=== PATIENT | female | born 1940 | race Caucasian/White ===

== ENCOUNTER 2023-11-26 22:05 | Inpatient (IN) | payer OTHER, SELFPAY ==
[2023-11-26] VITALS (7 sets, daily range): BP systolic 108–130; BP diastolic 74–106; BMI 32.2
[2023-11-26 18:15] LABS: % Immature Granulocytes 0.2 % (0-0.5); % Lymphocytes 34.2 % (20.5-51.1); % Monocytes 9.9 % (1.7-9.3); % Neutrophils 52.7 % (42.2-75.2); Absolute Basophils 0.1 10^3/uL (0-0.2); Absolute Eosinophils 0.2 10^3/uL (0-0.7); Absolute Lymphocytes 2.9 10^3/uL (1.2-3.4); Absolute Monocytes 0.8 10^3/uL (0.1-0.6); Absolute Neutrophils 4.4 10^3/uL (1.4-6.5); Hematocrit 38.9 % (37.0-47.0); Hemoglobin 13.6 g/dL (12.0-16.0); Mean Corpuscular Hgb 31.6 pg (27.0-31.0); Mean Corpuscular Volume 90.5 fL (81.0-99.0); Nucleated Red Blood Cells % 0 %; Platelet Count 324 10^3/uL (130-400); Red Cell Dist. Width 15.4 % (11.5-14.5); White Blood Cell Count 8.4 10^3/uL (4.8-10.8)
[2023-11-26 18:20] LABS: INR 0.92; PT 12.6 Sec (11.4-14.6)
[2023-11-26] MEDS: DUONEB 3 ML INH (18:22)
[2023-11-26 18:23] LABS: ALT (SGPT) 44 U/L (0-35); AST (SGOT) 40 U/L (14-36); Alkaline Phosphatase 117 U/L (38-126); Blood Urea Nitrogen 16 mg/dl (7-17); Calcium 9.9 mg/dl (8.4-10.2); Carbon Dioxide 27 mmol/L (22-30); Chloride 96 mmol/L (98-107); Estimated Creatinine Clearance 52 ml/min; Glucose 173 mg/dl (70-99); Potassium 3.5 mmol/L (3.5-5.1); Sodium 137 mmol/L (135-145); Total Bilirubin 0.9 mg/dl (0.2-1.3); Total Protein 6.8 g/dl (6.3-8.2); eGFR > 60.00
[2023-11-26 18:31] LABS: COVID-19 Antigen Negative (Negative)
[2023-11-26 18:34] LABS: NT-proBNP 2640 pg/ml; Troponin I 0.022 ng/ml
--- NOTE | 2023-11-26 19:16 | ED.GENMED ---
History of Present Illness
General
Chief Complaint: Breathing Problem
Source: patient, records and family
Exam Limitations: none
Time Seen by Provider: 11/26/23 17:39
Nursing documentation reviewed up to this point in time: agreed with
Travel History
Have you had any contact with someone who has COVID-19?: No
Do you have any symptoms of coronavirus? Fever > 100 degrees, chills, cough, shortness of breath, sore throat, loss of taste or smell, muscle aches, or headache?: Yes
Symptoms:: shortness of breath
History of Present Illness
History of Present Illness:
Patient is a 3-year-old female who presents to the emergency department with increasing shortness of breath over the past week. Patient felt like she needed O2 to breathe. Patient's blood pressure was elevated en route to the hospital. Patient
denies fever chills or coughing. Patient did have 1 episode couple days ago of chest pain in the sternal area. Patient's appetite is diminished. Patient's nauseous without vomiting, diarrhea, melena or hematochezia. Patient has had increasing
abdominal gas but denies any abdominal pain. Patient's unsure if her legs are becoming more swollen than normal. Patient denies any leg pain. Patient does have a history of atrial fibrillation, CAD, CHF as well as COPD/asthma.
Past History
Past History
ED Past Medical History: Arrthythmia (Atrial fib), Asthma, CAD, Cancer (Breast and colon CA), CHF, COPD, GERD, HTN, Hypercholesterolemia, NIDDM (Diet controlled), [place], Hypothyroidism and Other (Colitis, Anemia)
ED Past Surgical History: Appendectomy, Bowel resection (Colectomy for Colon CA), Cardiac (Pacemaker), Cholecystectomy, Orthopedic (Right and left total knee replacements), Tonsilectomy and Other (Left breast mastectomy)
Social History
Tobacco: Former smoker
Alcohol: None
Drug: None
Personal:
Living: alone
Employment: Retired
Family History
Family History: CAD and Other
Review of Systems
Review of Systems
All Other Systems: ROS reviewed and negative except as documented in HPI and ROS
Constitutional: Reports fatigue; Denies fever or chills
EENT: Reports no symptoms
Respiratory: Reports trouble breathing; Denies cough
Cardiac: Reports chest pain; Denies diaphoresis or palpitations
ABD/GI: Reports nausea and anorexia; Denies abdominal pain, vomiting, diarrhea, constipated, bloody stools or black stools
: Reports no symptoms
Musculoskeletal: Denies edema
Skin: Reports no symptoms
Neurological: Reports no symptoms
Hematologic/Lymphatic: Reports no symptoms
Phy Exam
Physical Exam
Physical Exam:
Physical Exam
General: mild distress, alert and appropriate, well nourished, well hydrated
HENT: Normocephalic, supple with no lymphadenopathy, no thyromegaly
Eyes: Clear sclera, conjuctiva without injection
Heart: Re irregular irregular rhythm and tachycardic rate. No S3, S4. No murmur. No NVD. Distant heart sounds
Lungs: mild respiratory distress, no stridor, lung sounds with scattered rales at the bases and equal bilaterally
Abdomen: Soft, nontender, no organomegaly, no CVA tenderness, BS good
Neuro: Alert and oriented x 3, CN II - XII intact, no motor focality
Skin: no rash
Psychiatric: well kept. interactive and cooperative
Extremities: No cyanosis, tenderness. Trace pretibial edema bilaterally
Scores
Heart Failure Risk
Heart Failure Risk Score: Yes
History of Stroke or TIA: No
History of intubation for respiratory distress: No
Heart rate on ED arrival >/= 110: Yes
SaO2 <90% on arrival on room air: No
HR >/=110 during 3min walk test (or too ill to perform test): Yes
ECG has acute ischemic changes: No
Urea >/=12mmol/L (BUN 33.6mg/dL): No
Serum CO2>/=35mmol/L: No
Troponin I or T elevated to [place] Level (0.4mg/dL): No
NT-proBNP >/=5,000ng/L (5,000pg/ml): No
HF Risk Score: 2
Admission Status: MEDIUM RISK 9.2% Consider observation or discharge to home with homecare & f/u visit to PCP/[employer] And [employer] Insulator Helper, or SNF for treatment
Course
Orders/Labs/Results
Orders:
Orders
11/26/23 17:16
EKG [Electrocardiogram (*1)] Urgent
Reason for Study: Shortness of Breath
11/26/23 17:17
EKG- Treatment ONCE
11/26/23 17:53
COVID-19 Antigen Urgent
Source: Nasal Swab
Complete Blood Count/With Diff Urgent
Comprehensive Metabolic Panel Urgent
NT-proBNP Urgent
Prothrombin Time Urgent
Troponin I Urgent
Comment: ADD ON
Influenza A+B Rapid Molecular Urgent
MORGAN Source: Nasal Swab
Specimen Description:
11/26/23 17:55
Add On- LAB Urgent
Tests Added?: Troponin
11/26/23 17:56
Ipratropium/Albuterol Sulfate [Duoneb] 3 ml INH R NOW ONE
CR Chest - 2 Views Urgent
Comment:
Reason For Exam: sob
11/26/23 19:31
Furosemide [Lasix] 60 mg IV NOW STA
Abnormal Lab Results
11/26/23
17:53
MCH 31.6 H pg
(27.0-31.0)
RDW 15.4 H %
(11.5-14.5)
Absolute Monos (auto) 0.8 H 10^3/uL
(0.1-0.6)
Monocytes % 9.9 H %
(1.7-9.3)
Chloride 96 L mmol/L
(98-107)
Glucose 173 H mg/dl
(70-99)
AST 40 H U/L
(14-36)
ALT 44 H U/L
(0-35)
11/26/23 17:53
11/26/23 17:53
Vital Signs
Initial and Last Documented VS:
Initial Vital Signs
Temp Pulse Resp BP Pulse Ox
98.1 F 110 24 115/92 97
11/26/23 17:20 11/26/23 17:20 11/26/23 17:20 11/26/23 17:20 11/26/23 17:20
Last Documented Vital Signs
Temp Pulse Resp BP Pulse Ox
98.1 F 101 29 115/92 97
11/26/23 17:20 11/26/23 19:45 11/26/23 19:45 11/26/23 17:20 11/26/23 19:45
*Radiology
Radiology exam reviewed: preliminary read by ED provider (cxr nad)
*Pulse Oximetry
Patient hypoxic: no
*EKG
Interpreted by ED Provider?: Yes
EKG Intrepretation Date: 11/26/23
EKG Intrepretation Time: 19:30
Interpretation: abnormal
Comparison EKG: changes noted
Heart Rate: 101
Rate: tachycardiac
Rhythm: a-fib
Norvell: left axis deviation
Interval: normal QT interval
QRS Pattern: left vent hypertrophy
Ischemia: non-specific ST changes
*Program Clerk Interpretation
Rate: tachycardiac
Interpretation: abnormal
Heart Rate: 106
Rhythm: a-fib
*Critical Care Note
Total Time (30-74mins, 75-104mins- exclusive of procedures): Not Applicable
Update Note
Update Note:
Patient's BNP is elevated for the patient. Patient's troponin is about her baseline. Likewise the patient's LFTs are her baseline. Will get the chest x-ray but the patient is being admitted for CHF. Patient did have some improvement with the
nebulizer.
ED Attending Note
-
Portions of this chart may have been created with voice recognition software.� Occasional wrong word or��sound alike� substitutions may have occurred due to the inherent limitations of voice recognition software.
Discharge Plan
Departure
Patient Disposition: Admit
Date of Disposition: 11/26/23
Time of Disposition: 19:33
Admit to doctor: hospitalist
Presentation/result/management discussed w/ accepting MD/DO: Hospitalist
Patient with high blood pressure during this ER visit?: No
Condition: Fair
Covid-19: Negative COVID-19
Discharge Problem:
CHF (congestive heart failure)
Prescriptions:
No Action
montelukast 10 MG tablet
10 mg PO HS
levothyroxine 100 MCG tablet
100 mcg PO DAILY
cetirizine 10 MG tablet
10 mg PO DAILY
albuterol sulfate 1 PUFF HFA aerosol inhaler
2 puff inhalation R Q4HPRN PRN (Reason: sob)
metoprolol succinate 25 mg Tablet Extended Release 24 Hr
12.5 mg PO DAILY
Eliquis 5 mg Tablet
5 mg PO BID
magnesium 250 mg Tablet
250 mg PO DAILY
ezetimibe [Zetia] 10 mg Tablet
10 mg PO QPM
cholecalciferol (vitamin D3) [Vitamin D3] 125 mcg (5,000 unit) Tablet
125 mcg PO DAILY
furosemide 40 mg tablet
40 mg PO DAILY
Patient Comments:
11/26/2023: Pt took an extra dose of Lasix 40mg today per PCP
midodrine 10 mg tablet
10 mg PO BID
oxycodone 5 mg capsule
5 mg PO Q6H PRN (Reason: moderate pain) Qty: 10 0RF
Patient Comments:
11/26/2023: last filled 10/11/23, 120 tabs for 30 days from [facility]
glipizide 5 mg Tablet
2.5 mg PO DAILY Qty: 30 0RF
pantoprazole [Protonix] 40 mg tablet,delayed release (DR/EC)
40 mg PO DAILY Qty: 30 0RF
Rx Instructions:
Please take 30 minutes prior to eating or drinking anything in the morning.
atorvastatin 80 mg tablet
80 mg PO QPM
B Complex Tablet Extended Release
1 tab PO DAILY
gabapentin 600 mg tablet
600 mg PO TID
zolpidem 5 mg tablet
5 mg PO HS PRN (Reason: sleep)
Patient Comments:
11/26/2023: last filled 09/11/23, 30 tabs for 30 days from [facility]
potassium
1 tab PO DAILY
acetaminophen [Pain Relief ES (acetaminophen)] 500 mg tablet
1,000 mg PO Q6H PRN (Reason: mild pain)
Referrals:
Jerrell Byrne MD [Family Provider] -
Interventions
Interventions:
*Risk Screen - Suicide Last Done: 11/26/23 17:21
*General Assessment Last Done: 11/26/23 17:21
*Neglect/Abuse Screening Last Done: 11/26/23 17:21
*ED COVID-19 Vaccine History Last Done: 11/26/23 17:21
ED- Cardiac Assessment Last Done: 11/26/23 17:21
ED- Pulmonary Assessment Last Done: 11/26/23 17:21
[2023-11-26] MEDS: LASIX 60 MG IV (19:47)
--- NOTE | 2023-11-26 21:10 | HPS.HSE ---
Family Physician
-
Family Physician: Jerrell Byrne
Chief Complaint
-
SoB
History of Present Illness
83F HX Paroxysmal Afib, chr HFrEF, mild , COPD/asthma, breast cancer seen at ER for evalaution of increasing shortness of breath over the past week and become dyspnic with minimal exertion. Patient's blood pressure was found to be elevated by
EMS today.
Medical History
Past Medical History
Past Medical History: Reports Other
Additional Past Medical History:
Chronic HFpEF
Recent admission for colon mass s/p R hemicolectomy 10/02/21 until 10/15/21
Anemia
Chronic Eliquis OAC
Paroxysmal Afib
CAD
COPD
Hyperlipidemia
Hypothyroidism
Asthma
Neuropathy
Hypertension
Breast cancer, status post left mastectomy
History of carotid endarterectomy
History of diabetes mellitus type 2
Hypokalemia
Past Surgical History: Reports Other
Additional Past Surgical History:
HX colon mass s/p R hemicolectomy 10/02/21 until 10/15/21
Left Radical Mastectomy
Appendectomy
Cholecystectomy
CABG
Bilateral CEA
PPM Placement
Social History
Tobacco: Former Smoker
Alcohol: None
Drug: None
Family History
Family History: Other (Patient cites strong family history of heart disease)
Allergies / Home Medications
Allergies reflects when Allergies were last updated in [facility].
Home Medications with original date entered in [facility]
Allergy/Medication List:
Allergies
Allergy/AdvReac Type Severity Reaction Status Date / Time
cefazolin [From Anc] Allergy Itching, Verified 11/19/23 13:40
redness,
hives
crab Allergy Welts, Verified 11/19/23 13:40
vomiting
feathers Allergy allergy Verified 11/19/23 13:40
tested
positive
grass pollen Allergy allergy Verified 11/19/23 13:40
tested
positive
AND FOR HAY
house dust Allergy allergy Verified 11/19/23 13:40
tested
positive
iodine Allergy Unknown Verified 11/19/23 13:40
mold Allergy allergy Verified 11/19/23 13:40
tested
positive
Sulfa (Sulfonamide Allergy Hives Verified 11/19/23 13:40
Antibiotics)
tree and shrub pollen Allergy allergy Verified 11/19/23 13:40
tested
positive
Home Medications
montelukast 10 mg tablet 10 mg PO HS Lung/breathing issues 07/17/17
levothyroxine 100 mcg tablet 100 mcg PO DAILY Thyroid 07/03/21
albuterol sulfate 90 mcg/actuation aerosol inhaler 2 puff inhalation R Q4HPRN PRN sob 10/02/21
cetirizine 10 mg tablet 10 mg PO DAILY Allergies 10/02/21
apixaban 5 mg tablet (Eliquis) 5 mg PO BID Blood clot prevention/tx 11/18/22
cholecalciferol (vitamin D3) 125 mcg (5,000 unit) tablet (Vitamin D3) 125 mcg PO DAILY Supplement 11/18/22
ezetimibe 10 mg tablet (Zetia) 10 mg PO QPM High cholesterol 11/18/22
magnesium 250 mg tablet 250 mg PO DAILY Supplement 11/18/22
metoprolol succinate 25 mg tablet,extended release 24 hr 12.5 mg PO DAILY Blood pressure 11/18/22
furosemide 40 mg tablet 40 mg PO DAILY Fluid retention/Swelling 12/09/22
midodrine 10 mg tablet 10 mg PO BID Blood pressure 12/09/22
glipizide 5 mg tablet 2.5 mg PO DAILY Diabetes #30 tabs 02/26/23
<del>oxycodone</del> <del>5</del> <del>mg</del> <del>capsule</del> <del>5</del> <del>mg</del> <del>PO</del> <del>Q6H</del> <del>PRN</del> <del>moderate</del> <del>pain</del> <del>#10</del> <del>caps</del> <del>02/26/23</del>
pantoprazole 40 mg tablet,delayed release (Protonix) 40 mg PO DAILY #30 tabs 11/19/23
acetaminophen 500 mg tablet (Pain Relief Extra Strength (acetaminophen)) 1,000 mg PO Q6H PRN mild pain 11/26/23
atorvastatin 80 mg tablet 80 mg PO QPM 11/26/23
gabapentin 600 mg tablet 600 mg PO TID 11/26/23
potassium 1 tab PO DAILY 11/26/23
vitamin B complex 1 tab PO DAILY 11/26/23
zolpidem 5 mg tablet 5 mg PO HS PRN sleep 11/26/23
Review of Systems
-
Constitutional: Reports No Symptoms
EENT: Reports No Symptoms
Respiratory: Reports No Symptoms, See HPI and Trouble Breathing
Cardiac: Reports See HPI
Abdomen/GI: Reports No Symptoms
: Reports No Symptoms
Musculoskeletal: Reports No Symptoms
Skin: Reports No Symptoms
Neurological: Reports No Symptoms
Endocrine: Reports No Symptoms
Hematologic/Lymphatic: Reports No Symptoms
Psych: Reports No Symptoms
Physical Exam
Vital Signs
Vital Signs
Temp Pulse Resp BP Pulse Ox
98.1 F 101 29 115/92 97
11/26/23 17:20 11/26/23 19:45 11/26/23 19:45 11/26/23 17:20 11/26/23 19:45
Physical Exam
General: Other (see below )
Laboratory Results
-
11/26/23 17:53
11/26/23 17:53
Laboratory Results
PT 12.6 Sec (11.4-14.6) 11/26/23 17:53
INR 0.92 11/26/23 17:53
Total Bilirubin 0.9 mg/dl (0.2-1.3) 11/26/23 17:53
AST 40 U/L (14-36) H 11/26/23 17:53
ALT 44 U/L (0-35) H 11/26/23 17:53
Alkaline Phosphatase 117 U/L (38-126) 11/26/23 17:53
Troponin I 0.022 ng/ml 11/26/23 17:53
Data Reviewed
-
Diagnostic Radiology: Report Reviewed by me
Medical Tests (Nuc Med, Echo, EKG etc): Report Reviewed by me
Old Records: Reviewed
Impression/Plan
-
Wt 82.1kg (07/10/23) ---> 82.4kg (11/26/22)
PE
Gen: mild distress,
HEENT: anicteric
Neck: supple
Lungs: mild respiratory distress, scattered rales at the bases and equal bilaterally
Cor: irregular irregular rhythm and tachycardic
Abdomen: Soft, nontender,
CLIENT EXPERIENCE CONSULTANT: Alert and oriented x 3
MS: no edema
Psych: well kept. interactive and cooperative
Data
nl CBC
Cl 96
nl Cr
nl GFR
BG 170s
AST 40
ALT 44
NEG TPNI
pro BNP 2600s - prior range 1000s- 5000s
NEG Flu A & B
NEG Covid
11/26/22 CXR
1. Mild cardiomegaly without radiographic evidence for acute pulmonary edema.
2. Previous CABG surgery.
3. Mild chronic elevation of the anterior left hemidiaphragm.
4. Mild subsegmental atelectasis and scarring in the right middle lobe and lingula.
5. Severe calcific atherosclerotic plaque in the thoracic and abdominal aorta.
6. Right-sided cardiac pacemaker in place.
7. Previous left mastectomy and left axillary lymph node dissection.
EKG report
ATRIAL FIBRILLATION WITH RAPID VENTRICULAR RESPONSE
LEFT VENTRICULAR HYPERTROPHY WITH REPOLARIZATION ABNORMALITY ( R in aVL ,
Sokolow-Sutton , [place] product )
ABNORMAL ECG
WHEN COMPARED WITH ECG OF 19-NOV-2023 13:35,
ATRIAL FIBRILLATION HAS REPLACED ELECTRONIC VENTRICULAR PACEMAKER
05/19/23 ECHO
LVEF 40-45
Mild MR
Mild -LVOT diameter of 2.1cm. calculated at 1.4cm2. Trace aortic regurgitation
05/28/21 ECHO
LVEF 50%
mild aortic stenosis, mean pressure gradient 14 mmHg, aortic valve area 1.1 cm�
Last admission 02/21/23 - 02/26/23
DC Dxs
1. Acute on chronic back pain.
2. Lumbar degenerative joint disease.
3. Left sciatica.
4. Podagra/gout flare.
5. Acute kidney injury.
ASSESSMENT & PLAN
Progressive Hawk with somewhat unremarkable Wt gain
chronic HFpEF - probably element of acute HF due to fast AF
Prx AF with RVR - marginal tachyarrhythmic - on vhronic Eliquis OAC
Permanent PPM
Mild aortic stenosis ( LVOT diameter of 2.1cm. Calculated at 1.4 sqcm)
- IV Lasix 40 daily
- [place] Metoprolol succinate to [address] of daily to improve rate control to improve cardiac output insetting of mild and FAF - hold if SBP < 100
- cont. chr Eliquis
- Daily weights I&O n BMP
- DCA card consult
CAD HX
s/p remote anterior SC with VF arrest with LAD angioplasty 07/17/97
CAD subsequent CABG x3 with 1996
HLD
- cont. Ezetimibe and Atorvastatin
Asthma/COPD HX
Respiratory status stable at this time - saturating well on room air
- cont. home montelukast and as needed albuterol
Chronic Hypotension HX
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
DMT2
Neuropathy
- cont glipizide
- on chronic Gabapentin
- add ISS low
Hypothyroidism
- check TSH
- cont home Synthroid
DVT Px: Eliquis
Code: DNR confirmed by patient in the presence of daughter
IP TLM
[2023-11-27] VITALS (9 sets, daily range): BP systolic 85–126; BP diastolic 55–94; PULSE 79–81; O2SAT 95; BMI 31.9; BMI 30.2
[2023-11-27] MEDS: SINGULAIR 10 MG PO ×2 (00:08→21:56)
[2023-11-27] MEDS: NEURONTIN 600 MG PO ×4 (00:08→21:55)
[2023-11-27 06:12] LABS: % Eosinophils 3.3 % (0-6); % Immature Granulocytes 0.3 % (0-0.5); % Lymphocytes 26.9 % (20.5-51.1); % Monocytes 10.6 % (1.7-9.3); % Neutrophils 57.9 % (42.2-75.2); Absolute Basophils 0.1 10^3/uL (0-0.2); Absolute Eosinophils 0.2 10^3/uL (0-0.7); Absolute Monocytes 0.8 10^3/uL (0.1-0.6); Absolute Neutrophils 4.3 10^3/uL (1.4-6.5); Hematocrit 38.6 % (37.0-47.0); Hemoglobin 13.5 g/dL (12.0-16.0); Mean Corpuscular Volume 91.5 fL (81.0-99.0); Nucleated Red Blood Cells % 0 %; Platelet Count 341 10^3/uL (130-400); Red Blood Cell Count 4.22 10^6/uL (4.20-5.40); Red Cell Dist. Width 15.3 % (11.5-14.5); White Blood Cell Count 7.4 10^3/uL (4.8-10.8)
[2023-11-27 06:32] LABS: ALT (SGPT) 40 U/L (0-35); AST (SGOT) 42 U/L (14-36); Albumin 3.8 g/dl (3.5-5.0); Alkaline Phosphatase 93 U/L (38-126); Blood Urea Nitrogen 16 mg/dl (7-17); Calcium 9.7 mg/dl (8.4-10.2); Carbon Dioxide 30 mmol/L (22-30); Chloride 95 mmol/L (98-107); Estimated Creatinine Clearance 52 ml/min; Glucose 146 mg/dl (70-99); Potassium 3.4 mmol/L (3.5-5.1); Sodium 137 mmol/L (135-145); Total Bilirubin 1.1 mg/dl (0.2-1.3); Total Protein 6.5 g/dl (6.3-8.2); eGFR > 60.00
--- NOTE | 2023-11-27 07:29 | W.PN.HOSP.TC ---
Today's Communication/Plan
-
see A/P
Assessment / Plan
Assessment / Plan
HPI: 83 yo F PMH Paroxysmal Afib, chronic HFrEF, mild , COPD/asthma, breast cancer; p/w shortness of breath over the past week and [place]. Patient's blood pressure was found to be elevated by EMS.
A/P:
# SOB/[place], likely acute on chronic HFpEF
# Paroxysmal AF with marginal RVR on admission
# s/p Permanent PPM
# Mild aortic stenosis
Check update echo
cont IV Lasix 40 daily, check daily weights
cont Metoprolol succinate increase to 12.[address] of daily, hold if SBP < 100
cont chronic Eliquis
DCA card consulted
# Mildly elevated LF likely due to hepatic congestion
cont to monitor LFT
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
# Hypokalemia
replete
# h/o CAD, remote h/o anterior NC with VF arrest with LAD angioplasty 07/17/97
# s/p subsequent CABG x3 with 1996
# HLD
Hold SOCIAL MEDIA COMMUNITY MANAGER statin/Zetia with elevated LFT
# h/o Asthma/COPD
Respiratory status stable at this time - saturating well on room air
cont home montelukast and as needed albuterol
# h/o Chronic Hypotension
cont SOCIAL MEDIA COMMUNITY MANAGER midodrine 10mg BID
# DMT2
# Neuropathy
cont glipizide
on chronic Gabapentin
added ISS low
# Hypothyroidism
Check TSH
Cont home Synthroid
DVT Px: SOCIAL MEDIA COMMUNITY MANAGER Eliquis
Code: DNR confirmed by patient in the presence of daughter
Anticipated Discharge: 24 - 48 hours
Subjective/Interval History
-
Date of Service: November 27, 2023
Objective Data
-
Labs:
Laboratory Results
11/27/23
05:44
WBC 7.4
Hgb 13.5
Hct 38.6
Plt Count 341
Sodium 137
Potassium 3.4 L
Chloride 95 L
Carbon Dioxide 30
BUN 16
Creatinine 0.8
Glucose 146 H
Calcium 9.7
Total Bilirubin 1.1
AST 42 H
ALT 40 H
Alkaline Phosphatase 93
Vital Signs:
Vital Signs
Temp Pulse Resp BP Pulse Ox
36.7 C 85 17 102/77 90
11/27/23 01:43 11/27/23 06:30 11/27/23 06:30 11/27/23 06:00 11/27/23 06:30
I&O
11/26/23 11/27/23 11/28/23
06:59 06:59 06:59
Intake Total 120 / 120
Output Total 400 / 400
Balance -280 / -280
Review of Systems
-
History Source: Patient
All other systems: Reviewed and negative
Physical Exam
-
General: Well Developed, Well Nourished, No Apparent Distress and Comfortable
Respiratory: Clear to Auscultation, Wheezes and Non Labored Respirations; Negative Accessory Resp Muscle Use
Cardiac: Regular Rhythm and S1/S2
GI: Soft and Nontender
Musculoskeletal: No Edema
Neuro: AO x 3
Psych: Calm and Intact Judgement/Insight
Data Reviewed
-
Labs: Labs Reviewed by me
[2023-11-27] MEDS: PROTONIX 40 MG PO (08:21)
[2023-11-27] MEDS: ELIQUIS 5 MG PO ×2 (08:21→21:41)
[2023-11-27] MEDS: VITAMIN D3 (cholecalciferol) 5000 UNITS PO (08:21)
[2023-11-27] MEDS: ProAmatine 10 MG PO ×2 (08:23→21:41)
[2023-11-27] MEDS: LASIX 40 MG IV ×2 (08:24→17:07)
[2023-11-27] MEDS: GLUCOTROL 2.5 MG PO (08:44)
[2023-11-27] MEDS: MAG-TAB SR 84 MG PO (08:44)
[2023-11-27] MEDS: B COMPLEX w/VITAMIN C 1 CAPLET PO (08:44)
[2023-11-27] MEDS: KCL 40 MEQ PO (08:44)
[2023-11-27] MEDS: ZYRTEC 10 MG PO (08:45)
[2023-11-27] MEDS: LOPRESSOR 12.5 MG PO ×2 (08:45→22:00)
[2023-11-27] MEDS: NOVOLOG FLEXPEN-LOW RESISTANCE SC ×3 (08:47→17:58)
[2023-11-27] MEDS: SYNTHROID 100 MCG PO (08:49)
[2023-11-27 09:48] LABS: Glycohemoglobin (HgbA1c) 8.3 % (4.0-5.6)
--- NOTE | 2023-11-27 10:01 | CON.CAR ---
Addendum entered and electronically signed by Ajit Qiu MD 11/27/23 10:49:
I saw and examined the patient.
The Investigator's note was reviewed and I agree with the note.
Comment:
GEN: No distress, awake, Ox3
HEENT: supple, anicteric, mmm
LUNGS:
CV: Reg, S1/S2, 1/6 syst LSB, no murmur
ABD: soft, BS+, NT/ND
EXT: No edema
NEURO: Gross non-focal
SKIN: No rash
plan:
She has a past medical history of chronic heart failure with mildly reduced ejection fraction, coronary artery status post CABG, persistent A-fib, pacemaker, COPD, and diabetes who presents with 2 weeks of progressive weight gain, shortness of
breath, orthopnea, and dyspnea on exertion. Her weight is up 5 to 10 pounds from last visit. A plan was made for atrial fibrillation for rate control at last office visit. She denies any palpitations. Her blood pressure has been marginal in the
past requiring midodrine and low-dose Toprol.
She now has acute on chronic heart failure with mildly reduced ejection fraction.
Start Lasix 40 mg IV twice daily. Creatinine is overall stable at 0.8.
Her A-fib overall appears rate controlled. Would continue low-dose Toprol and midodrine. Agree with plan for rate control strategy at this time. Continue Eliquis.
Follow kidney function/CHF education
Original Note:
Consultation
Consultation Request
Date/Time Consultation Requested: 11/26/2023 at 2206
Date/Time Consultation Performed: 11/27/2023 at 0930
Requesting Provider: Dr. Sanches
Performing Provider: Dr. Qiu
Reason for Consultation: CHF
Medical History
-
History of Present Illness:
HPI: Tori is an 83 year old female with PMH of chronic HFmrEF, persistent atrial fibrillation, CAD, , MR, SSS s/p PPM, COPD, HLD, HTN, hypothyroidism, asthma, DM with diabetic neuropathy, and prior breast cancer who presented to [facility] for
evaluation of increased SOB over the past few weeks. She reports she has been compliant with diet and denies any increased sodium or fluid intake. She reports she weighs herself on a fairly regular basis and denies noting any weight gain or LE
edema, however weight in ER is up approximately 5-10lbs from her usual dry weight of 170-175lbs. She denies any chest pain, palpitations, dizziness, or lightheadedness. She reports her shortness of breath has been worsening to the point where she
was constantly short of breath, even at rest and with minimal exertion. In the ER, she was noted to have evidence of acute heart failure on exam and proBNP was elevated at 2640. She was started on IV lasix and her breathing has improved. She reports
good urine output overnight.
PMH:
Chronic HFmrEF
Persistent Afib
Chronic Eliquis OAC
CAD
s/p remote anterior [place] with VF arrest with LAD angioplasty 07/17/97
CAD subsequent CABG x3 with 1996
Mild
Mild MR
SSS s/p PPM
COPD
Hyperlipidemia
Hypothyroidism
Asthma
Neuropathy
Hypertension
Breast cancer, status post left mastectomy
h/o carotid endarterectomy
h/o diabetes mellitus type 2
h/o colon mass s/p R hemicolectomy 10/02/21 until 10/15/21
Past Medical History
Past Medical History: Other (In HPI)
Past Surgical History: Appendectomy, Cardiac (LAD angioplasty 1996, CABG x3 1996), Cholecystectomy and Other (b/l TKA, carotid endarterectomy, L mastectomy, b/l cataract surgery, R hemicolectomy)
Social History
Tobacco: Former Smoker
Alcohol: None
Drug: None
Personal:
Living: Alone
Employment: Retired
Family History
Family History: CAD
Allergies / Home Medications
Allergy/AdvReac Type Severity Reaction Status Date / Time
cefazolin [From Anc] Allergy Itching, Verified 11/19/23 13:40
redness,
hives
crab Allergy Welts, Verified 11/19/23 13:40
vomiting
feathers Allergy allergy Verified 11/19/23 13:40
tested
positive
grass pollen Allergy allergy Verified 11/19/23 13:40
tested
positive
AND FOR HAY
house dust Allergy allergy Verified 11/19/23 13:40
tested
positive
iodine Allergy Unknown Verified 11/19/23 13:40
mold Allergy allergy Verified 11/19/23 13:40
tested
positive
Sulfa (Sulfonamide Allergy Hives Verified 11/19/23 13:40
Antibiotics)
tree and shrub pollen Allergy allergy Verified 11/19/23 13:40
tested
positive
Medication Instructions Recorded Confirmed Type
montelukast 10 mg tablet 10 mg PO HS Lung/breathing issues 07/17/17 11/26/23 History
levothyroxine 100 mcg tablet 100 mcg PO DAILY Thyroid 07/03/21 11/26/23 History
albuterol sulfate 90 mcg/actuation 2 puff inhalation R Q4HPRN PRN sob 10/02/21 11/26/23 History
aerosol inhaler
cetirizine 10 mg tablet 10 mg PO DAILY Allergies 10/02/21 11/26/23 History
apixaban 5 mg tablet (Eliquis) 5 mg PO BID Blood clot 11/18/22 11/26/23 History
prevention/tx
cholecalciferol (vitamin D3) 125 125 mcg PO DAILY Supplement 11/18/22 11/26/23 History
mcg (5,000 unit) tablet (Vitamin
D3)
ezetimibe 10 mg tablet (Zetia) 10 mg PO QPM High cholesterol 11/18/22 11/26/23 History
magnesium 250 mg tablet 250 mg PO DAILY Supplement 11/18/22 11/26/23 History
metoprolol succinate 25 mg 12.5 mg PO DAILY Blood pressure 11/18/22 11/26/23 History
tablet,extended release 24 hr
furosemide 40 mg tablet 40 mg PO DAILY Fluid 12/09/22 11/26/23 History
retention/Swelling
midodrine 10 mg tablet 10 mg PO BID Blood pressure 12/09/22 11/26/23 History
glipizide 5 mg tablet 2.5 mg PO DAILY Diabetes #30 tabs 02/26/23 11/26/23 Rx
oxycodone 5 mg capsule 5 mg PO Q6H PRN moderate pain #10 02/26/23 11/26/23 Rx
caps
pantoprazole 40 mg tablet,delayed 40 mg PO DAILY #30 tabs 11/19/23 11/26/23 Rx
release (Protonix)
acetaminophen 500 mg tablet (Pain 1,000 mg PO Q6H PRN mild pain 11/26/23 11/26/23 History
Relief Extra Strength
(acetaminophen))
atorvastatin 80 mg tablet 80 mg PO QPM 11/26/23 11/26/23 History
gabapentin 600 mg tablet 600 mg PO TID 11/26/23 11/26/23 History
potassium 1 tab PO DAILY 11/26/23 11/26/23 History
vitamin B complex 1 tab PO DAILY 11/26/23 11/26/23 History
zolpidem 5 mg tablet 5 mg PO HS PRN sleep 11/26/23 11/26/23 History
Review of Systems
-
History Source: Patient
All other systems: Negative unless noted
Physical Exam
Vital Signs
Temp Pulse Resp BP Pulse Ox
98.0 F 92 17 117/72 90
11/27/23 07:00 11/27/23 08:45 11/27/23 06:30 11/27/23 08:45 11/27/23 06:30
Lab Results
11/27/23 05:44
11/27/23 05:44
Troponin I 0.022 ng/ml 11/26/23 17:53
Ofl-M-Bnpvyabqbor Pept 2640 pg/ml 11/26/23 17:53
Physical Exam
General: Well Developed, Well Nourished and No Apparent Distress
HEENT: Normocephalic, Anicteric and Moist Mucous Membranes
Respiratory: Crackles and Non Labored Respirations
Cardiac: S1/S2, Irregular Rhythm and Murmur
Musculoskeletal: No Clubbing, No Cyanosis and Edema
Skin: Warm and Dry
Neuro: AO x 3 and Nonfocal/Grossly Intact
Psych: Calm
Impression / Plan
-
PCP: Dr. Byrne
Buffet Server: Dr. Hansen
Impression:
Presented with SOB
Acute on chronic HFmrEF
Hypokalemia
Persistent Afib
Chronic Eliquis OAC
CAD
s/p remote anterior [place] with VF arrest with LAD angioplasty 07/17/97
CAD subsequent CABG x3 with 1996
Mild
Mild MR
SSS s/p PPM
COPD
Hyperlipidemia
Hypothyroidism
Asthma
Neuropathy
Hypertension
Breast cancer, status post left mastectomy
h/o carotid endarterectomy
h/o diabetes mellitus type 2
h/o colon mass s/p R hemicolectomy 10/02/21 until 10/15/21
Echo 05/28/21: Ejection fraction 50%, mild aortic stenosis, mean pressure gradient 14 mmHg, aortic valve area 1.1 cm�
Echo 05/19/2023: EF 40-45%, mild cLVH, mid-apical inferoseptum/inferior segments are hypokinetic, mild MR, mild with peak/mean gradients 17/9 mmHg, LILY 1.4 cm2, trace AI, mild TR, estimated PAP 20-25 mmHg
Plan:
-Presented with worsening SOB over the past week or so. Found to be in acute heart failure.
-Diuresing with IV lasix 40mg daily. Creat stable at 0.8. Weight 180lbs is reportedly 5-10lbs up from her usual dry weight.
-Continue to follow daily weights, I&Os.
-CHF education.
-Echo 05/2023 with EF 40-45% with mild MR and noted.
-Continue metoprolol 12.5mg BID.
-She does have history of hypotension and is maintained on midodrine 10mg BID. BP stable. Hypotension has limited medical therapy of CM.
-Remains in persistent afib by review of EKG and on telemetry. HR control fair with HRs generally in the 80s-90s.
-Continue Eliquis 5mg BID for anticoagulation.
-K 3.4, agree w/ repletion. Mag and TSH pending.
-HgbA1c 8.3%, defer management to primary service.
HPI: Tori is an 83 year old female with PMH of chronic HFmrEF, persistent atrial fibrillation, CAD, , MR, SSS s/p PPM, COPD, HLD, HTN, hypothyroidism, asthma, DM with diabetic neuropathy, and prior breast cancer who presented to [facility] for
evaluation of increased SOB over the past few weeks. She reports she has been compliant with diet and denies any increased sodium or fluid intake. She reports she weighs herself on a fairly regular basis and denies noting any weight gain or LE
edema, however weight in ER is up approximately 5-10lbs from her usual dry weight of 170-175lbs. She denies any chest pain, palpitations, dizziness, or lightheadedness. She reports her shortness of breath has been worsening to the point where she
was constantly short of breath, even at rest and with minimal exertion. In the ER, she was noted to have evidence of acute heart failure on exam and proBNP was elevated at 2640. She was started on IV lasix and her breathing has improved. She reports
good urine output overnight.
Data Reviewed
-
EKG: Tracing Personally Visualized and interpreted
Radiology: Report Reviewed by me
Labs: Labs Reviewed by me
Old Records: Reviewed
[2023-11-27 11:04] LABS: Magnesium 1.7 mg/dl (1.6-2.3)
[2023-11-27 12:13] LABS: TSH Reflex To Free T4 5.03 uIU/ml (0.47-4.68)
[2023-11-27 12:58] LABS: Free T4 1.32 ng/dl (0.78-2.19)
[2023-11-27 13:32] LABS: Glucose - Point of Care 94 mg/dl (70-99)
[2023-11-27 17:56] LABS: Glucose - Point of Care 144 mg/dl (70-99)
--- NOTE | 2023-11-27 18:29 | PTCARENOTE ---
patient arrived to [facility] from ED at approximately 1645. pt alert and oriented x3. pt denies any pain. no complaints offered at this time. continue to monitor
[2023-11-27 21:07] LABS: Glucose - Point of Care 128 mg/dl (70-99)
[2023-11-28] MEDS: ROXICODONE 5 MG PO (00:06)
[2023-11-28 03:00] VITALS: BP 106/72
[2023-11-28 06:00] VITALS: BMI 29.8
[2023-11-28] MEDS: SYNTHROID 100 MCG PO (06:27)
[2023-11-28 07:30] VITALS: BP 132/99
[2023-11-28 07:44] LABS: Glucose - Point of Care 109 mg/dl (70-99)
[2023-11-28] MEDS: NOVOLOG FLEXPEN-LOW RESISTANCE SC ×3 (08:47→17:00)
[2023-11-28] MEDS: VITAMIN D3 (cholecalciferol) 5000 UNITS PO (08:49)
[2023-11-28] MEDS: ZYRTEC 10 MG PO (08:54)
[2023-11-28] MEDS: MAG-TAB SR 84 MG PO (08:55)
[2023-11-28] MEDS: NEURONTIN 600 MG PO (08:55)
[2023-11-28] MEDS: GLUCOTROL 2.5 MG PO (08:55)
[2023-11-28] MEDS: PROTONIX 40 MG PO (08:55)
[2023-11-28 08:57] LABS: % Basophils 1.2 % (0-2); % Immature Granulocytes 0.3 % (0-0.5); % Lymphocytes 32.6 % (20.5-51.1); % Monocytes 11.1 % (1.7-9.3); % Neutrophils 48.8 % (42.2-75.2); Absolute Basophils 0.1 10^3/uL (0-0.2); Absolute Eosinophils 0.4 10^3/uL (0-0.7); Absolute Lymphocytes 2.4 10^3/uL (1.2-3.4); Absolute Monocytes 0.8 10^3/uL (0.1-0.6); Absolute Neutrophils 3.6 10^3/uL (1.4-6.5); Hematocrit 39.9 % (37.0-47.0); Hemoglobin 13.7 g/dL (12.0-16.0); Mean Corp Hgb Conc. 34.3 g/dL (33.0-37.0); Mean Corpuscular Volume 93.2 fL (81.0-99.0); Mean Platelet Volume 9.4 fL (7.4-10.4); Nucleated Red Blood Cells % 0 %; Platelet Count 320 10^3/uL (130-400); Red Blood Cell Count 4.28 10^6/uL (4.20-5.40); Red Cell Dist. Width 15.3 % (11.5-14.5); White Blood Cell Count 7.4 10^3/uL (4.8-10.8)
[2023-11-28] MEDS: ELIQUIS 5 MG PO ×2 (08:59→21:52)
[2023-11-28] MEDS: B COMPLEX w/VITAMIN C 1 CAPLET PO (08:59)
[2023-11-28] MEDS: LOPRESSOR 12.5 MG PO ×2 (08:59→21:56)
[2023-11-28] MEDS: ProAmatine 10 MG PO ×2 (09:00→21:52)
[2023-11-28] MEDS: LASIX 40 MG IV (09:00)
[2023-11-28 09:29] LABS: ALT (SGPT) 35 U/L (0-35); AST (SGOT) 44 U/L (14-36); Albumin 3.6 g/dl (3.5-5.0); Alkaline Phosphatase 83 U/L (38-126); Blood Urea Nitrogen 48 mg/dl (7-17); Calcium 9.4 mg/dl (8.4-10.2); Carbon Dioxide 27 mmol/L (22-30); Chloride 96 mmol/L (98-107); Direct Bilirubin 0.5 mg/dl (0.0-0.4); Estimated Creatinine Clearance 31 ml/min; Glucose 128 mg/dl (70-99); Potassium 3.9 mmol/L (3.5-5.1); Sodium 136 mmol/L (135-145); Total Bilirubin 0.8 mg/dl (0.2-1.3); Total Protein 6.2 g/dl (6.3-8.2)
[2023-11-28 11:40] VITALS: BP 88/53
[2023-11-28 12:16] LABS: Glucose - Point of Care 106 mg/dl (70-99)
--- NOTE | 2023-11-28 12:19 | W.PN.HOSP.TC ---
Addendum entered and electronically signed by Audrey Sanches MD 11/28/23 16:20:
# Persistent atrial fibrillation
# DIANA
Original Note:
Today's Communication/Plan
-
IV Lasix 40 BID on hold with increase in SCr
eventual SNF
Assessment / Plan
Assessment / Plan
HPI: 83 yo F PMH Paroxysmal Afib, chronic HFrEF, mild , COPD/asthma, breast cancer; p/w shortness of breath over the past week and HANCOCK. Patient's blood pressure was found to be elevated by EMS.
A/P:
# SOB/HANCOCK, due to acute on chronic HFpEF
# Paroxysmal AF with marginal RVR on admission
# s/p Permanent PPM
# Mild aortic stenosis
Updated echo this admission 11/17: EF 40-45%. Mid-apical inferospetum/inferior segments are hypokientic. Compared to previous echo from May 2021, EF was 50% and is now 40-45% with wall motion abnormality.
Cont IV Lasix, increased to 40 BID by card, hold for now with increase in SCr
Cont monitor daily weights
cont Metoprolol succinate increase to 12.[address] of daily, hold if SBP < 100
cont chronic Eliquis
DCA card on board
# Mildly elevated LF likely due to hepatic congestion
cont to monitor LFT , improving slowly
Hold SHIPPING AND RECEIVING OPERATOR statin/Zetia
# Hypokalemia
repleted
# h/o CAD, remote h/o anterior [place] with VF arrest with LAD angioplasty 07/17/97
# s/p subsequent CABG x3 with 1996
# HLD
Hold SHIPPING AND RECEIVING OPERATOR statin/Zetia with elevated LFT
# h/o Asthma/COPD
Respiratory status stable at this time - saturating well on room air
cont home montelukast and as needed albuterol
# h/o Chronic Hypotension
cont SHIPPING AND RECEIVING OPERATOR midodrine 10mg BID
# DMT2
# Neuropathy
cont glipizide
on chronic Gabapentin
added ISS low
# Hypothyroidism
Check TSH
Cont home Synthroid
DVT Px: SHIPPING AND RECEIVING OPERATOR Eliquis
Code: DNR confirmed by patient in the presence of daughter
Dispo: PT OT recc SNF
Anticipated Discharge: 24 - 48 hours
Subjective/Interval History
-
Date of Service: November 28, 2023
Objective Data
-
Labs:
Laboratory Results
11/28/23
06:56
WBC 7.4
Hgb 13.7
Hct 39.9
Plt Count 320
Sodium 136
Potassium 3.9
Chloride 96 L
Carbon Dioxide 27
BUN 48 H
Creatinine 1.3 H
Glucose 128 H
Calcium 9.4
Total Bilirubin 0.8
AST 44 H
ALT 35
Alkaline Phosphatase 83
Vital Signs:
Vital Signs
Temp Pulse Resp BP Pulse Ox
36.3 C 71 18 88/53 96
11/28/23 11:40 11/28/23 11:40 11/28/23 11:40 11/28/23 11:40 11/28/23 11:40
I&O
11/27/23 11/28/23 11/29/23
06:59 06:59 06:59
Intake Total 120 / 120 560 / 560
Output Total 400 / 400
Balance -280 / -280 560 / 560
--- NOTE | 2023-11-28 12:54 | PN.CDI ---
CDI
- -
CDI:
Physician Documentation Request
Admit Date: 11/26/23 22:05
Dear Doctor Verónica,
Clinical Indicators:
Patient admitted with acute on chronic HFmrEF.
11/27 Cardiology consult, Persistent atrial fibrillation documented.
11/28 PN, Paroxysmal AF documented.
Due to potential conflicting documentation, please clarify the type of atrial fibrillation:
Paroxysmal atrial fibrillation - terminates spontaneously or with intervention within 7 days of onset
Persistent atrial fibrillation - episodes of continuous AF that last more than 7 days and do not self-terminate
Permanent atrial fibrillation - when a decision has been made to accept the presence of AF and there is no further attempt to restore or maintain sinus rhythm
Other - please specify
Unable to further specify
Use of terms such as suspected, likely, concern for, or probable (associated with a specific diagnosis that is being evaluated, monitored, or treated as if it exists) are acceptable and can be coded in the inpatient setting, when documented at the
time of discharge.
Thank you,
RADHA Oshea RN
CDI Specialist
available via tiger text
Please use your independent medical judgment in providing your response.
--- NOTE | 2023-11-28 13:08 | W.PN.CARDCBS ---
Addendum entered and electronically signed by Gary Hansen MD 11/28/23 16:18:
I saw and examined the patient.
The HUMAN SERVICE TECHNICIAN or PA's note was reviewed and I agree with the note.
Comment: General: Well developed, well nourished in NAD.
Neck: Supple, no JVD, HJR, carotids +2 B/L, no bruits bilaterally.
Heart: Non displaced PMI, Irreg, no murmurs, No S3, S4, no rubs.
Lungs: Clear to auscultation bilaterally, no wheeze, rhonchi, rubs bilaterally,
normal expiratory phase.
Extremities: No clubbing, cyanosis or edema bilaterally.
Neuro: Grossly nonfocal, awake, alert and oriented x3.
She feels poorly today. May be due to overdiuresis. Will hold diuretics and assess response
Original Note:
Today's Communication / Plan
-
Hold lasix
Reassess BMP in AM
Consider transitioning to PO lasix 40mg daily if stable.
Follow up arranged.
Impression / Plan
-
PCP: Dr. Byrne
Bow Rehairer: Dr. Hansen
Impression:
Presented with SOB
Acute on chronic HFmrEF
Hypokalemia
Persistent Afib
Chronic Eliquis OAC
CAD
s/p remote anterior [place] with VF arrest with LAD angioplasty 07/17/97
CAD subsequent CABG x3 with 1996
Mild
Mild MR
SSS s/p PPM
COPD
Hyperlipidemia
Hypothyroidism
Asthma
Neuropathy
Hypertension
Breast cancer, status post left mastectomy
h/o carotid endarterectomy
h/o diabetes mellitus type 2
h/o colon mass s/p R hemicolectomy 10/02/21 until 10/15/21
Echo 05/28/21: Ejection fraction 50%, mild aortic stenosis, mean pressure gradient 14 mmHg, aortic valve area 1.1 cm�
Echo 05/19/2023: EF 40-45%, mild cLVH, mid-apical inferoseptum/inferior segments are hypokinetic, mild MR, mild with peak/mean gradients 17/9 mmHg, LILY 1.4 cm2, trace AI, mild TR, estimated PAP 20-25 mmHg
Echo 11/27/2023: EF 40 to 45%, apical, inferior, and inferoseptal hypokinesis noted, mild MR, mild with peak/mean gradients 15/9 mmHg, mild TR, estimated PAP 21 to 26 mmHg
Plan:
-Presented with worsening SOB. Found to be in acute heart failure.
-Diuresed with IV Lasix 40 mg twice daily. Creat bumped to 1.3. Weight down to 168 lbs which is below prior dry weight of 170lbs
-Agree w/ holding lasix for now. Reassess renal function in AM and if stable/improving, would restart PO lasix 40mg daily.
-EF stable at 40 to 45% by echo 11/27/2023.
-She has history of hypotension and is maintained on midodrine 10 mg twice daily. Her BP is stable. Hypotension has limited medical therapy for cardiomyopathy. Will continue on Toprol 12.5 mg twice daily.
-Remains in persistent A-fib. Heart rate stable. Continue Eliquis 5 mg twice daily.
-Follow-up arranged.
HPI: Tori is an 83 year old female with PMH of chronic HFmrEF, persistent atrial fibrillation, CAD, , MR, SSS s/p PPM, COPD, HLD, HTN, hypothyroidism, asthma, DM with diabetic neuropathy, and prior breast cancer who presented to [facility] for
evaluation of increased SOB over the past few weeks. She reports she has been compliant with diet and denies any increased sodium or fluid intake. She reports she weighs herself on a fairly regular basis and denies noting any weight gain or LE
edema, however weight in ER is up approximately 5-10lbs from her usual dry weight of 170-175lbs. She denies any chest pain, palpitations, dizziness, or lightheadedness. She reports her shortness of breath has been worsening to the point where she
was constantly short of breath, even at rest and with minimal exertion. In the ER, she was noted to have evidence of acute heart failure on exam and proBNP was elevated at 2640. She was started on IV lasix and her breathing has improved. She reports
good urine output overnight.
Progress Note - Bow Rehairer
Subjective
Date of Service: November 28, 2023
Feels tired and somewhat nauseated today.
Objective
Labs:
11/28/23 06:56
11/28/23 06:56
Labs
Hgb 13.7 g/dL (12.0-16.0) 11/28/23 06:56
Hct 39.9 % (37.0-47.0) 11/28/23 06:56
Plt Count 320 10^3/uL (130-400) 11/28/23 06:56
PT 12.6 Sec (11.4-14.6) 11/26/23 17:53
INR 0.92 11/26/23 17:53
Sodium 136 mmol/L (135-145) 11/28/23 06:56
Potassium 3.9 mmol/L (3.5-5.1) 11/28/23 06:56
BUN 48 mg/dl (7-17) H 11/28/23 06:56
Creatinine 1.3 mg/dL (0.6-1.0) H 11/28/23 06:56
Glucose 128 mg/dl (70-99) H 11/28/23 06:56
Troponins
11/26/23
17:53
Troponin I 0.022
Vital Signs and I&O:
Vital Signs
Temp Pulse Resp BP Pulse Ox
97.3 F 71 18 88/53 96
11/28/23 11:40 11/28/23 11:40 11/28/23 11:40 11/28/23 11:40 01/26/24 11:40
Vital Signs
Temp Pulse Resp BP Pulse Ox
97.3 F 71 18 88/53 96
11/28/23 11:40 11/28/23 11:40 11/28/23 11:40 11/28/23 11:40 11/28/23 11:40
Intake & Output
11/26/23 11/27/23 11/28/23 11/29/23
06:59 06:59 06:59 06:59
Intake Total 120 / 120 560 / 560
Output Total 400 / 400
Balance -280 / -280 560 / 560
Physical Exam
Physical Exam
GEN: No distress, awake, alert, oriented x3
HEENT: supple, anicteric, mmm
LUNGS: CTA b/l, no wheezes, rales
CV: Reg, S1/S2, 1/6 syst LSB
ABD: soft, BS+, NT/ND
EXT: No clubbing, cyanosis, or edema
NEURO: Gross non-focal
SKIN: Warm, dry, no rash
[2023-11-28 13:42] VITALS: BP 92/65; BP 98/65; PULSE 75; O2SAT 95
--- NOTE | 2023-11-28 15:11 | PN.CDI ---
CDI
- -
CDI:
Physician Documentation Request
Admit Date: 11/26/23 22:05
Dear Doctor Verónica,
Clinical Indicators:
Patient admitted with acute on chronic HFmrEF.
11/28 PN, 'Cont IV Lasix, increased to 40 BID by card, hold for now with increase in SCr.'
CR/GFR trend:
11/26/23 11/27/23 11/28/23
17:53 05:44 06:56
Creatinine 0.8 0.8 1.3
eGFR > 60.00 >60.00 40.30
Please clarify which of the following accurately represents the patient's renal status:
DIANA
Rise in creatinine only
Other, please specify
Criteria for DIANA*
1 Increase in serum creatinine by > or = to 0.3 mg/dL (> or = to 26.5 micromol/L) within 48 hours, OR
2 Increase in serum creatinine to > or = to 1.5 times baseline, which is known or presumed to have occurred within 7 days, OR
3 Urine volume < 0.5 nL/kg/hour for six hours
Use of terms such as suspected, likely, concern for, or probable (associated with a specific diagnosis that is being evaluated, monitored, or treated as if it exists) are acceptable and can be coded in the inpatient setting, when documented at the
time of discharge.
Thank you,
RADHA Oshea RN
CDI Specialist
available via tiger text
Please use your independent medical judgment in providing your response.
*Source: Kidney Disease: Improving Global Outcomes (KDIGO) 2012
--- NOTE | 2023-11-28 16:31 | CM ---
slot shift manager reviewed patient's chart and met with patient and patient lives alone in a apartment. Patient is independent with adl's and uses a walker with ambulation. Patient does not drive, per patient she plans on moving into assisted living on
January 01, patient has a prescription plan and [facility] uses [facility].
PCP: Dr. Byrne
Plan; Home no needs.
[2023-11-28 16:57] LABS: Glucose - Point of Care 111 mg/dl (70-99)
[2023-11-28] MEDS: NEURONTIN 300 MG PO ×2 (17:01→21:53)
[2023-11-28 19:11] VITALS: BP 112/69
[2023-11-28] MEDS: SINGULAIR 10 MG PO (21:53)
[2023-11-28 22:08] LABS: Glucose - Point of Care 151 mg/dl (70-99)
[2023-11-28 23:00] VITALS: BP 101/80
[2023-11-29 03:15] VITALS: BP 92/62
[2023-11-29 05:44] VITALS: BMI 30.2
[2023-11-29] MEDS: SYNTHROID 100 MCG PO (05:57)
[2023-11-29 06:41] LABS: % Basophils 1.2 % (0-2); % Immature Granulocytes 0.3 % (0-0.5); % Lymphocytes 26.3 % (20.5-51.1); % Monocytes 11.2 % (1.7-9.3); Absolute Basophils 0.1 10^3/uL (0-0.2); Absolute Eosinophils 0.4 10^3/uL (0-0.7); Absolute Lymphocytes 1.9 10^3/uL (1.2-3.4); Absolute Monocytes 0.8 10^3/uL (0.1-0.6); Hematocrit 42.2 % (37.0-47.0); Hemoglobin 14.4 g/dL (12.0-16.0); Mean Corp Hgb Conc. 34.1 g/dL (33.0-37.0); Mean Corpuscular Hgb 32.2 pg (27.0-31.0); Mean Corpuscular Volume 94.4 fL (81.0-99.0); Mean Platelet Volume 9.3 fL (7.4-10.4); Nucleated Red Blood Cells % 0 %; Platelet Count 304 10^3/uL (130-400); Red Blood Cell Count 4.47 10^6/uL (4.20-5.40); Red Cell Dist. Width 15.2 % (11.5-14.5); White Blood Cell Count 7.2 10^3/uL (4.8-10.8)
[2023-11-29 07:00] VITALS: BP 97/71
[2023-11-29 07:13] LABS: ALT (SGPT) 33 U/L (0-35); AST (SGOT) 47 U/L (14-36); Albumin 3.7 g/dl (3.5-5.0); Alkaline Phosphatase 83 U/L (38-126); Blood Urea Nitrogen 57 mg/dl (7-17); Calcium 9.6 mg/dl (8.4-10.2); Carbon Dioxide 27 mmol/L (22-30); Chloride 99 mmol/L (98-107); Direct Bilirubin 0.5 mg/dl (0.0-0.4); Estimated Creatinine Clearance 37 ml/min; Glucose 129 mg/dl (70-99); Potassium 4.4 mmol/L (3.5-5.1); Sodium 135 mmol/L (135-145); Total Protein 6.4 g/dl (6.3-8.2); eGFR 49.24
[2023-11-29 07:49] LABS: Glucose - Point of Care 120 mg/dl (70-99)
[2023-11-29] MEDS: NOVOLOG FLEXPEN-LOW RESISTANCE SC ×2 (08:12→16:57)
[2023-11-29] MEDS: ProAmatine 10 MG PO ×2 (09:23→21:52)
[2023-11-29] MEDS: GLUCOTROL 2.5 MG PO (09:24)
[2023-11-29] MEDS: MAG-TAB SR 84 MG PO (09:24)
[2023-11-29] MEDS: B COMPLEX w/VITAMIN C 1 CAPLET PO (09:24)
[2023-11-29] MEDS: LOPRESSOR 12.5 MG PO (09:24)
[2023-11-29] MEDS: NEURONTIN 300 MG PO ×3 (09:24→21:53)
[2023-11-29] MEDS: PROTONIX 40 MG PO (09:25)
[2023-11-29] MEDS: VITAMIN D3 (cholecalciferol) 5000 UNITS PO (09:25)
[2023-11-29] MEDS: ELIQUIS 5 MG PO ×2 (09:25→21:52)
[2023-11-29] MEDS: ZYRTEC 10 MG PO (09:25)
[2023-11-29 11:00] VITALS: BP 94/61
--- NOTE | 2023-11-29 11:27 | CM ---
Patient seen bedside, discussed PT/OT recommendation of SNF. Patient agreeable, requesting referrals to [facility]. Referrals will be sent in [facility], patient will require auth through insurance. CM will continue to follow for
discharge planning needs.
Plan; SNF pending accepting facility, will require ambulance auth.
[2023-11-29 12:10] LABS: Glucose - Point of Care 208 mg/dl (70-99)
--- NOTE | 2023-11-29 12:17 | W.PN.HOSP.TC ---
Today's Communication/Plan
-
see A/P
Assessment / Plan
Assessment / Plan
HPI: 83 yo F PMH Paroxysmal Afib, chronic HFrEF, mild , COPD/asthma, breast cancer; p/w shortness of breath over the past week and HANCOCK. Patient's blood pressure was found to be elevated by EMS.
A/P:
# SOB/HANCOCK, due to acute on chronic HFpEF
# Paroxysmal AF with marginal RVR on admission
# s/p Permanent PPM
# Mild aortic stenosis
Updated echo this admission 11/17: EF 40-45%. Mid-apical inferospetum/inferior segments are hypokientic. Compared to previous echo from May 2021, EF was 50% and is now 40-45% with wall motion abnormality.
IV Lasix 40 daily today, then 40 mg PO daily tmr
Cont monitor daily weights
Change Lopressor 12.5 mg BID to Toprol 12.5 mg daily (noted hypotension) with holding parameter
cont chronic Eliquis
DCA card on board
PT OT recc SNF
# Mildly elevated LF likely due to hepatic congestion
cont to monitor LFT , improving slowly
Hold HAM STRIPPER statin/Zetia
# Hypokalemia
repleted
# h/o CAD, remote h/o anterior [place] with VF arrest with LAD angioplasty 07/17/97
# s/p subsequent CABG x3 with 1996
# HLD
Hold HAM STRIPPER statin/Zetia with elevated LFT
# h/o Asthma/COPD
Respiratory status stable at this time - saturating well on room air
cont home montelukast and as needed albuterol
# h/o Chronic Hypotension
cont HAM STRIPPER midodrine 10mg BID
# DMT2
# Neuropathy
cont glipizide
on chronic Gabapentin
added ISS low
# Hypothyroidism
TSH 5.03
Cont home Synthroid
DVT Px: HAM STRIPPER Eliquis
Code: DNR confirmed by patient in the presence of daughter
Dispo: PT OT recc SNF
DW Card
DW CM
Anticipated Discharge: 24 - 48 hours
Subjective/Interval History
-
Date of Service: November 29, 2023
Objective Data
-
Labs:
Laboratory Results
11/29/23
06:15
WBC 7.2
Hgb 14.4
Hct 42.2
Plt Count 304
Sodium 135
Potassium 4.4
Chloride 99
Carbon Dioxide 27
BUN 57 H
Creatinine 1.1 H
Glucose 129 H
Calcium 9.6
Total Bilirubin 1.0
AST 47 H
ALT 33
Alkaline Phosphatase 83
Vital Signs:
Vital Signs
Temp Pulse Resp BP Pulse Ox
36.4 C 74 18 94/61 96
11/29/23 11:00 11/29/23 11:00 11/29/23 11:00 11/29/23 11:00 11/29/23 11:00
I&O
11/28/23 11/29/23 11/30/23
06:59 06:59 06:59
Intake Total 560 / 560 600 / 600
Balance 560 / 560 600 / 600
Review of Systems
-
History Source: Patient
All other systems: Reviewed and negative
Physical Exam
-
General: Well Developed, Well Nourished, No Apparent Distress, Comfortable and Conversant
HEENT: Normocephalic
Respiratory: Clear to Auscultation and Non Labored Respirations; Negative Accessory Resp Muscle Use
Cardiac: Regular Rhythm and S1/S2
GI: Soft and Nontender
Neuro: Awake
Psych: Calm and Intact Judgement/Insight
Data Reviewed
-
Labs: Labs Reviewed by me
[2023-11-29] MEDS: NOVOLOG FLEXPEN-LOW RESISTANCE 2 UNITS SC (12:28)
--- NOTE | 2023-11-29 14:46 | W.PN.CARDCBS ---
Today's Communication / Plan
-
Try dose of 40 mg IV Lasix now and change to Lasix 40 mg daily in a.m.
Changed to Toprol 12.5 mg daily
For SNF placement
Impression / Plan
-
PCP: Dr. Byrne
Journeyman Pressman: Dr. Hansen
Impression:
Presented with SOB
Acute on chronic HFmrEF
Hypokalemia
Persistent Afib
Chronic Eliquis OAC
CAD
s/p remote anterior [place] with VF arrest with LAD angioplasty 07/17/97
CAD subsequent CABG x3 with 1996
Mild
Mild MR
SSS s/p PPM
COPD
Hyperlipidemia
Hypothyroidism
Asthma
Neuropathy
Hypertension
Breast cancer, status post left mastectomy
h/o carotid endarterectomy
h/o diabetes mellitus type 2
h/o colon mass s/p R hemicolectomy 10/02/21 until 10/15/21
Echo 05/28/21: Ejection fraction 50%, mild aortic stenosis, mean pressure gradient 14 mmHg, aortic valve area 1.1 cm�
Echo 05/19/2023: EF 40-45%, mild cLVH, mid-apical inferoseptum/inferior segments are hypokinetic, mild MR, mild with peak/mean gradients 17/9 mmHg, LILY 1.4 cm2, trace AI, mild TR, estimated PAP 20-25 mmHg
Echo 11/27/2023: EF 40 to 45%, apical, inferior, and inferoseptal hypokinesis noted, mild MR, mild with peak/mean gradients 15/9 mmHg, mild TR, estimated PAP 21 to 26 mmHg
Plan:
She was felt to be over diuresed on 11/28 and diuretics were held
There may be an element of CHF that persists
Will give a dose of IV Lasix now and start Lasix 40 mg daily in a.m.
Lopressor was changed to Toprol
Physical therapy recommending SNF
She has history of hypotension and is maintained on midodrine 10 mg twice daily. Her BP is stable. Hypotension has limited medical therapy for cardiomyopathy. Will continue on Toprol 12.5 mg twice daily.
Remains in persistent A-fib. Heart rate stable on lopressor. Continue Eliquis 5 mg twice daily.
Discussed with primary service
HPI: Tori is an 83 year old female with PMH of chronic HFmrEF, persistent atrial fibrillation, CAD, , MR, SSS s/p PPM, COPD, HLD, HTN, hypothyroidism, asthma, DM with diabetic neuropathy, and prior breast cancer who presented to [facility] for
evaluation of increased SOB over the past few weeks. She reports she has been compliant with diet and denies any increased sodium or fluid intake. She reports she weighs herself on a fairly regular basis and denies noting any weight gain or LE
edema, however weight in ER is up approximately 5-10lbs from her usual dry weight of 170-175lbs. She denies any chest pain, palpitations, dizziness, or lightheadedness. She reports her shortness of breath has been worsening to the point where she
was constantly short of breath, even at rest and with minimal exertion. In the ER, she was noted to have evidence of acute heart failure on exam and proBNP was elevated at 2640. She was started on IV lasix and her breathing has improved. She reports
good urine output overnight.
Progress Note - Journeyman Pressman
Subjective
Date of Service: November 29, 2023
No complaints. Feels better today.
Objective
Labs:
11/29/23 06:15
11/29/23 06:15
Labs
Hgb 14.4 g/dL (12.0-16.0) 11/29/23 06:15
Hct 42.2 % (37.0-47.0) 11/29/23 06:15
Plt Count 304 10^3/uL (130-400) 11/29/23 06:15
PT 12.6 Sec (11.4-14.6) 11/26/23 17:53
INR 0.92 11/26/23 17:53
Sodium 135 mmol/L (135-145) 11/29/23 06:15
Potassium 4.4 mmol/L (3.5-5.1) 11/29/23 06:15
BUN 57 mg/dl (7-17) H 11/29/23 06:15
Creatinine 1.1 mg/dL (0.6-1.0) H 11/29/23 06:15
Glucose 129 mg/dl (70-99) H 11/29/23 06:15
Troponins
11/26/23
17:53
Troponin I 0.022
Vital Signs and I&O:
Vital Signs
Temp Pulse Resp BP Pulse Ox
97.6 F 74 18 94/61 96
11/29/23 11:00 11/29/23 11:00 11/29/23 11:00 11/29/23 11:00 11/29/23 11:00
Vital Signs
Temp Pulse Resp BP Pulse Ox
97.6 F 74 18 94/61 96
11/29/23 11:00 11/29/23 11:00 11/29/23 11:00 11/29/23 11:00 11/29/23 11:00
Intake & Output
11/27/23 11/28/23 11/29/23 11/30/23
06:59 06:59 06:59 06:59
Intake Total 120 / 120 560 / 560 600 / 600
Output Total 400 / 400
Balance -280 / -280 560 / 560 600 / 600
Physical Exam
Physical Exam
General: Well developed, well nourished in NAD.
Neck: Supple, no JVD, HJR, carotids +2 B/L, no bruits bilaterally.
Heart: Non displaced PMI, irregular, no murmurs, No S3, S4, no rubs.
Lungs: Scattered rhonchi
Extremities: No clubbing, cyanosis or edema bilaterally.
Neuro: Grossly nonfocal, awake, alert and oriented x3.
[2023-11-29 15:00] VITALS: BP 91/58
[2023-11-29] MEDS: LASIX 40 MG IV (16:04)
[2023-11-29 16:35] LABS: Glucose - Point of Care 98 mg/dl (70-99)
[2023-11-29 19:55] VITALS: BP 108/75
[2023-11-29] MEDS: SINGULAIR 10 MG PO (21:53)
[2023-11-29] MEDS: ROXICODONE 5 MG PO (22:01)
[2023-11-29 22:13] LABS: Glucose - Point of Care 190 mg/dl (70-99)
[2023-11-29 23:23] VITALS: BP 103/66
[2023-11-30 03:50] VITALS: BP 107/75
[2023-11-30] MEDS: ROXICODONE 5 MG PO ×2 (04:06→18:45)
[2023-11-30] MEDS: SYNTHROID 100 MCG PO (05:44)
[2023-11-30 06:56] LABS: ALT (SGPT) 34 U/L (0-35); AST (SGOT) 40 U/L (14-36); Alkaline Phosphatase 104 U/L (38-126); Blood Urea Nitrogen 57 mg/dl (7-17); Calcium 9.8 mg/dl (8.4-10.2); Carbon Dioxide 30 mmol/L (22-30); Chloride 100 mmol/L (98-107); Direct Bilirubin 0.6 mg/dl (0.0-0.4); Estimated Creatinine Clearance 34 ml/min; Glucose 119 mg/dl (70-99); Potassium 3.9 mmol/L (3.5-5.1); Sodium 136 mmol/L (135-145); Total Bilirubin 0.8 mg/dl (0.2-1.3); Total Protein 6.9 g/dl (6.3-8.2); eGFR 44.36
[2023-11-30 07:00] VITALS: BP 95/69
[2023-11-30 07:56] LABS: Glucose - Point of Care 126 mg/dl (70-99)
[2023-11-30] MEDS: NOVOLOG FLEXPEN-LOW RESISTANCE SC ×3 (08:53→17:03)
--- NOTE | 2023-11-30 09:17 | W.PN.HOSP.TC ---
Today's Communication/Plan
-
for SNF
Assessment / Plan
Assessment / Plan
HPI: 83 yo F PMH Paroxysmal Afib, chronic HFrEF, mild , COPD/asthma, breast cancer; p/w shortness of breath over the past week and HANCOCK. Patient's blood pressure was found to be elevated by EMS.
A/P:
# SOB/HANCOCK, due to acute on chronic HFpEF
# Paroxysmal AF with marginal RVR on admission
# s/p Permanent PPM
# Mild aortic stenosis
Updated echo this admission 11/17: EF 40-45%. Mid-apical inferospetum/inferior segments are hypokientic. Compared to previous echo from May 2021, EF was 50% and is now 40-45% with wall motion abnormality.
s/p IV Lasix 40 daily, resumed GLOST KILN PLACER dose 40 mg PO daily
Cont monitor daily weights
Cont GLOST KILN PLACER Toprol 12.5 mg daily with holding parameter
cont chronic Eliquis
DCA card on board
PT OT recc SNF
# Mildly elevated LF likely due to hepatic congestion
cont to monitor LFT , improving slowly
Holding GLOST KILN PLACER statin/Zetia, can resume at discharge
# Hypokalemia
repleted
# h/o CAD, remote h/o anterior [place] with VF arrest with LAD angioplasty 07/17/97
# s/p subsequent CABG x3 with 1996
# HLD
Holding GLOST KILN PLACER statin/Zetia, can resume at discharge
# h/o Asthma/COPD
Respiratory status stable at this time - saturating well on room air
cont home montelukast and as needed albuterol
# h/o Chronic Hypotension
cont GLOST KILN PLACER midodrine 10mg BID
# DMT2
# Neuropathy
cont glipizide
on chronic Gabapentin
added ISS low
# Hypothyroidism
TSH 5.03
Cont home Synthroid
DVT Px: GLOST KILN PLACER Eliquis
Code: DNR confirmed by patient in the presence of daughter
Dispo: PT OT recc SNF
Anticipated Discharge: Within 24 hours
Subjective/Interval History
-
Date of Service: November 30, 2023
Objective Data
-
Labs:
Laboratory Results
11/30/23
06:03
Sodium 136
Potassium 3.9
Chloride 100
Carbon Dioxide 30
BUN 57 H
Creatinine 1.2 H
Glucose 119 H
Calcium 9.8
Total Bilirubin 0.8
AST 40 H
ALT 34
Alkaline Phosphatase 104
Vital Signs:
Vital Signs
Temp Pulse Resp BP Pulse Ox
36.2 C 77 18 95/69 97
11/30/23 07:00 11/30/23 07:00 11/30/23 07:00 11/30/23 07:00 11/30/23 07:00
I&O
11/29/23 11/30/23 12/01/23
06:59 06:59 06:59
Intake Total 600 / 600 540 / 540
Balance 600 / 600 540 / 540
Review of Systems
-
History Source: Patient
All other systems: Reviewed and negative
Physical Exam
-
General: Well Developed, Well Nourished, No Apparent Distress, Comfortable and Conversant
HEENT: Normocephalic
Respiratory: Clear to Auscultation and Non Labored Respirations; Negative Accessory Resp Muscle Use
Cardiac: Regular Rhythm and S1/S2
GI: Soft and Nontender
Neuro: Awake
Psych: Calm and Intact Judgement/Insight
Data Reviewed
-
Labs: Labs Reviewed by me
[2023-11-30] MEDS: TOPROL XL PO (10:05)
[2023-11-30] MEDS: VITAMIN D3 (cholecalciferol) 5000 UNITS PO (10:06)
[2023-11-30] MEDS: LASIX 40 MG PO (10:07)
[2023-11-30] MEDS: ELIQUIS 5 MG PO ×2 (10:07→19:53)
[2023-11-30] MEDS: GLUCOTROL 2.5 MG PO (10:07)
[2023-11-30] MEDS: B COMPLEX w/VITAMIN C 1 CAPLET PO (10:08)
[2023-11-30] MEDS: ProAmatine 10 MG PO ×2 (10:08→19:53)
[2023-11-30] MEDS: PROTONIX 40 MG PO (10:08)
[2023-11-30] MEDS: ZYRTEC 10 MG PO (10:08)
[2023-11-30] MEDS: NEURONTIN 300 MG PO ×3 (10:09→22:34)
[2023-11-30] MEDS: MAG-TAB SR 84 MG PO (10:20)
[2023-11-30 11:00] VITALS: BP 114/69
--- NOTE | 2023-11-30 11:06 | CM ---
Patient seen bedside. CM discussed awaiting response from SNF's, [facility] able to accept depending on bed availabiltiy day of discharge, message sent to Isadora at [facility] along with message in [facility] in regards to bed availability. CM will start
authorization once SNF is confirmed. CM will continue to follow for discharge planning needs.
Plan; SNF pending accepting facility, awaiting to hear from [facility], will require auth.
[2023-11-30 11:47] LABS: Glucose - Point of Care 122 mg/dl (70-99)
[2023-11-30 15:00] VITALS: BP 111/74
[2023-11-30 16:52] LABS: Glucose - Point of Care 103 mg/dl (70-99)
--- NOTE | 2023-11-30 18:47 | PTCARENOTE ---
Patient HR tachy in to 130s on monitor with ambulation in to bathroom. Once back in bed, HR 70-80s. Patient asymptomatic during episode. BP 95/59. Dr. Sanches notified. Will monitor.
[2023-11-30 19:15] VITALS: BP 93/59
[2023-11-30 21:22] LABS: Glucose - Point of Care 172 mg/dl (70-99)
[2023-11-30] MEDS: SINGULAIR 10 MG PO (22:34)
[2023-11-30 23:00] VITALS: BP 109/68
[2023-12-01] VITALS (8 sets, daily range): BP systolic 85–144; BP diastolic 51–75; PULSE 72–98; O2SAT 95; BMI 30.3
[2023-12-01] MEDS: TYLENOL 650 MG PO ×2 (01:13→21:04)
[2023-12-01] MEDS: SYNTHROID 100 MCG PO (06:20)
[2023-12-01 07:32] LABS: ALT (SGPT) 36 U/L (0-35); AST (SGOT) 45 U/L (14-36); Albumin 4.1 g/dl (3.5-5.0); Alkaline Phosphatase 92 U/L (38-126); Blood Urea Nitrogen 49 mg/dl (7-17); Calcium 9.7 mg/dl (8.4-10.2); Carbon Dioxide 29 mmol/L (22-30); Chloride 100 mmol/L (98-107); Direct Bilirubin 0.6 mg/dl (0.0-0.4); Estimated Creatinine Clearance 40 ml/min; Glucose 102 mg/dl (70-99); Potassium 3.9 mmol/L (3.5-5.1); Sodium 135 mmol/L (135-145); Total Bilirubin 1.1 mg/dl (0.2-1.3); Total Protein 6.9 g/dl (6.3-8.2); eGFR 55.21
[2023-12-01] MEDS: NOVOLOG FLEXPEN-LOW RESISTANCE SC ×3 (08:10→17:04)
[2023-12-01 08:11] LABS: Glucose - Point of Care 98 mg/dl (70-99)
[2023-12-01] MEDS: ELIQUIS 5 MG PO ×2 (08:13→20:07)
[2023-12-01] MEDS: ProAmatine 10 MG PO ×2 (08:13→20:07)
[2023-12-01] MEDS: ZYRTEC 10 MG PO (08:13)
[2023-12-01] MEDS: PROTONIX 40 MG PO (08:14)
[2023-12-01] MEDS: NEURONTIN 300 MG PO ×3 (08:14→21:04)
[2023-12-01] MEDS: TOPROL XL PO (08:14)
[2023-12-01] MEDS: MAG-TAB SR 84 MG PO (08:14)
[2023-12-01] MEDS: LASIX 40 MG PO (08:14)
[2023-12-01] MEDS: GLUCOTROL 2.5 MG PO (08:15)
[2023-12-01] MEDS: VITAMIN D3 (cholecalciferol) 5000 UNITS PO (08:17)
[2023-12-01] MEDS: B COMPLEX w/VITAMIN C 1 CAPLET PO (08:17)
--- NOTE | 2023-12-01 08:38 | W.PN.HOSP.TC ---
Today's Communication/Plan
-
Continue diuretics. Discharge planning in progress.
Assessment / Plan
Assessment / Plan
Physical exam:
General: Well Developed, Well Nourished and No Apparent Distress
HEENT: Normocephalic, Atraumatic and Moist Mucous Membranes
Respiratory: Clear to Auscultation; Negative Wheezes, Rales or Rhonchi
Cardiac: Regular Rhythm and S1/S2
GI: Soft, Nontender and Nondistended
Musculoskeletal: No Clubbing, No Cyanosis and No Edema
Neuro: Awake, Alert and Oriented
Psych: Calm
HPI: 83 yo F PMH Paroxysmal Afib, chronic HFrEF, mild , COPD/asthma, breast cancer; p/w shortness of breath over the past week and HANCOCK. Patient's blood pressure was found to be elevated by EMS.
A/P:
# SOB/HANCOCK, due to acute on chronic HFpEF
# Paroxysmal AF with marginal RVR on admission
# s/p Permanent PPM
# Mild aortic stenosis
Updated echo this admission 11/17: EF 40-45%. Mid-apical inferospetum/inferior segments are hypokientic. Compared to previous echo from May 2021, EF was 50% and is now 40-45% with wall motion abnormality.
s/p IV Lasix 40 daily, resumed PRIMARY CARE PEDIATRICIAN dose 40 mg PO daily
Cont monitor daily weights
Cont PRIMARY CARE PEDIATRICIAN Toprol 12.5 mg daily with holding parameter
cont chronic Eliquis
DCA card on board
PT OT recc SNF
Medically ready for discharge--> CM checking for discharge disposition at SNF
# Mildly elevated LF likely due to hepatic congestion
cont to monitor LFT , improving slowly
Holding PRIMARY CARE PEDIATRICIAN statin/Zetia, can resume at discharge
# Hypokalemia
repleted
# h/o CAD, remote h/o anterior [place] with VF arrest with LAD angioplasty 07/17/97
# s/p subsequent CABG x3 with 1996
# HLD
Holding PRIMARY CARE PEDIATRICIAN statin/Zetia, can resume at discharge
# h/o Asthma/COPD
Respiratory status stable at this time - saturating well on room air
cont home montelukast and as needed albuterol
# h/o Chronic Hypotension
cont PRIMARY CARE PEDIATRICIAN midodrine 10mg BID
# DMT2
# Neuropathy
cont glipizide
on chronic Gabapentin
added ISS low
# Hypothyroidism
TSH 5.03
Cont home Synthroid
DVT Px: PRIMARY CARE PEDIATRICIAN Eliquis
Code: DNR confirmed by patient in the presence of daughter
Dispo: PT OT recc SNF
Anticipated Discharge: 24 - 48 hours
Subjective/Interval History
-
Date of Service: December 01, 2023
Patient overall feels better, less shortness of breath, no chest pain.
Objective Data
-
Labs:
Laboratory Results
12/01/23
06:47
Sodium 135
Potassium 3.9
Chloride 100
Carbon Dioxide 29
BUN 49 H
Creatinine 1.0
Glucose 102 H
Calcium 9.7
Total Bilirubin 1.1
AST 45 H
ALT 36 H
Alkaline Phosphatase 92
Vital Signs:
Vital Signs
Temp Pulse Resp BP Pulse Ox
97.7 F 78 20 107/70 95
12/01/23 07:30 12/01/23 07:30 12/01/23 07:30 12/01/23 08:14 12/01/23 07:30
I&O
11/30/23 12/01/23 12/02/23
06:59 06:59 06:59
Intake Total 780 / 780 180 / 180
Balance 780 / 780 180 / 180
Review of Systems
-
All other systems: Reviewed and negative
[2023-12-01 12:00] LABS: Glucose - Point of Care 144 mg/dl (70-99)
--- NOTE | 2023-12-01 14:29 | CM ---
Call placed to [facility] to check on bed availability.
Plan; Await determination from [facility] skilled.
[2023-12-01 17:02] LABS: Glucose - Point of Care 141 mg/dl (70-99)
[2023-12-01] MEDS: SINGULAIR 10 MG PO (21:04)
[2023-12-01 21:30] LABS: Glucose - Point of Care 151 mg/dl (70-99)
[2023-12-01] MEDS: ROXICODONE 5 MG PO (22:28)
[2023-12-02] VITALS (8 sets, daily range): BP systolic 110–140; BP diastolic 58–93; PULSE 74; O2SAT 97; BMI 30.2
[2023-12-02] MEDS: TYLENOL 650 MG PO ×2 (04:46→14:41)
[2023-12-02] MEDS: SYNTHROID 100 MCG PO (06:37)
--- NOTE | 2023-12-02 07:51 | PN.CDI ---
CDI
- -
CDI:
Physician Documentation Request
Admit Date: 11/26/23 22:05
Dear Doctor Titi,
Clinical Indicators:
Patient presented with acute on chronic CHF.
11/27 Echo Report:'Mildly reduced left ventricular systolic function... Left ventricular ejection fraction is 40-45%'
11/30 Cardiology PN, 'Acute on chronic HFmrEF'
12/01 PN, 'SOB/HANCOCK, due to acute on chronic HFpEF'
Due to potentially conflicting documentation, please clarify the type of CHF:
HFmrEF
HFpEF
Other, please specify
Use of terms such as suspected, likely, concern for, or probable (associated with a specific diagnosis that is being evaluated, monitored, or treated as if it exists) are acceptable and can be coded in the inpatient setting, when documented at the
time of discharge.
Thank you,
RADHA Oshea RN
CDI Specialist
available via tiger text
Please use your independent medical judgment in providing your response.
[2023-12-02 08:01] LABS: Glucose - Point of Care 139 mg/dl (70-99)
[2023-12-02] MEDS: NOVOLOG FLEXPEN-LOW RESISTANCE SC ×2 (08:13→11:42)
[2023-12-02] MEDS: ZYRTEC 10 MG PO (08:26)
[2023-12-02] MEDS: PROTONIX 40 MG PO (08:26)
[2023-12-02] MEDS: MAG-TAB SR 84 MG PO (08:26)
[2023-12-02] MEDS: ELIQUIS 5 MG PO ×2 (08:26→20:24)
[2023-12-02] MEDS: NEURONTIN 300 MG PO ×3 (08:26→21:57)
[2023-12-02] MEDS: GLUCOTROL 2.5 MG PO (08:26)
[2023-12-02] MEDS: TOPROL XL 12.5 MG PO (08:26)
[2023-12-02] MEDS: LASIX 40 MG PO (08:26)
[2023-12-02] MEDS: VITAMIN D3 (cholecalciferol) 125 MCG PO (08:27)
[2023-12-02] MEDS: B COMPLEX w/VITAMIN C 1 CAPLET PO (08:27)
[2023-12-02] MEDS: ProAmatine 10 MG PO ×2 (08:28→20:24)
[2023-12-02 08:48] LABS: Blood Urea Nitrogen 52 mg/dl (7-17); Calcium 9.8 mg/dl (8.4-10.2); Carbon Dioxide 31 mmol/L (22-30); Chloride 99 mmol/L (98-107); Estimated Creatinine Clearance 37 ml/min; Glucose 114 mg/dl (70-99); Magnesium 2.1 mg/dl (1.6-2.3); Potassium 3.8 mmol/L (3.5-5.1); Sodium 136 mmol/L (135-145); eGFR 49.24
--- NOTE | 2023-12-02 09:05 | W.PN.HOSP.TC ---
Today's Communication/Plan
-
cont diuretics. Discharge planning
Assessment / Plan
Assessment / Plan
Physical exam:
General: Well Developed, Well Nourished and No Apparent Distress
HEENT: Normocephalic, Atraumatic and Moist Mucous Membranes
Respiratory: Clear to Auscultation; Negative Wheezes, Rales or Rhonchi
Cardiac: Regular Rhythm and S1/S2
GI: Soft, Nontender and Nondistended
Musculoskeletal: No Clubbing, No Cyanosis and No Edema
Neuro: Awake, Alert and Oriented
Psych: Calm
HPI: 83 yo F PMH Paroxysmal Afib, chronic HFrEF, mild , COPD/asthma, breast cancer; p/w shortness of breath over the past week and HANCOCK. Patient's blood pressure was found to be elevated by EMS.
A/P:
# SOB/HANCOCK, due to acute on chronic HFpEF
# Paroxysmal AF with marginal RVR on admission
# s/p Permanent PPM
# Mild aortic stenosis
Updated echo this admission 11/17: EF 40-45%. Mid-apical inferospetum/inferior segments are hypokientic. Compared to previous echo from May 2021, EF was 50% and is now 40-45% with wall motion abnormality.
s/p IV Lasix 40 daily, resumed CLOTH BALE HEADER dose 40 mg PO daily
Cont monitor daily weights
Cont CLOTH BALE HEADER Toprol 12.5 mg daily with holding parameter
cont chronic Eliquis
DCA card on board
PT OT recc SNF
Updated daughter at bedside today on 12/02 and answered questions to her satisfaction.
Medically ready for discharge--> CM checking for discharge disposition at SNF
# Mildly elevated LF likely due to hepatic congestion
cont to monitor LFT , improving slowly
Holding CLOTH BALE HEADER statin/Zetia, can resume at discharge
# Hypokalemia
repleted
# h/o CAD, remote h/o anterior [place] with VF arrest with LAD angioplasty 07/17/97
# s/p subsequent CABG x3 with 1996
# HLD
Holding CLOTH BALE HEADER statin/Zetia, can resume at discharge
# h/o Asthma/COPD
Respiratory status stable at this time - saturating well on room air
cont home montelukast and as needed albuterol
# h/o Chronic Hypotension
cont CLOTH BALE HEADER midodrine 10mg BID
# DMT2
# Neuropathy
cont glipizide
on chronic Gabapentin
added ISS low
# Hypothyroidism
TSH 5.03
Cont home Synthroid
DVT Px: CLOTH BALE HEADER Eliquis
Code: DNR confirmed by patient in the presence of daughter
Dispo: PT OT recc SNF
Anticipated Discharge: Within 24 hours
Subjective/Interval History
-
Date of Service: December 02, 2023
Patient denies any cp or sob.
Objective Data
-
Labs:
Laboratory Results
12/02/23
07:00
Sodium 136
Potassium 3.8
Chloride 99
Carbon Dioxide 31 H
BUN 52 H
Creatinine 1.1 H
Glucose 114 H
Calcium 9.8
Vital Signs:
Vital Signs
Temp Pulse Resp BP Pulse Ox
97.6 F 88 18 119/69 97
12/02/23 03:20 12/02/23 03:20 12/02/23 03:20 12/02/23 03:20 12/02/23 03:20
I&O
12/01/23 12/02/23 12/03/23
06:59 06:59 06:59
Intake Total 180 / 180 1200 / 1200
Balance 180 / 180 1200 / 1200
Review of Systems
-
All other systems: Reviewed and negative
[2023-12-02 11:38] LABS: Glucose - Point of Care 142 mg/dl (70-99)
[2023-12-02 16:40] LABS: Glucose - Point of Care 152 mg/dl (70-99)
[2023-12-02] MEDS: NOVOLOG FLEXPEN-LOW RESISTANCE 1 UNITS SC (16:40)
--- NOTE | 2023-12-02 16:51 | CM ---
[employer] auth initiated.
Pended reference # [id number]
Clinicals faxed to [phone]
Plan: [facility] once [employer] auth obtained.
[2023-12-02 21:53] LABS: Glucose - Point of Care 120 mg/dl (70-99)
[2023-12-02] MEDS: ROXICODONE 5 MG PO (21:57)
[2023-12-02] MEDS: SINGULAIR 10 MG PO (21:57)
[2023-12-03 03:19] VITALS: BP 115/76
[2023-12-03 05:24] VITALS: BMI 30.3
[2023-12-03] MEDS: SYNTHROID 100 MCG PO (06:19)
[2023-12-03 07:15] VITALS: BP 93/75
[2023-12-03 07:38] LABS: Blood Urea Nitrogen 44 mg/dl (7-17); Calcium 10.1 mg/dl (8.4-10.2); Carbon Dioxide 28 mmol/L (22-30); Chloride 102 mmol/L (98-107); Estimated Creatinine Clearance 41 ml/min; Glucose 118 mg/dl (70-99); Potassium 4.3 mmol/L (3.5-5.1); Sodium 137 mmol/L (135-145); eGFR 55.21
--- NOTE | 2023-12-03 07:42 | W.PN.HOSP.TC ---
Addendum entered and electronically signed by Edgar Walls MD 12/03/23 11:55:
HFmrEF
Original Note:
Today's Communication/Plan
-
Discharge planning today
Assessment / Plan
Assessment / Plan
Physical exam:
General: Well Developed, Well Nourished and No Apparent Distress
HEENT: Normocephalic, Atraumatic and Moist Mucous Membranes
Respiratory: Clear to Auscultation; Negative Wheezes, Rales or Rhonchi
Cardiac: Regular Rhythm and S1/S2
GI: Soft, Nontender and Nondistended
Musculoskeletal: No Clubbing, No Cyanosis and No Edema
Neuro: Awake, Alert and Oriented
Psych: Calm
HPI: 83 yo F PMH Paroxysmal Afib, chronic HFrEF, mild , COPD/asthma, breast cancer; p/w shortness of breath over the past week and HANCOCK. Patient's blood pressure was found to be elevated by EMS.
A/P:
# SOB/HANCOCK, due to acute on chronic HFpEF
# Paroxysmal AF with marginal RVR on admission
# s/p Permanent PPM
# Mild aortic stenosis
Updated echo this admission 11/17: EF 40-45%. Mid-apical inferospetum/inferior segments are hypokientic. Compared to previous echo from May 2021, EF was 50% and is now 40-45% with wall motion abnormality.
s/p IV Lasix 40 daily, resumed RANGE AIDE dose 40 mg PO daily
Cont monitor daily weights
Cont RANGE AIDE Toprol 12.5 mg daily with holding parameter
cont chronic Eliquis
DCA card on board
PT OT recc SNF
Updated daughter at bedside today on 12/02 and answered questions to her satisfaction.
Medically ready for discharge--> CM checking for discharge disposition at SNF
# Mildly elevated LF likely due to hepatic congestion
cont to monitor LFT , improving slowly
Holding RANGE AIDE statin/Zetia, can resume at discharge
# Hypokalemia
repleted
# h/o CAD, remote h/o anterior [place] with VF arrest with LAD angioplasty 07/17/97
# s/p subsequent CABG x3 with 1996
# HLD
Holding RANGE AIDE statin/Zetia, can resume at discharge
# h/o Asthma/COPD
Respiratory status stable at this time - saturating well on room air
cont home montelukast and as needed albuterol
# h/o Chronic Hypotension
cont RANGE AIDE midodrine 10mg BID
# DMT2
# Neuropathy
cont glipizide
on chronic Gabapentin
added ISS low
# Hypothyroidism
TSH 5.03
Cont home Synthroid
DVT Px: RANGE AIDE Eliquis
Code: DNR confirmed by patient in the presence of daughter
Dispo: PT OT recc SNF
Anticipated Discharge: Today
Subjective/Interval History
-
Date of Service: December 03, 2023
Patient denies any chest pain or shortness of breath.
Objective Data
-
Labs:
Laboratory Results
12/03/23
06:55
Sodium 137
Potassium 4.3
Chloride 102
Carbon Dioxide 28
BUN 44 H
Creatinine 1.0
Glucose 118 H
Calcium 10.1
Vital Signs:
Vital Signs
Temp Pulse Resp BP Pulse Ox
97.7 F 78 18 115/76 96
12/03/23 03:19 12/03/23 03:19 12/03/23 03:19 12/03/23 03:19 12/02/23 23:13
I&O
12/02/23 12/03/23 12/04/23
06:59 06:59 06:59
Intake Total 1200 / 1200 1220 / 1220
Balance 1200 / 1200 1220 / 1220
Review of Systems
-
All other systems: Reviewed and negative
[2023-12-03 08:29] LABS: Glucose - Point of Care 193 mg/dl (70-99)
[2023-12-03] MEDS: NEURONTIN 300 MG PO (08:56)
[2023-12-03] MEDS: TOPROL XL PO (09:04)
[2023-12-03] MEDS: ProAmatine 10 MG PO (09:04)
[2023-12-03] MEDS: PROTONIX 40 MG PO (09:04)
[2023-12-03] MEDS: B COMPLEX w/VITAMIN C 1 CAPLET PO (09:04)
[2023-12-03] MEDS: GLUCOTROL 2.5 MG PO (09:05)
[2023-12-03] MEDS: LASIX 40 MG PO (09:06)
[2023-12-03] MEDS: ELIQUIS 5 MG PO (09:06)
[2023-12-03] MEDS: VITAMIN D3 (cholecalciferol) 125 MCG PO (09:07)
[2023-12-03] MEDS: NOVOLOG FLEXPEN-LOW RESISTANCE 1 UNITS SC (09:08)
--- NOTE | 2023-12-03 10:42 | W.DCSUMMARY ---
Discharge Summary
Discharge Data
Date of Admission: 11/26/23
Date of Discharge: 12/03/23
-
Pending Results: No
Hospital Course
Patient 83 years old female with history of multiple medical problems including chronic heart failure moderate reduced ejection fraction, persistent atrial fibrillation, CAD, AAS, MR, SSS status post PPM, COPD, asthma, HLD, HTN, hypothyroidism, DM,
breast cancer, presented to the hospital with ongoing shortness of breath for several weeks prior to her presentation. She was found to be in acute congestive heart failure. Cardiology consulted. Patient was aggressively diuresed with intravenous
Lasix. It was noticed due to her hypotension she has limited medical therapy for her cardiomyopathy. She is on chronic midodrine. Diuretics at some point help but then restarted again. Patient has been tolerating diuretics orally. Her weight
upon admission was around 82 kg and weight upon discharge is 77.6 kg. Patient feels back to her baseline. She was initially going to rehab but after physical therapy reevaluation they felt that she is doing very well and she can go home. I feel
as well as family that she would benefit from rehab but at this point it looks like she does not qualify so she is going to be discharged home with home therapy. No other events were noticed. She will be discharged in relatively stable condition
today.
Discharge duration: 36 minutes
Discharge Plan
-
Patient Disposition: Jail/SNF
Discharge Diagnosis/Procedures: Acute on chronic heart failure with moderate reduced ejection fraction; Persistent atrial fibrillation; elevated liver function tests; hypokalemia; history of coronary artery disease; history of chronic obstructive
pulmonary disease and asthma; history hypotension; history diabetes mellitus type 2; history of hypothyroidism.
Condition: Fair
Diet: As tolerated, Low Cholesterol and Low Sodium
Activity: As tolerated
Driving Restrictions: As prior to admission
Blood Work: BMP within 1 week, result to your PCP
Specialty Instructions: Weigh Daily- Call MD for wt gain/loss 3 lbs overnight/5 lbs in 1 week
Instructions: *DCA Heart Failure Instructions
Referrals:
Gary Hansen MD [Active] - 12/10/23 11:20 am (You have a follow up appointment with Dr. Hansen at the [place] office. Please call with questions. (Your appointment time has changed to 11:20AM as it is now a hospital follow up visit))
Jerrell Byrne MD [Family Provider] - in less than 1 week
Prescriptions:
Continued
montelukast 10 MG tablet
10 mg PO HS
levothyroxine 100 MCG tablet
100 mcg PO DAILY
cetirizine 10 MG tablet
10 mg PO DAILY
albuterol sulfate 1 PUFF HFA aerosol inhaler
2 puff inhalation R Q4HPRN PRN (Reason: sob)
metoprolol succinate 25 mg Tablet Extended Release 24 Hr
12.5 mg PO DAILY
Eliquis 5 mg Tablet
5 mg PO BID
magnesium 250 mg Tablet
250 mg PO DAILY
ezetimibe [Zetia] 10 mg Tablet
10 mg PO QPM
cholecalciferol (vitamin D3) [Vitamin D3] 125 mcg (5,000 unit) Tablet
125 mcg PO DAILY
furosemide 40 mg tablet
40 mg PO DAILY
Patient Comments:
11/26/2023: Pt took an extra dose of Lasix 40mg today per PCP
midodrine 10 mg tablet
10 mg PO BID
glipizide 5 mg Tablet
2.5 mg PO DAILY Qty: 30 0RF
pantoprazole [Protonix] 40 mg tablet,delayed release (DR/EC)
40 mg PO DAILY Qty: 30 0RF
Rx Instructions:
Please take 30 minutes prior to eating or drinking anything in the morning.
atorvastatin 80 mg tablet
80 mg PO QPM
vitamin B complex Tablet Extended Release
1 tab PO DAILY
gabapentin 600 mg tablet
600 mg PO TID
zolpidem 5 mg tablet
5 mg PO HS PRN (Reason: sleep)
Patient Comments:
11/26/2023: last filled 09/11/23, 30 tabs for 30 days from [facility]
potassium
1 tab PO DAILY
acetaminophen [Pain Relief ES (acetaminophen)] 500 mg tablet
1,000 mg PO Q6H PRN (Reason: mild pain)
oxycodone 5 mg capsule
5 mg PO Q6H PRN (Reason: moderate to severe pain) Qty: 4 0RF
Patient Comments:
11/26/2023: last filled 10/11/23, 120 tabs for 30 days from [facility]
No Action
allopurinol 100 mg Tablet
100 mg PO BID
Discharge Orders:
Discharge Patient (As Directed); Ordered 12/03/23
Ordered By: Edgar Walls
Discharge Date and Time
Discharge Date/Time: 12/03/23 14:22
[2023-12-03] MEDS: ZYRTEC 10 MG PO (11:20)
[2023-12-03] MEDS: MAG-TAB SR 84 MG PO (11:20)
[2023-12-03 11:43] VITALS: BP 122/71
[2023-12-03] MEDS: NOVOLOG FLEXPEN-LOW RESISTANCE SC (12:11)
--- NOTE | 2023-12-03 12:46 | CM ---
Physial therapy are recommending home with home care, options reviewed and patient has selected [facility], [facility] liaison contacted.
Plan; Home with [facility].
--- NOTE | 2023-12-03 13:20 | VNURNOTE ---
Home Health Liaison met with patient and daughter Talisha at 1300 to discuss [facility] nurse/therapy, visits, schedule and homebound status. Patient is agreeable and understands that visits at home will be 2-3 x per week to assess and teach medical
management. Patient has a scale and is able to log a daily weight.
[facility] brochure provided with contact information. Patient is aware that [facility] will contact her for start of care in 1-2 days after discharge from .
[facility] referral completed in [facility].
== END 2023-12-03 14:22 | disposition home health service (06) | DRG 291 ==
LOC: 4 WEST ACU 22:05
PROVIDERS: Clinical Nurse Specialist Family Health; Internal Medicine; ADMITTING PHYSICIAN Internal Medicine; ATTENDING PHYSICIAN Hospitalist; EMERGENCY PHYSICIAN Emergency Medicine; FAMILY PHYSICIAN Family Medicine; OTHER PHYSICIAN Internal Medicine Cardiovascular Disease
DX: I11.0 Hypertensive heart disease with heart failure (principal); I50.43 Acute on chronic combined systolic (congestive) and diastolic (congestive) heart failure; I48.19 Other persistent atrial fibrillation; N17.9 Acute kidney failure, unspecified; Z87.891 Personal history of nicotine dependence; I42.9 Cardiomyopathy, unspecified; Z11.52 Encounter for screening for COVID-19; E03.9 Hypothyroidism, unspecified; Z66 Do not resuscitate; Z79.01 Long term (current) use of anticoagulants; E87.6 Hypokalemia; I25.10 Atherosclerotic heart disease of native coronary artery without angina pectoris; E78.00 Pure hypercholesterolemia, unspecified; E11.40 Type 2 diabetes mellitus with diabetic neuropathy, unspecified; J44.89 Other specified chronic obstructive pulmonary disease; I95.89 Other hypotension
CPT/HCPCS: 71046; 80048; 80053; 82248; 82962; 83036; 83735; 83880; 84439; 84443; 84484; 85025; 85610; 87502; 87811; 93005; 93306; 94640; 96374; 97116; 97167; 97530; 97535; 99285

== ENCOUNTER → 2024-05-17 10:52 | Outpatient (REF) | payer OTHER, SELFPAY ==
[2024-05-17 11:56] LABS: ALT (SGPT) 35 U/L (0-35); AST (SGOT) 43 U/L (14-36); Albumin 4.5 g/dl (3.5-5.0); Alkaline Phosphatase 142 U/L (38-126); Blood Urea Nitrogen 33 mg/dl (7-17); Calcium 10.3 mg/dl (8.4-10.2); Carbon Dioxide 29 mmol/L (22-30); Chloride 99 mmol/L (98-107); Glucose 222 mg/dl (70-99); Potassium 4.2 mmol/L (3.5-5.1); Sodium 140 mmol/L (135-145); Total Bilirubin 0.8 mg/dl (0.2-1.3); Total Protein 7.3 g/dl (6.3-8.2); eGFR 55.21
== END ==
LOC: REG 10:52
PROVIDERS: ATTENDING PHYSICIAN Nurse Practitioner Adult Health; FAMILY PHYSICIAN Family Medicine
DX: C18.2 Malignant neoplasm of ascending colon (principal)
CPT/HCPCS: 36415; 80053

== ENCOUNTER → 2024-05-18 10:53 | Outpatient (REF) | payer OTHER, SELFPAY | LOC: RAD 10:53 | PROVIDERS: ATTENDING PHYSICIAN Internal Medicine Hematology & Oncology; FAMILY PHYSICIAN Family Medicine | DX: C18.2 Malignant neoplasm of ascending colon (principal) | CPT/HCPCS: 71260; 74177; Q9967 ==

== ENCOUNTER 2024-07-14 12:37 | Emergency (ER) | payer OTHER, SELFPAY ==
[2024-07-14 12:58] VITALS: BP 117/74; BP 117/76; BMI 33.6
[2024-07-14 13:00] VITALS: BP 117/74
--- NOTE | 2024-07-14 13:10 | ED.GENMED ---
History of Present Illness
General
Chief Complaint: Breathing Problem
Source: patient
Exam Limitations: none
Time Seen by Provider: 07/14/24 12:43
Nursing documentation reviewed up to this point in time: agreed with
History of Present Illness
History of Present Illness:
Patient with history of congestive heart failure on Lasix, presents to ED secondary to worsening shortness of breath, especially with exertion over the past 1 week. Patient also reports approximately 3 pound weight gain over the past 1 week as
well. Denies chest pain. Denies back pain. Denies leg pain or increased leg swelling. Denies recent change in medications or diet. Denies coughing. Denies recent illness. Denies sick contact. Denies recent travel.
Past History
Past History
ED Past Medical History: Arrthythmia (Atrial fib), Asthma, CAD, Cancer (Breast and colon CA), CHF, COPD, GERD, HTN, Hypercholesterolemia, NIDDM (Diet controlled), [place], Hypothyroidism and Other (Colitis, Anemia)
ED Past Surgical History: Appendectomy, Bowel resection (Colectomy for Colon CA), Cardiac (Pacemaker), Cholecystectomy, Orthopedic (Right and left total knee replacements), Tonsilectomy and Other (Left breast mastectomy)
Social History
Tobacco: Former smoker
Alcohol: None
Drug: None
Personal:
Living: alone
Employment: Retired
Family History
Family History: CAD and Other
Review of Systems
Review of Systems
Allergies reviewed?: Yes
All Other Systems: ROS reviewed and negative except as documented in HPI and ROS
Constitutional: Reports no symptoms
EENT: Reports no symptoms
Respiratory: Reports trouble breathing; Denies cough
Cardiac: Reports no symptoms; Denies chest pain
ABD/GI: Reports no symptoms
Musculoskeletal: Reports no symptoms
Skin: Reports no symptoms
Neurological: Reports weakness; Denies dizzy or headache
Phy Exam
Physical Exam
Physical Exam:
Physical Exam
General: mild respiratory distress, not acutely ill. afebrile
Head: nc/at. eomi
Neck: supple. no meningeal signs.
Heart: s1/s2 regular rate and rhythm, no murmur. equal radial pulses.
Lungs: mild respiratory distress. clear bilaterally
Abdomen: normal bowel sounds. not tender.
Neuro: alert and oriented. no focal neurological deficits
Skin: no rash
Psychiatric: well kept. interactive and cooperative
Extremities: LE b/l edema, nonpitting. no calf tenderness.
Scores
Heart Failure Risk
Heart Failure Risk Score: Yes
History of Stroke or TIA: No
History of intubation for respiratory distress: No
Heart rate on ED arrival >/= 110: No
SaO2 <90% on arrival on room air: No
HR >/=110 during 3min walk test (or too ill to perform test): No
ECG has acute ischemic changes: No
Urea >/=12mmol/L (BUN 33.6mg/dL): Yes
Serum CO2>/=35mmol/L: No
Troponin I or T elevated to [place] Level (0.4mg/dL): No
NT-proBNP >/=5,000ng/L (5,000pg/ml): No
HF Risk Score: 1
Admission Status: MEDIUM RISK 5.1% Consider observation or discharge to home with homecare & f/u visit to PCP/[facility], or SNF for treatment
Course
Orders/Labs/Results
Orders:
Orders
07/14/24 12:42
EKG [Electrocardiogram (*1)] Urgent
Reason for Study: Shortness of Breath
EKG- Treatment ONCE
07/14/24 13:09
CR Chest - 2 Views Urgent
Comment:
Reason For Exam: sob
07/14/24 13:22
Complete Blood Count/With Diff Urgent
Comprehensive Metabolic Panel Urgent
NT-proBNP Urgent
Troponin I Urgent
07/14/24 15:03
Furosemide [Lasix] 40 mg IV NOW STA
Abnormal Lab Results
07/14/24
13:22
RBC 3.82 L 10^6/uL
(4.20-5.40)
Hct 36.1 L %
(37.0-47.0)
MCH 32.2 H pg
(27.0-31.0)
RDW 16.6 H %
(11.5-14.5)
Carbon Dioxide 31 H mmol/L
(22-30)
BUN 34 H mg/dl
(7-17)
Creatinine 1.1 H mg/dL
(0.6-1.0)
Glucose 148 H mg/dl
(70-99)
AST 58 H U/L
(14-36)
ALT 39 H U/L
(0-35)
07/14/24 13:22
07/14/24 13:22
Vital Signs
Initial and Last Documented VS:
Initial Vital Signs
Temp Pulse Resp BP Pulse Ox
98.2 F 77 16 117/74 95
07/14/24 12:58 07/14/24 12:58 07/14/24 12:58 07/14/24 12:58 07/14/24 12:58
Last Documented Vital Signs
Temp Pulse Resp BP Pulse Ox
98.2 F 84 16 106/84 98
07/14/24 12:58 07/14/24 16:30 07/14/24 16:30 07/14/24 16:30 07/14/24 16:30
MDM/Problems Addressed
MDM/Problems Addressed:
Patient able to ambulate without desaturation nor significant respiratory distress. As patient is on chronic Eliquis treatment, highly doubt PE as etiology behind patient's presenting shortness of breath.
Pacemaker interrogated and report reviewed.
Discussed with oncall cardiology, , who recommends following: increase lasix to 40mg bid x 4 days and return to 40mg daily, along with outpatient f/u.
Pt and daughter agree with treatment plan.
*EKG
Interpreted by ED Provider?: Yes
EKG Intrepretation Date: 07/14/24
Heart Rate: 83
Rate: normal
Rhythm: av sequential
*Critical Care Note
Total Time (30-74mins, 75-104mins- exclusive of procedures): Not Applicable
ED Attending Note
-
Portions of this chart may have been created with voice recognition software.� Occasional wrong word or��sound alike� substitutions may have occurred due to the inherent limitations of voice recognition software.
Discharge Plan
Departure
Patient Disposition: Senior Care/SNF
Date of Disposition: 07/14/24
Time of Disposition: 15:14
Patient with high blood pressure during this ER visit?: No
Discharge Problem:
Congestive heart failure (CHF)
Instructions: Heart Failure, Adult (DC)
Prescriptions:
No Action
montelukast 10 MG tablet
10 mg PO HS
levothyroxine 100 MCG tablet
100 mcg PO DAILY
cetirizine 10 MG tablet
10 mg PO DAILY
albuterol sulfate 1 PUFF HFA aerosol inhaler
2 puff inhalation R Q4HPRN PRN (Reason: sob)
metoprolol succinate 25 mg Tablet Extended Release 24 Hr
12.5 mg PO DAILY
Eliquis 5 mg Tablet
5 mg PO BID
magnesium 250 mg Tablet
250 mg PO DAILY
ezetimibe [Zetia] 10 mg Tablet
10 mg PO QPM
cholecalciferol (vitamin D3) [Vitamin D3] 125 mcg (5,000 unit) Tablet
125 mcg PO DAILY
furosemide 40 mg tablet
40 mg PO DAILY
Patient Comments:
11/26/2023: Pt took an extra dose of Lasix 40mg today per PCP
midodrine 10 mg tablet
10 mg PO BID
glipizide 5 mg Tablet
2.5 mg PO DAILY Qty: 30 0RF
pantoprazole [Protonix] 40 mg tablet,delayed release (DR/EC)
40 mg PO DAILY Qty: 30 0RF
Rx Instructions:
Please take 30 minutes prior to eating or drinking anything in the morning.
atorvastatin 80 mg tablet
80 mg PO QPM
vitamin B complex Tablet Extended Release
1 tab PO DAILY
gabapentin 600 mg tablet
600 mg PO TID
zolpidem 5 mg tablet
5 mg PO HS PRN (Reason: sleep)
Patient Comments:
11/26/2023: last filled 09/11/23, 30 tabs for 30 days from [facility]
potassium
1 tab PO DAILY
acetaminophen [Pain Relief ES (acetaminophen)] 500 mg tablet
1,000 mg PO Q6H PRN (Reason: mild pain)
oxycodone 5 mg capsule
5 mg PO Q6H PRN (Reason: moderate to severe pain) Qty: 4 0RF
Patient Comments:
11/26/2023: last filled 10/11/23, 120 tabs for 30 days from [facility]
allopurinol 100 mg Tablet
100 mg PO BID
Referrals:
Gary Hansen MD [Active] -
Jerrell Byrne MD [Family Provider] -
Activity Restrictions/Additional Instructions:
As discussed, you are being discharged back to skilled nursing for continual care. Upon discharge, recommend increasing Lasix to 40 mg twice daily through Friday and reducing lasix back to 40 mg daily, starting on Friday. You will be contacted by
disaster recovery specialist office for an outpatient consultation.
Interventions
Interventions:
*Risk Screen - Suicide Last Done: 07/14/24 12:58
*General Assessment Last Done: 07/14/24 12:58
*Neglect/Abuse Screening Last Done: 07/14/24 12:58
ED- Fall Risk Assessment Last Done: 07/14/24 13:07
*ED COVID-19 Vaccine History Last Done: 07/14/24 12:58
*Nursing Disposition Last Done: 07/14/24 16:31
ED- Cardiac Assessment Last Done: 07/14/24 13:07
ED- Pulmonary Assessment Last Done: 07/14/24 13:07
Discharge Date and Time
Discharge Date/Time: 07/14/24 16:43
Print Language: BELARUSIAN
[2024-07-14 13:35] LABS: % Basophils 0.9 % (0-2); % Eosinophils 2.8 % (0-6); % Immature Granulocytes 0.3 % (0-0.5); % Lymphocytes 20.5 % (20.5-51.1); % Monocytes 9.1 % (1.7-9.3); % Neutrophils 66.4 % (42.2-75.2); Absolute Basophils 0.1 10^3/uL (0-0.2); Absolute Eosinophils 0.2 10^3/uL (0-0.7); Absolute Lymphocytes 1.4 10^3/uL (1.2-3.4); Absolute Monocytes 0.6 10^3/uL (0.1-0.6); Absolute Neutrophils 4.5 10^3/uL (1.4-6.5); Hematocrit 36.1 % (37.0-47.0); Hemoglobin 12.3 g/dL (12.0-16.0); Mean Corp Hgb Conc. 34.1 g/dL (33.0-37.0); Mean Corpuscular Hgb 32.2 pg (27.0-31.0); Mean Corpuscular Volume 94.5 fL (81.0-99.0); Mean Platelet Volume 9.7 fL (7.4-10.4); Nucleated Red Blood Cells % 0 %; Platelet Count 207 10^3/uL (130-400); Red Blood Cell Count 3.82 10^6/uL (4.20-5.40); Red Cell Dist. Width 16.6 % (11.5-14.5); White Blood Cell Count 6.8 10^3/uL (4.8-10.8)
[2024-07-14 13:46] LABS: ALT (SGPT) 39 U/L (0-35); AST (SGOT) 58 U/L (14-36); Albumin 4.5 g/dl (3.5-5.0); Alkaline Phosphatase 94 U/L (38-126); Blood Urea Nitrogen 34 mg/dl (7-17); Calcium 10.2 mg/dl (8.4-10.2); Carbon Dioxide 31 mmol/L (22-30); Chloride 100 mmol/L (98-107); Estimated Creatinine Clearance 39 ml/min; Glucose 148 mg/dl (70-99); Sodium 141 mmol/L (135-145); Total Protein 7.1 g/dl (6.3-8.2); eGFR 49.24
[2024-07-14 13:58] LABS: NT-proBNP 3850 pg/ml; Troponin I 0.021 ng/ml
[2024-07-14 15:00] VITALS: BP 130/86
[2024-07-14] MEDS: LASIX 40 MG IV (15:26)
[2024-07-14 15:27] VITALS: BP 113/69
[2024-07-14 16:30] VITALS: BP 106/84
== END 2024-07-14 16:43 ==
LOC: EMR 12:37
PROVIDERS: EMERGENCY PHYSICIAN Emergency Medicine; FAMILY PHYSICIAN Family Medicine
DX: I50.9 Heart failure, unspecified (principal); I48.91 Unspecified atrial fibrillation; J45.909 Unspecified asthma, uncomplicated; I25.10 Atherosclerotic heart disease of native coronary artery without angina pectoris; I11.0 Hypertensive heart disease with heart failure; J44.9 Chronic obstructive pulmonary disease, unspecified; K21.9 Gastro-esophageal reflux disease without esophagitis; E78.00 Pure hypercholesterolemia, unspecified; E11.9 Type 2 diabetes mellitus without complications; I25.2 Old myocardial infarction; E03.9 Hypothyroidism, unspecified; Z79.01 Long term (current) use of anticoagulants; Z82.49 Family history of ischemic heart disease and other diseases of the circulatory system; Z85.038 Personal history of other malignant neoplasm of large intestine; Z85.3 Personal history of malignant neoplasm of breast; Z87.891 Personal history of nicotine dependence; Z90.12 Acquired absence of left breast and nipple; Z90.49 Acquired absence of other specified parts of digestive tract; Z95.0 Presence of cardiac pacemaker; Z96.659 Presence of unspecified artificial knee joint
CPT/HCPCS: 99283; 96374; 71046; 80053; 83880; 84484; 85025; 93005

== ENCOUNTER 2024-07-22 01:05 | Inpatient (IN) | payer OTHER, SELFPAY ==
[2024-07-21 20:52] VITALS: BP 99/77
[2024-07-21 21:00] VITALS: BP 92/80
[2024-07-21 21:04] VITALS: BMI 34.3
--- NOTE | 2024-07-21 21:09 | ED.GENMED ---
History of Present Illness
General
Chief Complaint: Abdominal Pain
Source: patient
Exam Limitations: none
Time Seen by Provider: 07/21/24 20:55
Nursing documentation reviewed up to this point in time: agreed with
History of Present Illness
History of Present Illness:
Patient with history of congestive heart failure on Lasix, presents to ED from snf secondary to worsening shortness of breath, despite increasing Lasix as an outpatient. In addition, patient is complaining of diffuse abdominal pain,
especially worse with meals. Denies nausea, vomiting, or diarrhea. Upon arrival, patient is found to be febrile, which she was not aware of. Patient was seen in ED for similar complaint 1 week ago, when her Lasix was increased short-term. Denies
chest pain. Denies headache. Denies dizziness. Denies coughing. Denies sore throat. Denies difficulty urination. Denies back pain. Patient's surgical history includes cholecystectomy.
Past History
Past History
ED Past Medical History: Arrthythmia (Atrial fib), Asthma, CAD, Cancer (Breast and colon CA), CHF, COPD, GERD, HTN, Hypercholesterolemia, NIDDM (Diet controlled), [place], Hypothyroidism and Other (Colitis, Anemia)
ED Past Surgical History: Appendectomy, Bowel resection (Colectomy for Colon CA), Cardiac (Pacemaker), Cholecystectomy, Orthopedic (Right and left total knee replacements), Tonsilectomy and Other (Left breast mastectomy)
Social History
Tobacco: Former smoker
Alcohol: None
Drug: None
Personal:
Living: alone
Employment: Retired
Family History
Family History: CAD and Other
Review of Systems
Review of Systems
Allergies reviewed?: Yes
All Other Systems: ROS reviewed and negative except as documented in HPI and ROS
Constitutional: Reports no symptoms; Denies fever or chills
Respiratory: Reports trouble breathing; Denies cough
Cardiac: Reports no symptoms; Denies chest pain
ABD/GI: Reports abdominal pain; Denies nausea, vomiting or diarrhea
: Reports no symptoms
Musculoskeletal: Reports edema
Skin: Reports no symptoms
Neurological: Reports no symptoms
Phy Exam
Physical Exam
Physical Exam:
Physical Exam
General: no apparent distress, not acutely ill. afebrile
Head: nc/at. eomi
Neck: supple. normal range of motion.
Heart: s1/s2 regular rate and rhythm, no murmur. equal radial pulses.
Lungs: no acute respiratory distress. diminished breath sounds bilaterally
Abdomen: normal bowel sounds. mild epigastric tenderness to palpation.
Neuro: alert and oriented. no focal neurological deficits
Skin: no rash
Psychiatric: well kept. interactive and cooperative
Extremities: LE b/l edema, nonpitting. no calf tenderness.
Course
Orders/Labs/Results
Orders:
Orders
07/21/24 20:51
EKG [Electrocardiogram (*1)] Urgent
Reason for Study: Abdominal Pain
EKG- Treatment ONCE
07/21/24 21:04
CT Abd/pel Without Iv Or Oral Urgent
Comment: iv infiltrated saline, hard stick, non con per DR Montenegro
Reason For Exam: right sided abdominal pain
07/21/24 21:07
COVID-19 Antigen Urgent
Source: Nasal Swab
Complete Blood Count/With Diff Urgent
Comprehensive Metabolic Panel Urgent
Lipase Urgent
NT-proBNP Urgent
Troponin I Urgent
Influenza A+B Rapid Molecular Urgent
MORGAN Source: Nasal Swab
Specimen Description:
07/21/24 21:09
CR Chest - 2 Views Urgent
Comment:
Reason For Exam: sob
07/21/24 21:12
Acetaminophen [Tylenol] 650 mg PO NOW STA
07/21/24 23:05
Urinalysis Reflex To Culture Urgent
Date Specimen was Collected: 07/21/24
Time Specimen was Collected: 21:04
Urine Microscopic Reflex Cult Urgent
07/21/24 23:39
Furosemide [Lasix] 20 mg IV NOW STA
Abnormal Lab Results
07/21/24 07/21/24
21:07 23:05
RBC 4.04 L 10^6/uL
(4.20-5.40)
Hct 36.2 L %
(37.0-47.0)
RDW 16.6 H %
(11.5-14.5)
Absolute Lymphs (auto) 0.9 L 10^3/uL
(1.2-3.4)
Neutrophils % 75.5 H %
(42.2-75.2)
Lymphocytes % 12.5 L %
(20.5-51.1)
Chloride 94 L mmol/L
(98-107)
BUN 42 H mg/dl
(7-17)
Creatinine 1.2 H mg/dL
(0.6-1.0)
Glucose 228 H mg/dl
(70-99)
AST 44 H U/L
(14-36)
Lipase 544 H U/L
(23-300)
Urine Bacteria (Reflex) Few A
(Negative)
Urine Albumin (Reflex) 1+ A
(Neg - Trace)
07/21/24 21:07
07/21/24 21:07
Vital Signs
Initial and Last Documented VS:
Initial Vital Signs
BP
99/77
07/21/24 20:52
Last Documented Vital Signs
Temp Pulse Resp BP Pulse Ox
101.1 F H 76 20 93/68 94
07/21/24 21:00 07/21/24 22:00 07/21/24 22:00 07/21/24 22:00 07/21/24 22:00
MDM/Problems Addressed
MDM/Problems Addressed:
History and exam concerning for mild fluid overload, despite increasing Lasix as an outpatient.
Febrile illness noted in ED -no clear source at this time. Will hold off antibiotics at this time. COVID and influenza negative. Chest x-ray without any acute focal infiltrate.
*EKG
Interpreted by ED Provider?: Yes
EKG Intrepretation Time: 21:16
Heart Rate: 77
Rate: normal
Rhythm: av sequential
ED Attending Note
-
Portions of this chart may have been created with voice recognition software.� Occasional wrong word or��sound alike� substitutions may have occurred due to the inherent limitations of voice recognition software.
Discharge Plan
Departure
Patient Disposition: Admit
Date of Disposition: 07/21/24
Time of Disposition: 23:41
Admit to: Telemetry
Presentation/result/management discussed w/ accepting MD/DO: Hospitalist
Discharge Problem:
Fluid overload, Fever, Abdominal pain
Prescriptions:
No Action
montelukast 10 MG tablet
10 mg PO HS
levothyroxine 100 MCG tablet
100 mcg PO DAILY
cetirizine 10 MG tablet
10 mg PO DAILY
albuterol sulfate 1 PUFF HFA aerosol inhaler
2 puff inhalation R Q4HPRN PRN (Reason: sob)
metoprolol succinate 25 mg Tablet Extended Release 24 Hr
12.5 mg PO DAILY
Eliquis 5 mg Tablet
5 mg PO BID
magnesium 250 mg Tablet
250 mg PO DAILY
ezetimibe [Zetia] 10 mg Tablet
10 mg PO QPM
cholecalciferol (vitamin D3) [Vitamin D3] 125 mcg (5,000 unit) Tablet
125 mcg PO DAILY
furosemide 40 mg tablet
40 mg PO DAILY
Patient Comments:
11/26/2023: Pt took an extra dose of Lasix 40mg today per PCP
midodrine 10 mg tablet
10 mg PO BID
glipizide 5 mg Tablet
2.5 mg PO DAILY Qty: 30 0RF
pantoprazole [Protonix] 40 mg tablet,delayed release (DR/EC)
40 mg PO DAILY Qty: 30 0RF
Rx Instructions:
Please take 30 minutes prior to eating or drinking anything in the morning.
atorvastatin 80 mg tablet
80 mg PO QPM
vitamin B complex Tablet Extended Release
1 tab PO DAILY
gabapentin 600 mg tablet
600 mg PO TID
zolpidem 5 mg tablet
5 mg PO HS PRN (Reason: sleep)
Patient Comments:
11/26/2023: last filled 09/11/23, 30 tabs for 30 days from [facility]
potassium
1 tab PO DAILY
acetaminophen [Pain Relief ES (acetaminophen)] 500 mg tablet
1,000 mg PO Q6H PRN (Reason: mild pain)
oxycodone 5 mg capsule
5 mg PO Q6H PRN (Reason: moderate to severe pain) Qty: 4 0RF
Patient Comments:
11/26/2023: last filled 10/11/23, 120 tabs for 30 days from [facility]
allopurinol 100 mg Tablet
100 mg PO BID
Referrals:
Jerrell Byrne MD [Family Provider] -
Interventions
Interventions:
*Risk Screen - Suicide Last Done: 07/21/24 20:53
*General Assessment Last Done: 07/21/24 20:53
*Neglect/Abuse Screening Last Done: 07/21/24 20:53
*ED COVID-19 Vaccine History Last Done: 07/21/24 20:53
[facility] Assessment Last Done: 07/21/24 21:05
Discharge Date and Time
Print Language: IVORIAN
[2024-07-21 21:23] LABS: % Basophils 0.9 % (0-2); % Immature Granulocytes 0.3 % (0-0.5); % Lymphocytes 12.5 % (20.5-51.1); % Monocytes 8.8 % (1.7-9.3); % Neutrophils 75.5 % (42.2-75.2); Absolute Basophils 0.1 10^3/uL (0-0.2); Absolute Eosinophils 0.1 10^3/uL (0-0.7); Absolute Lymphocytes 0.9 10^3/uL (1.2-3.4); Absolute Monocytes 0.6 10^3/uL (0.1-0.6); Absolute Neutrophils 5.2 10^3/uL (1.4-6.5); Hematocrit 36.2 % (37.0-47.0); Hemoglobin 12.5 g/dL (12.0-16.0); Mean Corp Hgb Conc. 34.5 g/dL (33.0-37.0); Mean Corpuscular Hgb 30.9 pg (27.0-31.0); Mean Corpuscular Volume 89.6 fL (81.0-99.0); Mean Platelet Volume 9.3 fL (7.4-10.4); Nucleated Red Blood Cells % 0 %; Platelet Count 238 10^3/uL (130-400); Red Blood Cell Count 4.04 10^6/uL (4.20-5.40); Red Cell Dist. Width 16.6 % (11.5-14.5); White Blood Cell Count 6.9 10^3/uL (4.8-10.8)
[2024-07-21] MEDS: TYLENOL 650 MG PO (21:28)
[2024-07-21 21:40] LABS: ALT (SGPT) 27 U/L (0-35); AST (SGOT) 44 U/L (14-36); Albumin 4.5 g/dl (3.5-5.0); Alkaline Phosphatase 101 U/L (38-126); Blood Urea Nitrogen 42 mg/dl (7-17); COVID-19 Antigen Negative (Negative); Calcium 9.8 mg/dl (8.4-10.2); Carbon Dioxide 25 mmol/L (22-30); Chloride 94 mmol/L (98-107); Estimated Creatinine Clearance 36 ml/min; Glucose 228 mg/dl (70-99); Lipase 544 U/L (23-300); Potassium 3.8 mmol/L (3.5-5.1); Sodium 137 mmol/L (135-145); Total Protein 7.3 g/dl (6.3-8.2); eGFR 44.36
[2024-07-21 21:47] LABS: NT-proBNP 4330 pg/ml; Troponin I 0.017 ng/ml
[2024-07-21 22:00] VITALS: BP 93/68
[2024-07-21 23:10] LABS: Urine Albumin 1+ (Neg - Trace); Urine Bilirubin Negative (Negative); Urine Character Clear (Clear); Urine Color Yellow; Urine Glucose Negative (Negative); Urine Ketone Negative (Negative); Urine Leukocyte Negative (Negative); Urine Nitrite Negative (Negative); Urine Occult Blood Negative (Negative); Urine Urobilinogen Negative (Neg - 1+)
[2024-07-21 23:18] LABS: Urine Bacteria Few (Negative); Urine Red Blood Cell 0-2 /HPF (0-2); Urine White Cell 0-2 /HPF (0-5)
[2024-07-21 23:40] VITALS: BP 109/49
[2024-07-21] MEDS: LASIX 20 MG IV (23:44)
[2024-07-22] VITALS (8 sets, daily range): BP systolic 90–114; BP diastolic 53–76; BMI 32.7
--- NOTE | 2024-07-22 00:07 | HPS.HSE ---
Family Physician
-
Family Physician: Jerrell Byrne
Chief Complaint
-
Shortness of breath, chest pain and abdominal pain.
History of Present Illness
This is an 83-year-old female with history of chronic heart failure moderate reduced ejection fraction, persistent atrial fibrillation, CAD, AAS, MR, SSS status post PPM, COPD, asthma, HLD, HTN, hypothyroidism, DM, breast cancer who presents to the
emergency department with persistent [place] exertion and shortness of breath.
Patient reports that she has been having shortness of breath without coughing fevers or chills over the last 1 to 2 weeks. She had a increased dose of oral diuretics due to slow weight gain recently. She reported that over the last couple of days
she had gained about 2 pounds. She was seen in the emergency department and given IV diuretics. She reported she later had significant diuresis but no significant improvement in her breathing. She mostly complains of dyspnea on exertion and noted
some increased pressure substernally in her chest today. She denies orthopnea or PND. She denies any lower extremity edema. She denies any chest pain at rest. Patient had dose of COVID vaccination yesterday.
She denies nausea or vomiting. She does note some abdominal bloating. She denies abdominal pain. She reports that the pressure is mostly in the chest and he appears to get worse when she bends over.
In the emergency department he had a temperature of 1.1, blood pressure was 90/63, pulse was 76 and oxygen saturation was 94% on room air. She had a normal white count with a normal hemoglobin and platelet count. ECG with atrial fibrillation and
no acute ST or T wave changes. Telemetry shows episodes of frequent PVCs with possibly occasional pacing episodes. Chemistries with mostly unremarkable with a BUN of 43 and a creatinine of 1.2. Troponin was 0.012. BNP was elevated at 4800. CT
of the abdomen and pelvis was negative. Chest x-ray shows no acute infiltrates. COVID test was negative, flu test was negative. UA was negative. She was giving additional Lasix in the emergency department today. She continued to complain of
shortness of breath.
Medical History
Past Medical History
Past Medical History: Reports Asthma, Cancer (breast cancer ), CHF, COPD, Hypercholesterolemia, Hypothyroidism, NIDDM and Valvular Disease
Additional Past Medical History:
colon ca
Past Surgical History: Reports Other (mastectomy)
Social History
Tobacco: Former Smoker
Alcohol: Occasional
Drug: None
Personal: Single
Living: Intermediate
Employment: Retired
Family History
Family History: Not pertinent
Allergies / Home Medications
Allergies reflects when Allergies were last updated in [facility].
Home Medications with original date entered in [facility]
Allergy/Medication List:
Allergies
Allergy/AdvReac Type Severity Reaction Status Date / Time
cefazolin [From Ancef] Allergy Itching, Verified 07/21/24 20:52
redness,
hives
crab Allergy Welts, Verified 07/21/24 20:52
vomiting
feathers Allergy allergy Verified 07/21/24 20:52
tested
positive
grass pollen Allergy allergy Verified 07/21/24 20:52
tested
positive
AND FOR HAY
house dust Allergy allergy Verified 07/21/24 20:52
tested
positive
mold Allergy allergy Verified 07/21/24 20:52
tested
positive
Sulfa (Sulfonamide Allergy Hives Verified 07/21/24 20:52
Antibiotics)
tree and shrub pollen Allergy allergy Verified 07/21/24 20:52
tested
positive
Home Medications
montelukast 10 mg tablet 10 mg PO HS Lung/breathing issues 07/17/17
levothyroxine 100 mcg tablet 100 mcg PO DAILY Thyroid 07/03/21
albuterol sulfate 90 mcg/actuation aerosol inhaler 1 puff inhalation R Q4HPRN PRN sob 10/02/21
cetirizine 10 mg tablet 10 mg PO DAILY Allergies 10/02/21
apixaban 5 mg tablet (Eliquis) 5 mg PO BID Blood clot prevention/tx 11/18/22
ezetimibe 10 mg tablet (Zetia) 10 mg PO QPM High cholesterol 11/18/22
magnesium 250 mg tablet 250 mg PO DAILY Supplement 11/18/22
metoprolol succinate 25 mg tablet,extended release 24 hr 12.5 mg PO DAILY Blood pressure 11/18/22
furosemide 40 mg tablet 40 mg PO BID Fluid retention/Swelling 12/09/22
midodrine 10 mg tablet 10 mg PO BID Blood pressure 12/09/22
acetaminophen 500 mg tablet (Pain Relief Extra Strength (acetaminophen)) 500 mg PO Q8H 11/26/23
atorvastatin 80 mg tablet 80 mg PO QPM 11/26/23
gabapentin 600 mg tablet 600 mg PO TID 11/26/23
potassium 1 tab PO DAILY 11/26/23
vitamin B complex 1 tab PO DAILY 11/26/23
oxycodone 5 mg capsule 5 mg PO Q6H PRN moderate to severe pain #4 caps 12/02/23
allopurinol 100 mg tablet 100 mg PO BID 12/03/23
amoxicillin 500 mg capsule 2,000 mg PRN dentist 07/21/24
glipizide 5 mg tablet, extended release 24 hr 5 mg PO DAILY 07/21/24
pantoprazole 40 mg tablet,delayed release (Protonix) 40 mg PO BID 07/22/24
Review of Systems
-
History Source: Patient
Constitutional: Reports Other (feels hot)
EENT: Reports No Symptoms
Respiratory: Reports Trouble Breathing
Cardiac: Reports Chest Pain
Abdomen/GI: Reports Abdominal Pain
: Reports No Symptoms
Musculoskeletal: Reports No Symptoms
Skin: Reports No Symptoms
Neurological: Reports No Symptoms
Endocrine: Reports No Symptoms
Hematologic/Lymphatic: Reports No Symptoms
Psych: Reports No Symptoms
Physical Exam
Vital Signs
Vital Signs
Temp Pulse Resp BP Pulse Ox
98.5 F 89 20 97/66 94
07/21/24 23:42 07/22/24 00:00 07/22/24 00:00 07/22/24 00:00 07/22/24 00:00
Physical Exam
General: Well Developed, Well Nourished, No Apparent Distress and Conversant
HEENT: NormoCephalic, Anicteric, Moist mucous membranes, Atraumatic, PERRLA and Neck Nontender
Respiratory: Wheezes (fine wheezes in the left upper and lower lobes, clear on the right. ), Non Labored Respirations and Decreased Breath Sounds
Cardiac: S1/S2 and Irregular Rhythm
Breast: Deferred by me
GI: Soft, Non Tender, Normal Bowel Sounds and Distended
Rectal: Deferred by Provider
Genito-urinary: Deferred by me
Musculoskeletal: No Clubbing, No Cyanosis and No Edema
Skin: Warm
Neuro: AO x 3
Hematologic/Lymphatic: No Lymphadenopathy
Psych: Calm
Laboratory Results
-
07/21/24 21:07
07/21/24 21:07
Laboratory Results
Total Bilirubin 1.0 mg/dl (0.2-1.3) 07/21/24 21:07
AST 44 U/L (14-36) H 07/21/24 21:07
ALT 27 U/L (0-35) 07/21/24 21:07
Alkaline Phosphatase 101 U/L (38-126) 07/21/24 21:07
Troponin I 0.017 ng/ml 07/21/24 21:07
Lipase 544 U/L (23-300) H 07/21/24 21:07
Data Reviewed
-
Diagnostic Radiology: Image Personally Visualized and interpreted
CT Scan: Report Reviewed by me
Medical Tests (Nuc Med, Echo, EKG etc): Image Personally Visualized and interpreted
Lab Data: Labs Reviewed by me
Old Records: Reviewed
Impression/Plan
-
IMPRESSION:
83-year-old female with multiple comorbidities including COPD/asthma, hypothyroid, CHF with slightly reduced EF, permanent atrial fibrillation with sick sinus syndrome status post pacemaker placement, diabetes not on insulin, hypertensive heart
disease but with recent episodes of low BPs preventing aggressive diuresis who comes into the emergency department with persistent shortness of breath despite increased diuresis at home. BUN/creatinine slightly increased but not markedly so. She
appears otherwise euvolemic on exam with elevation in her BNP to 4001 up from around 2800 previously. Chest x-ray shows no acute infiltrates and no edema or effusion. Cardiac silhouette is within normal limits. ECG is nonischemic with atrial
fibrillation that is rate controlled. Troponin was negative.
PLAN:
1. SOB -the etiology of the shortness of breath is not entirely clear. Pulmonary edema has been addressed with attempted IV diuretics yesterday in the ED increased oral diuretics at home and additional dose of diuretics in the ED today. She has
no significant improvement. She is not hypoxic. On my examination she has significant wheezing with decreased movement and tight airways on the left upper and lower lobes. It sounded more clear on the right. I did not hear any crackles there was
no JVD and no peripheral edema. I suspect she has significant element of bronchospasm. However she is not coughing. Likely more asthma than COPD but the wheezing and tightness could also be secondary to early pulmonary edema. She has a fever
without any infiltrates but had a recent vaccination for COVID-19 1 day ago. Will address both the bronchospasms, or edema as below. She is oxygenating fine at this time at rest.
- admit to telemetry
- continue with lasix 40mg iv bid, holding for SBP < 90. augment with midodrine to maintain map > 65
- will add albuterol now then q 4 hours prn
- symbicort
- prednisone 40 mg po daily
- no indication for abx as I suspect more asthma than COPD
2. Fever - No obvious source and negative viral studies. Normal CBC.
- recent vaccination likely culprit, check procalcitonin. Hold abx for now
3. Elevated lipase - Lipase 588, substernal pressure and some dyspepsia. Normal LFTs. CT a/p negative for biliary abnormalities or pancreatic inflammation.
- trend lipase and lfts, serial examinations
- pain control
- check triglyceride levels
4. CHF - CHF with valvular insufficiency. No evidence of overt volume overload. BNP elevated
- iv lasix as above
- echo
- metoprolol 12.5 daily
- cardiology consult
5. AFIB. Rate controlled.
- continue metoprolol
- continue eliquis
6. DM II - on glipizide
- insulin sliding scale for now
DVT PPX - on apixaban
Code Status - DNR
[2024-07-22] MEDS: ROXICODONE 5 MG PO (00:31)
[2024-07-22] MEDS: VENTOLIN NEBULES 2.5 MG INH (00:51)
[2024-07-22] MEDS: SOLU-MEDROL PF 40 MG IV (00:51)
--- NOTE | 2024-07-22 02:24 | PTCARENOTE ---
Received pt from ED. Patient able to transfer to scale and bed with minimal assistance. AAO*3. BP 90/61 HR 76(Afib) on Tele box #4. Pt denies any dizziness/lightheadedness. Pt denies any chest pain or shortness of breath. All orders reviewed and
acknowledged. Pt updated with plan of care and oriented to room. Bed in low position with call tripathi within reach.
[2024-07-22] MEDS: SYNTHROID 100 MCG PO (06:03)
[2024-07-22 06:50] LABS: Hematocrit 37.7 % (37.0-47.0); Hemoglobin 13.1 g/dL (12.0-16.0); Mean Corp Hgb Conc. 34.7 g/dL (33.0-37.0); Mean Corpuscular Volume 89.1 fL (81.0-99.0); Mean Platelet Volume 9.1 fL (7.4-10.4); Platelet Count 228 10^3/uL (130-400); Red Blood Cell Count 4.23 10^6/uL (4.20-5.40); Red Cell Dist. Width 16.6 % (11.5-14.5); White Blood Cell Count 5.5 10^3/uL (4.8-10.8)
[2024-07-22] MEDS: TYLENOL 650 MG PO ×2 (07:30→15:16)
[2024-07-22] MEDS: NEURONTIN 300 MG PO ×3 (07:30→21:57)
[2024-07-22] MEDS: SYMBICORT 160/4.5 MCG INHALER 2 PUFF INH ×2 (07:32→19:54)
[2024-07-22 07:35] LABS: Procalcitonin 0.05 ng/ml (0.0-0.25)
[2024-07-22 07:39] LABS: ALT (SGPT) 28 U/L (0-35); AST (SGOT) 49 U/L (14-36); Albumin 4.5 g/dl (3.5-5.0); Alkaline Phosphatase 103 U/L (38-126); Direct Bilirubin 0.4 mg/dl (0.0-0.4); Magnesium 1.8 mg/dl (1.6-2.3); Phosphorus 3.8 mg/dl (2.5-4.5); Total Bilirubin 1.1 mg/dl (0.2-1.3); Total Protein 7.2 g/dl (6.3-8.2)
[2024-07-22 08:10] LABS: TSH Reflex To Free T4 1.67 uIU/ml (0.47-4.68)
--- NOTE | 2024-07-22 10:07 | CON.CAR ---
Addendum entered and electronically signed by Esequiel Gustafson MD 07/22/24 14:14:
83-year-old woman with chronic HFmrEF, persistent/permanent atrial fibrillation, aortic stenosis, history of anterior NM and [id number] cardiac arrest admitted now with acute on chronic HFpEF following recent ER stay for the same. She has some
dyspnea. Complains of neuropathic pain.
PMH/PSH adenocarcinoma of the colon with hemicolectomy 2020, PAF status post cardioversion, mild aortic stenosis, anterior NM with [id number] cardiac arrest 1996 treated with PTCA, CABG 1997 pacemaker, stage III left breast cancer treated with
mastectomy and chemotherapy, peripheral neuropathy, COPD, hypertension, hyperlipidemia, type 2 diabetes, hypothyroidism, gout, sleep apnea, degenerative disc disease/spinal stenosis with epidurals, carotid endarterectomy, appendectomy
FH: Noncontributory
SH: , former tobacco, no alcohol
Allergies sulfa, cephalosporins metformin
ROS: Negative except as above
99/67, pulse 83, respiratory 20 weight is 83.7 kg, no acute distress, appears chronically ill, head neck exam unremarkable, lungs relatively clear, neck veins difficult to assess, regular rate and rhythm with systolic murmur at base. Abdomen obese,
1+ edema, musculoskeletal, neuro intact
Chest x-ray with cardiomegaly EKG atrial fibrillation with ventricular pacing
Echo is pending
Hemoglobin 13.1 BUN and creatinine 42 and 1.2, potassium is 3.8, proBNP was 4330, troponin is 0.017
Plan:
She appears improved regarding her acute heart failure with mildly reduced EF, but is still volume overloaded. Will continue the furosemide for now.
Optimization of GDMT is challenging related to hypotension. She is not a good candidate for NGOZI/ARB, spironolactone, though spironolactone could be considered. Continue low-dose metoprolol, will add Jardiance 10 mg a day assuming that it is not
cost prohibitive.
Will await follow-up echocardiography. Perhaps ACCOUNT AUDITOR would be an option if her EF continues to drop.
We will continue to follow.
Original Note:
Consultation
Consultation Request
Date/Time Consultation Requested: 07/22/2024, 0037
Date/Time Consultation Performed: 07/22/2024, 1008
Requesting Provider: Michael Castellanos
Performing Provider: MINOO Michelle for Dr. Gustafson
Reason for Consultation: heart failure exacerbation
Medical History
-
Chief Complaint: shortness of breath
History of Present Illness:
HPI: Tori is an 83 year old female with PMH of chronic HFmrEF, persistent atrial fibrillation, CAD s/p remote NM and CABG, , MR, SSS s/p PPM, COPD, HLD, HTN, hypothyroidism, asthma, DM with diabetic neuropathy, and prior breast cancer who
presented to [facility] for evaluation of increased SOB over the past few weeks. She was seen in the ER on 07/14/2024 for a 3 pound weight gain in 1 week and worsening shortness of breath. Her outpatient Lasix was doubled for 4 days and she was discharged
from the ER. She continued to have shortness of breath and re-presented to the ER on 07/21/2024. She was found to have a fever of 101.1. Chest x-ray showed no overt pulmonary vascular congestion and no acute process. EKG showed V pacing with
underlying A-fib. White blood cell count normal. proBNP 4330 (was 3850 in ER 07/14/24, 2640 at time of last admission for acute heart failure 11/26), troponin 0.017, TSH 1.67, creatinine 1.2 (baseline 1.0), BUN 42, potassium 3.8. She tested
negative for influenza A and B and COVID. There were concerns for wheezing and albuterol was added. Fever was thought to be possibly due to recent COVID-vaccine.
She weighs herself daily and notes weight gain to 190 lbs 07/21/24. Baseline weight has been around 182 lbs. She has intermittently doubled Lasix to 40 mg twice daily for 3 to 4 days in the outpatient setting for worsening shortness of breath. She
denies LE edema but feels like her abdomen is sl distended. No PND or orthopnea. No palpitations, lightheadedness, syncope, falls.
She was started on Lasix 40 mg IV twice daily and reports good urine output since admission.
Her last echocardiogram 11/26: EF 40 to 45%, apical, inferior, and inferior septal hypokinesis mild MR, mild TR, PA systolic pressure 21-26mm Hg.
PMH:
Chronic HFmrEF
Persistent Afib
Chronic Eliquis OAC
CAD
s/p remote anterior NM with VF arrest with LAD angioplasty 07/17/97
CAD subsequent CABG x3 with 1996
Mild
Mild MR
SSS s/p PPM
Orthostasis, on midodrine
Chronic kidney disease (baseline creatinine 1.0 but ranges to 1.3 with diuresis)
COPD
Hyperlipidemia
Hypothyroidism
Asthma
Neuropathy
Hypertension
Breast cancer, status post left mastectomy
h/o carotid endarterectomy
h/o diabetes mellitus type 2
h/o colon mass s/p R hemicolectomy 10/02/21 until 10/15/21
spinal stenosis with chronic LE
Past Medical History
Past Medical History: Other (In HPI)
Past Surgical History: Appendectomy, Cardiac (LAD angioplasty 1996, CABG x3 1996), Cholecystectomy and Other (b/l TKA, carotid endarterectomy, L mastectomy, b/l cataract surgery, R hemicolectomy)
Social History
Tobacco: Former Smoker
Alcohol: None
Drug: None
Personal:
Living: Alone
Employment: Retired
Family History
Family History: CAD
Allergies / Home Medications
Allergy/AdvReac Type Severity Reaction Status Date / Time
cefazolin [From Ancef] Allergy Itching, Verified 07/21/24 20:52
redness,
hives
crab Allergy Welts, Verified 07/21/24 20:52
vomiting
feathers Allergy allergy Verified 07/21/24 20:52
tested
positive
grass pollen Allergy allergy Verified 07/21/24 20:52
tested
positive
AND FOR HAY
house dust Allergy allergy Verified 07/21/24 20:52
tested
positive
mold Allergy allergy Verified 07/21/24 20:52
tested
positive
Sulfa (Sulfonamide Allergy Hives Verified 07/21/24 20:52
Antibiotics)
tree and shrub pollen Allergy allergy Verified 07/21/24 20:52
tested
positive
�Medication �Instructions �Recorded �Confirmed �Type
montelukast 10 mg tablet 10 mg PO HS Lung/breathing issues 07/17/17 07/22/24 History
levothyroxine 100 mcg tablet 100 mcg PO DAILY Thyroid 07/03/21 07/22/24 History
albuterol sulfate 90 mcg/actuation 1 puff inhalation R Q4HPRN PRN sob 10/02/21 07/22/24 History
aerosol inhaler
cetirizine 10 mg tablet 10 mg PO DAILY Allergies 10/02/21 07/21/24 History
apixaban 5 mg tablet (Eliquis) 5 mg PO BID Blood clot 11/18/22 07/21/24 History
prevention/tx
ezetimibe 10 mg tablet (Zetia) 10 mg PO QPM High cholesterol 11/18/22 07/22/24 History
magnesium 250 mg tablet 250 mg PO DAILY Supplement 11/18/22 07/22/24 History
metoprolol succinate 25 mg 12.5 mg PO DAILY Blood pressure 11/18/22 07/22/24 History
tablet,extended release 24 hr
furosemide 40 mg tablet 40 mg PO BID Fluid 12/09/22 07/21/24 History
retention/Swelling
midodrine 10 mg tablet 10 mg PO BID Blood pressure 12/09/22 07/22/24 History
acetaminophen 500 mg tablet (Pain 500 mg PO Q8H 11/26/23 07/22/24 History
Relief Extra Strength
(acetaminophen))
atorvastatin 80 mg tablet 80 mg PO QPM 11/26/23 07/21/24 History
gabapentin 600 mg tablet 600 mg PO TID 11/26/23 07/21/24 History
potassium 1 tab PO DAILY 11/26/23 07/22/24 History
vitamin B complex 1 tab PO DAILY 11/26/23 07/22/24 History
oxycodone 5 mg capsule 5 mg PO Q6H PRN moderate to severe 12/02/23 07/22/24 Rx
pain #4 caps
allopurinol 100 mg tablet 100 mg PO BID 12/03/23 07/21/24 History
amoxicillin 500 mg capsule 2,000 mg PRN dentist 07/21/24 History
glipizide 5 mg tablet, extended 5 mg PO DAILY 07/21/24 07/22/24 History
release 24 hr
pantoprazole 40 mg tablet,delayed 40 mg PO BID 07/22/24 07/22/24 History
release (Protonix)
Review of Systems
-
History Source: Patient
All other systems: Negative unless noted
Physical Exam
Vital Signs
Temp Pulse Resp BP Pulse Ox
98.2 F 89 16 114/76 94
07/22/24 07:40 07/22/24 07:40 07/22/24 07:40 07/22/24 07:40 07/22/24 07:40
Lab Results
07/22/24 06:41
07/21/24 21:07
Troponin I 0.017 ng/ml 07/21/24 21:07
Off-T-Kfyjirijyvt Pept 4330 pg/ml 07/21/24 21:07
GEN: No distress, awake, Ox3
HEENT: supple, anicteric, mmm
LUNGS: CTA, no wheezes/rales
CV: Reg, S1/S2, 2/6 systolic murmur, heard t/o precordium
ABD: soft, BS+,sl nondistended
EXT: No edema
NEURO: Gross non-focal
SKIN: No rash
Impression / Plan
-
PCP: Dr. Byrne
Cutter Grinder Operator: Dr. Hansen
Impression:
Presented with SOB
fever
COPD
chronic HFmrEF
orthostasis
CKD
Persistent Afib
Chronic Eliquis OAC
CAD
s/p remote anterior NM with VF arrest with LAD angioplasty 07/17/97
CAD subsequent CABG x3 with 1996
Mild
Mild MR
SSS s/p PPM
COPD
Hyperlipidemia
Hypothyroidism
Asthma
Neuropathy
Hypertension
Breast cancer, status post left mastectomy
h/o carotid endarterectomy
h/o diabetes mellitus type 2
h/o colon mass s/p R hemicolectomy 10/02/21 until 10/15/21
Echo 05/28/21: Ejection fraction 50%, mild aortic stenosis, mean pressure gradient 14 mmHg, aortic valve area 1.1 cm�
Echo 05/19/2023: EF 40-45%, mild cLVH, mid-apical inferoseptum/inferior segments are hypokinetic, mild MR, mild with peak/mean gradients 17/9 mmHg, LILY 1.4 cm2, trace AI, mild TR, estimated PAP 20-25 mmHg
Echo 11/27/2023: EF 40 to 45%, apical, inferior, and inferoseptal hypokinesis noted, mild MR, mild with peak/mean gradients 15/9 mmHg, mild TR, estimated PAP 21 to 26 mmHg
Plan:
1. Shortness of breath/acute on chronic heart failure with mildly reduced EF: Weight up 8 pounds in past week and complaining of worsening dyspnea on exertion. BNP elevated , chest x-ray without acute disease or pulmonary edema. Agree with
short-term IV diuresis, then possible up titration of outpatient Lasix standing dose to 60 mg daily, rather than intermittent up titration of dose, with close monitoring of renal function and blood pressures
-Checking echo today
-Lungs clear on exam today, continue nebulizer for COPD.
-Continue low-dose Toprol. Not on NGOZI or ARB, hypotension has limited medical therapy for heart failure mildly reduced EF in the past
2. A-fib -personally reviewed telemetry: afib HRs 80s-90s. Her pacemaker was remotely interrogated today 07/22/24 and shows permanent atrial fibrillation, V paced 47% of the time no significant high ventricular rate episodes. Continue
anticoagulation with Eliquis and metoprolol for rate control
3. Hypotension-chronic stable problem, she is maintained on midodrine 10 mg twice a day.
4. History of CAD- Shortness of breath could be an anginal equivalent. Troponin was negative. Could consider outpatient ischemic evaluation.
5. Fever - currently afebrile. T max 101.1. wbc, CXR, UA negative, procalcitonin 0.05. Fever 07/21/24 likely immune response from COVID vaccine she rec'd on 07/20/24.
6. CKD - closely monitor creatinine with IV diuresis.
[2024-07-22] MEDS: ProAmatine 10 MG PO ×2 (10:09→20:43)
[2024-07-22] MEDS: TOPROL XL 12.5 MG PO (10:09)
[2024-07-22] MEDS: PROTONIX 40 MG PO ×2 (10:09→20:44)
[2024-07-22] MEDS: DELTASONE 40 MG PO (10:10)
[2024-07-22] MEDS: ZYLOPRIM 100 MG PO ×2 (10:10→20:45)
[2024-07-22] MEDS: FLUSH (NSS) 2 FLUSH IV ×2 (10:11→15:17)
[2024-07-22] MEDS: ELIQUIS 5 MG PO ×2 (10:11→20:44)
[2024-07-22] MEDS: LASIX 40 MG IV ×2 (10:11→15:17)
[2024-07-22] MEDS: ZYRTEC 10 MG PO (10:11)
[2024-07-22] MEDS: GLUCOTROL XL (EXTENDED RELEASE) 5 MG PO (10:11)
--- NOTE | 2024-07-22 11:43 | W.PN.HOSP.TC ---
Addendum entered and electronically signed by Jose Simmons MD 07/22/24 12:39:
I saw and evaluated the patient. I reviewed the resident�s note and agree with findings and plan as documented in the resident�s note.
No new complaints.
Gen: NAD, AAOx3.
Eyes: EOMI, PERRLA, no scleral icterus.
Neck: supple.
CV: irreg/irreg, +S1/S2, 2/6 systolic murmur
Resp: CTAB, no rales, wheezes, or rhonchi.
Abd: +BS, soft, NT, ND
Skin: No rashes.
Neuro: CN 2-12 intact, non-focal.
Psych: Normal mood and affect.
CXR: No acute cardiopulmonary process.
Acute on chronic HFrEF:
-cont IV Lasix
-c/s cards
-check echo
-daily wts, I/Os
Fever on admission was likely due to COVID vaccine
Original Note:
Today's Communication/Plan
-
echo, cardiology consult
Assessment / Plan
Assessment / Plan
83yo F with PMH CHFrEF, afib, SSS s/p PPM, AAS, HTN, COPD, asthma who presented to ED 07/21 with chest pain and shortness of breath.
chest pain, shortness of breath
CHFrEF
COPD
Asthma
- Unclear etiology of chest pain and shortness of breath- possible exacerbation of CHF. Does not appear volume overloaded, lungs CTAB, no wheezes though did recently receive inhaler.
- Do not suspect acute COPD or asthma exacerbation.
- Previous echo showing EF 40-45%, will obtain repeat echo and cardiology consult
- Continue IV lasix, hold for SBP < 90; metoprolol, inhalers
Febrile on admission
- Tmax 101.1, last febrile 07/21 2100 --> afebrile since
- Likely side effect of recent covid vaccination
- Do not suspect acute infection, no leukocytosis
- Continue to monitor temperature curve
Elevated lipase
- Lipase 544
- No abdominal/epigastric pain, tenderness; no pancreatic inflammation on CT
- Does not meet diagnosis of pancreatitis
Afib rate controlled- continue metoprolol, eliquis
DM- continue home glipizide, diabetic diet, ISS
History of colon cancer
History of breast cancer s/p lumpectomy, chemo, radiation
History of ?cardiac arrest
Code status: DNR
VTE ppx: eliquis
Diet: Diabetic diet
Dispo planning: TBD
Anticipated Discharge: 24 - 48 hours
Subjective/Interval History
-
Date of Service: July 22, 2024
No acute events. Today she tells me that she has had shortness of breath and chest pain 'for a while' and it has gradually been getting worse, no acute changes; she lives in assisted living and they sent her in for evaluation. The shortness of
breath and chest pain are constant, worse with exertion and slightly relieved at rest. She did not notice a change after using inhalers. This morning she also complains of neuropathy in her hands and feet. She denies headache, lightheadedness,
dizziness, chest pain, shortness of breath, nausea, vomiting, diarrhea, constipation. She denies fevers, chills, cough. Tolerating PO diet. Ambulating with assistance, uses walker at home.
Objective Data
-
Labs:
Laboratory Results
07/22/24
06:41
WBC 5.5
Hgb 13.1
Hct 37.7
Plt Count 228
Total Bilirubin 1.1
AST 49 H
ALT 28
Alkaline Phosphatase 103
Vital Signs:
Vital Signs
Temp Pulse Resp BP Pulse Ox
98 F 83 20 99/67 93
07/22/24 11:15 07/22/24 11:15 07/22/24 11:15 07/22/24 11:15 07/22/24 11:15
I&O
07/21/24 07/22/24 07/23/24
06:59 06:59 06:59
Intake Total 480 / 480
Balance 480 / 480
Review of Systems
-
History Source: Patient
All other systems: Reviewed and negative
Physical Exam
-
General: Well Developed, Well Nourished, No Apparent Distress, Comfortable, Conversant and Obese
HEENT: Normocephalic and Atraumatic
Respiratory: Clear to Auscultation and Non Labored Respirations; Negative Wheezes
Cardiac: Regular Rhythm and S1/S2
GI: Soft, Nontender, Nondistended and Normal Bowel Sounds
Musculoskeletal: No Cyanosis and Other (trace edema bilateral lower extremities symmetric)
Skin: Warm and Dry
Neuro: Awake, Alert and Oriented
Data Reviewed
-
Diagnostic Radiology: Image personally visualized and interpreted, Report Reviewed by me and Discussed with Physician
CT Scan: Image personally visualized and interpreted, Report Reviewed by me and Discussed with Physician
Labs: Labs Reviewed by me and Discussed with Physician
[2024-07-22] MEDS: FARXIGA 10 MG PO (15:16)
[2024-07-22] MEDS: ZETIA 10 MG PO (18:28)
[2024-07-22] MEDS: LIPITOR 80 MG PO (18:28)
--- NOTE | 2024-07-22 18:39 | W.PN.UPDATE ---
Update Note
Progress Note Update
At bedside to evaluate pain given patient requesting oxycodone. At time of my evaluation, patient denies pain. She says she has 'neuropathy' pain in feet that comes and goes. She will not elaborate on what pain feels like; she just says it feels
worse than restless leg syndrome. She says the pain is better with activity, and feels worse if she spends too much time laying in bed. The pain comes 'whenever it feels like it' and generally lasts for a few minutes. Reviewed with patient that pain
likely resolves spontaneously before oxycodone takes effect, and it potentially helps her sleep due to side effects of drowsiness rather than pain relief. I expressed concern regarding ineffective treatment of neuropathy and increased risk of side
effects especially given her age. She is understanding though remains frustrated that she is not prescribed oxycodone here. No changes to medication plan at this time- continue gabapentin and supportive measures. Can try off loading boot or SCDs if
patient would like. Reassess pain tomorrow.
[2024-07-22] MEDS: SINGULAIR 10 MG PO (22:00)
[2024-07-23] VITALS (8 sets, daily range): BP systolic 89–117; BP diastolic 60–83; PULSE 82; O2SAT 95–96; BMI 32.1
[2024-07-23] MEDS: SYNTHROID 100 MCG PO (05:21)
[2024-07-23] MEDS: SYMBICORT 160/4.5 MCG INHALER 2 PUFF INH ×2 (07:19→19:37)
--- NOTE | 2024-07-23 08:58 | W.PN.HOSP.TC ---
Addendum entered and electronically signed by Hedy Ko MD 07/23/24 14:06:
83 y/o with CHF
I personally performed a history and physical exam of the patient and discussed management with the resident. I reviewed the resident's note and agree with the documented findings and plan of care HPI/CC except changes in documentation.
CT abdomen pelvis without p.o. or IV contrast-no acute pathology. Mild left-sided renal cortical atrophy with total millimeter cyst in the upper pole of the left kidney, cholecystectomy, extensive vascular calcification indicating atherosclerosis,
multilevel lumbar DJD
CVS: S1-S2 irregular, SM at apex and AA
Chest: CTA B/L
Abdomen: Soft, NT
Extremities: No edema
# Acute on chronic heart failure with reduced ejection fraction
Echo EF 40 to 45% current echo EF 44 to 48%
Continue Lasix, metoprolol, Jardiance
Low BP in the way of GMDT with ARNI/MRA .
Outpatient ischemic evaluation
# Moderate Aortic stenosis,Mild MR,Moderate tricuspid regurgitation.Estimated pulmonary artery pressure of 34 mmHg, assuming a right atrial pressure of 3 mmHg.Trace pulmonic regurgitation.
# COPD/asthma- exacerbatio - mild- Taper steroids.Continue inhalers
# Fever on admission-urine analysis negative, chest x-ray negative,, CT of the abdomen pelvis without contrast without any acute changes. COVID-negative. Possible viral. No more fevers now. Also recieved covid vaccine
# Elevated lipase-no abdominal pain, no pancreatic inflammation on CT
# Atrial fibrillation-persistent rate controlled-continue metoprolol and Eliquis
# Chronic orthostasis on midodrine
# History of V-fib arrest
# Pacemaker
# History of coronary disease with angioplasty, CABG
# Hypothyroidism-continue Synthroid
# Diabetes-continue glipizide sliding scale coverage with Accu-Cheks
# Hyperlipidemia/atherosclerosis-continue atorvastatin, Zetia-
# CKD stage III
# Gout-continue allopurinol
# h/o carotid endarterectomy
# History of colon cancer with right hemicolectomy
# History of breast cancer with modified radical mastectomy, chemo and radiation
# Multilevel lumbar DJD and grade 1 spondylolisthesis/ambulatory dysfunction/osteoarthritis/neuropathy-continue gabapentin,Oxycodone
# GERD- PPI
# Obesity per BMI
# Ex-smoker
# DVT prophylaxis-Eliquis
# DNR
PT OT
Discharge planning
Called daughter Talisha- Went to message
Called Daughter Tameka - Updated . DNR Confirmed.
D/W Cards
Time spent over 50 min
Part of this note was created using voice recognition system. Occasional wrong word or��sound alike� substitutions may have inadvertently occurred due to the inherent limitations of voice recognition software. If noted kindly bring it to my
attention for correction.
Original Note:
Today's Communication/Plan
-
AM labs pending, discharge planning
Assessment / Plan
Assessment / Plan
83yo F with PMH CHFrEF, afib, SSS s/p PPM, AAS, HTN, COPD, asthma who presented to ED 07/21 with chest pain and shortness of breath.
HFrEF
- Previous echo showing EF 40-45%; repeat echo 07/22 showing LV EF 44-48%
- S/p cardiology consult, appreciate recs
- Continue lasix, metoprolol. Will transition to PO lasix at discharge.
- Continue Jardiance 10mg qd (new this admission per cardiology)
- Stable for hospital discharge today with outpatient cardiology follow up
COPD
Asthma
- Do not suspect acute COPD or asthma exacerbation.
- Continue inhalers
Febrile on admission
- Tmax 101.1, last febrile 07/21 2100 --> afebrile since
- Likely side effect of recent covid vaccination
- Do not suspect acute infection, no leukocytosis
- Continue to monitor temperature curve
Elevated lipase
- Lipase 544
- No abdominal/epigastric pain, tenderness; no pancreatic inflammation on CT
- Does not meet diagnosis of pancreatitis
Afib rate controlled- continue metoprolol, eliquis
DM- continue home glipizide, diabetic diet, ISS
History of colon cancer s/p R hemicolectomy
History of breast cancer s/p lumpectomy, chemo, radiation
History of CO with VF arrest s/p angioplasty, CABG x3
CAD- cardiology recs outpatient ischemic evaluation
Code status: DNR
VTE ppx: eliquis
Diet: Diabetic diet
Dispo planning: PT/OT eval, likely discharge to assisted living facility where living prior to admission
Anticipated Discharge: Within 24 hours
Subjective/Interval History
-
Date of Service: July 23, 2024
No acute events overnight. This morning she reports no pain in her feet, thinks the off loading boots helped. She is in good spirits, feeling well, desires discharge. Daughter at bedside. Denies lightheadedness, dizziness, chest pain, shortness of
breath, nausea, vomiting, diarrhea, constipation. Tolerating PO diet. Ambulating with assistance, uses a walker at baseline at group home.
Objective Data
-
Labs:
Laboratory Results
07/23/24
08:46
WBC Pending
Hgb Pending
Hct Pending
Plt Count Pending
Sodium Pending
Potassium Pending
Chloride Pending
Carbon Dioxide Pending
BUN Pending
Creatinine Pending
Glucose Pending
Calcium Pending
Vital Signs:
Vital Signs
Temp Pulse Resp BP Pulse Ox
97.9 F 72 20 105/63 96
07/23/24 07:27 07/23/24 07:27 07/23/24 07:27 07/23/24 07:27 07/23/24 07:27
I&O
07/22/24 07/23/24 07/24/24
06:59 06:59 06:59
Intake Total 480 / 480 0 / 0
Output Total 890 / 890
Balance 480 / 480 -890 / -890
Review of Systems
-
History Source: Patient
All other systems: Reviewed and negative
Physical Exam
-
General: Well Developed, Well Nourished, No Apparent Distress, Comfortable, Conversant and Obese
HEENT: Normocephalic and Atraumatic
Respiratory: Non Labored Respirations; Negative Wheezes
Cardiac: Regular Rhythm
GI: Soft, Nontender, Nondistended and Normal Bowel Sounds
Musculoskeletal: No Cyanosis and No Edema
Skin: Warm and Dry
Neuro: Awake, Alert, Oriented and Nonfocal/Grossly Intact
Psych: Calm and Intact Judgement/Insight
Data Reviewed
-
Diagnostic Radiology: Image personally visualized and interpreted, Report Reviewed by me and Discussed with Physician
CT Scan: Image personally visualized and interpreted, Report Reviewed by me and Discussed with Physician
Labs: Labs Reviewed by me and Discussed with Physician
[2024-07-23] MEDS: ProAmatine 10 MG PO ×2 (09:01→19:44)
[2024-07-23] MEDS: NEURONTIN 300 MG PO ×3 (09:01→21:41)
[2024-07-23] MEDS: GLUCOTROL XL (EXTENDED RELEASE) 5 MG PO (09:01)
[2024-07-23] MEDS: TOPROL XL 12.5 MG PO (09:03)
[2024-07-23] MEDS: FARXIGA 10 MG PO (09:03)
[2024-07-23] MEDS: PROTONIX 40 MG PO ×2 (09:04→19:45)
[2024-07-23] MEDS: ZYRTEC 10 MG PO (09:04)
[2024-07-23] MEDS: ELIQUIS 5 MG PO ×2 (09:04→19:45)
[2024-07-23] MEDS: DELTASONE 40 MG PO (09:04)
[2024-07-23] MEDS: ZYLOPRIM 100 MG PO ×2 (09:04→19:45)
[2024-07-23] MEDS: FLUSH (NSS) 2 FLUSH IV (09:05)
[2024-07-23] MEDS: LASIX 40 MG IV (09:05)
[2024-07-23 09:25] LABS: Hematocrit 41.1 % (37.0-47.0); Hemoglobin 14.1 g/dL (12.0-16.0); Mean Corp Hgb Conc. 34.3 g/dL (33.0-37.0); Mean Corpuscular Hgb 31.3 pg (27.0-31.0); Mean Corpuscular Volume 91.3 fL (81.0-99.0); Mean Platelet Volume 9.1 fL (7.4-10.4); Platelet Count 281 10^3/uL (130-400); Red Cell Dist. Width 16.3 % (11.5-14.5); White Blood Cell Count 11.8 10^3/uL (4.8-10.8)
[2024-07-23 09:34] LABS: Blood Urea Nitrogen 44 mg/dl (7-17); Calcium 10.7 mg/dl (8.4-10.2); Carbon Dioxide 29 mmol/L (22-30); Chloride 96 mmol/L (98-107); Estimated Creatinine Clearance 35 ml/min; Glucose 188 mg/dl (70-99); Potassium 3.9 mmol/L (3.5-5.1); Sodium 140 mmol/L (135-145); eGFR 44.36
--- NOTE | 2024-07-23 11:15 | W.PN.CARDCBS ---
Addendum entered and electronically signed by Licha Garcia DO 07/23/24 13:05:
I saw and examined the patient.
The Dopster's note was reviewed and I agree with the note.
Comment: Patient seen and examined reporting shortness of breath after ambulation to the bathroom. Denies chest pain or pressure, palpitations or dizziness.
GEN: No distress, awake, Ox3
HEENT: mmm
LUNGS: CTA, no wheezes/rales
CV: irreg, irreg, S1/S2, 2/6 syst LSB
ABD: soft, BS+, NT/ND
EXT: No edema
Plan: Admitted with shortness of breath consistent biventricular dysfunction and mildly reduced ejection fraction of 44�48%. Overall volume status has improved with IV diuresis and will transition tomorrow to oral Lasix 60 mg daily. She was also
recently started on Farxiga 10 mg daily today, 07/23/2024. Continue optimization of goal-directed medical therapy. Possible future outpatient additions of low-dose NGOZI inhibitor or spironolactone. Additionally recent echocardiogram shows
progression of aortic stenosis to moderate to severe compared to November 2023 and can consider outpatient workup for possible TAVR in the future. Patient has previously been seen by pulmonary as an outpatient with known COPD with no recent
follow-up. Given RV dysfunction and concern for untreated sleep apnea would have her return to pulmonary as an outpatient. Check ambulatory O2 and assess home PT needs. She remains in permanent atrial fibrillation status post pacemaker on
metoprolol with adequately controlled heart rates. Continue anticoagulation with Eliquis. Discharge planning per primary
Original Note:
Today's Communication / Plan
-
-check O2 sat with ambulation
-cont IV diuretics through today, transition to oral diuretic 07/24/24
Impression / Plan
-
PCP: Dr. Byrne
Flame Channeler: Dr. Hansen
Impression:
Presented with SOB
fever
COPD
chronic HFmrEF
orthostasis
CKD
Persistent Afib
Chronic Eliquis OAC
CAD
s/p remote anterior MO with VF arrest with LAD angioplasty 07/17/97
CAD subsequent CABG x3 with 1996
Mild , now mod-sev on echo 07/22/24
Mild MR
SSS s/p PPM
COPD
Hyperlipidemia
Hypothyroidism
Asthma
Neuropathy
Hypertension
Breast cancer, status post left mastectomy
h/o carotid endarterectomy
h/o diabetes mellitus type 2
h/o colon mass s/p R hemicolectomy 10/02/21 until 10/15/21
Echo 05/28/21: Ejection fraction 50%, mild aortic stenosis, mean pressure gradient 14 mmHg, aortic valve area 1.1 cm�
Echo 05/19/2023: EF 40-45%, mild cLVH, mid-apical inferoseptum/inferior segments are hypokinetic, mild MR, mild with peak/mean gradients 17/9 mmHg, LILY 1.4 cm2, trace AI, mild TR, estimated PAP 20-25 mmHg
Echo 11/27/2023: EF 40 to 45%, apical, inferior, and inferoseptal hypokinesis noted, mild MR, mild with peak/mean gradients 15/9 mmHg, mild TR, estimated PAP 21 to 26 mmHg
Echo 07/22/24: EF 48% by volumetric assessment, 44% by Milton's method, decreased RV sys fxn, mild-mod MR, mod TR, PASP 34, mod-sev 29/16/LILY 0.84 cm
Plan:
1. Shortness of breath/acute on chronic heart failure with mildly reduced EF: Weight down 3 lbs overnight, 12 lbs since admission on 07/21/24. HANCOCK improving but still present. Chest x-ray without acute disease or pulmonary edema.
- Will check O2 sat with ambulation today.
-Cont IV diuresis, then possible up titration of outpatient Lasix standing dose to 60 mg daily on discharge.
-Lungs clear on exam today, continue nebulizer for COPD.
-Continue low-dose Toprol.
-Farxiga added 07/22/24-I consulted case mgmt for outpt pricing of med. Not ideal candidate for NGOZI or ARB, hypotension has limited medical therapy for heart failure mildly reduced EF in the past. Could consider low dose Spironolactone in future.
2. - echo 07/22/24 shows progression of aortic stenosis to mod-sev compared to last echo 11/27/23. poss TAVR eval in future
3. A-fib -personally reviewed telemetry: afib HRs 80s-90s. Her pacemaker was remotely interrogated 07/22/24 and shows permanent atrial fibrillation, V paced 47% of the time no significant high ventricular rate episodes. Continue anticoagulation
with Eliquis and metoprolol for rate control
4. Hypotension-chronic stable problem, she is maintained on midodrine 10 mg twice a day.
5. History of CAD- Shortness of breath could be an anginal equivalent. Troponin was negative. Could consider outpatient ischemic evaluation.
6. Fever - currently afebrile. T max 101.1. CXR, UA negative, procalcitonin 0.05. wbc trending up - cont to monitor. Fever 07/21/24 was thought to be immune response from COVID vaccine she rec'd on 07/20/24.
7. CKD - creatinine has remained stable at 1.2 Close monitoring of creatinine with IV diuresis.
.
Progress Note - Flame Channeler
Subjective
Date of Service: July 23, 2024
weight down to 181lb 07/23/24, was 193 lbs on 07/21/24
still c/o SOB walking to bathroom
most bothered by back and leg pain (chronic), has implanted pain mgmt device that daughter is adjusting.
echo 07/22/24 showed stable LV fxn, mod-sev -this is worse compared to last echo 11/26
Objective
Labs:
07/23/24 09:05
07/23/24 09:05
Labs
Hgb 14.1 g/dL (12.0-16.0) 07/23/24 09:05
Hct 41.1 % (37.0-47.0) 07/23/24 09:05
Plt Count 281 10^3/uL (130-400) D 07/23/24 09:05
Sodium 140 mmol/L (135-145) 07/23/24 09:05
Potassium 3.9 mmol/L (3.5-5.1) 07/23/24 09:05
BUN 44 mg/dl (7-17) H 07/23/24 09:05
Creatinine 1.2 mg/dL (0.6-1.0) H 07/23/24 09:05
Glucose 188 mg/dl (70-99) H 07/23/24 09:05
Troponins
07/21/24
21:07
Troponin I 0.017
Vital Signs and I&O:
Vital Signs
Temp Pulse Resp BP Pulse Ox
97.9 F 72 20 105/63 96
07/23/24 07:27 07/23/24 07:27 07/23/24 07:27 07/23/24 07:27 07/23/24 07:27
Vital Signs
Temp Pulse Resp BP Pulse Ox
97.9 F 72 20 105/63 96
07/23/24 07:27 07/23/24 07:27 07/23/24 07:27 07/23/24 07:27 07/23/24 07:27
Intake & Output
07/21/24 07/22/24 07/23/24 07/24/24
06:59 06:59 06:59 06:59
Intake Total 480 / 480 0 / 0
Output Total 890 / 890
Balance 480 / 480 -890 / -890
Physical Exam
Physical Exam
GEN: No distress, awake, Ox3
HEENT: supple, anicteric, mmm
LUNGS: CTA, no wheezes/rales
CV: irreg, irreg, S1/S2, 2/6 syst LSB,
ABD: soft, BS+, NT/ND
EXT: No edema
NEURO: Gross non-focal
SKIN: No rash
[2024-07-23 15:00] LABS: Cortisol, Random 4.8 ug/dl; TSH Reflex To Free T4 1.97 uIU/ml (0.47-4.68)
--- NOTE | 2024-07-23 15:29 | CM ---
CM met with Tori at bedside to complete IA. She lives in [facility] where she is very happy. She enjoys the meals, has friends and lots of activities in which she participates. Family visits her often and also takes her out.
CM consult received to miguelito Cardenas (152.50/30 days) and Pete ($160/30 days);
She is currently in the Medicare '[place]', so her cost for these will remain about the same through the end of the year. Cardiology notified via [place] Text.
Plan: Tori will return to [facility] in [place] at discharge.
PCP: Jerrell Byrne
Pharmacy: [facility]
[2024-07-23] MEDS: LIPITOR 80 MG PO (17:30)
[2024-07-23] MEDS: ZETIA 10 MG PO (17:30)
[2024-07-23] MEDS: SINGULAIR 10 MG PO (21:40)
[2024-07-24 03:21] VITALS: BP 107/69
[2024-07-24] MEDS: SYNTHROID 100 MCG PO (05:38)
[2024-07-24 06:00] VITALS: BMI 32.0
[2024-07-24 08:24] VITALS: BP 117/68
[2024-07-24] MEDS: SYMBICORT 160/4.5 MCG INHALER 2 PUFF INH (08:26)
[2024-07-24] MEDS: GLUCOTROL XL (EXTENDED RELEASE) 5 MG PO (09:20)
[2024-07-24] MEDS: TOPROL XL 12.5 MG PO (09:20)
[2024-07-24] MEDS: DELTASONE 40 MG PO (09:20)
[2024-07-24] MEDS: FARXIGA 10 MG PO (09:20)
[2024-07-24] MEDS: ProAmatine 10 MG PO (09:20)
[2024-07-24] MEDS: ELIQUIS 5 MG PO (09:20)
[2024-07-24] MEDS: NEURONTIN 300 MG PO ×2 (09:20→15:36)
[2024-07-24] MEDS: PROTONIX 40 MG PO (09:20)
[2024-07-24] MEDS: ZYLOPRIM 100 MG PO (09:22)
[2024-07-24] MEDS: ZYRTEC 10 MG PO (09:22)
--- NOTE | 2024-07-24 10:47 | W.PN.CARDCBS ---
Addendum entered and electronically signed by Esequiel Gustafson MD 07/24/24 14:08:
She feels well, wants to go home
Now on furosemide 60 mg daily
Creatinine is 1.3, Farxiga has been added
Current meds: Reviewed
PMH/PSH/SH/FH: Reviewed
122/74, pulse 80 and irregular, respirate 18, afebrile, weight is 81.8 kg, which is down 0.4 kg, intake and output -0.5 L, head neck exam unremarkable, lungs are clear, irregular rate and rhythm with systolic murmur base to apex, JVD okay, not much
edema, abdomen benign
BUN/creatinine 47 and 1.3, calcium 10.7, potassium is 4.1
Impression:
Acute heart failure with mildly reduced EF, now compensated
Permanent atrial fibrillation
CAD/PCI/CABG
Moderate to severe aortic stenosis
Pacemaker
Other diagnoses as below
Plan:
She seems compensated, furosemide 60 mg a day, had been 40 mg a day, with Farxiga as new drug, BMP in 1 week, we will arrange for outpatient follow-up.
Okay for discharge from my standpoint.
Original Note:
Today's Communication / Plan
-
Transitioned to PO lasix 60 mg daily
Await BMP results. Follow up BMP in 1 week as OP
Farxiga new this admission
Continue Toprol
Impression / Plan
-
PCP: Dr. Byrne
Tsa Screener: Dr. Hansen
Impression:
Presented with SOB
Acute on chronic HFmrEF
Orthostasis
CKD
Permanent Afib
Chronic Eliquis OAC
CAD
s/p remote anterior DC with VF arrest with LAD angioplasty 07/17/97
CAD subsequent CABG x3 with 1996
Mod-severe by echo 07/22/2024
Mild MR
SSS s/p PPM
COPD
Hyperlipidemia
Hypothyroidism
Asthma
Neuropathy
Hypertension
Breast cancer, status post left mastectomy
h/o carotid endarterectomy
h/o diabetes mellitus type 2
h/o colon mass s/p R hemicolectomy 10/02/21 until 10/15/21
Echo 05/28/2021: Ejection fraction 50%, mild aortic stenosis, mean pressure gradient 14 mmHg, aortic valve area 1.1 cm�
Echo 05/19/2023: EF 40-45%, mild cLVH, mid-apical inferoseptum/inferior segments are hypokinetic, mild MR, mild with peak/mean gradients 17/9 mmHg, LILY 1.4 cm2, trace AI, mild TR, estimated PAP 20-25 mmHg
Echo 11/27/2023: EF 40 to 45%, apical, inferior, and inferoseptal hypokinesis noted, mild MR, mild with peak/mean gradients 15/9 mmHg, mild TR, estimated PAP 21 to 26 mmHg
Echo 07/22/2024: EF 48% by volumetric assessment, 44% by Milton's method, decreased RV sys fxn, mild-mod MR, mod TR, PASP 34, mod-sev /LILY 0.84 cm
Plan:
-Presented with shortness of breath. Admitted with acute heart failure exacerbation.
-Diuresed with IV Lasix and transition to Lasix 60 mg daily in AM 07/24/2024.
-AM labs pending. Follow creat, has been stable at 1.2. Recheck BMP in 1 week as OP.
-Continue Toprol 12.5 mg daily. [facility] started this admission and patient is agreeable to cost.
-Hypotension has limited up titration of medical therapy for mildly reduced EF. Chronically on midodrine 10 mg twice daily.
- worsened on echo 07/22/2024. Now moderate to severe. Continue to follow as outpatient and may consider eventual TAVR evaluation.
-Remains in permanent atrial fibrillation. Heart rates are stable. Continue Eliquis 5 mg twice daily for anticoagulation.
-Stable for discharge. Follow up arranged
Progress Note - Tsa Screener
Subjective
Date of Service: July 24, 2024
No complaints.
Objective
Labs:
07/23/24 09:05
07/23/24 09:05
Labs
Hgb 14.1 g/dL (12.0-16.0) 07/23/24 09:05
Hct 41.1 % (37.0-47.0) 07/23/24 09:05
Plt Count 281 10^3/uL (130-400) D 07/23/24 09:05
Sodium 140 mmol/L (135-145) 07/23/24 09:05
Potassium 3.9 mmol/L (3.5-5.1) 07/23/24 09:05
BUN 44 mg/dl (7-17) H 07/23/24 09:05
Creatinine 1.2 mg/dL (0.6-1.0) H 07/23/24 09:05
Glucose 188 mg/dl (70-99) H 07/23/24 09:05
Troponins
07/21/24
21:07
Troponin I 0.017
Vital Signs and I&O:
Vital Signs
Temp Pulse Resp BP Pulse Ox
98.1 F 85 16 117/68 97
07/24/24 08:24 07/24/24 09:20 07/24/24 08:31 07/24/24 08:24 07/24/24 08:31
Vital Signs
Temp Pulse Resp BP Pulse Ox
98.1 F 85 16 117/68 97
07/24/24 08:24 07/24/24 09:20 07/24/24 08:31 07/24/24 08:24 07/24/24 08:31
Intake & Output
07/22/24 07/23/24 07/24/24 07/25/24
06:59 06:59 06:59 06:59
Intake Total 480 / 480 0 / 0 680 / 680
Output Total 890 / 890 850 / 850 300 / 300
Balance 480 / 480 -890 / -890 -170 / -170 -300 / -300
Physical Exam
Physical Exam
GEN: No distress, awake, alert, oriented x3
HEENT: supple, anicteric, mmm
LUNGS: CTA b/l, no wheezes/rales
CV: irreg, irreg, S1/S2, 2/6 syst LSB
EXT: No clubbing, cyanosis, or edema
NEURO: Gross non-focal
SKIN: Warm, dry, no rash
[2024-07-24] MEDS: LASIX 60 MG PO (11:10)
[2024-07-24 11:29] VITALS: BP 122/74
--- NOTE | 2024-07-24 12:59 | W.PN.HOSP.TC ---
Today's Communication/Plan
-
Labs still pending
Possible discharge today
Assessment / Plan
Assessment / Plan
83yo F with PMH CHFrEF, afib, SSS s/p PPM, AAS, HTN, COPD, asthma who presented to ED 07/21 with chest pain and shortness of breath.
CT abdomen pelvis without p.o. or IV contrast-no acute pathology. Mild left-sided renal cortical atrophy with total millimeter cyst in the upper pole of the left kidney, cholecystectomy, extensive vascular calcification indicating atherosclerosis,
multilevel lumbar DJD
CVS: S1-S2 irregular, SM at apex and AA
Chest: CTA B/L
Abdomen: Soft, NT
Extremities: No edema
# Acute on chronic heart failure with reduced ejection fraction
Echo EF 40 to 45% current echo EF 44 to 48%
Continue Lasix changed to PO, metoprolol, SGLT2 inhibitors
Low BP in the way of GMDT with ARNI/MRA .
Outpatient ischemic evaluation
# Moderate Aortic stenosis,Mild MR,Moderate tricuspid regurgitation.Estimated pulmonary artery pressure of 34 mmHg, assuming a right atrial pressure of 3 mmHg.Trace pulmonic regurgitation.
# COPD/asthma- exacerbatio - mild- Taper steroids.Continue inhalers
# Fever on admission-urine analysis negative, chest x-ray negative,, CT of the abdomen pelvis without contrast without any acute changes. COVID-negative. Possible viral. No more fevers now. Also recieved covid vaccine
# Elevated lipase-no abdominal pain, no pancreatic inflammation on CT
# Atrial fibrillation-persistent rate controlled-continue metoprolol and Eliquis
# Chronic orthostasis on midodrine
# History of V-fib arrest
# Pacemaker
# History of coronary disease with angioplasty, CABG
# Hypothyroidism-continue Synthroid
# Diabetes-continue glipizide sliding scale coverage with Accu-Cheks
# Hyperlipidemia/atherosclerosis-continue atorvastatin, Zetia-
# CKD stage III
# Gout-continue allopurinol
# h/o carotid endarterectomy
# History of colon cancer with right hemicolectomy
# History of breast cancer with modified radical mastectomy, chemo and radiation
# Multilevel lumbar DJD and grade 1 spondylolisthesis/ambulatory dysfunction/osteoarthritis/neuropathy-continue gabapentin,Oxycodone
# GERD- PPI
# Obesity per BMI
# Ex-smoker
# DVT prophylaxis-Eliquis
# DNR
D/W RN
D/W Cards at bed side
Anticipated Discharge: Today
Subjective/Interval History
-
Date of Service: July 24, 2024
Objective Data
-
Labs:
Laboratory Results
07/24/24
12:24
Sodium Pending
Potassium Pending
Chloride Pending
Carbon Dioxide Pending
BUN Pending
Creatinine Pending
Glucose Pending
Calcium Pending
Vital Signs:
Vital Signs
Temp Pulse Resp BP Pulse Ox
98.1 F 80 18 122/74 96
07/24/24 11:29 07/24/24 11:29 07/24/24 11:29 07/24/24 11:29 07/24/24 11:29
I&O
07/23/24 07/24/24 07/25/24
06:59 06:59 06:59
Intake Total 0 / 0 680 / 680
Output Total 890 / 890 850 / 850 300 / 300
Balance -890 / -890 -170 / -170 -300 / -300
[2024-07-24 13:12] LABS: Blood Urea Nitrogen 47 mg/dl (7-17); Calcium 10.7 mg/dl (8.4-10.2); Carbon Dioxide 31 mmol/L (22-30); Chloride 93 mmol/L (98-107); Estimated Creatinine Clearance 32 ml/min; Glucose 214 mg/dl (70-99); Potassium 4.1 mmol/L (3.5-5.1); Sodium 140 mmol/L (135-145)
--- NOTE | 2024-07-24 13:45 | W.PN.UPDATE ---
Update Note
Progress Note Update
BMP noted. Creatinine 1.3. Patient wants to go home and do labs as outpatient. Will have patient hold Lasix on 07/25/2024 and get labs on 07/26/2024.
Total discharge coordination time more than 30 minutes.
--- NOTE | 2024-07-24 13:46 | W.DS.TRANS ---
Addendum entered and electronically signed by Hedy Ko MD 07/25/24 15:08:
Dictation- [id number]
Original Note:
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
-
Discharge Instructions:
Sleep Apnea Risk Low
Discharge Diagnosis/Procedures Acute on chronic heart failure with reduced
ejection fraction, moderate aortic stenosis,
COPD, asthma, fever, elevated lipase, atrial
fibrillation
Diet Diabetic, Carb Controlled,Restrict fluids to 48
oz,2 Gram Sodium
Activity As tolerated,With Walker
Driving Restrictions No driving
Bathing Restrictions OK to Shower
Blood Work BMP 1 week
Other Services VN
Specialty Instructions Weigh Daily
Instructions: *DCA Heart Failure Instructions
Stand-Alone Forms:
Changes to Home Medications: Yes
Discharge Medications:
DC Medications w/original date entered in [employer] [facility]
montelukast 10 mg tablet 10 mg PO HS Lung/breathing issues 07/17/17
levothyroxine 100 mcg tablet 100 mcg PO DAILY Thyroid 07/03/21
albuterol sulfate 90 mcg/actuation aerosol inhaler 1 puff inhalation R Q4HPRN PRN sob 10/02/21
cetirizine 10 mg tablet 10 mg PO DAILY Allergies 10/02/21
apixaban 5 mg tablet (Eliquis) 5 mg PO BID Blood clot prevention/tx 11/18/22
ezetimibe 10 mg tablet (Zetia) 10 mg PO QPM High cholesterol 11/18/22
magnesium 250 mg tablet 250 mg PO DAILY Supplement 11/18/22
metoprolol succinate 25 mg tablet,extended release 24 hr 12.5 mg PO DAILY Blood pressure 11/18/22
midodrine 10 mg tablet 10 mg PO BID Blood pressure 12/09/22
budesonide-formoterol HFA 160 mcg-4.5 mcg/actuation aerosol inhaler (Symbicort) 2 puff inhalation R BID Lung/breathing issues #10.2 grams 07/23/24
dapagliflozin propanediol 10 mg tablet 10 mg PO DAILY #30 tabs 07/23/24
prednisone 20 mg tablet 20 mg PO DAILY #3 tabs 07/23/24
acetaminophen 500 mg tablet (Pain Relief Extra Strength (acetaminophen)) 500 mg PO Q8H Pain #0 tabs 07/24/24
allopurinol 100 mg tablet 100 mg PO BID Gout #0 tabs 07/24/24
atorvastatin 80 mg tablet 80 mg PO QPM High cholesterol #0 tabs 07/24/24
furosemide 40 mg tablet (Lasix) 60 mg (1.5 x 40 mg) PO DAILY Heart Failure #60 tabs 07/24/24
gabapentin 600 mg tablet 600 mg PO TID Neurological Condition #0 tabs 07/24/24
glipizide 5 mg tablet, extended release 24 hr 5 mg PO DAILY Diabetes #0 tabs 07/24/24
pantoprazole 40 mg tablet,delayed release (Protonix) 40 mg PO BID Gastrointestinal issue #0 tabs 07/24/24
potassium 1 tab PO DAILY Electrolyte Repletion ##0 07/24/24
vitamin B complex 1 tab PO DAILY Supplement #0 tabs 07/24/24
Home Medication Changes
Lasix dose changed
Dapagliflozin is new
Prednisone taper is new
Pending Results: No
--- NOTE | 2024-07-24 16:02 | CM ---
Patient from Assisted Living with Dx HF. Room air. PT recommends HH. OT Eval pending.
Spoke with nurse Kindra ; they are able to accept the patient back today. They are now contracted with [facility] for PT and will also need a script for PT. Ph for report [phone], fax [phone].
Met with patient & daughter Tameka, & spoke with daughter by phone; all agree to d/c today back to . IMM completed. Patient & daughter Tameka agree to [facility]. Tameka will provide transport home today.
Phone call to Jessica Reyna [facility] (fax [phone]); referral placed for patient with d/c today.
Dr Sanches provided script for PT.
Plan d/c to today with [facility], and script for PT.
[2024-07-24 16:12] VITALS: BP 101/78
--- NOTE | 2024-07-24 16:12 | PTCARENOTE ---
IV discontinued. Tele pack removed. Report called to [facility]. Pt transported off the floor via wheelchair with belongings by PCT. Daughter to transport.
--- NOTE | 2024-07-26 11:43 | W.HF.CON ---
Heart Failure
- LV Function
Left ventricular function study result: LV Ejection fraction >40%
Ejection Fraction Percentage: 44-48
- ARNI
Patient already on ARNI: No
Heart Failure ARNI Not Indicated: LV Ejection Fraction >/= 40%
- ACEI/ARB
Patient already on ACEI/ARB: No
Heart Failure ACEI/ARB Not Indicated: LV Ejection Fraction > 40%
- Beta Everett
Patient already on Evidence Based Beta Everett: Yes
- Mineralocorticord Receptor Antagonist
Patient already on MRA: No
Heart Failure MRA Not Indicated: LV Ejection Fraction > 40%
- SGLT-2 Inhibitor
Patient already on SGLT-2 Inhibitor: Yes
- Afib Anticoagulation
Patient already on Anticoagulation for Afib: Yes
- NYHA CHF Classification
NYHA CHF Classification Level: Class III - Symptoms w/ min exertion, interferes w/ nml daily activity (mod/severe )
- ACC/AHA Stage
ACC/AHA Stage: Stage C: Symptomatic Heart Failure
== END 2024-07-24 16:38 | disposition home health service (06) | DRG 291 ==
LOC: 4 EAST ACU 01:05
PROVIDERS: Physician Assistant; Student in an Organized Health Care Education/Training Program; ADMITTING PHYSICIAN Internal Medicine; ATTENDING PHYSICIAN Hospitalist; EMERGENCY PHYSICIAN Emergency Medicine; FAMILY PHYSICIAN Family Medicine; OTHER PHYSICIAN Internal Medicine Cardiovascular Disease
DX: I13.0 Hypertensive heart and chronic kidney disease with heart failure and stage 1 through stage 4 chronic kidney disease, or unspecified chronic kidney disease (principal); I50.23 Acute on chronic systolic (congestive) heart failure; I48.21 Permanent atrial fibrillation; J44.1 Chronic obstructive pulmonary disease with (acute) exacerbation; E11.40 Type 2 diabetes mellitus with diabetic neuropathy, unspecified; E11.22 Type 2 diabetes mellitus with diabetic chronic kidney disease; I35.0 Nonrheumatic aortic (valve) stenosis; E03.9 Hypothyroidism, unspecified; N18.9 Chronic kidney disease, unspecified; I49.5 Sick sinus syndrome; Z79.01 Long term (current) use of anticoagulants; I95.89 Other hypotension; Z86.74 Personal history of sudden cardiac arrest; Z95.1 Presence of aortocoronary bypass graft; I25.10 Atherosclerotic heart disease of native coronary artery without angina pectoris; I25.2 Old myocardial infarction; K21.9 Gastro-esophageal reflux disease without esophagitis; E78.00 Pure hypercholesterolemia, unspecified; M47.816 Spondylosis without myelopathy or radiculopathy, lumbar region; R74.8 Abnormal levels of other serum enzymes; Z79.84 Long term (current) use of oral hypoglycemic drugs; Z79.890 Hormone replacement therapy; Z79.899 Other long term (current) drug therapy; Z87.891 Personal history of nicotine dependence; Z90.49 Acquired absence of other specified parts of digestive tract; Z85.038 Personal history of other malignant neoplasm of large intestine; Z87.19 Personal history of other diseases of the digestive system; Z85.3 Personal history of malignant neoplasm of breast; Z88.1 Allergy status to other antibiotic agents; Z88.2 Allergy status to sulfonamides; Z90.13 Acquired absence of bilateral breasts and nipples; Z95.0 Presence of cardiac pacemaker; Z96.653 Presence of artificial knee joint, bilateral
CPT/HCPCS: 71046; 74176; 80048; 80053; 80076; 81003; 81015; 82533; 83690; 83735; 83880; 84100; 84145; 84443; 84484; 85025; 85027; 87070; 87502; 87811; 93005; 93306; 94640; 96374; 97116; 97162; 99285

== ENCOUNTER 2024-07-25 18:34 | Emergency (ER) | payer OTHER, SELFPAY ==
[2024-07-25 18:40] VITALS: BP 106/87
[2024-07-25 18:42] VITALS: BP 106/87
[2024-07-25 18:45] LABS: Glucose - Point of Care 379 mg/dl (70-99)
[2024-07-25 18:51] LABS: % Basophils 0.2 % (0-2); % Immature Granulocytes 0.5 % (0-0.5); % Lymphocytes 13.7 % (20.5-51.1); % Neutrophils 79.6 % (42.2-75.2); Absolute Immature Granulocytes 0.1 10^3/uL (0-0.05); Absolute Lymphocytes 1.4 10^3/uL (1.2-3.4); Absolute Monocytes 0.6 10^3/uL (0.1-0.6); Absolute Neutrophils 8.1 10^3/uL (1.4-6.5); Hematocrit 39.2 % (37.0-47.0); Hemoglobin 13.4 g/dL (12.0-16.0); Mean Corp Hgb Conc. 34.2 g/dL (33.0-37.0); Mean Corpuscular Hgb 32.1 pg (27.0-31.0); Mean Corpuscular Volume 93.8 fL (81.0-99.0); Mean Platelet Volume 9.4 fL (7.4-10.4); Nucleated Red Blood Cells % 0 %; Platelet Count 287 10^3/uL (130-400); Red Blood Cell Count 4.18 10^6/uL (4.20-5.40); Red Cell Dist. Width 16.4 % (11.5-14.5); White Blood Cell Count 10.2 10^3/uL (4.8-10.8)
[2024-07-25 19:00] VITALS: BP 109/81
[2024-07-25 19:24] LABS: ALT (SGPT) 39 U/L (0-35); AST (SGOT) 53 U/L (14-36); Albumin 4.7 g/dl (3.5-5.0); Alkaline Phosphatase 115 U/L (38-126); Blood Urea Nitrogen 56 mg/dl (7-17); Calcium 9.6 mg/dl (8.4-10.2); Carbon Dioxide 22 mmol/L (22-30); Chloride 98 mmol/L (98-107); Glucose 382 mg/dl (70-99); Sodium 137 mmol/L (135-145); Total Bilirubin 0.7 mg/dl (0.2-1.3); Total Protein 6.9 g/dl (6.3-8.2)
--- NOTE | 2024-07-25 19:29 | ED.GENMED ---
History of Present Illness
General
Chief Complaint: Blood Sugar Problem
Source: patient, records (Reason admit for CHF exacerbation) and ambulance crew
Exam Limitations: none
Time Seen by Provider: 07/25/24 19:16
Nursing documentation reviewed up to this point in time: agreed with
History of Present Illness
History of Present Illness:
83 yo female presents to the emergency department due to elevated blood sugar. She was discharged on predisone for asthma, and has NIDDM, taking glipizide. She also reports there was a large buffet at her residence and she ate everything they had.
Past History
Past History
ED Past Medical History: Arrthythmia (Atrial fib), Asthma, CAD, Cancer (Breast and colon CA), CHF, COPD, GERD, HTN, Hypercholesterolemia, NIDDM (Diet controlled), NE, Hypothyroidism and Other (Colitis, Anemia)
ED Past Surgical History: Appendectomy, Bowel resection (Colectomy for Colon CA), Cardiac (Pacemaker), Cholecystectomy, Orthopedic (Right and left total knee replacements), Tonsilectomy and Other (Left breast mastectomy)
Social History
Tobacco: Former smoker
Alcohol: None
Drug: None
Personal:
Living: alone
Employment: Retired
Family History
Family History: CAD and Other
Review of Systems
Review of Systems
Allergies reviewed?: Yes
All Other Systems: Not applicable
Constitutional: Reports no symptoms
EENT: Reports no symptoms
Respiratory: Reports no symptoms
Cardiac: Reports no symptoms
ABD/GI: Reports no symptoms
: Reports frequency
Musculoskeletal: Reports no symptoms
Skin: Reports no symptoms
Neurological: Reports no symptoms
Endocrine: Reports no symptoms
Hematologic/Lymphatic: Reports no symptoms
Psychiatric: Reports no symptoms
Phy Exam
Physical Exam
Physical Exam:
Physical Exam
General: no apparent distress, not acutely ill
Neck: supple. no meningeal signs. normal posterior pharynx
Heart: s1/s2 regular rate and rhythm, no murmur. equal radial
pulses.
HEENT: Pupils equal round reactive to light, EOMI
Lungs: no acute respiratory distress. clear bilaterally
Abdomen: normal bowel sounds. not tender. no CVAT
Neuro: alert and oriented. no focal neurological deficits cranial nerves II through XII intact
Skin: no rash
Psychiatric: well kept. interactive and cooperative
Extremities: no edema. no calf tenderness. negative homans. good distal pulses
Course
Orders/Labs/Results
Orders:
Orders
07/25/24 18:45
Complete Blood Count/With Diff Urgent
Comprehensive Metabolic Panel Urgent
Abnormal Lab Results
07/25/24 07/25/24 07/25/24
18:43 18:45 21:03
RBC 4.18 L 10^6/uL
(4.20-5.40)
MCH 32.1 H pg
(27.0-31.0)
RDW 16.4 H %
(11.5-14.5)
Abs Immat Gran (auto) 0.1 H 10^3/uL
(0-0.05)
Absolute Neuts (auto) 8.1 H 10^3/uL
(1.4-6.5)
Neutrophils % 79.6 H %
(42.2-75.2)
Lymphocytes % 13.7 L %
(20.5-51.1)
BUN 56 H mg/dl
(7-17)
Creatinine 1.3 H mg/dL
(0.6-1.0)
Glucose 382 H mg/dl
(70-99)
AST 53 H U/L
(14-36)
ALT 39 H U/L
(0-35)
POC Glucose 379 H mg/dl 261 H mg/dl
(70-99) (70-99)
07/25/24 18:45
07/25/24 18:45
Vital Signs
Initial and Last Documented VS:
Initial Vital Signs
Temp
98.7 F
07/25/24 18:37
Last Documented Vital Signs
Temp Pulse Resp BP Pulse Ox
98.7 F 88 17 117/84 92
07/25/24 18:37 07/25/24 18:42 07/25/24 18:42 07/25/24 20:00 07/25/24 19:28
MDM/Problems Addressed
Differential Diagnosis Includes:
DKA, HNK
MDM/Problems Addressed:
83-year-old female with hyperglycemia, likely due to hyperalimentation and prednisone use. Will discharge patient to follow-up with primary care. Return precautions given.
Chronic conditions affecting care: Cardiomyopathy
Acute Exacerbation and/or Progression of Chronic Illness: Cardiomyopathy
*Critical Care Note
Total Time (30-74mins, 75-104mins- exclusive of procedures): Not Applicable
Data Reviewed
Review of Other/Old Records Reveals: Labs (Glucose of 217 on discharge on 07/24/2024) and Discharge Summary (Discharge summary reviewed from07/24/24 was discharged for CHF exacerbation, prednisone given for asthma)
Patient Management
Social determinants of health affecting care: Living situation
Escalation/DeEscalation of care consider admission/obs:
Admit not indicated
ED Attending Note
-
Portions of this chart may have been created with voice recognition software.� Occasional wrong word or��sound alike� substitutions may have occurred due to the inherent limitations of voice recognition software.
Discharge Plan
Departure
Patient Disposition: Assisted Living
Date of Disposition: 07/25/24
Time of Disposition: 21:29
Patient with high blood pressure during this ER visit?: No
Condition: Good
Discharge Problem:
Acute hyperglycemia
Instructions: Type 2 Diabetes (DC)
Prescriptions:
No Action
montelukast 10 MG tablet
10 mg PO HS
levothyroxine 100 MCG tablet
100 mcg PO DAILY
cetirizine 10 MG tablet
10 mg PO DAILY
albuterol sulfate 1 PUFF HFA aerosol inhaler
1 puff inhalation R Q4HPRN PRN (Reason: sob)
metoprolol succinate 25 mg Tablet Extended Release 24 Hr
12.5 mg PO DAILY
Eliquis 5 mg Tablet
5 mg PO BID
magnesium 250 mg Tablet
250 mg PO DAILY
ezetimibe [Zetia] 10 mg Tablet
10 mg PO QPM
midodrine 10 mg tablet
10 mg PO BID
dapagliflozin propanediol 10 mg Tablet
10 mg PO DAILY Qty: 30 0RF
prednisone 20 mg tablet
20 mg PO DAILY Qty: 3 0RF
Rx Instructions:
Take 1 tab per day for 2 days, then half tab per day for 2 days
budesonide-formoterol [Symbicort] 160-4.5 mcg/actuation Hfa Aerosol Inhaler
2 puff inhalation R BID Qty: 10.2 0RF
furosemide [Lasix] 40 mg tablet
60 mg PO DAILY Qty: 60 0RF
atorvastatin 80 mg tablet
80 mg PO QPM Qty: 0 0RF
gabapentin 600 mg tablet
600 mg PO TID Qty: 0 0RF
glipizide 5 mg Tablet Extended Release 24hr
5 mg PO DAILY Qty: 0 0RF
allopurinol 100 mg Tablet
100 mg PO BID Qty: 0 0RF
acetaminophen [Pain Relief ES (acetaminophen)] 500 mg tablet
500 mg PO Q8H Qty: 0 0RF
pantoprazole [Protonix] 40 mg tablet,delayed release (DR/EC)
40 mg PO BID Qty: 0 0RF
Rx Instructions:
Please take 30 minutes prior to eating or drinking anything in the morning.
potassium 10 mEq tablet
1 tab PO DAILY Qty: 0 0RF
vitamin B complex Tablet Extended Release
1 tab PO DAILY Qty: 0 0RF
Referrals:
Jerrell Byrne MD [Family Provider] - Call in 1-3 days for appt
Interventions
Interventions:
*Risk Screen - Suicide Last Done: 07/25/24 18:40
*General Assessment Last Done: 07/25/24 18:40
*Neglect/Abuse Screening Last Done: 07/25/24 18:40
ED- Fall Risk Assessment Last Done: 07/25/24 18:41
*ED COVID-19 Vaccine History Last Done: 07/25/24 18:40
ED- Neurological Assessment Last Done: 07/25/24 18:41
Discharge Date and Time
Print Language: PARAGUAYAN
[2024-07-25 20:00] VITALS: BP 117/84
[2024-07-25 21:04] LABS: Glucose - Point of Care 261 mg/dl (70-99)
== END 2024-07-25 22:10 ==
LOC: EMR 18:34
PROVIDERS: EMERGENCY PHYSICIAN Emergency Medicine; FAMILY PHYSICIAN Family Medicine
DX: E11.65 Type 2 diabetes mellitus with hyperglycemia (principal); I25.10 Atherosclerotic heart disease of native coronary artery without angina pectoris; I11.0 Hypertensive heart disease with heart failure; I50.9 Heart failure, unspecified; E78.00 Pure hypercholesterolemia, unspecified; E03.9 Hypothyroidism, unspecified; K21.9 Gastro-esophageal reflux disease without esophagitis; K52.9 Noninfective gastroenteritis and colitis, unspecified; J45.909 Unspecified asthma, uncomplicated; M19.90 Unspecified osteoarthritis, unspecified site; I25.2 Old myocardial infarction; Z79.84 Long term (current) use of oral hypoglycemic drugs; Z79.01 Long term (current) use of anticoagulants; Z95.1 Presence of aortocoronary bypass graft; Z95.0 Presence of cardiac pacemaker; Z96.653 Presence of artificial knee joint, bilateral; Z85.038 Personal history of other malignant neoplasm of large intestine; Z85.3 Personal history of malignant neoplasm of breast; Z87.891 Personal history of nicotine dependence; Z90.12 Acquired absence of left breast and nipple; Z90.49 Acquired absence of other specified parts of digestive tract; Z98.0 Intestinal bypass and anastomosis status; Z88.1 Allergy status to other antibiotic agents; Z91.013 Allergy to seafood; Z88.2 Allergy status to sulfonamides; Z91.048 Other nonmedicinal substance allergy status
CPT/HCPCS: 99283; 80053; 82962; 85025

== ENCOUNTER 2024-11-24 16:50 | Inpatient (IN) | payer OTHER, SELFPAY ==
[2024-11-24] VITALS (9 sets, daily range): BP systolic 102–156; BP diastolic 72–119; BMI 34.4
[2024-11-24 12:13] LABS: ALT (SGPT) 59 U/L (0-35); AST (SGOT) 63 U/L (14-36); Albumin 4.3 g/dl (3.5-5.0); Alkaline Phosphatase 94 U/L (38-126); Blood Urea Nitrogen 31 mg/dl (7-17); Calcium 9.4 mg/dl (8.4-10.2); Carbon Dioxide 24 mmol/L (22-30); Chloride 101 mmol/L (98-107); Glucose 243 mg/dl (70-99); Potassium 4.5 mmol/L (3.5-5.1); Sodium 136 mmol/L (135-145); Total Bilirubin 1.3 mg/dl (0.2-1.3); Total Protein 7.1 g/dl (6.3-8.2); eGFR 54.87
--- NOTE | 2024-11-24 13:17 | ED.GENMED ---
History of Present Illness
<Nusrat Lema PA-C - Last Filed: 11/25/24 01:46>
General
Chief Complaint: Breathing Problem
Source: patient
Exam Limitations: none
Time Seen by Provider: 11/24/24 13:03
Nursing documentation reviewed up to this point in time: agreed with
History of Present Illness
History of Present Illness:
Patient is a 84-year-old female with history atrial fibrillation on Eliquis, CAD, CHF, hypertension, hyperlipidemia presenting to the emergency department with shortness of breath. Patient reports gradually worsening shortness of breath, worse with
exertion. She reports she is unable to catch her breath with very short distances and needs to sit down. Patient denies any exertional chest pain. Very mild dry cough she noticed over the past few days. No fevers, chills. However�patient does
state that she feels her abdomen is more swollen than usual and she has gained a few pounds. Patient denies any changes in her diet. Patient reports compliance with Eliquis and Lasix (60mg) daily.
Past History
<Nusrat Lema PA-C - Last Filed: 11/25/24 01:46>
Past History
ED Past Medical History: Arrthythmia (Atrial fib), Asthma, CAD, Cancer (Breast and colon CA), CHF, COPD, GERD, HTN, Hypercholesterolemia, NIDDM (Diet controlled), MD, Hypothyroidism and Other (Colitis, Anemia)
ED Past Surgical History: Appendectomy, Bowel resection (Colectomy for Colon CA), Cardiac (Pacemaker), Cholecystectomy, Orthopedic (Right and left total knee replacements), Tonsilectomy and Other (Left breast mastectomy)
Social History
Tobacco: Former smoker
Alcohol: None
Drug: None
Personal:
Living: alone
Employment: Retired
Family History
Family History: CAD and Other
Review of Systems
<Nusrat Lema PA-C - Last Filed: 11/25/24 01:46>
Review of Systems
Allergies reviewed?: Yes
All Other Systems: ROS reviewed and negative except as documented in HPI and ROS
Phy Exam
<Nusrta eLma PA-C - Last Filed: 11/25/24 01:46>
Physical Exam
Physical Exam:
Vitals: Tachypneic, otherwise vital signs stable. Afebrile
General: Patient is in no apparent distress.
Skin: Warm and dry, no rashes or lesions
Head: Normocephalic, atraumatic
Eyes: Sclera nonicteric. EOMs intact. No nystagmus.
Throat: Protecting airway
Neck: Normal ROM, no cervical spine tenderness, no meningismus. No JVD
Cardiac: Regular rate, irregular rhythm, no murmurs.
Pulm: Mildly tachypneic. O2 saturation 94 on room air. Decreased breath sounds and fine crackles at bases. No wheezing
Abdomen: Abdomen soft. No abdominal tenderness.
Extremities: No evidence of cyanosis or edema. Palpable DP pulses bilaterally
Neuro: AAOx3. Grossly intact.
Psychiatric: Normal affect.
Scores
<Nusrat Lema PA-C - Last Filed: 11/25/24 01:46>
Heart Failure Risk
Heart Failure Risk Score: Yes
History of Stroke or TIA: No
History of intubation for respiratory distress: No
Heart rate on ED arrival >/= 110: No
SaO2 <90% on arrival on room air: No
HR >/=110 during 3min walk test (or too ill to perform test): No
ECG has acute ischemic changes: No
Urea >/=12mmol/L (BUN 33.6mg/dL): No
Serum CO2>/=35mmol/L: No
Troponin I or T elevated to MD Level (0.4mg/dL): No
NT-proBNP >/=5,000ng/L (5,000pg/ml): Yes
HF Risk Score: 1
Admission Status: MEDIUM RISK 5.1% Consider observation or discharge to home with homecare & f/u visit to PCP/Supervisor [facility], or SNF for treatment
Course
<Nusrat Lema PA-C - Last Filed: 11/25/24 01:46>
Orders/Labs/Results
Orders:
Orders
11/24/24 11:25
Electrocardiogram (*1) Urgent
Reason for Study: Shortness of Breath
EKG- Treatment ONCE
11/24/24 11:39
Comprehensive Metabolic Panel Urgent
11/24/24 13:17
CR Chest - 2 Views Urgent
Comment: hx CHF
Reason For Exam: SOB w/ exertion
11/24/24 13:23
Complete Blood Count/With Diff Urgent
Pro-BNP [NT-proBNP] Urgent
Troponin I Urgent
11/24/24 13:28
pacemaker [Interrogate Pacemaker- Treatment] ONCE
11/24/24 13:43
COVID-19 Antigen Urgent
Source: Nasal Swab
Influenza A+B Rapid Molecular Urgent
MORGAN Source: Nasal Swab
Specimen Description:
11/24/24 Dinner
Sodium, 4 Gram (CAIO)
At Your Request: Limited Participation
Does patient need a safe tray?: No
11/24/24 15:08
Furosemide [Lasix] 40 mg IV NOW STA
11/24/24 16:04
Admit/Transfer Patient As Directed
Co-Sign Provider:
Level of Care: Inpatient admission
Assign to:: Telemetry
Physician / Group: Gary Hu
Diagnosis: CHF
Reason for Telemetry: Arrhythmia
Date to Stop Telemetry: 11/27/24
Time to Stop Telemetry: 11:00
Reason for Hospitalization: IV diuretics, possible RHC/LHC, decompensated heart failure
Expected length of stay greater than two midnights?: Yes
ELOS- Estimated Length of Stay in days: 3
I certify the patient meets the requirements for IP care: Yes
PRN Pain Medication Management As Directed
May give lesser potent ordered pain med per pt: Yes
preference::
Protocol:: Medication orders for pain may be administered in a
manner that supports deferring to patient preference
when the pt is:
- Requesting an ordered lesser potent pain medication.
Least to most potent pain medications are defined
as: acetaminophen < NSAID < tramadol < opioids
(morphine, oxycodone, hydromorphone).
- Requesting a lesser dose of the same medication IF
ORDERED.
- Requesting a less intrusive route of administration
if both routes are prescribed by the provider (PO <
IV).
11/24/24 16:05
Code Status As Directed
Resuscitation Status: Do not resuscitate
Reached after discussion with pt or family/Healthcare POA: Yes
DNR Bracelet Application ONCE
11/24/24 16:08
Echo 2D MMode Color/Doppler Routine
Reason for Study: AF
Accucheck [Bedside Glucose Monitoring] As Directed
Frequency: AC&HS
11/24/24 16:25
Electrocardiogram (*1) Urgent
Reason for Study: Shortness of Breath
EKG- Treatment ONCE
11/24/24 16:30
Insulin Aspart Corrective Mod [Novolog Flexpen-Moderate Resistance] See Protocol SC AC
11/24/24 18:35
Albuterol [ProAIR HFA INHALER] 1 puff INH R Q4HPRN PRN
Atorvastatin [Lipitor] 80 mg PO QPM
Bisacodyl [Dulcolax] 10 mg RECTAL [id number] PRN
Docusate W/Senna [Senokot-S] 1 tablet PO BIDPRN PRN
Ezetimibe [Zetia] 10 mg PO QPM
Ipratropium/Albuterol Sulfate [Duoneb] 3 ml INH R Q4HPRN PRN
Oxycodone [Roxicodone] 5 mg PO Q6HPRN PRN
Polyethylene Glycol Powder [Miralax] 17 grams PO DAILYPRN PRN
11/24/24 18:35
CARDIOLOGY CONSULT Routine
Consulting Provider: Gary Hansen
Was physician already notified: Yes
Reason for consult: HFmrEF
Activity As Directed
Activity Level: Out of Bed-Early Mobility
Intake/ Output As Directed
Frequency: q12h
Pneumatic Compression Sleeves As Directed
Type: Knee high
Vital Signs As Directed
Frequency: Per unit guidelines
Weight As Directed
Frequency: Daily
O2 Therapy [RESP] Routine
Titrate/Wean O2 to maintain O2 sat greater than (%): 90
DX Deep Vein Thrombosis Video Routine
11/24/24 20:00
Acetaminophen [Tylenol] 500 mg PO Q8H
Acetaminophen [Tylenol] 650 mg PO Q4HWA
Apixaban [Eliquis] 5 mg PO BID
Budesonide/Formoterol 160/4.5 [Symbicort 160/4.5 Mcg Inhaler] 2 puff INH R BID
11/25/24 06:00
Cardiovascular Evaluation IN AM
Complete Blood Count/With Diff IN AM
Comprehensive Metabolic Panel IN AM
Ferritin IN AM
Iron IN AM
Magnesium IN AM
Total Iron Binding IN AM
Levothyroxine [Synthroid] 112 mcg PO DAILY @ 0600
11/25/24 08:00
Allopurinol [Zyloprim] 200 mg PO DAILY
Cetirizine HCl [Zyrtec] 10 mg PO DAILY
Dapagliflozin [Farxiga] 10 mg PO DAILY
Furosemide [Lasix] 60 mg IV DAILY
Potassium Chloride [KCl] 10 meq PO DAILY
Vitamin B Complex with C [B COMPLEX w/VITAMIN C] 1 caplet PO DAILY
11/27/24 11:00
DC Protocol for Telemetry ONCE
Abnormal Lab Results
11/24/24 11/24/24
11:39 13:23
RBC 3.83 L 10^6/uL
(4.20-5.40)
Hgb 11.9 L g/dL
(12.0-16.0)
Hct 36.6 L %
(37.0-47.0)
MCH 31.1 H pg
(27.0-31.0)
MCHC 32.5 L g/dL
(33.0-37.0)
RDW 16.8 H %
(11.5-14.5)
Absolute Monos (auto) 0.7 H 10^3/uL
(0.1-0.6)
Lymphocytes % 18.5 L %
(20.5-51.1)
BUN 31 H mg/dl
(7-17)
Glucose 243 H mg/dl
(70-99)
AST 63 H U/L
(14-36)
ALT 59 H U/L
(0-35)
11/24/24 13:23
11/24/24 11:39
Vital Signs
Initial and Last Documented VS:
Initial Vital Signs
Temp Pulse Resp BP Pulse Ox
99.2 F 81 18 109/72 94
11/24/24 11:22 11/24/24 11:22 11/24/24 11:22 11/24/24 11:22 11/24/24 11:22
Last Documented Vital Signs
Temp Pulse Resp BP Pulse Ox
99.4 F 115 18 102/80 98
11/24/24 23:27 11/24/24 23:27 11/24/24 23:27 11/24/24 23:27 11/24/24 23:27
<Santos Nicholas, DO - Last Filed: 11/24/24 14:30>
Orders/Labs/Results
Orders:
Orders
11/24/24 11:25
Electrocardiogram (*1) Urgent
Reason for Study: Shortness of Breath
EKG- Treatment ONCE
11/24/24 11:39
Comprehensive Metabolic Panel Urgent
11/24/24 13:17
CR Chest - 2 Views Urgent
Comment: hx CHF
Reason For Exam: SOB w/ exertion
11/24/24 13:23
Complete Blood Count/With Diff Urgent
Pro-BNP [NT-proBNP] Urgent
Troponin I Urgent
11/24/24 13:28
pacemaker [Interrogate Pacemaker- Treatment] ONCE
11/24/24 13:43
COVID-19 Antigen Urgent
Source: Nasal Swab
Influenza A+B Rapid Molecular Urgent
MORGAN Source: Nasal Swab
Specimen Description:
11/24/24 Dinner
Sodium, 4 Gram (CAIO)
At Your Request: Limited Participation
Does patient need a safe tray?: No
11/24/24 15:08
Furosemide [Lasix] 40 mg IV NOW STA
11/24/24 16:04
Admit/Transfer Patient As Directed
Co-Sign Provider:
Level of Care: Inpatient admission
Assign to:: Telemetry
Physician / Group: Gary Hu
Diagnosis: CHF
Reason for Telemetry: Arrhythmia
Date to Stop Telemetry: 11/27/24
Time to Stop Telemetry: 11:00
Reason for Hospitalization: IV diuretics, possible RHC/LHC, decompensated heart failure
Expected length of stay greater than two midnights?: Yes
ELOS- Estimated Length of Stay in days: 3
I certify the patient meets the requirements for IP care: Yes
PRN Pain Medication Management As Directed
May give lesser potent ordered pain med per pt: Yes
preference::
Protocol:: Medication orders for pain may be administered in a
manner that supports deferring to patient preference
when the pt is:
- Requesting an ordered lesser potent pain medication.
Least to most potent pain medications are defined
as: acetaminophen < NSAID < tramadol < opioids
(morphine, oxycodone, hydromorphone).
- Requesting a lesser dose of the same medication IF
ORDERED.
- Requesting a less intrusive route of administration
if both routes are prescribed by the provider (PO <
IV).
11/24/24 16:05
Code Status As Directed
Resuscitation Status: Do not resuscitate
Reached after discussion with pt or family/Healthcare POA: Yes
DNR Bracelet Application ONCE
11/24/24 16:08
Echo 2D MMode Color/Doppler Routine
Reason for Study: AF
Accucheck [Bedside Glucose Monitoring] As Directed
Frequency: AC&HS
11/24/24 16:25
Electrocardiogram (*1) Urgent
Reason for Study: Shortness of Breath
EKG- Treatment ONCE
11/24/24 16:30
Insulin Aspart Corrective Mod [Novolog Flexpen-Moderate Resistance] See Protocol SC AC
11/24/24 18:35
Albuterol [ProAIR HFA INHALER] 1 puff INH R Q4HPRN PRN
Atorvastatin [Lipitor] 80 mg PO QPM
Bisacodyl [Dulcolax] 10 mg RECTAL [id number] PRN
Docusate W/Senna [Senokot-S] 1 tablet PO BIDPRN PRN
Ezetimibe [Zetia] 10 mg PO QPM
Ipratropium/Albuterol Sulfate [Duoneb] 3 ml INH R Q4HPRN PRN
Oxycodone [Roxicodone] 5 mg PO Q6HPRN PRN
Polyethylene Glycol Powder [Miralax] 17 grams PO DAILYPRN PRN
11/24/24 18:35
CARDIOLOGY CONSULT Routine
Consulting Provider: Gary Hansen
Was physician already notified: Yes
Reason for consult: HFmrEF
Activity As Directed
Activity Level: Out of Bed-Early Mobility
Intake/ Output As Directed
Frequency: q12h
Pneumatic Compression Sleeves As Directed
Type: Knee high
Vital Signs As Directed
Frequency: Per unit guidelines
Weight As Directed
Frequency: Daily
O2 Therapy [RESP] Routine
Titrate/Wean O2 to maintain O2 sat greater than (%): 90
DX Deep Vein Thrombosis Video Routine
11/24/24 20:00
Acetaminophen [Tylenol] 500 mg PO Q8H
Acetaminophen [Tylenol] 650 mg PO Q4HWA
Apixaban [Eliquis] 5 mg PO BID
Budesonide/Formoterol 160/4.5 [Symbicort 160/4.5 Mcg Inhaler] 2 puff INH R BID
11/25/24 06:00
Cardiovascular Evaluation IN AM
Complete Blood Count/With Diff IN AM
Comprehensive Metabolic Panel IN AM
Ferritin IN AM
Iron IN AM
Magnesium IN AM
Total Iron Binding IN AM
Levothyroxine [Synthroid] 112 mcg PO DAILY @ 0600
11/25/24 08:00
Allopurinol [Zyloprim] 200 mg PO DAILY
Cetirizine HCl [Zyrtec] 10 mg PO DAILY
Dapagliflozin [Farxiga] 10 mg PO DAILY
Furosemide [Lasix] 60 mg IV DAILY
Potassium Chloride [KCl] 10 meq PO DAILY
Vitamin B Complex with C [B COMPLEX w/VITAMIN C] 1 caplet PO DAILY
11/27/24 11:00
DC Protocol for Telemetry ONCE
Abnormal Lab Results
11/24/24 11/24/24
11:39 13:23
RBC 3.83 L 10^6/uL
(4.20-5.40)
Hgb 11.9 L g/dL
(12.0-16.0)
Hct 36.6 L %
(37.0-47.0)
MCH 31.1 H pg
(27.0-31.0)
MCHC 32.5 L g/dL
(33.0-37.0)
RDW 16.8 H %
(11.5-14.5)
Absolute Monos (auto) 0.7 H 10^3/uL
(0.1-0.6)
Lymphocytes % 18.5 L %
(20.5-51.1)
BUN 31 H mg/dl
(7-17)
Glucose 243 H mg/dl
(70-99)
AST 63 H U/L
(14-36)
ALT 59 H U/L
(0-35)
11/24/24 13:23
11/24/24 11:39
Vital Signs
Initial and Last Documented VS:
Initial Vital Signs
Temp Pulse Resp BP Pulse Ox
99.2 F 81 18 109/72 94
11/24/24 11:22 11/24/24 11:22 11/24/24 11:22 11/24/24 11:22 11/24/24 11:22
Last Documented Vital Signs
Temp Pulse Resp BP Pulse Ox
99.4 F 115 18 102/80 98
11/24/24 23:27 11/24/24 23:27 11/24/24 23:27 11/24/24 23:27 11/24/24 23:27
<Nusrat Lema PA-C - Last Filed: 11/25/24 01:46>
MDM/Problems Addressed
Differential Diagnosis Includes:
Not limited to: Acute CHF exacerbation, ACS, cardiac arrhythmia, viral illness, pneumonia, etc.
MDM/Problems Addressed:
84-year-old female with progressively worsening shortness of breath with exertion and history of CHF. No chest pain, or, cough. Some minimal weight gain. Patient noticeably tachypneic otherwise stable vital signs afebrile. Physical exam as
above. Patient in no apparent distress, somewhat pale appearing. Patient in rate controlled atrial fibrillation anticoagulated on Eliquis. She has somewhat diminished breath sounds at the bases with fine crackles. Mild lower extremity edema
bilaterally. Basic labs initiated in triage without any clinically significant abnormalities. Initial troponin negative. Suspect likely CHF exacerbation. Lower suspicion for infectious process given patient is afebrile with no leukocytosis or
productive cough. Will check viral swabs, proBNP, interrogate pacemaker. Patient borderline hypoxic ranging from 90-93 on room air and placed on 2 L nasal cannula with significant improvement in symptoms. Anticipate admission pending further
workup.
Update: Viral swabs negative. Repeat troponin negative. BNP of 5660. Chest x-ray without acute abnormalities. Patient remains mildly tachypneic although improved following supplemental oxygen. Clinically suspect acute CHF exacerbation. Given
tachypnea, dyspnea, and hypoxia requiring supplemental oxygen�will admit patient to hospitalist for further respiratory support/management. Patient given 40 IV Lasix in emergency department. Patient accepted to hospital service in stable
condition. Case seen with attending physician
Chronic conditions affecting care:
CHF, hypertension, CAD
Acute Exacerbation and/or Progression of Chronic Illness:
N/A
<Nusrat Lema PA-C - Last Filed: 11/25/24 01:46>
*Radiology
Radiology exam reviewed: preliminary read by ED provider (Chest x-ray reviewed by me-no acute abnormalities) and radiology read reviewed
*Pulse Oximetry
Patient hypoxic: no
*EKG
Interpreted by ED Provider?: Yes
EKG Intrepretation Date: 11/24/24
Interpretation: abnormal
Comparison EKG: changes noted
Heart Rate: 84
Rate: normal
Rhythm: a-fib and PVC's
Interval: normal QT interval
QRS Pattern: left vent hypertrophy
Ischemia: non-specific ST changes (T wave inversions in lateral leads)
*Ambulatory Services Representative Interpretation
Rate: normal
Interpretation: abnormal
Heart Rate: 84
Rhythm: a-fib
*Critical Care Note
Total Time (30-74mins, 75-104mins- exclusive of procedures): Not Applicable
<Nusrat Lema PA-C - Last Filed: 11/25/24 01:46>
Patient Management
Discussion with other providers: Hospitalist
Escalation/DeEscalation of care consider admission/obs:
Abdomen indicated given hypoxia and CHF exacerbation
ED Attending Note
<Nusrat Lema PA-C - Last Filed: 11/25/24 01:46>
-
Portions of this chart may have been created with voice recognition software.� Occasional wrong word or��sound alike� substitutions may have occurred due to the inherent limitations of voice recognition software.
<Santos Nicholas DO - Last Filed: 11/24/24 14:30>
ED Attending Note
Patient seen and examined by attending physician: Yes
I performed the substantive portion of visit, reviewed & personally made and approve the management plan that is documented in note by myself or BRENDA.: Yes
ED Attending Note:
Seen with ODALIS examined independently, 84-year-old female subacute onset of shortness of breath fatigue, looks pale crackles at the bases has leg edema abdominal girth with weight gain, plan will be EKG chest x-ray supplemental oxygen proBNP low
threshold to admit
Discharge Plan
Departure
Patient Disposition: Admit
Date of Disposition: 11/24/24
Time of Disposition: 15:14
Presentation/result/management discussed w/ accepting MD/DO: Hospitalist
Condition: Good
Covid-19: Negative COVID-19
Discharge Problem:
Acute exacerbation of CHF (congestive heart failure), Hypoxia
Interventions
Interventions:
*Risk Screen - Suicide Last Done: 11/24/24 11:22
*General Assessment Last Done: 11/24/24 11:22
*Neglect/Abuse Screening Last Done: 11/24/24 11:22
ED- Fall Risk Assessment Last Done: 11/24/24 13:26
*ED COVID-19 Vaccine History Last Done: 11/24/24 11:22
*Nursing Disposition Last Done: 11/24/24 18:29
ED- Cardiac Assessment Last Done: 11/24/24 13:26
ED- Pulmonary Assessment Last Done: 11/24/24 13:26
Discharge Date and Time
Discharge Date/Time: 11/24/24 18:30
[2024-11-24 13:30] LABS: % Basophils 0.7 % (0-2); % Eosinophils 1.3 % (0-6); % Immature Granulocytes 0.4 % (0-0.5); % Lymphocytes 18.5 % (20.5-51.1); % Monocytes 8.5 % (1.7-9.3); % Neutrophils 70.6 % (42.2-75.2); Absolute Basophils 0.1 10^3/uL (0-0.2); Absolute Eosinophils 0.1 10^3/uL (0-0.7); Absolute Lymphocytes 1.5 10^3/uL (1.2-3.4); Absolute Monocytes 0.7 10^3/uL (0.1-0.6); Absolute Neutrophils 5.8 10^3/uL (1.4-6.5); Hematocrit 36.6 % (37.0-47.0); Hemoglobin 11.9 g/dL (12.0-16.0); Mean Corp Hgb Conc. 32.5 g/dL (33.0-37.0); Mean Corpuscular Hgb 31.1 pg (27.0-31.0); Mean Corpuscular Volume 95.6 fL (81.0-99.0); Mean Platelet Volume 9.1 fL (7.4-10.4); Nucleated Red Blood Cells % 0.4 %; Platelet Count 227 10^3/uL (130-400); Red Blood Cell Count 3.83 10^6/uL (4.20-5.40); Red Cell Dist. Width 16.8 % (11.5-14.5); White Blood Cell Count 8.2 10^3/uL (4.8-10.8)
[2024-11-24 13:59] LABS: NT-proBNP 5660 pg/ml
[2024-11-24 14:02] LABS: Troponin I 0.026 ng/ml
[2024-11-24 14:09] LABS: COVID-19 Antigen Negative (Negative)
[2024-11-24] MEDS: LASIX 40 MG IV (15:41)
--- NOTE | 2024-11-24 15:58 | HPS.HSE ---
Family Physician
-
Family Physician: Jerrell Byrne
Chief Complaint
-
Dyspnea, worse with exertion
History of Present Illness
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
endarterectomy, H/O stage III colon cancer s/p right hemicolectomy, H/O breast cancer, S/P PPM is presenting to the hospital with shortness of breath. Symptoms started within the last 2 days and has been gradually worsened, exacerbated by exertion.
States she is unable to catch her breath when walking very short distances. Denies chest pain, lightheadedness, wheezing. Has had a mild dry cough. Denies fevers or chills. Patient states that her abdomen feels more swollen, weight has
increased by a couple of pounds. States she is compliant with her Lasix and other home medications. No recent dietary changes. AFVSS on arrival with SpO2 92%, placed on 2 L nasal cannula due to shortness of breath. Labs with hemoglobin 11.9, BUN
31, glucose 243, AST 63, ALT 59, BNP 5600 but otherwise unremarkable. Troponin negative, ECG with AF and AV pacing, evidence of LVH, but no acute ST deviation, did have lateral TWI that appears new from previous study. Chest x-ray with signs of
bibasilar pulmonary edema/effusion on my read. Was started on 40 mg IV Lasix in the ED.
Medical History
Past Medical History
Past Medical History: Reports Arrhythmia, Asthma, CAD, CHF, COPD, HTN, Hypercholesterolemia, Hypothyroidism, NIDDM, VA, Renal Failure (CKD3b) and Valvular Disease
Past Surgical History: Reports Bowel Resection (R hemicolectomy) and Cardiac (CABGx3)
Social History
Tobacco: Non-smoker
Alcohol: None
Drug: None
Family History
Family History: Not pertinent
Allergies / Home Medications
Allergies reflects when Allergies were last updated in [facility].
Home Medications with original date entered in [facility]
Allergy/Medication List:
Allergies
Allergy/AdvReac Type Severity Reaction Status Date / Time
cefazolin [From Ancef] Allergy Itching, Verified 11/24/24 11:23
redness,
hives
crab Allergy Welts, Verified 11/24/24 11:23
vomiting
feathers Allergy allergy Verified 11/24/24 11:23
tested
positive
grass pollen Allergy allergy Verified 11/24/24 11:23
tested
positive
AND FOR HAY
house dust Allergy allergy Verified 11/24/24 11:23
tested
positive
mold Allergy allergy Verified 11/24/24 11:23
tested
positive
Sulfa (Sulfonamide Allergy Hives Verified 11/24/24 11:23
Antibiotics)
tree and shrub pollen Allergy allergy Verified 11/24/24 11:23
tested
positive
Home Medications
albuterol sulfate 90 mcg/actuation aerosol inhaler 1 puff inhalation R Q4HPRN PRN sob 10/02/21
cetirizine 10 mg tablet 10 mg PO DAILY Allergies 10/02/21
apixaban 5 mg tablet (Eliquis) 5 mg PO BID Blood clot prevention/tx 11/18/22
ezetimibe 10 mg tablet (Zetia) 10 mg PO QPM High cholesterol 11/18/22
budesonide-formoterol HFA 160 mcg-4.5 mcg/actuation aerosol inhaler (Symbicort) 2 puff inhalation R BID Lung/breathing issues #10.2 grams 07/23/24
dapagliflozin propanediol 10 mg tablet 10 mg PO DAILY #30 tabs 07/23/24
acetaminophen 500 mg tablet (Pain Relief Extra Strength (acetaminophen)) 500 mg PO Q8H Pain #0 tabs 07/24/24
atorvastatin 80 mg tablet 80 mg PO QPM High cholesterol #0 tabs 07/24/24
furosemide 40 mg tablet (Lasix) 60 mg (1.5 x 40 mg) PO DAILY Heart Failure #60 tabs 07/24/24
vitamin B complex 1 tab PO DAILY Supplement #0 tabs 07/24/24
allopurinol 100 mg tablet 200 mg PO DAILY Gout 11/24/24
glipizide 5 mg tablet, extended release 24 hr 2.5 mg PO DAILY Diabetes 11/24/24
levothyroxine 112 mcg tablet (Synthroid) 112 mcg PO DAILY 11/24/24
oxycodone 5 mg tablet 5 mg PO Q6HPRN PRN severe pain 11/24/24
potassium chloride 10 mEq tablet,extended release 10 meq PO DAILY 11/24/24
Review of Systems
-
A 12 point ROS was completed and negative except as noted: Yes
Constitutional: Reports No Symptoms
EENT: Reports No Symptoms
Respiratory: Reports See HPI
Cardiac: Reports See HPI
Abdomen/GI: Reports See HPI
: Reports No Symptoms
Musculoskeletal: Reports No Symptoms
Skin: Reports No Symptoms
Neurological: Reports No Symptoms
Endocrine: Reports No Symptoms
Hematologic/Lymphatic: Reports No Symptoms
Psych: Reports No Symptoms
Physical Exam
Vital Signs
Vital Signs
Temp Pulse Resp BP Pulse Ox
99.2 F 86 21 126/93 92
11/24/24 11:22 11/24/24 15:41 11/24/24 14:15 11/24/24 15:41 11/24/24 14:14
Physical Exam
General: Well Developed, No Apparent Distress and Comfortable
HEENT: NormoCephalic, Anicteric, Moist mucous membranes, Atraumatic, PERRLA and Oxygen
Respiratory: Rales and Non Labored Respirations; No Wheezes, Rhonchi or Accessory Resp Muscle Use
Cardiac: S1/S2, Regular Rhythm, Murmur (DENA best heard at [facility]), JVD and Other (Mildly delayed carotid upstroke); No Rub, Gallop or Peripheral Edema
GI: Soft, Non Tender, Non Distended, Normal Bowel Sounds and No Hepatosplenomegaly
Musculoskeletal: No Clubbing and No Cyanosis
Skin: Warm, Dry and Other (Distal extremities warm, cap refill <2 seconds); No Rash or Jaundice
Neuro: AO x 3 and Nonfocal/grossly intact; No Tremors
Psych: Calm
Laboratory Results
-
11/24/24 13:23
11/24/24 11:39
Laboratory Results
Total Bilirubin 1.3 mg/dl (0.2-1.3) 11/24/24 11:39
AST 63 U/L (14-36) H 11/24/24 11:39
ALT 59 U/L (0-35) H 11/24/24 11:39
Alkaline Phosphatase 94 U/L (38-126) 11/24/24 11:39
Troponin I 0.026 ng/ml 11/24/24 13:23
Data Reviewed
-
Diagnostic Radiology: Report Reviewed by me and Discussed with Patient
Lab Data: Labs Reviewed by me and Discussed with Patient
Impression/Plan
-
#Acute on chronic HFmrEF
#Pulmonary HTN
-Last echocardiogram with EF 44%, reduced RV systolic function and moderate to severe
-Has history of HFpEF with reduction in EF over time, history of CAD, concern for ischemia
-Home medications include SGLT2i, Lasix 60 mg daily as diuretics and GDMT
-Troponin negative initially, no chest pain upon admission here
-ECG here with evidence of left ventricular hypertrophy
-Warm and wet, started on IV Lasix in ED
Plan
-Start IV Lasix 60 mg twice daily, monitor I's/O's and weights, BMP daily
-Order echocardiogram to reassess LVEF, LVH, aortic valve
-Continue GDMT with SGLT2i
-BP goal < 140/90 mmHg
-Monitor on telemetry
-Cardiology consult
#Moderate-Severe
-Last echocardiogram with moderate to severe , peak/mean 29/16 mmHg, LILY 0.84 cm�
-With newly reduced EF on last echo, question low-flow low gradient disease
-Presented here with decompensated heart failure
-Repeat echocardiogram ordered
-Consider dobutamine stress echo
-GOC if TAVR indicated
#CAD s/p CABG
#Lateral TWI
-History of CABG x 3 in 1996; Home meds include high intensity statin, SGLT2i; no antiplatelet, on Eliquis for AF
-No chest pain, troponin negative; does appear to have new TWI laterally on ECG
-Question if lateral TWI related to left ventricular wall tension
-Low suspicion for acute coronary syndrome at this time
-Cannot rule out underlying chronic ischemic disease with history
-May benefit from recurrent ischemic workup if it aligns with goals of care
#Paroxysmal AF
-Home medications include Eliquis twice daily; not on rate or rhythm control
-No known history of electrophysiologic intervention such as ablation
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
-Heart rate WNL at this time
#Chronic transaminitis
-Has chronic low-grade elevation to transaminases, both just above UNL
-Possibly with underlying NAFLD though labs have been stable
-Presented with AST and ALT slightly higher than baseline, likely component of congestion
-Trend LFTs, consider RUQ US if worsening
#HTN
-Possible hypertensive systemic disease with signs of LVH on ECG
-Not currently on first-line antihypertensive therapy
-Home meds do include diuresis with Lasix and SGLT2
-Per history hypotension may be more of an issue
#HLD
-Significant ASCVD history with carotid endarterectomy and CABG x 3
-Home medication includes atorvastatin 80 mg nightly and ezetimibe
#NIDDM
-No recent hemoglobin A1c on record; C/B diabetic neuropathy
-Home medications include dapagliflozin and glipizide
-Will transition to SGLT2i with ISS and Accu-Cheks
-Blood glucose goal 140-180
#Chronic pancreatitis
-Previous imaging did show cystic lesion of the pancreas
-Does not currently take any pancreatic lipase or replacement enzymes
-Monitor for symptoms such as abdomen pain and diarrhea
#COPD/mild intermittent asthma
-Likely associated with history of pulmonary hypertension; no O2 at baseline
-Home medications include Symbicort and albuterol MDI as needed
-Low suspicion for COPD exacerbation, no bronchospasm
#PAD s/p carotid endarterectomy
-Home medications include ezetimibe and high intensity statin; not on antiplatelet agent but is on DOAC
-Low suspicion for active disease of the carotids
-Should have follow-up with vascular surgery
#Hypothyroidism
-Unclear etiology, home medications include levothyroxine 112 mcg daily
-No signs of thyroid dysfunction at this time
#Gout
-Home medications include allopurinol 200 mg daily
-No signs of active flare, though increased risk with IV diuresis
#Chronic pain
-Home meds include oxycodone 5 mg every 6 hours as needed
-Will continue in the hospital and monitor pain symptoms
#S/p PPM
-Unclear indication, with history of AF likely tachybradycardia
-No signs of pacemaker dysfunction at this time
#H/O stage III colorectal cancer s/p right hemicolectomy
#H/O breast cancer
DVT prophylaxis: Home Eliquis
Diet: No added salt
CODE STATUS: DNR
I will be admitting Tori Gaxiola to telemetry. She is at high risk for worsening morbidity due to decompensated heart failure. She will require titration of her diuretic regimen and workup into etiology for her decompensated heart failure. She
will require intensive monitoring of her BMP and magnesium levels while on IV diuretics. I have discussed this case with the emergency department attending, and cardiology attending.
--- NOTE | 2024-11-24 16:33 | CON.CAR ---
Addendum entered and electronically signed by Gary Hansen MD 11/24/24 17:04:
I saw and examined the patient.
The PM TECHNICIAN or PA's note was reviewed and I agree with the note.
Comment: General: Well developed, well nourished in NAD.
Neck: Supple, no JVD, HJR, carotids +2 B/L, no bruits bilaterally.
Heart: Non displaced PMI, irregular, no murmurs, No S3, S4, no rubs.
Lungs: Scattered rhonchi at the bases
Abdomen: Normal bowel sounds, soft, non-tender, non-distended.
Extremities: No clubbing, cyanosis or edema bilaterally.
Neuro: Grossly nonfocal, awake, alert and oriented x3.
Tori has a history of chronic systolic CHF, persistent atrial fibrillation, CAD status post remote NH and CABG, aortic stenosis, sick sinus syndrome status post pacer, COPD, hyperlipidemia, hypertension, hypothyroidism, asthma, diabetes with
diabetic neuropathy. She presents with increasing shortness of breath and acute systolic CHF. She needs to rest with ambulating short distances. She reports weight gain and abdominal bloating. She has been taking Lasix 60 mg daily at [facility]. proBNP was 5660 but chest x-ray was okay.
Will treat with IV Lasix 60 mg daily. Unclear how much of this is due to CHF. Reportedly ejection fraction is 20 to 25% and will check echocardiogram. Doubt aortic stenosis is a cause but will reassess aortic stenosis as mean gradient was only 16
mmHg in the past.
Original Note:
Consultation
Consultation Request
Date/Time Consultation Performed: 11/24/24
Requesting Provider: Dr. Hu
Performing Provider: Margi Frye PA-C for Dr. Hansen
Reason for Consultation: CHF
Medical History
-
Chief Complaint: SOB
History of Present Illness:
Patient is an 83 year old female with PMH of chronic HFmrEF, persistent atrial fibrillation, CAD s/p remote NH and CABG, , MR, SSS s/p PPM, COPD, HLD, HTN, hypothyroidism, asthma, DM with diabetic neuropathy, and prior breast cancer who presented
to [facility] for evaluation of increased SOB. Reportedly at pulse ox was 95% on room air. Reports this has been gradually worsening, and notices it more with exerting herself. Reports she needs to sit down and rest even with ambulating
short distances. Reports several pound weight gain and some abdominal bloating. Denies chest discomfort. Reports compliance with p.o. Lasix 60 mg daily at . proBNP 5660. Chest x-ray without noted acute cardiopulmonary process.
PMH:
Chronic HFmrEF
Permanent Afib
Chronic Eliquis OAC
CAD
s/p remote anterior NH with VF arrest with LAD angioplasty 07/17/97
CAD subsequent CABG x3 with 1996
Mild
Mild MR
SSS s/p Medtronic PPM
History of orthostasis
Chronic kidney disease (baseline creatinine 1.0 but ranges to 1.3 with diuresis)
COPD
Hyperlipidemia
Hypothyroidism
Asthma
Neuropathy
Hypertension
Breast cancer, status post left mastectomy
h/o carotid endarterectomy
h/o diabetes mellitus type 2
h/o colon mass s/p R hemicolectomy 10/02/21 until 10/15/21
spinal stenosis with chronic LE
Past Medical History
Past Medical History: Other (In HPI)
Past Surgical History: Appendectomy, Cardiac (LAD angioplasty 1996, CABG x3 1996), Cholecystectomy and Other (b/l TKA, carotid endarterectomy, L mastectomy, b/l cataract surgery, R hemicolectomy)
Social History
Tobacco: Former Smoker
Alcohol: None
Drug: None
Personal:
Living: Assisted Living
Employment: Retired
Family History
Family History: CAD
Allergies / Home Medications
Allergy/AdvReac Type Severity Reaction Status Date / Time
cefazolin [From Anc] Allergy Itching, Verified 11/24/24 11:23
redness,
hives
crab Allergy Welts, Verified 11/24/24 11:23
vomiting
feathers Allergy allergy Verified 11/24/24 11:23
tested
positive
grass pollen Allergy allergy Verified 11/24/24 11:23
tested
positive
AND FOR HAY
house dust Allergy allergy Verified 11/24/24 11:23
tested
positive
mold Allergy allergy Verified 11/24/24 11:23
tested
positive
Sulfa (Sulfonamide Allergy Hives Verified 11/24/24 11:23
Antibiotics)
tree and shrub pollen Allergy allergy Verified 11/24/24 11:23
tested
positive
�Medication �Instructions �Recorded �Confirmed �Type
albuterol sulfate 90 mcg/actuation 1 puff inhalation R Q4HPRN PRN sob 10/02/21 11/24/24 History
aerosol inhaler
cetirizine 10 mg tablet 10 mg PO DAILY Allergies 10/02/21 11/24/24 History
apixaban 5 mg tablet (Eliquis) 5 mg PO BID Blood clot 11/18/22 11/24/24 History
prevention/tx
ezetimibe 10 mg tablet (Zetia) 10 mg PO QPM High cholesterol 11/18/22 11/24/24 History
budesonide-formoterol HFA 160 2 puff inhalation R BID 07/23/24 11/24/24 Rx
mcg-4.5 mcg/actuation aerosol Lung/breathing issues #10.2 grams
inhaler (Symbicort)
dapagliflozin propanediol 10 mg 10 mg PO DAILY #30 tabs 07/23/24 11/24/24 Rx
tablet
acetaminophen 500 mg tablet (Pain 500 mg PO Q8H Pain #0 tabs 07/24/24 11/24/24 Rx
Relief Extra Strength
(acetaminophen))
atorvastatin 80 mg tablet 80 mg PO QPM High cholesterol #0 07/24/24 11/24/24 Rx
tabs
furosemide 40 mg tablet (Lasix) 60 mg (1.5 x 40 mg) PO DAILY Heart 07/24/24 11/24/24 Rx
Failure #60 tabs
vitamin B complex 1 tab PO DAILY Supplement #0 tabs 07/24/24 11/24/24 Rx
allopurinol 100 mg tablet 200 mg PO DAILY Gout 11/24/24 11/24/24 History
glipizide 5 mg tablet, extended 2.5 mg PO DAILY Diabetes 11/24/24 11/24/24 History
release 24 hr
levothyroxine 112 mcg tablet 112 mcg PO DAILY 11/24/24 11/24/24 History
(Synthroid)
oxycodone 5 mg tablet 5 mg PO Q6HPRN PRN severe pain 11/24/24 11/24/24 History
potassium chloride 10 mEq 10 meq PO DAILY 11/24/24 11/24/24 History
tablet,extended release
Review of Systems
-
History Source: Patient
All other systems: Negative unless noted
Physical Exam
Vital Signs
Temp Pulse Resp BP Pulse Ox
99.2 F 86 21 126/93 92
11/24/24 11:22 11/24/24 15:41 11/24/24 14:15 11/24/24 15:41 11/24/24 14:14
Lab Results
11/24/24 13:23
11/24/24 11:39
Troponin I 0.026 ng/ml 11/24/24 13:23
Sru-D-Zxbdamclisf Pept 5660 pg/ml 11/24/24 13:23
Impression / Plan
-
PCP: Dr. Byrne
Diet Aid: Dr. Hansen
Impression:
Presented with SOB/HANCOCK
Acute on chronic HFmrEF
Permanent Afib since 01/2023
Chronic Eliquis OAC
CAD
s/p remote anterior NH with VF arrest with LAD angioplasty 07/17/97
CAD subsequent CABG x3 with 1996
Mod-severe by echo 07/22/2024
Mild MR
SSS s/p Medtronic PPM
COPD
CKD (baseline creatinine 1.0 but ranges to 1.3 with diuresis)
History of orthostasis
Hyperlipidemia
Hypothyroidism
Asthma
Neuropathy
Hypertension
Breast cancer, status post left mastectomy
h/o carotid endarterectomy
h/o diabetes mellitus type 2
h/o colon mass s/p R hemicolectomy 10/02/21 until 10/15/21
Echo 05/28/2021: Ejection fraction 50%, mild aortic stenosis, mean pressure gradient 14 mmHg, aortic valve area 1.1 cm�
Echo 05/19/2023: EF 40-45%, mild cLVH, mid-apical inferoseptum/inferior segments are hypokinetic, mild MR, mild with peak/mean gradients 17/9 mmHg, LILY 1.4 cm2, trace AI, mild TR, estimated PAP 20-25 mmHg
Echo 11/27/2023: EF 40 to 45%, apical, inferior, and inferoseptal hypokinesis noted, mild MR, mild with peak/mean gradients 15/9 mmHg, mild TR, estimated PAP 21 to 26 mmHg
Echo 07/22/2024: EF 48% by volumetric assessment, 44% by Milton's method, decreased RV sys fxn, mild-mod MR, mod TR, PASP 34, mod-sev 29/16/LILY 0.84 cm
Plan:
-She presents with shortness of breath and dyspnea on exertion as well as several pound weight gain and abdominal bloating
-proBNP highest it is ever been at 5660. Chest x-ray without evidence of acute cardiopulmonary abnormality
-Received 40 mg IV Lasix in ED. Will plan to place on 60 mg IV Lasix daily. Prior to admission was on p.o. Lasix 60 mg daily. Creatinine stable at 1.0. Dry weight per last office note was 181 to 182 pounds.
-Follow LFTs in setting of diuresis, mildly elevated
-CHF education
-Initial troponin 0.026. Patient without chest pain. EKG today with lateral T wave changes compared to prior in [facility], however does appear consistent with last EKG in [facility] dated 08/02/2024.
-Last echocardiogram from 07/22/2024 with EF 48% by volumetric assessment, 44% by Milton's method with mild to moderate MR and moderate to severe with mean gradient of 16 mmHg. Will repeat
-Has permanent atrial fibrillation. Continue outpatient Eliquis
-She has history of orthostasis, which has limited guideline directed medical therapy of mild cardiomyopathy. She previously required midodrine. She had previously been on toprol, would attempt to retrial as BP allows. Continue OP Farxiga
-Check hemoglobin A1c. Reportedly she has been complaining that her feet are hurting as an outpatient and does have known neuropathy.
-By review of correspondence with PCP, her daughter was concerned that she had called her crying recently and was to start Cymbalta today, defer to hospitalist
Data Reviewed
-
EKG: Tracing Personally Visualized and interpreted
Radiology: Report Reviewed by me
Medical Tests (Nuc Med, Echo etc): Report Reviewed by me
Labs: Labs Reviewed by me
Old Records: Reviewed
[2024-11-24 17:34] LABS: Urine Albumin Trace (Neg - Trace); Urine Bilirubin Negative (Negative); Urine Character Clear (Clear); Urine Color Yellow; Urine Glucose Negative (Negative); Urine Ketone Negative (Negative); Urine Leukocyte Negative (Negative); Urine Nitrite Negative (Negative); Urine Occult Blood Negative (Negative); Urine Urobilinogen Negative (Neg - 1+)
[2024-11-24 18:46] LABS: Troponin I 0.027 ng/ml
[2024-11-24] MEDS: SYMBICORT 160/4.5 MCG INHALER 2 PUFF INH (19:13)
[2024-11-24] MEDS: DUONEB 3 ML INH (19:16)
[2024-11-24] MEDS: NOVOLOG FLEXPEN-MODERATE RESISTANCE SC (19:16)
--- NOTE | 2024-11-24 19:16 | PTCARENOTE ---
Patient arrived to floor from ER into room 403-02. Patient with complaints of 'leg pain'. Vital signs stable. Oriented to room and use of call tripathi and bed controls. Patient verbalizes understanding.
[2024-11-24] MEDS: ROXICODONE 5 MG PO (19:17)
[2024-11-24] MEDS: ZETIA 10 MG PO (19:46)
[2024-11-24] MEDS: TYLENOL 500 MG PO (19:46)
[2024-11-24] MEDS: LIPITOR 80 MG PO (19:46)
[2024-11-24] MEDS: ELIQUIS 5 MG PO (19:46)
[2024-11-24 22:28] LABS: Glucose - Point of Care 144 mg/dl (70-99)
[2024-11-25] VITALS (7 sets, daily range): BP systolic 95–112; BP diastolic 51–86; PULSE 111; O2SAT 96; BMI 33.3
[2024-11-25] MEDS: ROXICODONE 5 MG PO ×2 (02:07→13:01)
[2024-11-25] MEDS: TYLENOL 500 MG PO ×3 (03:28→19:49)
[2024-11-25] MEDS: SYNTHROID 112 MCG PO (05:03)
[2024-11-25 06:21] LABS: % Basophils 0.8 % (0-2); % Eosinophils 1.6 % (0-6); % Immature Granulocytes 0.4 % (0-0.5); % Lymphocytes 17.5 % (20.5-51.1); % Monocytes 8.2 % (1.7-9.3); % Neutrophils 71.5 % (42.2-75.2); Absolute Basophils 0.1 10^3/uL (0-0.2); Absolute Eosinophils 0.1 10^3/uL (0-0.7); Absolute Lymphocytes 1.3 10^3/uL (1.2-3.4); Absolute Monocytes 0.6 10^3/uL (0.1-0.6); Absolute Neutrophils 5.4 10^3/uL (1.4-6.5); Hematocrit 35.8 % (37.0-47.0); Hemoglobin 12.1 g/dL (12.0-16.0); Mean Corp Hgb Conc. 33.8 g/dL (33.0-37.0); Mean Corpuscular Hgb 31.8 pg (27.0-31.0); Mean Corpuscular Volume 94.2 fL (81.0-99.0); Mean Platelet Volume 9.5 fL (7.4-10.4); Nucleated Red Blood Cells % 0.3 %; Platelet Count 206 10^3/uL (130-400); Red Cell Dist. Width 16.5 % (11.5-14.5); White Blood Cell Count 7.5 10^3/uL (4.8-10.8)
[2024-11-25 06:46] LABS: ALT (SGPT) 49 U/L (0-35); AST (SGOT) 52 U/L (14-36); Albumin 3.9 g/dl (3.5-5.0); Alkaline Phosphatase 91 U/L (38-126); Blood Urea Nitrogen 28 mg/dl (7-17); Calcium 9.4 mg/dl (8.4-10.2); Carbon Dioxide 31 mmol/L (22-30); Chloride 100 mmol/L (98-107); Estimated Creatinine Clearance 47 ml/min; Glucose 149 mg/dl (70-99); HDL Cholesterol 59 mg/dl; Iron 61 ug/dl (37-170); LDL Cholesterol, Calculated 47 mg/dl; Magnesium 1.8 mg/dl (1.6-2.3); Potassium 3.7 mmol/L (3.5-5.1); Sodium 138 mmol/L (135-145); Total Bilirubin 1.8 mg/dl (0.2-1.3); Total Cholesterol 128 mg/dl (50-199); Total Protein 6.7 g/dl (6.3-8.2); Triglyceride 114 mg/dl (10-149); Very Low Density Lipoprotein 22 mg/dl (0-30); eGFR > 60.00
[2024-11-25 06:55] LABS: Percent Saturation 16 % (20-50); Total Iron Binding Capacity 371 ug/dl (265-497)
[2024-11-25] MEDS: DUONEB 3 ML INH (07:11)
[2024-11-25] MEDS: SYMBICORT 160/4.5 MCG INHALER 2 PUFF INH ×2 (07:11→20:00)
[2024-11-25 07:21] LABS: Ferritin 45.7 ng/ml (11.1-264.0)
[2024-11-25 08:31] LABS: Glucose - Point of Care 145 mg/dl (70-99)
--- NOTE | 2024-11-25 08:57 | W.PN.CARDCBS ---
Addendum entered and electronically signed by Jw Medeiros DO 11/25/24 17:00:
I saw and examined the patient.
The [employer] Representative's note was reviewed and I agree with the note.
Comment:
Plan:
Continue IV diuresis.
Increase Lasix to 60 mg IV daily.
Her dry weight is 180 pounds and she is 89 however the scale used was a bed scale. Would prefer standing scale as this would likely be more accurate.
Continue to monitor daily weights and I's and O's.
Reviewed her echocardiogram with significant drop in ejection fraction, would consider cardiac catheterization possibly November 29 to evaluate her coronary anatomy given history of prior CABG as well as drop in ejection fraction. Would need
to hold Eliquis 48 hours prior to cath.
Pending results of cardiac catheterization would further evaluate her aortic stenosis. She could potentially have low flow low gradient aortic stenosis.
Start Coreg and consider lisinopril as part of GDMT for cardiomyopathy
Her atrial fibrillation is permanent since 2022.
She lives in assisted living and would like to be aggressive with her medical care currently.
Original Note:
Today's Communication / Plan
-
Increase Lasix to 60 mg IV BID
Referral to structural hear program for TAVR evaluation
Start Coreg 3.125 mg BID today and lisinopril 2.5 mg daily tomorrow pending BP
53 min face to face and coordination of care
Impression / Plan
-
PCP: Dr. Byrne
Prime Minister: Dr. Hansen
Impression:
Presented with SOB/HANCOCK 11/24/24
Acute on chronic HFrEF
Worsening CM EF 10-15% by echo 11/24/24
Permanent Afib since 01/2023
Chronic Eliquis OAC
CAD
s/p remote anterior [place] with VF arrest with LAD angioplasty 07/17/97
CAD subsequent CABG x3 with 1996
Mod-severe peak/mean 29/16 mmHg by echo 07/22/2024, mod peak/mean 27/14 mmHg by echo 11/24/24
Mild MR
SSS s/p Medtronic PPM
COPD
CKD 3a
History of orthostasis
Hyperlipidemia
Hypothyroidism
Asthma
Neuropathy
Hypertension
Breast cancer, status post left mastectomy
h/o carotid endarterectomy
h/o diabetes mellitus type 2
h/o colon mass s/p R hemicolectomy 10/02/21 until 10/15/21
Echo 05/28/2021: Ejection fraction 50%, mild aortic stenosis, mean pressure gradient 14 mmHg, aortic valve area 1.1 cm�
Echo 05/19/2023: EF 40-45%, mild cLVH, mid-apical inferoseptum/inferior segments are hypokinetic, mild MR, mild with peak/mean gradients 17/9 mmHg, LILY 1.4 cm2, trace AI, mild TR, estimated PAP 20-25 mmHg
Echo 11/27/2023: EF 40 to 45%, apical, inferior, and inferoseptal hypokinesis noted, mild MR, mild with peak/mean gradients 15/9 mmHg, mild TR, estimated PAP 21 to 26 mmHg
Echo 07/22/2024: EF 48% by volumetric assessment, 44% by Milton's method, decreased RV sys fxn, mild-mod MR, mod TR, PASP 34, mod-sev 29/16/LILY 0.84 cm
Echo 11/24/2024: EF 10 to 15% with severe global hypokinesis, mod conc LVH, at least mod MR with possible underestimation due to dense MAC, moderate peak/mean 27/14 mmHg and LILY 0.9 cm sq, mod to sev TR with PAP 50 mmHg, normal RV size and function
Plan:
-Bed scale weight instead of standing scale and these are likely wrong. Overall weight trending down. Dry weight is 180 lbs per patient and weighed 188 lbs on 11/25/24. No symptomatic improvement in bloating and continues on oxygen at 2 L NC.
-Increase Lasix to 60 mg IV BID. Patient was taking Lasix 60 mg PO BID prior to admission.
-Follow labs daily. Patient with CKD 3a and had DIANA with Cre up to 1.3 during IV diuresis during her CHF admission 07/2024. Labs reviewed by me 11/25/24.
-EF 10-15% by echo 11/24/24, EF previously 48% by echo 07/22/24. No new WMA.
-Patient was previously on Toprol XL and it was stopped due to hypotension. Patient has also been on midodrine in the past.
-Will try adding Coreg 3.125 mg BID starting 11/25/24.
-Will try adding lisinopril 2.5 mg daily on 11/26/24.
-Outpatient dose of Farxiga 10 mg daily has been continued.
-Patient also with mod on echo 11/24/24. Patient recalls being told about possible TAVR in the past and says she would be interested in TAVR. Patient lives in assisted living at [facility] , but is independent with ADLs and ambulates to the
cafeteria 2-3 times a day with a walker and her only real assistance that she receives is with medication administration. Will refer patient to structural heart program coordinators.
-Normal Troponin levels. ECG 11/24/24 reviewed by me with known permanent Afib and inferior and anterolateral ST changes that are stable compared to office ECG from 08/02/24.
-Outpatient dose of Eliquis 5 mg BID (age 84, wt 85.28 kg, Cre 0.9) has been continued.
HPI: Patient is an 83 year old female with PMH of chronic HFmrEF, persistent atrial fibrillation, CAD s/p remote AR and CABG, , MR, SSS s/p PPM, COPD, HLD, HTN, hypothyroidism, asthma, DM with diabetic neuropathy, and prior breast cancer who
[facility] for evaluation of increased SOB. Reportedly at [facility] pulse ox was 95% on room air. Reports this has been gradually worsening, and notices it more with exerting herself. Reports she needs to sit down and rest even with
ambulating short distances. Reports several pound weight gain and some abdominal bloating. Denies chest discomfort. Reports compliance with p.o. Lasix 60 mg daily at [facility]. proBNP 5660. Chest x-ray without noted acute cardiopulmonary
process.
Progress Note - Prime Minister
Subjective
Date of Service: November 25, 2024
Reports ongoing HANCOCK and bloating
Objective
Labs:
11/25/24 06:09
11/25/24 06:09
Labs
Hgb 12.1 g/dL (12.0-16.0) 11/25/24 06:09
Hct 35.8 % (37.0-47.0) L 11/25/24 06:09
Plt Count 206 10^3/uL (130-400) 11/25/24 06:09
Sodium 138 mmol/L (135-145) 11/25/24 06:09
Potassium 3.7 mmol/L (3.5-5.1) 11/25/24 06:09
BUN 28 mg/dl (7-17) H 11/25/24 06:09
Creatinine 0.9 mg/dL (0.6-1.0) 11/25/24 06:09
Glucose 149 mg/dl (70-99) H 11/25/24 06:09
Troponins
11/24/24 11/24/24 11/24/24
13:23 16:51 17:25
Troponin I 0.026 Cancelled Cancelled
11/24/24
18:12
Troponin I 0.027
Vital Signs and I&O:
Vital Signs
Temp Pulse Resp BP Pulse Ox
98 F 86 15 109/67 100
11/25/24 06:53 11/25/24 07:14 11/25/24 07:14 11/25/24 06:53 11/25/24 07:14
Vital Signs
Temp Pulse Resp BP Pulse Ox
98 F 86 15 109/67 100
11/25/24 06:53 11/25/24 07:14 11/25/24 07:14 11/25/24 06:53 11/25/24 07:14
Physical Exam
Physical Exam
GEN: NAD. AAOx3
HEENT: MMM
LUNGS: 2 L NC. No audible wheeze
CV: Afib on tele
ABD: ND
EXT: +1 B/L LE edema
NEURO: Gross non-focal
SKIN: No rash
[2024-11-25] MEDS: LASIX 60 MG IV ×2 (09:10→17:43)
[2024-11-25] MEDS: NOVOLOG FLEXPEN-MODERATE RESISTANCE SC (09:10)
[2024-11-25] MEDS: KCL 10 MEQ PO (09:11)
[2024-11-25] MEDS: ZYRTEC 10 MG PO (09:11)
[2024-11-25] MEDS: TOPROL XL 12.5 MG PO (09:11)
[2024-11-25] MEDS: ZYLOPRIM 200 MG PO (09:11)
[2024-11-25] MEDS: ELIQUIS 5 MG PO ×2 (09:11→19:49)
[2024-11-25] MEDS: FARXIGA 10 MG PO (09:11)
[2024-11-25] MEDS: B COMPLEX w/VITAMIN C 1 CAPLET PO (09:11)
--- NOTE | 2024-11-25 11:23 | W.PN.HOSP.TC ---
Addendum entered and electronically signed by Gary Hu DO 11/25/24 18:02:
CDI: Permanent AF
Original Note:
Today's Communication/Plan
-
Consider LHC and dobutamine stress echo
Continue IV Lasix
SGLT2i and beta-wilmar for GDMT
BMP/I's and O's/weights
Assessment / Plan
Assessment / Plan
#Acute on chronic HFrEF
#Pulmonary HTN
-Echocardiogram here showed reduction of LVEF from 45% to 10 to 15%, signs of new LVH
-Differential diagnosis include ischemic cardiomyopathy versus classic LF-LG Aortic Stenosis
-Home medications include SGLT2i, Lasix 60 mg daily as diuretics and GDMT
-Troponin negative initially, no chest pain upon admission here
-ECG and TTE here with evidence of left ventricular hypertrophy
-Warm and wet, HR 86 this morning with soft BP
Plan
-Consider dobutamine stress echo and LHC to assess for etiology of reduced EF
-Continue IV Lasix 60 mg twice daily, monitor I's/O's and weights, BMP daily
-Continue GDMT with SGLT2i, started low-dose metoprolol succinate
-BP goal < 140/90 mmHg
-Monitor on telemetry
-Cardiology consult
#Moderate-Severe
-Last echocardiogram with moderate to severe , peak/mean 29/16 mmHg, LILY 0.84 cm�
-With newly reduced EF on last echo, question low-flow low gradient disease
-Presented here with decompensated heart failure
-Repeat echocardiogram ordered
-Consider dobutamine stress echo
-GOC if TAVR indicated
#CAD s/p CABG
#Lateral TWI
-History of CABG x 3 in 1996; Home meds include high intensity statin, SGLT2i; no antiplatelet, on Eliquis for AF
-No chest pain, troponin negative; does appear to have new TWI laterally on ECG
-Question if lateral TWI related to left ventricular wall tension
-Low suspicion for acute coronary syndrome at this time
-Cannot rule out underlying chronic ischemic disease with history
-May benefit from recurrent ischemic workup if it aligns with goals of care
#Paroxysmal AF
-Home medications include Eliquis twice daily; not on rate or rhythm control
-No known history of electrophysiologic intervention such as ablation
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
-Heart rate WNL at this time
#Chronic transaminitis
-Has chronic low-grade elevation to transaminases, both just above UNL
-Possibly with underlying NAFLD though labs have been stable
-Presented with AST and ALT slightly higher than baseline, likely component of congestion
-Trend LFTs, consider RUQ US if worsening
#HTN
-Possible hypertensive systemic disease with signs of LVH on ECG
-Not currently on first-line antihypertensive therapy
-Home meds do include diuresis with Lasix and SGLT2
-Per history hypotension may be more of an issue
#HLD
-Significant ASCVD history with carotid endarterectomy and CABG x 3
-Home medication includes atorvastatin 80 mg nightly and ezetimibe
#NIDDM
-No recent hemoglobin A1c on record; C/B diabetic neuropathy
-Home medications include dapagliflozin and glipizide
-Will transition to SGLT2i with ISS and Accu-Cheks
-Blood glucose goal 140-180
#Chronic pancreatitis
-Previous imaging did show cystic lesion of the pancreas
-Does not currently take any pancreatic lipase or replacement enzymes
-Monitor for symptoms such as abdomen pain and diarrhea
#COPD/mild intermittent asthma
-Likely associated with history of pulmonary hypertension; no O2 at baseline
-Home medications include Symbicort and albuterol MDI as needed
-Low suspicion for COPD exacerbation, no bronchospasm
#PAD s/p carotid endarterectomy
-Home medications include ezetimibe and high intensity statin; not on antiplatelet agent but is on DOAC
-Low suspicion for active disease of the carotids
-Should have follow-up with vascular surgery
#Hypothyroidism
-Unclear etiology, home medications include levothyroxine 112 mcg daily
-No signs of thyroid dysfunction at this time
#Gout
-Home medications include allopurinol 200 mg daily
-No signs of active flare, though increased risk with IV diuresis
#Chronic pain
-Home meds include oxycodone 5 mg every 6 hours as needed
-Will continue in the hospital and monitor pain symptoms
#S/p PPM
-Unclear indication, with history of AF likely tachybradycardia
-No signs of pacemaker dysfunction at this time
#H/O stage III colorectal cancer s/p right hemicolectomy
#H/O breast cancer
DVT prophylaxis: Home Eliquis
Diet: No added salt, 48 ounce fluid restricted
CODE STATUS: DNR
Anticipated Discharge: > 48 hours
Subjective/Interval History
-
Date of Service: November 25, 2024
Seen and examined at the bedside. No acute events since admission. AFVSS on 2 L oxygen
Echocardiogram yesterday with LVEF 10 to 15%, signs of new LVH.
Patient complains of frequent urination however states her breathing is improved and denies chest pain or lightheadedness.
Denies any other new complaints this morning
Objective Data
-
Labs:
Laboratory Results
11/25/24
06:09
WBC 7.5
Hgb 12.1
Hct 35.8 L
Plt Count 206
Sodium 138
Potassium 3.7
Chloride 100
Carbon Dioxide 31 H
BUN 28 H
Creatinine 0.9
Glucose 149 H
Calcium 9.4
Total Bilirubin 1.8 H
AST 52 H
ALT 49 H
Alkaline Phosphatase 91
Vital Signs:
Vital Signs
Temp Pulse Resp BP Pulse Ox
98 F 86 15 109/67 100
11/25/24 06:53 11/25/24 07:14 11/25/24 07:14 11/25/24 06:53 11/25/24 07:14
Review of Systems
-
History Source: Patient
All other systems: Reviewed and negative
Physical Exam
-
General: Well Developed, No Apparent Distress, Comfortable, Obese and Other (Frail)
HEENT: Normocephalic, Atraumatic, Moist Mucous Membranes, Anicteric and Oxygen
Respiratory: Rales (Bibasilar) and Non Labored Respirations; Negative Wheezes, Rhonchi or Accessory Resp Muscle Use
Cardiac: Regular Rhythm, S1/S2, Murmur and Other (Difficult to assess JVD due to habitus); Negative Rub or Gallop
GI: Soft, Nontender, Normal Bowel Sounds and Distended (This mildly, improved with diuresis)
Musculoskeletal: No Clubbing, No Cyanosis and No Edema
Skin: Warm, Dry and Normal Turgor; Negative Rash
Neuro: AO x 3 and Nonfocal/Grossly Intact
Psych: Calm
Data Reviewed
-
Medical Tests (Nuc Med, Echo etc): Report Reviewed by me and Discussed with Physician (Cardiology)
Labs: Labs Reviewed by me and Discussed with Patient
[2024-11-25 12:39] LABS: Glucose - Point of Care 164 mg/dl (70-99)
[2024-11-25] MEDS: NOVOLOG FLEXPEN-MODERATE RESISTANCE 1 UNITS SC ×2 (12:54→17:46)
[2024-11-25 14:23] LABS: Glycohemoglobin (HgbA1c) 8.8 % (4.0-5.6)
--- NOTE | 2024-11-25 15:39 | CM ---
Alert awake oriented patient who lives at [facility] assisted living.She is assisted in all activities of daily living.Offered VN she is unsure.
walker
[facility]
Pharmacy [place]
PCP Dr Byrne
PLAN Home to assisted living
--- NOTE | 2024-11-25 16:17 | PN.CDI ---
CDI
- -
CDI:
Physician Documentation Request
Admit Date: 11/24/24 16:50
Dear Doctor Fritz,
Please review the following and provide your response in the progress notes.
Clinical Indicators:
Pt admitted with acute on chronic HFrEF.
11/25 Cardiology: 'Permanent Afib since 01/2023..Chronic Eliquis OAC'
11/25 Progress note: '#Paroxysmal AF'
Do to conflicting documentation, please clarify specificity regarding atrial fibrillation, such as:
Paroxysmal atrial fibrillation - terminates spontaneously or with intervention within 7 days of onset
Permanent atrial fibrillation - when a decision has been made to accept the presence of AF and there is no further attempt to restore or maintain sinus rhythm
Other - please specify
Use of terms such as suspected, likely, concern for, or probable (associated with a specific diagnosis that is being evaluated, monitored, or treated as if it exists) are acceptable and can be coded in the inpatient setting, when documented at the
time of discharge.
Thank you,
Melissa Davila RN, BSN
CDI Specialist
[employer]
Please use your independent medical judgment in providing your response.
[2024-11-25 17:00] LABS: Glucose - Point of Care 193 mg/dl (70-99)
[2024-11-25] MEDS: LIPITOR 80 MG PO (17:49)
[2024-11-25] MEDS: ZETIA 10 MG PO (17:49)
[2024-11-25] MEDS: COREG 3.125 MG PO (19:49)
[2024-11-25 20:32] LABS: Urine Albumin 1+ (Neg - Trace); Urine Bilirubin Negative (Negative); Urine Character Clear (Clear); Urine Color Yellow; Urine Glucose 3+ (Negative); Urine Ketone Negative (Negative); Urine Leukocyte Negative (Negative); Urine Nitrite Negative (Negative); Urine Occult Blood 1+ (Negative); Urine Urobilinogen Negative (Neg - 1+)
[2024-11-25 21:03] LABS: Urine Squamous Cell >30 /LPF (Few)
[2024-11-25 21:04] LABS: Urine Red Blood Cell 0-2 /HPF (0-2)
[2024-11-25 21:31] LABS: Glucose - Point of Care 158 mg/dl (70-99)
[2024-11-26 03:32] VITALS: BP 102/68
[2024-11-26] MEDS: TYLENOL 500 MG PO ×3 (04:51→21:03)
[2024-11-26] MEDS: SYNTHROID 112 MCG PO (04:51)
[2024-11-26 06:00] VITALS: BMI 32.2
[2024-11-26] MEDS: SYMBICORT 160/4.5 MCG INHALER 2 PUFF INH ×2 (07:18→20:15)
[2024-11-26 07:39] LABS: Glucose - Point of Care 168 mg/dl (70-99)
[2024-11-26] MEDS: LASIX 60 MG IV (08:18)
[2024-11-26] MEDS: NOVOLOG FLEXPEN-MODERATE RESISTANCE 1 UNITS SC ×2 (08:18→13:39)
[2024-11-26] MEDS: ELIQUIS 5 MG PO ×2 (08:19→21:03)
[2024-11-26] MEDS: COREG 3.125 MG PO (08:19)
[2024-11-26] MEDS: ZYLOPRIM 200 MG PO (08:19)
[2024-11-26] MEDS: ZYRTEC 10 MG PO (08:19)
[2024-11-26] MEDS: KCL 10 MEQ PO (08:19)
[2024-11-26] MEDS: FARXIGA 10 MG PO (08:19)
[2024-11-26] MEDS: B COMPLEX w/VITAMIN C 1 CAPLET PO (08:19)
[2024-11-26] MEDS: ZESTRIL 2.5 MG PO (08:19)
[2024-11-26 08:50] LABS: % Basophils 0.7 % (0-2); % Eosinophils 2.7 % (0-6); % Immature Granulocytes 0.2 % (0-0.5); % Lymphocytes 11.5 % (20.5-51.1); % Monocytes 7.1 % (1.7-9.3); % Neutrophils 77.8 % (42.2-75.2); Absolute Basophils 0.1 10^3/uL (0-0.2); Absolute Eosinophils 0.2 10^3/uL (0-0.7); Absolute Lymphocytes 0.9 10^3/uL (1.2-3.4); Absolute Monocytes 0.6 10^3/uL (0.1-0.6); Absolute Neutrophils 6.3 10^3/uL (1.4-6.5); Hematocrit 39.3 % (37.0-47.0); Hemoglobin 13.1 g/dL (12.0-16.0); Mean Corp Hgb Conc. 33.3 g/dL (33.0-37.0); Mean Corpuscular Hgb 31.3 pg (27.0-31.0); Mean Platelet Volume 9.4 fL (7.4-10.4); Nucleated Red Blood Cells % 0.2 %; Platelet Count 251 10^3/uL (130-400); Red Blood Cell Count 4.18 10^6/uL (4.20-5.40); Red Cell Dist. Width 16.6 % (11.5-14.5); White Blood Cell Count 8.1 10^3/uL (4.8-10.8)
[2024-11-26] MEDS: ROXICODONE 5 MG PO ×2 (08:56→18:27)
[2024-11-26 08:59] LABS: Blood Urea Nitrogen 30 mg/dl (7-17); Calcium 9.7 mg/dl (8.4-10.2); Carbon Dioxide 32 mmol/L (22-30); Chloride 97 mmol/L (98-107); Estimated Creatinine Clearance 37 ml/min; Glucose 166 mg/dl (70-99); Magnesium 1.9 mg/dl (1.6-2.3); Potassium 3.8 mmol/L (3.5-5.1); Sodium 139 mmol/L (135-145); eGFR 48.94
[2024-11-26 09:59] VITALS: PULSE 99; O2SAT 97
[2024-11-26 10:26] VITALS: PULSE 85; O2SAT 93
--- NOTE | 2024-11-26 10:45 | W.PN.CARDCBS ---
Addendum entered and electronically signed by Flavio Scott MD 11/26/24 15:43:
I saw and examined the patient.
The Merchandise Deliverer's note was reviewed and I agree with the note.
Comment: Briefly, 84-year-old woman past medical history of heart failure with reduced ejection fraction presenting in acute decompensated heart failure
Remains volume overloaded on exam
Continue IV diuresis to improve her volume status
Follow daily weights, renal function, I/Os
Unfortunately, echo during this admission shows significant decline in LVEF from 45% down to 10-15%
Plan for left heart catheterization on Friday to assess for obstructive coronary disease as a cause of the decline in her LV function. Will also allow for assessment of aortic stenosis via invasive hemodynamics.
Rest per Sherry Pruitt
Original Note:
Today's Communication / Plan
-
Continue IV lasix
Continue medical therapy
Plan is for [facility] Friday
Hold Eliquis 48H prior to procedure
Impression / Plan
-
PCP: Dr. Byrne
Business Segment Manager: Dr. Hansen
Impression:
Presented with SOB/HANCOCK 11/24/24
Acute on chronic HFrEF
Worsening CM EF 10-15% by echo 11/24/24
Permanent Afib since 01/2023
Chronic Eliquis OAC
CAD
s/p remote anterior [place] with VF arrest with LAD angioplasty 07/17/97
CAD subsequent CABG x3 with 1996
Mod-severe peak/mean 29/16 mmHg by echo 07/22/2024, mod peak/mean 27/14 mmHg by echo 11/24/24
Mild MR
SSS s/p Medtronic PPM
COPD
CKD 3a
History of orthostasis
Hyperlipidemia
Hypothyroidism
Asthma
Neuropathy
Hypertension
Breast cancer, status post left mastectomy
h/o carotid endarterectomy
h/o diabetes mellitus type 2
h/o colon mass s/p R hemicolectomy 10/02/21 until 10/15/21
Echo 05/28/2021: Ejection fraction 50%, mild aortic stenosis, mean pressure gradient 14 mmHg, aortic valve area 1.1 cm�
Echo 05/19/2023: EF 40-45%, mild cLVH, mid-apical inferoseptum/inferior segments are hypokinetic, mild MR, mild with peak/mean gradients 17/9 mmHg, LILY 1.4 cm2, trace AI, mild TR, estimated PAP 20-25 mmHg
Echo 11/27/2023: EF 40 to 45%, apical, inferior, and inferoseptal hypokinesis noted, mild MR, mild with peak/mean gradients 15/9 mmHg, mild TR, estimated PAP 21 to 26 mmHg
Echo 07/22/2024: EF 48% by volumetric assessment, 44% by Milton's method, decreased RV sys fxn, mild-mod MR, mod TR, PASP 34, mod-sev 29/16/LILY 0.84 cm
Echo 11/24/2024: EF 10 to 15% with severe global hypokinesis, mod conc LVH, at least mod MR with possible underestimation due to dense MAC, moderate peak/mean 27/14 mmHg and LILY 0.9 cm sq, mod to sev TR with PAP 50 mmHg, normal RV size and function
Plan:
-Presented with increased SOB. Admitted with acute heart failure exacerbation. Weight up ~ 10 lbs on admission. Dry weight 180 lbs.
-Diuresing with IV lasix 60mg BID. Weight down to 182lbs 11/26. Creat up slightly to 1.1 on 11/26.
-May be able to transition to PO lasix in the next 24-48 hours.
-Echo 11/24/2024 with EF down to 10-15%. Started on carvedilol and lisinopril this admission. Farxiga has been continued.
-Plan is for cardiac catheterization on Friday to evaluate coronary anatomy. Does have h/o CABG.
-Eliquis to be held 48 H prior to procedure.
-Remains on 2L NC, wean as able. Breathing is improving with diuresis.
-Also noted to have moderate by echo 11/24/2024. TAVR was discussed w/ patient previously and her name has been given to the TAVR coordinators. Will further assess valve at time of catheterization.
HPI: Patient is an 83 year old female with PMH of chronic HFmrEF, persistent atrial fibrillation, CAD s/p remote [place] and CABG, , MR, SSS s/p PPM, COPD, HLD, HTN, hypothyroidism, asthma, DM with diabetic neuropathy, and prior breast cancer who
presented to [facility] for evaluation of increased SOB. Reportedly at pulse ox was 95% on room air. Reports this has been gradually worsening, and notices it more with exerting herself. Reports she needs to sit down and rest even with
ambulating short distances. Reports several pound weight gain and some abdominal bloating. Denies chest discomfort. Reports compliance with p.o. Lasix 60 mg daily at . proBNP 5660. Chest x-ray without noted acute cardiopulmonary
process.
Progress Note - Business Segment Manager
Subjective
Date of Service: November 26, 2024
Breathing improving. Edema improved.
Objective
Labs:
11/26/24 08:28
11/26/24 08:28
Labs
Hgb 13.1 g/dL (12.0-16.0) 11/26/24 08:28
Hct 39.3 % (37.0-47.0) 11/26/24 08:28
Plt Count 251 10^3/uL (130-400) D 11/26/24 08:28
Sodium 139 mmol/L (135-145) 11/26/24 08:28
Potassium 3.8 mmol/L (3.5-5.1) 11/26/24 08:28
BUN 30 mg/dl (7-17) H 11/26/24 08:28
Creatinine 1.1 mg/dL (0.6-1.0) H 11/26/24 08:28
Glucose 166 mg/dl (70-99) H 11/26/24 08:28
Troponins
11/24/24 11/24/24 11/24/24
13:23 16:51 17:25
Troponin I 0.026 Cancelled Cancelled
11/24/24
18:12
Troponin I 0.027
Vital Signs and I&O:
Vital Signs
Temp Pulse Resp BP Pulse Ox
97.5 F 108 18 111/88 97
11/26/24 07:25 11/26/24 08:18 11/26/24 07:25 11/26/24 08:18 11/26/24 07:25
Vital Signs
Temp Pulse Resp BP Pulse Ox
97.5 F 108 18 111/88 97
11/26/24 07:25 11/26/24 08:18 11/26/24 07:25 11/26/24 08:18 11/26/24 07:25
Intake & Output
11/24/24 11/25/24 11/26/24 11/27/24
06:59 06:59 06:59 06:59
Intake Total 740 / 740 240 / 240
Output Total 1500 / 1500
Balance -760 / -760 240 / 240
Physical Exam
Physical Exam
GEN: NAD. AAOx3
HEENT: MMM
LUNGS: 2 L NC. No audible wheeze
CV: Afib on tele
EXT: No clubbing or cyanosis, trace B/L LE edema
NEURO: Gross non-focal
SKIN: Warm, dry, no rash
--- NOTE | 2024-11-26 11:24 | W.PN.HOSP.TC ---
Today's Communication/Plan
-
Hold Eliquis after AM dose on 11/27
Left heart cath with angiography Friday
Continue IV Lasix/I's and O's/BMP
GDMT with beta-wilmar, ACEi, SGLT2i
Wean oxygen
Assessment / Plan
Assessment / Plan
#Acute on chronic HFrEF
#Pulmonary HTN
-Echocardiogram here showed reduction of LVEF from 45% to 10 to 15%, signs of new LVH
-Differential diagnosis include ischemic cardiomyopathy versus classic LF-LG Aortic Stenosis
-Home medications include SGLT2i, Lasix 60 mg daily as diuretics and GDMT
-Troponin negative initially, no chest pain upon admission here
-ECG and TTE here with evidence of left ventricular hypertrophy
-Warm and wet; net -500 mL and down 3 kg in past day
Plan
-Plan for [facility] on Friday, hold Eliquis after AM dose on Friday
-If LHC without new obstructive disease may need dobutamine stress echo
-Continue Lasix IV 60 mg twice daily, monitor I's/O's + weight + BMP
-Continue GDMT with carvedilol, lisinopril, SGLT2i
-Blood pressure goal <140/90 mmHg
-Continue on telemetry
#Moderate-Severe
-Last echocardiogram with moderate to severe , peak/mean 29/16 mmHg, LILY 0.84 cm�
-With newly reduced EF on last echo, question low-flow low gradient disease
-Presented here with decompensated heart failure
-Repeat echocardiogram ordered
-Consider dobutamine stress echo
-GOC if TAVR indicated
#CAD s/p CABG
#Lateral TWI
-History of CABG x 3 in 1996; Home meds include high intensity statin, SGLT2i; no antiplatelet, on Eliquis for AF
-No chest pain, troponin negative; does appear to have new TWI laterally on ECG
-Question if lateral TWI related to left ventricular wall tension
-Low suspicion for acute coronary syndrome at this time
-Cannot rule out underlying chronic ischemic disease with history
-May benefit from recurrent ischemic workup if it aligns with goals of care
#Paroxysmal AF
-Home medications include Eliquis twice daily; not on rate or rhythm control
-No known history of electrophysiologic intervention such as ablation
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
-Heart rate WNL at this time
#Chronic transaminitis
-Has chronic low-grade elevation to transaminases, both just above UNL
-Possibly with underlying NAFLD though labs have been stable
-Presented with AST and ALT slightly higher than baseline, likely component of congestion
-Trend LFTs, consider RUQ US if worsening
#HTN
-Possible hypertensive systemic disease with signs of LVH on ECG
-Not currently on first-line antihypertensive therapy
-Home meds do include diuresis with Lasix and SGLT2
-Per history hypotension may be more of an issue
#HLD
-Significant ASCVD history with carotid endarterectomy and CABG x 3
-Home medication includes atorvastatin 80 mg nightly and ezetimibe
#NIDDM
-No recent hemoglobin A1c on record; C/B diabetic neuropathy
-Home medications include dapagliflozin and glipizide
-Will transition to SGLT2i with ISS and Accu-Cheks
-Blood glucose goal 140-180
#Chronic pancreatitis
-Previous imaging did show cystic lesion of the pancreas
-Does not currently take any pancreatic lipase or replacement enzymes
-Monitor for symptoms such as abdomen pain and diarrhea
#COPD/mild intermittent asthma
-Likely associated with history of pulmonary hypertension; no O2 at baseline
-Home medications include Symbicort and albuterol MDI as needed
-Low suspicion for COPD exacerbation, no bronchospasm
#PAD s/p carotid endarterectomy
-Home medications include ezetimibe and high intensity statin; not on antiplatelet agent but is on DOAC
-Low suspicion for active disease of the carotids
-Should have follow-up with vascular surgery
#Hypothyroidism
-Unclear etiology, home medications include levothyroxine 112 mcg daily
-No signs of thyroid dysfunction at this time
#Gout
-Home medications include allopurinol 200 mg daily
-No signs of active flare, though increased risk with IV diuresis
#Chronic pain
-Home meds include oxycodone 5 mg every 6 hours as needed
-Will continue in the hospital and monitor pain symptoms
#S/p PPM
-Unclear indication, with history of AF likely tachybradycardia
-No signs of pacemaker dysfunction at this time
#H/O stage III colorectal cancer s/p right hemicolectomy
#H/O breast cancer
DVT prophylaxis: Home Eliquis
Diet: No added salt, 48 ounce fluid restricted
CODE STATUS: DNR
Anticipated Discharge: > 48 hours
Subjective/Interval History
-
Date of Service: November 26, 2024
Seen and examined at the bedside. No acute events reported overnight. AFVSS on 3 L oxygen
Per I's and O's net -500 mL, per vitals lost roughly 3 kg in the last 24 hours. Renal function with mildly bumped creatinine overall stable
She states her breathing is improved, denies any acute complaints
Objective Data
-
Labs:
Laboratory Results
11/26/24
08:28
WBC 8.1
Hgb 13.1
Hct 39.3
Plt Count 251 D
Sodium 139
Potassium 3.8
Chloride 97 L
Carbon Dioxide 32 H
BUN 30 H
Creatinine 1.1 H
Glucose 166 H
Calcium 9.7
Vital Signs:
Vital Signs
Temp Pulse Resp BP Pulse Ox
97.5 F 108 18 111/88 97
11/26/24 07:25 11/26/24 08:18 11/26/24 07:25 11/26/24 08:18 11/26/24 07:25
I&O
11/25/24 11/26/24 11/27/24
06:59 06:59 06:59
Intake Total 740 / 740 240 / 240
Output Total 1500 / 1500
Balance -760 / -760 240 / 240
Review of Systems
-
History Source: Patient
All other systems: Reviewed and negative
Physical Exam
-
General: Well Developed, No Apparent Distress, Comfortable and Obese
HEENT: Normocephalic, Atraumatic, Moist Mucous Membranes, Anicteric and Oxygen
Respiratory: Rales (Bilateral bases) and Non Labored Respirations; Negative Accessory Resp Muscle Use
Cardiac: Regular Rhythm, S1/S2 and Murmur; Negative Rub or Gallop
GI: Soft, Nontender, Nondistended, Normal Bowel Sounds and Other (Less distention)
Musculoskeletal: No Clubbing, No Cyanosis and No Edema
Skin: Warm, Dry and Normal Turgor; Negative Rash
Neuro: AO x 3 and Nonfocal/Grossly Intact
Psych: Calm
Data Reviewed
-
Labs: Labs Reviewed by me and Discussed with Patient
[2024-11-26 11:51] LABS: Glucose - Point of Care 311 mg/dl (70-99)
[2024-11-26 11:55] VITALS: BP 90/57
[2024-11-26 13:40] LABS: Glucose - Point of Care 173 mg/dl (70-99)
[2024-11-26 15:20] VITALS: BP 93/61
[2024-11-26] MEDS: LASIX IV (16:10)
[2024-11-26 17:20] LABS: Glucose - Point of Care 113 mg/dl (70-99)
[2024-11-26] MEDS: NOVOLOG FLEXPEN-MODERATE RESISTANCE SC (17:20)
[2024-11-26] MEDS: ZETIA 10 MG PO (17:24)
[2024-11-26] MEDS: LIPITOR 80 MG PO (17:24)
--- NOTE | 2024-11-26 19:28 | PTCARENOTE ---
pt with BP of 70's/50's, checked manually 84/42 HR on monitor 80's to low 100's afib. PT asymptomatic, denies any dizziness or lightheadedness. Pt received 5mg or Vicki at 1830 for 10/10 pain in her Lower legs. Pt informed not to get oob at this
time. [employer] made aware. no new orders at this time. will recheck BP. plan of care ongoing.
[2024-11-26] MEDS: COREG PO (20:00)
[2024-11-26 21:24] LABS: Glucose - Point of Care 214 mg/dl (70-99)
[2024-11-26] MEDS: ProAmatine 5 MG PO (22:33)
[2024-11-26 23:40] VITALS: BP 78/57
[2024-11-27] VITALS (8 sets, daily range): BP systolic 82–111; BP diastolic 57–66; BMI 31.9
--- NOTE | 2024-11-27 04:21 | PTCARENOTE ---
Pt continued to be monitored overnight with BP being on softer side.Pt asymptomatic. Pt resting comfortably in bed, encouraged not to get oob.Pt daughter & pt stated pt BP always run on lower side. [employer] liaison was made aware of pt BP in 78/57, pt
provided with Midodrine 1 dose as pt stated she takes them at home. Pt repeat BP came upto 82/61,Hr-83.[employer] made aware of it,no new orders noted.BID Midodrine ordered for pt for am. Plan of care continued on pt.Pt on bed alarm for safety.
[2024-11-27] MEDS: SYNTHROID 112 MCG PO (05:22)
[2024-11-27] MEDS: TYLENOL 500 MG PO ×3 (05:22→19:27)
[2024-11-27 07:21] LABS: Glucose - Point of Care 143 mg/dl (70-99)
[2024-11-27 07:22] LABS: % Basophils 0.9 % (0-2); % Eosinophils 4.1 % (0-6); % Immature Granulocytes 0.3 % (0-0.5); % Lymphocytes 22.8 % (20.5-51.1); % Neutrophils 61.9 % (42.2-75.2); Absolute Basophils 0.1 10^3/uL (0-0.2); Absolute Eosinophils 0.3 10^3/uL (0-0.7); Absolute Lymphocytes 1.5 10^3/uL (1.2-3.4); Absolute Monocytes 0.7 10^3/uL (0.1-0.6); Absolute Neutrophils 4.1 10^3/uL (1.4-6.5); Hematocrit 36.8 % (37.0-47.0); Hemoglobin 12.5 g/dL (12.0-16.0); Mean Corpuscular Hgb 31.6 pg (27.0-31.0); Mean Corpuscular Volume 92.9 fL (81.0-99.0); Mean Platelet Volume 9.7 fL (7.4-10.4); Nucleated Red Blood Cells % 0 %; Platelet Count 256 10^3/uL (130-400); Red Blood Cell Count 3.96 10^6/uL (4.20-5.40); Red Cell Dist. Width 16.2 % (11.5-14.5); White Blood Cell Count 6.6 10^3/uL (4.8-10.8)
[2024-11-27] MEDS: NOVOLOG FLEXPEN-MODERATE RESISTANCE SC (07:23)
[2024-11-27 07:59] LABS: Blood Urea Nitrogen 42 mg/dl (7-17); Calcium 9.8 mg/dl (8.4-10.2); Carbon Dioxide 30 mmol/L (22-30); Chloride 97 mmol/L (98-107); Estimated Creatinine Clearance 29 ml/min; Glucose 143 mg/dl (70-99); Magnesium 2.1 mg/dl (1.6-2.3); Potassium 3.5 mmol/L (3.5-5.1); Sodium 137 mmol/L (135-145); eGFR 36.64
[2024-11-27] MEDS: SYMBICORT 160/4.5 MCG INHALER 2 PUFF INH ×2 (08:35→17:59)
[2024-11-27] MEDS: ProAmatine 10 MG PO ×2 (08:39→17:12)
[2024-11-27] MEDS: KCL 40 MEQ PO (08:39)
[2024-11-27] MEDS: KCL 10 MEQ PO (08:40)
[2024-11-27] MEDS: FARXIGA 10 MG PO (08:40)
[2024-11-27] MEDS: ELIQUIS 5 MG PO (08:40)
[2024-11-27] MEDS: ZYRTEC 10 MG PO (08:40)
[2024-11-27] MEDS: B COMPLEX w/VITAMIN C 1 CAPLET PO (08:40)
[2024-11-27] MEDS: ZYLOPRIM 200 MG PO (08:40)
[2024-11-27] MEDS: LASIX IV (10:16)
[2024-11-27] MEDS: COREG PO ×2 (10:17→19:28)
[2024-11-27] MEDS: ZESTRIL PO (10:17)
--- NOTE | 2024-11-27 11:00 | W.PN.HOSP.TC ---
Today's Communication/Plan
-
Transition to oral Lasix within next 24 hours
Hold ACEi and carvedilol --- consider transitioning carvedilol to metoprolol succinate
Hold Eliquis and prep of [facility] Friday
Monitor BMP and I's/O's
Telemetry
Assessment / Plan
Assessment / Plan
#Acute on chronic HFrEF
#Pulmonary HTN
-Echocardiogram here showed reduction of LVEF from 45% to 10 to 15%, signs of new LVH
-Differential diagnosis include ischemic cardiomyopathy versus classic LF-LG Aortic Stenosis
-Home medications include SGLT2i, Lasix 60 mg daily as diuretics and GDMT
-Troponin negative initially, no chest pain upon admission here
-ECG and TTE here with evidence of left ventricular hypertrophy
-Warm and dry, now on room air
Plan
-Plan for [facility] on Friday, hold Eliquis after AM dose today
-If [facility] without new obstructive disease may need dobutamine stress echo
-Can likely transition IV Lasix to oral equivalent today though will discuss with cardiology
-Continue GDMT with carvedilol, lisinopril, SGLT2i if hemodynamics allow; consider switching carvedilol to metoprolol succinate
-Blood pressure goal <140/90 mmHg
-Continue on telemetry
#Moderate-Severe
-Last echocardiogram with moderate to severe , peak/mean 29/16 mmHg, LILY 0.84 cm�
-With newly reduced EF on last echo, question low-flow low gradient disease
-Presented here with decompensated heart failure
-Repeat echocardiogram ordered
-Consider dobutamine stress echo
-GOC if TAVR indicated
#CAD s/p CABG
#Lateral TWI
-History of CABG x 3 in 1996; Home meds include high intensity statin, SGLT2i; no antiplatelet, on Eliquis for AF
-No chest pain, troponin negative; does appear to have new TWI laterally on ECG
-Question if lateral TWI related to left ventricular wall tension
-Low suspicion for acute coronary syndrome at this time
-Cannot rule out underlying chronic ischemic disease with history
-May benefit from recurrent ischemic workup if it aligns with goals of care
#Paroxysmal AF
-Home medications include Eliquis twice daily; not on rate or rhythm control
-No known history of electrophysiologic intervention such as ablation
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
-Heart rate WNL at this time
#Chronic transaminitis
-Has chronic low-grade elevation to transaminases, both just above UNL
-Possibly with underlying NAFLD though labs have been stable
-Presented with AST and ALT slightly higher than baseline, likely component of congestion
-Trend LFTs, consider RUQ US if worsening
#HTN
-Possible hypertensive systemic disease with signs of LVH on ECG
-Not currently on first-line antihypertensive therapy
-Home meds do include diuresis with Lasix and SGLT2
-Per history hypotension may be more of an issue
#HLD
-Significant ASCVD history with carotid endarterectomy and CABG x 3
-Home medication includes atorvastatin 80 mg nightly and ezetimibe
#NIDDM
-No recent hemoglobin A1c on record; C/B diabetic neuropathy
-Home medications include dapagliflozin and glipizide
-Will transition to SGLT2i with ISS and Accu-Cheks
-Blood glucose goal 140-180
#Chronic pancreatitis
-Previous imaging did show cystic lesion of the pancreas
-Does not currently take any pancreatic lipase or replacement enzymes
-Monitor for symptoms such as abdomen pain and diarrhea
#COPD/mild intermittent asthma
-Likely associated with history of pulmonary hypertension; no O2 at baseline
-Home medications include Symbicort and albuterol MDI as needed
-Low suspicion for COPD exacerbation, no bronchospasm
#PAD s/p carotid endarterectomy
-Home medications include ezetimibe and high intensity statin; not on antiplatelet agent but is on DOAC
-Low suspicion for active disease of the carotids
-Should have follow-up with vascular surgery
#Hypothyroidism
-Unclear etiology, home medications include levothyroxine 112 mcg daily
-No signs of thyroid dysfunction at this time
#Gout
-Home medications include allopurinol 200 mg daily
-No signs of active flare, though increased risk with IV diuresis
#Chronic pain
-Home meds include oxycodone 5 mg every 6 hours as needed
-Will continue in the hospital and monitor pain symptoms
#S/p PPM
-Unclear indication, with history of AF likely tachybradycardia
-No signs of pacemaker dysfunction at this time
#H/O stage III colorectal cancer s/p right hemicolectomy
#H/O breast cancer
DVT prophylaxis: Home Eliquis
Diet: No added salt, 48 ounce fluid restricted
CODE STATUS: DNR
Anticipated Discharge: > 48 hours
Subjective/Interval History
-
Date of Service: November 27, 2024
Seen and examined at the bedside. No acute events overnight. Was hypotensive this morning, carvedilol and lisinopril held. No fevers, now on room air
Renal function with bump in creatinine. Volume status seems improved. Still complains of some shortness of breath worse with exertion
Denies any new complaints today
Objective Data
-
Labs:
Laboratory Results
11/27/24
06:27
WBC 6.6
Hgb 12.5
Hct 36.8 L
Plt Count 256
Sodium 137
Potassium 3.5
Chloride 97 L
Carbon Dioxide 30
BUN 42 H
Creatinine 1.4 H
Glucose 143 H
Calcium 9.8
Vital Signs:
Vital Signs
Temp Pulse Resp BP Pulse Ox
98 F 78 16 99/60 98
11/27/24 07:25 11/27/24 08:39 11/27/24 08:39 11/27/24 08:39 11/27/24 08:39
I&O
11/26/24 11/27/24 11/28/24
06:59 06:59 06:59
Intake Total 740 / 740 1320 / 1320 240 / 240
Output Total 1500 / 1500
Balance -760 / -760 1320 / 1320 240 / 240
Review of Systems
-
History Source: Patient
All other systems: Reviewed and negative
Physical Exam
-
General: Well Developed, No Apparent Distress, Comfortable and Obese
HEENT: Normocephalic, Atraumatic, Moist Mucous Membranes and Anicteric
Respiratory: Clear to Auscultation and Non Labored Respirations; Negative Rales
Cardiac: Regular Rhythm, S1/S2 (Reduced S2), Murmur and Other (Slightly delayed carotid option); Negative Rub, JVD or Gallop
GI: Soft, Nontender, Nondistended and Normal Bowel Sounds
Musculoskeletal: No Clubbing, No Cyanosis and No Edema
Skin: Warm, Dry and Normal Turgor; Negative Rash
Neuro: AO x 3 and Nonfocal/Grossly Intact
Psych: Calm
Data Reviewed
-
Labs: Labs Reviewed by me, Discussed with Physician (Cardiology) and Discussed with Patient
--- NOTE | 2024-11-27 11:12 | W.PN.CARDCBS ---
Today's Communication / Plan
-
Hypotensive this a.m. 11/27/2024. Lasix as well as Coreg and lisinopril which were started this admit, are currently held. Continue to monitor blood pressures.
For now would continue to watch volume status closely and hold current meds.
She appears to be a t her dry wt of 180 lbs.
Continue to monitor daily weights, I's and O's and creatinine.
Cr up to 1.4, holding lasix.
Reviewed her echocardiogram with significant drop in ejection fraction, would consider cardiac catheterization possibly November 29 to evaluate her coronary anatomy given history of prior CABG and to assess aortic stenosis via invasive
hemodynamics. She has possible low flow, low gradient .
Hold Eliquis in anticipation of cath.
Impression / Plan
-
.
PCP: Dr. Byrne
Informatics Scientist: Dr. Hansen
Impression:
Presented with SOB/HANCOCK 11/24/24
Acute on chronic HFrEF
Worsening CM EF 10-15% by echo 11/24/24
Permanent Afib since 01/2023
Chronic Eliquis OAC
CAD
s/p remote anterior NV with VF arrest with LAD angioplasty 07/17/97
CAD subsequent CABG x3 with 1996
Mod-severe peak/mean 29/16 mmHg by echo 07/22/2024, mod peak/mean 27/14 mmHg by echo 11/24/24
Mild MR
SSS s/p [employer] PPM
COPD
CKD 3a
History of orthostasis
Hyperlipidemia
Hypothyroidism
Asthma
Neuropathy
Hypertension
Breast cancer, status post left mastectomy
h/o carotid endarterectomy
h/o diabetes mellitus type 2
h/o colon mass s/p R hemicolectomy 10/02/21 until 10/15/21
Echo 05/28/2021: Ejection fraction 50%, mild aortic stenosis, mean pressure gradient 14 mmHg, aortic valve area 1.1 cm�
Echo 05/19/2023: EF 40-45%, mild cLVH, mid-apical inferoseptum/inferior segments are hypokinetic, mild MR, mild with peak/mean gradients 17/9 mmHg, LILY 1.4 cm2, trace AI, mild TR, estimated PAP 20-25 mmHg
Echo 11/27/2023: EF 40 to 45%, apical, inferior, and inferoseptal hypokinesis noted, mild MR, mild with peak/mean gradients 15/9 mmHg, mild TR, estimated PAP 21 to 26 mmHg
Echo 07/22/2024: EF 48% by volumetric assessment, 44% by Milton's method, decreased RV sys fxn, mild-mod MR, mod TR, PASP 34, mod-sev 29/16/LILY 0.84 cm
Echo 11/24/2024: EF 10 to 15% with severe global hypokinesis, mod conc LVH, at least mod MR with possible underestimation due to dense MAC, moderate peak/mean 27/14 mmHg and LILY 0.9 cm sq, mod to sev TR with PAP 50 mmHg, normal RV size and function
Plan:
Briefly, 84-year-old woman past medical history of heart failure with reduced ejection fraction presenting in acute decompensated heart failure
Hypotensive this a.m. 11/27/2024. Lasix as well as Coreg and lisinopril which were started this admit, are currently held. Continue to monitor blood pressures.
For now would continue to watch volume status closely and hold current meds.
She appears to be a t her dry wt of 180 lbs.
Continue to monitor daily weights, I's and O's and creatinine.
Cr up to 1.4, holding lasix.
Reviewed her echocardiogram with significant drop in ejection fraction, would consider cardiac catheterization possibly November 29 to evaluate her coronary anatomy given history of prior CABG and to assess aortic stenosis via invasive
hemodynamics. She has possible low flow, low gradient .
Hold Eliquis in anticipation of cath.
Discussed with nursing and primary service
HPI: Patient is an 83 year old female with PMH of chronic HFmrEF, persistent atrial fibrillation, CAD s/p remote NV and CABG, , MR, SSS s/p PPM, COPD, HLD, HTN, hypothyroidism, asthma, DM with diabetic neuropathy, and prior breast cancer who
presented to [facility] for evaluation of increased SOB. Reportedly at pulse ox was 95% on room air. Reports this has been gradually worsening, and notices it more with exerting herself. Reports she needs to sit down and rest even with
ambulating short distances. Reports several pound weight gain and some abdominal bloating. Denies chest discomfort. Reports compliance with p.o. Lasix 60 mg daily at . proBNP 5660. Chest x-ray without noted acute cardiopulmonary
process.
Progress Note - Informatics Scientist
Subjective
Date of Service: November 27, 2024
Pt seen and examined. No complaints. No chest pain or shortness of breath.
Objective
Labs:
11/27/24 06:27
11/27/24 06:27
Labs
Hgb 12.5 g/dL (12.0-16.0) 11/27/24 06:27
Hct 36.8 % (37.0-47.0) L 11/27/24 06:27
Plt Count 256 10^3/uL (130-400) 11/27/24 06:27
Sodium 137 mmol/L (135-145) 11/27/24 06:27
Potassium 3.5 mmol/L (3.5-5.1) 11/27/24 06:27
BUN 42 mg/dl (7-17) H 11/27/24 06:27
Creatinine 1.4 mg/dL (0.6-1.0) H 11/27/24 06:27
Glucose 143 mg/dl (70-99) H 11/27/24 06:27
Troponins
11/24/24 11/24/24 11/24/24
13:23 16:51 17:25
Troponin I 0.026 Cancelled Cancelled
11/24/24
18:12
Troponin I 0.027
Vital Signs and I&O:
Vital Signs
Temp Pulse Resp BP Pulse Ox
98.2 F 84 20 83/57 96
11/27/24 11:00 11/27/24 11:00 11/27/24 11:00 11/27/24 11:00 11/27/24 11:10
Vital Signs
Temp Pulse Resp BP Pulse Ox
98.2 F 84 20 83/57 96
11/27/24 11:00 11/27/24 11:00 11/27/24 11:00 11/27/24 11:00 11/27/24 11:10
Intake & Output
11/25/24 11/26/24 11/27/24 11/28/24
06:59 06:59 06:59 06:59
Intake Total 740 / 740 1320 / 1320 240 / 240
Output Total 1500 / 1500
Balance -760 / -760 1320 / 1320 240 / 240
Physical Exam
Physical Exam
General: No acute distress, AAOX3
Neck: Negative JVD
Heart: Irregular irregular, Negative S3 positive S1/S2, Negative S4, systolic ejection murmur grade 2/6
Lungs: CTA b/l, negative wheezes/rales/rhonchi
Abd: Positive BS, NT/ND, neg rebound/rigidity/guarding
Ext: Negative cyanosis/clubbing/edema
Neuro: nonfocal
[2024-11-27 12:37] LABS: Glucose - Point of Care 220 mg/dl (70-99)
[2024-11-27] MEDS: NOVOLOG FLEXPEN-MODERATE RESISTANCE 3 UNITS SC (13:00)
[2024-11-27] MEDS: ROXICODONE 5 MG PO ×2 (13:40→21:12)
[2024-11-27] MEDS: LIPITOR 80 MG PO (17:12)
[2024-11-27] MEDS: ZETIA 10 MG PO (17:12)
[2024-11-27] MEDS: NOVOLOG FLEXPEN-MODERATE RESISTANCE 1 UNITS SC (17:15)
[2024-11-27 17:17] LABS: Glucose - Point of Care 190 mg/dl (70-99)
[2024-11-27] MEDS: DESENEX/MITRAZOL/ZEASORB 1 APPLIC TOPICAL (19:27)
[2024-11-27 21:49] LABS: Glucose - Point of Care 185 mg/dl (70-99)
[2024-11-28] VITALS (7 sets, daily range): BP systolic 90–132; BP diastolic 56–91; BMI 32.0
[2024-11-28] MEDS: SYNTHROID 112 MCG PO (05:11)
[2024-11-28] MEDS: ROXICODONE 5 MG PO ×4 (05:11→23:57)
[2024-11-28] MEDS: TYLENOL 500 MG PO ×3 (05:11→20:14)
[2024-11-28 08:02] LABS: Glucose - Point of Care 162 mg/dl (70-99)
[2024-11-28 08:21] LABS: % Basophils 0.9 % (0-2); % Eosinophils 3.1 % (0-6); % Immature Granulocytes 0.3 % (0-0.5); % Lymphocytes 22.8 % (20.5-51.1); % Monocytes 9.4 % (1.7-9.3); % Neutrophils 63.5 % (42.2-75.2); Absolute Basophils 0.1 10^3/uL (0-0.2); Absolute Eosinophils 0.2 10^3/uL (0-0.7); Absolute Lymphocytes 1.5 10^3/uL (1.2-3.4); Absolute Monocytes 0.6 10^3/uL (0.1-0.6); Absolute Neutrophils 4.1 10^3/uL (1.4-6.5); Hematocrit 37.5 % (37.0-47.0); Hemoglobin 12.5 g/dL (12.0-16.0); Mean Corp Hgb Conc. 33.3 g/dL (33.0-37.0); Mean Corpuscular Hgb 31.4 pg (27.0-31.0); Mean Corpuscular Volume 94.2 fL (81.0-99.0); Mean Platelet Volume 9.3 fL (7.4-10.4); Nucleated Red Blood Cells % 0 %; Platelet Count 274 10^3/uL (130-400); Red Blood Cell Count 3.98 10^6/uL (4.20-5.40); Red Cell Dist. Width 16.6 % (11.5-14.5); White Blood Cell Count 6.5 10^3/uL (4.8-10.8)
[2024-11-28] MEDS: SYMBICORT 160/4.5 MCG INHALER 2 PUFF INH ×2 (08:31→17:36)
[2024-11-28] MEDS: ProAIR HFA INHALER 1 PUFF INH (08:34)
[2024-11-28 08:50] LABS: Blood Urea Nitrogen 32 mg/dl (7-17); Calcium 9.8 mg/dl (8.4-10.2); Carbon Dioxide 26 mmol/L (22-30); Chloride 101 mmol/L (98-107); Estimated Creatinine Clearance 37 ml/min; Glucose 165 mg/dl (70-99); Potassium 4.2 mmol/L (3.5-5.1); Sodium 140 mmol/L (135-145); eGFR 48.94
[2024-11-28] MEDS: COREG 3.125 MG PO ×2 (09:39→20:15)
[2024-11-28] MEDS: B COMPLEX w/VITAMIN C 1 CAPLET PO (09:39)
[2024-11-28] MEDS: FARXIGA 10 MG PO (09:40)
[2024-11-28] MEDS: DESENEX/MITRAZOL/ZEASORB 1 APPLIC TOPICAL ×2 (09:40→20:15)
[2024-11-28] MEDS: ZYLOPRIM 200 MG PO (09:40)
[2024-11-28] MEDS: ZYRTEC 10 MG PO (09:40)
[2024-11-28] MEDS: ProAmatine 10 MG PO ×2 (09:40→17:22)
[2024-11-28] MEDS: ZESTRIL 2.5 MG PO (09:40)
[2024-11-28] MEDS: KCL 10 MEQ PO (09:40)
[2024-11-28] MEDS: NOVOLOG FLEXPEN-MODERATE RESISTANCE 1 UNITS SC (10:25)
[2024-11-28] MEDS: MUCINEX 1200 MG PO ×2 (11:03→20:14)
--- NOTE | 2024-11-28 11:32 | W.PN.HOSP.TC ---
Today's Communication/Plan
-
Transition to oral Lasix
Continue GDMT as currently prescribed
Plan for [facility] tomorrow, n.p.o. after midnight
I's/O's + weight + BMP
Assessment / Plan
Assessment / Plan
#Acute on chronic HFrEF
#Pulmonary HTN
-Echocardiogram here showed reduction of LVEF from 45% to 10 to 15%, signs of new LVH
-Differential diagnosis include ischemic cardiomyopathy versus classic LF-LG Aortic Stenosis
-Home medications include SGLT2i, Lasix 60 mg daily as diuretics and GDMT
-Troponin negative initially, no chest pain upon admission here
-ECG and TTE here with evidence of left ventricular hypertrophy
-Warm and dry, now on room air
Plan
-Plan for [facility] on Friday, hold Eliquis after AM dose today
-If [facility] without new obstructive disease may need dobutamine stress echo
-Transition to oral Lasix 60 mg twice daily and continue to trend I's/O's + weight + BMP
-Continue GDMT with carvedilol, lisinopril, SGLT2i if hemodynamics allow; consider switching carvedilol to metoprolol succinate
-Blood pressure goal <140/90 mmHg
-Continue on telemetry
#Moderate-Severe
-Last echocardiogram with moderate to severe , peak/mean 29/16 mmHg, LILY 0.84 cm�
-With newly reduced EF on last echo, question low-flow low gradient disease
-Presented here with decompensated heart failure
-Repeat echocardiogram ordered
-Consider dobutamine stress echo
-GOC if TAVR indicated
#CAD s/p CABG
#Lateral TWI
-History of CABG x 3 in 1996; Home meds include high intensity statin, SGLT2i; no antiplatelet, on Eliquis for AF
-No chest pain, troponin negative; does appear to have new TWI laterally on ECG
-Question if lateral TWI related to left ventricular wall tension
-Low suspicion for acute coronary syndrome at this time
-Cannot rule out underlying chronic ischemic disease with history
-May benefit from recurrent ischemic workup if it aligns with goals of care
#Paroxysmal AF
-Home medications include Eliquis twice daily; not on rate or rhythm control
-No known history of electrophysiologic intervention such as ablation
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
-Heart rate WNL at this time
#Chronic transaminitis
-Has chronic low-grade elevation to transaminases, both just above UNL
-Possibly with underlying NAFLD though labs have been stable
-Presented with AST and ALT slightly higher than baseline, likely component of congestion
-Trend LFTs, consider RUQ US if worsening
#HTN
-Possible hypertensive systemic disease with signs of LVH on ECG
-Not currently on first-line antihypertensive therapy
-Home meds do include diuresis with Lasix and SGLT2
-Per history hypotension may be more of an issue
#HLD
-Significant ASCVD history with carotid endarterectomy and CABG x 3
-Home medication includes atorvastatin 80 mg nightly and ezetimibe
#NIDDM
-No recent hemoglobin A1c on record; C/B diabetic neuropathy
-Home medications include dapagliflozin and glipizide
-Will transition to SGLT2i with ISS and Accu-Cheks
-Blood glucose goal 140-180
#Chronic pancreatitis
-Previous imaging did show cystic lesion of the pancreas
-Does not currently take any pancreatic lipase or replacement enzymes
-Monitor for symptoms such as abdomen pain and diarrhea
#COPD/mild intermittent asthma
-Likely associated with history of pulmonary hypertension; no O2 at baseline
-Home medications include Symbicort and albuterol MDI as needed
-Low suspicion for COPD exacerbation, no bronchospasm
#PAD s/p carotid endarterectomy
-Home medications include ezetimibe and high intensity statin; not on antiplatelet agent but is on DOAC
-Low suspicion for active disease of the carotids
-Should have follow-up with vascular surgery
#Hypothyroidism
-Unclear etiology, home medications include levothyroxine 112 mcg daily
-No signs of thyroid dysfunction at this time
#Gout
-Home medications include allopurinol 200 mg daily
-No signs of active flare, though increased risk with IV diuresis
#Chronic pain
-Home meds include oxycodone 5 mg every 6 hours as needed
-Will continue in the hospital and monitor pain symptoms
#S/p PPM
-Unclear indication, with history of AF likely tachybradycardia
-No signs of pacemaker dysfunction at this time
#H/O stage III colorectal cancer s/p right hemicolectomy
#H/O breast cancer
DVT prophylaxis: Home Eliquis
Diet: No added salt, 48 ounce fluid restricted; NPO @ MN
CODE STATUS: DNR
Discussed with cardiology
Anticipated Discharge: > 48 hours
Subjective/Interval History
-
Date of Service: November 28, 2024
Seen and examined at the bedside. No acute events reported overnight. AFVSS on room air today
Patient feels well, renal function improving and hemodynamics improved from yesterday
Denies any new complaints today. [facility] planned for tomorrow, n.p.o. after midnight
Objective Data
-
Labs:
Laboratory Results
11/28/24
07:32
WBC 6.5
Hgb 12.5
Hct 37.5
Plt Count 274
Sodium 140
Potassium 4.2
Chloride 101
Carbon Dioxide 26
BUN 32 H
Creatinine 1.1 H
Glucose 165 H
Calcium 9.8
Vital Signs:
Vital Signs
Temp Pulse Resp BP Pulse Ox
97.5 F 92 15 132/63 95
11/28/24 11:10 11/28/24 11:10 11/28/24 11:10 11/28/24 11:10 11/28/24 11:10
I&O
11/27/24 11/28/24 11/29/24
06:59 06:59 06:59
Intake Total 1320 / 1320 1200 / 1200 480 / 480
Balance 1320 / 1320 1200 / 1200 480 / 480
Review of Systems
-
History Source: Patient
All other systems: Reviewed and negative
Physical Exam
-
General: Well Developed, No Apparent Distress, Comfortable and Obese
HEENT: Normocephalic, Atraumatic and Moist Mucous Membranes
Respiratory: Crackles (Bibasilar) and Non Labored Respirations; Negative Wheezes, Rhonchi or Accessory Resp Muscle Use
Cardiac: Regular Rhythm, S1/S2 and Murmur; Negative Rub, JVD or Gallop
GI: Soft, Nontender, Nondistended and Normal Bowel Sounds
Musculoskeletal: No Clubbing, No Cyanosis and No Edema
Skin: Warm, Dry and Normal Turgor; Negative Rash
Neuro: AO x 3 and Nonfocal/Grossly Intact
Psych: Calm
Data Reviewed
-
Labs: Labs Reviewed by me, Discussed with Physician (Cardiology) and Discussed with Patient
--- NOTE | 2024-11-28 11:48 | W.PN.CARDCBS ---
Today's Communication / Plan
-
BP improved after she was hypotensive 11/27/2024.
Lasix as well as Coreg and lisinopril which were started this admit, were held.
Continue to monitor blood pressures.
Back on Coreg and ACEI
Resume lasix at 60 mg PO daily 11/29 after cath
For now would continue to watch volume status closely and hold current meds.
She remains at dry wt of 180 lbs.
Continue to monitor daily weights, I's and O's and creatinine.
Cr was up to 1.4, holding lasix, and is now improved to 1.1.
Reviewed her echocardiogram with significant drop in ejection fraction, for cardiac catheterization November 29 to evaluate her coronary anatomy given history of prior CABG and to assess aortic stenosis via invasive hemodynamics. She has
possible low flow, low gradient .
Cont to hold Eliquis in anticipation of cath.
Impression / Plan
-
.
PCP: Dr. Byrne
Food Editor: Dr. Hansen
Impression:
Presented with SOB/HANCOCK 11/24/24
Acute on chronic HFrEF
Worsening CM EF 10-15% by echo 11/24/24
Permanent Afib since 01/2023
Chronic Eliquis OAC
CAD
s/p remote anterior NC with VF arrest with LAD angioplasty 07/17/97
CAD subsequent CABG x3 with 1996
Mod-severe peak/mean 29/16 mmHg by echo 07/22/2024, mod peak/mean 27/14 mmHg by echo 11/24/24
Mild MR
SSS s/p [employer] PPM
COPD
CKD 3a
History of orthostasis
Hyperlipidemia
Hypothyroidism
Asthma
Neuropathy
Hypertension
Breast cancer, status post left mastectomy
h/o carotid endarterectomy
h/o diabetes mellitus type 2
h/o colon mass s/p R hemicolectomy 10/02/21 until 10/15/21
Echo 05/28/2021: Ejection fraction 50%, mild aortic stenosis, mean pressure gradient 14 mmHg, aortic valve area 1.1 cm�
Echo 05/19/2023: EF 40-45%, mild cLVH, mid-apical inferoseptum/inferior segments are hypokinetic, mild MR, mild with peak/mean gradients 17/9 mmHg, LILY 1.4 cm2, trace AI, mild TR, estimated PAP 20-25 mmHg
Echo 11/27/2023: EF 40 to 45%, apical, inferior, and inferoseptal hypokinesis noted, mild MR, mild with peak/mean gradients 15/9 mmHg, mild TR, estimated PAP 21 to 26 mmHg
Echo 07/22/2024: EF 48% by volumetric assessment, 44% by Milton's method, decreased RV sys fxn, mild-mod MR, mod TR, PASP 34, mod-sev 29/16/LILY 0.84 cm
Echo 11/24/2024: EF 10 to 15% with severe global hypokinesis, mod conc LVH, at least mod MR with possible underestimation due to dense MAC, moderate peak/mean 27/14 mmHg and LILY 0.9 cm sq, mod to sev TR with PAP 50 mmHg, normal RV size and function
Plan:
Briefly, 84-year-old woman past medical history of heart failure with reduced ejection fraction presenting in acute decompensated heart failure
BP improved after she was hypotensive 11/27/2024.
Lasix as well as Coreg and lisinopril which were started this admit, were held.
Continue to monitor blood pressures.
Back on Coreg and ACEI
Resume lasix at 60 mg PO daily 11/29 after cath
For now would continue to watch volume status closely and hold current meds.
She remains at dry wt of 180 lbs.
Continue to monitor daily weights, I's and O's and creatinine.
Cr was up to 1.4, holding lasix, and is now improved to 1.1.
Reviewed her echocardiogram with significant drop in ejection fraction, for cardiac catheterization November 29 to evaluate her coronary anatomy given history of prior CABG and to assess aortic stenosis via invasive hemodynamics. She has
possible low flow, low gradient .
Cont to hold Eliquis in anticipation of cath.
Discussed with primary service
HPI: Patient is an 83 year old female with PMH of chronic HFmrEF, persistent atrial fibrillation, CAD s/p remote NC and CABG, , MR, SSS s/p PPM, COPD, HLD, HTN, hypothyroidism, asthma, DM with diabetic neuropathy, and prior breast cancer who
presented to [facility] for evaluation of increased SOB. Reportedly at pulse ox was 95% on room air. Reports this has been gradually worsening, and notices it more with exerting herself. Reports she needs to sit down and rest even with
ambulating short distances. Reports several pound weight gain and some abdominal bloating. Denies chest discomfort. Reports compliance with p.o. Lasix 60 mg daily at . proBNP 5660. Chest x-ray without noted acute cardiopulmonary
process.
Progress Note - Food Editor
Subjective
Date of Service: November 28, 2024
Pt seen and examined. No complaints. No chest pain or shortness of breath.
Objective
Labs:
11/28/24 07:32
11/28/24 07:32
Labs
Hgb 12.5 g/dL (12.0-16.0) 11/28/24 07:32
Hct 37.5 % (37.0-47.0) 11/28/24 07:32
Plt Count 274 10^3/uL (130-400) 11/28/24 07:32
Sodium 140 mmol/L (135-145) 11/28/24 07:32
Potassium 4.2 mmol/L (3.5-5.1) 11/28/24 07:32
BUN 32 mg/dl (7-17) H 11/28/24 07:32
Creatinine 1.1 mg/dL (0.6-1.0) H 11/28/24 07:32
Glucose 165 mg/dl (70-99) H 11/28/24 07:32
Vital Signs and I&O:
Vital Signs
Temp Pulse Resp BP Pulse Ox
97.5 F 92 15 132/63 95
11/28/24 11:10 11/28/24 11:10 11/28/24 11:10 11/28/24 11:10 11/28/24 11:10
Vital Signs
Temp Pulse Resp BP Pulse Ox
97.5 F 92 15 132/63 95
11/28/24 11:10 11/28/24 11:10 11/28/24 11:10 11/28/24 11:10 11/28/24 11:10
Intake & Output
11/26/24 11/27/24 11/28/24 11/29/24
06:59 06:59 06:59 06:59
Intake Total 740 / 740 1320 / 1320 1200 / 1200 480 / 480
Output Total 1500 / 1500
Balance -760 / -760 1320 / 1320 1200 / 1200 480 / 480
Physical Exam
Physical Exam
General: No acute distress, AAOX3
Neck: Negative JVD
Heart: Irregular irregular, Negative S3 positive S1/S2, Negative S4, systolic ejection murmur grade 2/6
Lungs: CTA b/l, negative wheezes/rales/rhonchi
Abd: Positive BS, NT/ND, neg rebound/rigidity/guarding
Ext: Negative cyanosis/clubbing/edema
Neuro: nonfocal
[2024-11-28 12:04] LABS: Glucose - Point of Care 239 mg/dl (70-99)
[2024-11-28] MEDS: NOVOLOG FLEXPEN-MODERATE RESISTANCE 3 UNITS SC (13:10)
[2024-11-28 16:47] LABS: Glucose - Point of Care 128 mg/dl (70-99)
[2024-11-28] MEDS: NOVOLOG FLEXPEN-MODERATE RESISTANCE SC (17:21)
[2024-11-28] MEDS: LASIX 60 MG PO (17:22)
[2024-11-28] MEDS: LIPITOR 80 MG PO (17:22)
[2024-11-28] MEDS: ZETIA 10 MG PO (17:22)
[2024-11-28 21:15] LABS: Glucose - Point of Care 281 mg/dl (70-99)
[2024-11-29] VITALS (32 sets, daily range): BP systolic 49–114; BP diastolic 33–93; BMI 32.0
[2024-11-29 05:54] LABS: Glucose - Point of Care 167 mg/dl (70-99)
[2024-11-29] MEDS: TYLENOL 500 MG PO ×3 (06:03→19:37)
[2024-11-29] MEDS: SYNTHROID 112 MCG PO (06:04)
[2024-11-29] MEDS: ROXICODONE 5 MG PO ×2 (06:04→14:08)
[2024-11-29] MEDS: SYMBICORT 160/4.5 MCG INHALER 2 PUFF INH ×2 (07:20→19:21)
[2024-11-29 07:41] LABS: % Eosinophils 3.7 % (0-6); % Immature Granulocytes 0.3 % (0-0.5); % Lymphocytes 24.5 % (20.5-51.1); % Monocytes 9.8 % (1.7-9.3); % Neutrophils 60.7 % (42.2-75.2); Absolute Basophils 0.1 10^3/uL (0-0.2); Absolute Eosinophils 0.2 10^3/uL (0-0.7); Absolute Lymphocytes 1.5 10^3/uL (1.2-3.4); Absolute Monocytes 0.6 10^3/uL (0.1-0.6); Absolute Neutrophils 3.8 10^3/uL (1.4-6.5); Hematocrit 38.4 % (37.0-47.0); Hemoglobin 12.8 g/dL (12.0-16.0); Mean Corp Hgb Conc. 33.3 g/dL (33.0-37.0); Mean Corpuscular Hgb 31.1 pg (27.0-31.0); Mean Corpuscular Volume 93.2 fL (81.0-99.0); Mean Platelet Volume 9.4 fL (7.4-10.4); Nucleated Red Blood Cells % 0 %; Platelet Count 268 10^3/uL (130-400); Red Blood Cell Count 4.12 10^6/uL (4.20-5.40); Red Cell Dist. Width 16.5 % (11.5-14.5); White Blood Cell Count 6.3 10^3/uL (4.8-10.8)
[2024-11-29 08:06] LABS: Blood Urea Nitrogen 33 mg/dl (7-17); Calcium 9.6 mg/dl (8.4-10.2); Carbon Dioxide 27 mmol/L (22-30); Chloride 101 mmol/L (98-107); Estimated Creatinine Clearance 34 ml/min; Glucose 173 mg/dl (70-99); Magnesium 1.9 mg/dl (1.6-2.3); Sodium 140 mmol/L (135-145); eGFR 44.08
[2024-11-29] MEDS: NOVOLOG FLEXPEN-MODERATE RESISTANCE 1 UNITS SC ×2 (08:08→14:03)
[2024-11-29] MEDS: MUCINEX 1200 MG PO ×2 (08:08→19:37)
[2024-11-29] MEDS: LASIX 60 MG PO (08:08)
[2024-11-29] MEDS: FARXIGA 10 MG PO (08:08)
[2024-11-29 08:09] LABS: Glucose - Point of Care 166 mg/dl (70-99)
[2024-11-29] MEDS: KCL 10 MEQ PO (08:09)
[2024-11-29] MEDS: ZYLOPRIM 200 MG PO (08:09)
[2024-11-29] MEDS: ProAmatine 10 MG PO (08:09)
[2024-11-29] MEDS: DESENEX/MITRAZOL/ZEASORB 1 APPLIC TOPICAL (08:09)
[2024-11-29] MEDS: ZESTRIL 2.5 MG PO (08:09)
[2024-11-29] MEDS: B COMPLEX w/VITAMIN C 1 CAPLET PO (08:09)
[2024-11-29] MEDS: COREG 3.125 MG PO (08:09)
[2024-11-29] MEDS: ZYRTEC 10 MG PO (08:09)
[2024-11-29 11:33] LABS: HCO3 29.1 mmol/L (21-28); O2 Saturation % 97.7 % (94-98); PCO2 40 mmHg (32-35); PO2 85 mmHg (83-108); pH 7.47 (7.35-7.45)
--- NOTE | 2024-11-29 12:10 | ITS.CL.CATH ---
Health Education Assistant - Catheterization
Cardiac Catheterization
Procedure Report:
LEFT AND RIGHT HEART CATHETERIZATION
Date of Procedure: November 29, 2024
Referring: Gordo Chan.
PROCEDURES:
1. Left heart catheterization, coronary angiogram.
2. Selective graft angiography.
3. Right heart catheterization.
4. Aortography
5. Ultrasound-guided access
INDICATION: Worsening cardiomyopathy with a new LVEF of 10% from baseline of 40 to 45% (July, echo)
ACCESS:
1. Right common femoral artery, 6 Sudanese sheath, under ultrasound guidance using a micropuncture kit.
2. Right common femoral vein, 6 Sudanese sheath, under ultrasound guidance using a micropuncture kit.
Ultrasound was utilized for vascular access. The femoral artery and vein was visualized under ultrasound, and the vessel was patent and the artery was pulsatile. An image for each was stored permanently in the patient's medical record. Under
direct ultrasound guidance, a 6 Sudanese sheath was inserted into the artery and vein, respectively using a micropuncture kit through a modified Seldinger technique.
HEMODYNAMICS : (mmHg)
RA (m) : 15
RV (s/d,m) : 48/9, 14
PA (s/d, m) : 49/25, 34
PCWP (m) : 27
PA saturation: 49.5% on room air
AO saturation: 94.0% on room air
RA saturation: 47.6% on room air
Cardiac Output : 2.28 L/min by William calculation
Cardiac Index : 1.24 L/min/m-2 by William calculation
Systemic vascular resistance: 3257 dsc^(-5)
Pulmonary vascular resistance: 3.07 blanco unit
Heart rate: 71 bpm
AO (s/d) : 162/82
LV (s/d) : 163/21
LVEDP : 28
Upon pullback, the estimated mean transaortic gradient is 12 mmHg
Of note, an aortic pressure 153/76 correlated with right upper extremity noninvasive blood pressure cuff pressure of 115/71 displaying significant discrepancy possibly from significant right subclavian stenosis.
CORONARY FINDINGS
DOMINANCE: Right
LEFT MAIN: The left main is a medium to large caliber vessel which gives rise to the left anterior descending artery and the left circumflex artery. There is mild diffuse atherosclerotic plaque.
LEFT ANTERIOR DESCENDING: The LAD has a subtotal occlusion in the proximal portion with distal LAD filling by a patent MONIQUE graft and the diagonal branch filling via a patent free radial branch
CIRCUMFLEX: Left circumflex artery is a medium caliber vessel which gives rise to 2 major obtuse marginal branches. There is mild diffuse atherosclerotic plaque
RIGHT CORONARY ARTERY: The right coronary artery appears to have significant calcium at the ostium with a likely 100% chronic total occlusion. Despite performing an aortogram, a graft could not be identified to the right system.
SELECTIVE GRAFT ANGIOGRAPHY:
MONIQUE to LAD: Widely patent.
Free Radial artery to Diagonal: Widely patent with BELLA-3 flow. This graft appears to backfill midportion of the LAD and another diagonal branch
AORTOGRAPHY: An aortogram was performed to identify possible graft to the right coronary artery however we did not appreciate any other patent grafts.
SEDATION: 121 minutes of procedural sedation was utilized. An independent medical apparatus model maker was present to assist with and help manage the patient's level of consciousness and physiologic status.
RADIATION SUMMARY: Fluoro Time (min): 26.1, Dose (mGy): 540.85, DAP (Gy.cm2) :47.55
Closure Device:
1. 6 Sudanese Angio-Seal over the right common femoral arterial access with successful hemostasis.
2. Manual pressure was held over the right common femoral venous access site with successful hemostasis
CONCLUSIONS
1. Significant [place] coronary artery disease.
2. Widely patent MONIQUE to LAD and free radial artery to diagonal branches.
3. [place] right coronary artery appears to be occluded at the ostium with no patent grafts identified to the right system.
4. Significantly elevated right and left-sided filling pressures with severely reduced cardiac output in the setting of a significantly elevated systemic vascular resistance.
5. Pullback across the aortic valve did not suggest severe aortic stenosis. t
RECOMMENDATIONS
1. Bedrest post right common femoral arterial access per protocol.
2. Optimization of goal-directed medical therapy for severe ischemic cardiomyopathy with acute decompensated heart failure and cardiogenic shock.
3. Aggressive management of cardiovascular risk factors.
4. Eventual referral for outpatient cardiac rehab.
Copy to: Gary Hansen MD and Jw Medeiros DO
Ivon Aleman MD, [facility], [facility]
--- NOTE | 2024-11-29 12:28 | PTCARENOTE ---
Pt received post procedure. Right groin site dressing dry and intact and WNL. Denies any pain or sob. Room air sat 97%.
--- NOTE | 2024-11-29 12:34 | W.PN.UPDATE ---
Update Note
Progress Note Update
Suspected subclavian stenosis, Central pressures 150s during cath which correlated to a NIBP of 115. Will continue with lisinopril and on hold for SBP less than 90 unless symptomatic. Will get eventual peripheral u/s to better identify presumed
subclavian stenosis.
[2024-11-29] MEDS: ProAmatine 5 MG PO (13:36)
[2024-11-29 14:08] LABS: Glucose - Point of Care 172 mg/dl (70-99)
[2024-11-29] MEDS: NEURONTIN 300 MG PO ×2 (16:04→23:36)
[2024-11-29 16:49] LABS: Glucose - Point of Care 260 mg/dl (70-99)
[2024-11-29] MEDS: NOVOLOG FLEXPEN-MODERATE RESISTANCE 5 UNITS SC (17:23)
[2024-11-29] MEDS: ZETIA 10 MG PO (17:24)
[2024-11-29] MEDS: LIPITOR 80 MG PO (17:24)
--- NOTE | 2024-11-29 18:56 | W.PN.HOSP.TC ---
Today's Communication/Plan
-
Assessment / Plan
Assessment / Plan
Gen-AAOx3, NAD
HEENT-NC, AT, anicteric, clear oral mm
Neck-supple
CV-reg, no M, +S1/S2
Lungs-clear B/L
Abd-soft, NT, ND
Musculoskeletal-mild edema upper and lower extremities, no deformity
Skin-warm and dry
Neuro-grossly non-focal
Psych-calm, cooperative
#Acute on chronic HFrEF
#Pulmonary HTN
-Echocardiogram here showed reduction of LVEF from 45% to 10 to 15%, signs of new LVH
-Home medications include SGLT2i, Lasix 60 mg daily as diuretics and GDMT
-Plan for [facility] today 11/29
-If [facility] without new obstructive disease may need dobutamine stress echo
-Continue Lasix 40 IV twice daily trend I's/O's + weight + BMP
-Continue GDMT with carvedilol, lisinopril, SGLT2i if hemodynamics allow; consider switching carvedilol to metoprolol succinate
-Blood pressure goal <140/90 mmHg
-Continue on telemetry
#Moderate-Severe
-Last echocardiogram with moderate to severe , peak/mean 29/16 mmHg, LILY 0.84 cm�
-With newly reduced EF on last echo, question low-flow low gradient disease
-Presented here with decompensated heart failure
-Follow-up further cardiology recommendations
-GOC if TAVR indicated
#CAD s/p CABG
#Lateral TWI
-History of CABG x 3 in 1996; Home meds include high intensity statin, SGLT2i; no antiplatelet, on Eliquis for AF
-No chest pain, troponin negative; does appear to have new TWI laterally on ECG
-Question if lateral TWI related to left ventricular wall tension
-Low suspicion for acute coronary syndrome at this time
-Cannot rule out underlying chronic ischemic disease with history
-Follow-up cardiology recommendations
#Paroxysmal AF
-Holding home Eliquis; beta-blockade with carvedilol
-No known history of electrophysiologic intervention such as ablation
#Chronic transaminitis
-Has chronic low-grade elevation to transaminases, both just above UNL
-Possibly with underlying NAFLD though labs have been stable
-Presented with AST and ALT slightly higher than baseline, likely component of congestion
-Trend LFTs, consider RUQ US if worsening
#HTN
-Possible hypertensive systemic disease with signs of LVH on ECG
-Not currently on first-line antihypertensive therapy
-Home meds do include diuresis with Lasix and SGLT2
-Per history hypotension may be more of an issue
#HLD
-Significant ASCVD history with carotid endarterectomy and CABG x 3
-Home medication includes atorvastatin 80 mg nightly and ezetimibe
#NIDDM
-No recent hemoglobin A1c on record; C/B diabetic neuropathy
-Home medications include dapagliflozin and glipizide
-Will transition to SGLT2i with ISS and Accu-Cheks
-Blood glucose goal 140-180
#Chronic pancreatitis
-Previous imaging did show cystic lesion of the pancreas
-Does not currently take any pancreatic lipase or replacement enzymes
-Monitor for symptoms such as abdomen pain and diarrhea
#COPD/mild intermittent asthma
-Likely associated with history of pulmonary hypertension; no O2 at baseline
-Home medications include Symbicort and albuterol MDI as needed
-Low suspicion for COPD exacerbation, no bronchospasm
#PAD s/p carotid endarterectomy
-Home medications include ezetimibe and high intensity statin; not on antiplatelet agent but is on DOAC
-Low suspicion for active disease of the carotids
-Should have follow-up with vascular surgery
#Hypothyroidism
-Unclear etiology, home medications include levothyroxine 112 mcg daily
-No signs of thyroid dysfunction at this time
#Gout
-Home medications include allopurinol 200 mg daily
-No signs of active flare, though increased risk with IV diuresis
#Chronic pain
-Home meds include oxycodone 5 mg every 6 hours as needed
-Will continue in the hospital and monitor pain symptoms
#S/p PPM
-Unclear indication, with history of AF likely tachybradycardia
-No signs of pacemaker dysfunction at this time
#H/O stage III colorectal cancer s/p right hemicolectomy
#H/O breast cancer
DVT prophylaxis: Home Eliquis
Diet: No added salt, 48 ounce fluid restricted; NPO @ MN
CODE STATUS: DNR
Discussed with cardiology
Anticipated Discharge: > 48 hours
Subjective/Interval History
-
Date of Service: November 29, 2024
Ms. Gaxiola was seen and examined at bedside. No complaints. Plan for left heart cath today.
Objective Data
-
Labs:
Laboratory Results
11/29/24 11/29/24
06:25 11:20
WBC 6.3
Hgb 12.8
Hct 38.4
Plt Count 268
HCO3 29.1 H
Sodium 140
Potassium 4.0
Chloride 101
Carbon Dioxide 27
BUN 33 H
Creatinine 1.2 H
Glucose 173 H
Calcium 9.6
Vital Signs:
Vital Signs
Temp Pulse Resp BP Pulse Ox
98.2 F 89 20 97/72 94
11/29/24 15:10 11/29/24 17:45 11/29/24 15:10 11/29/24 16:00 11/29/24 15:10
I&O
11/28/24 11/29/24 11/30/24
06:59 06:59 06:59
Intake Total 1200 / 1200 1200 / 1200
Output Total 250 / 250 1200 / 1200
Balance 1200 / 1200 950 / 950 -1200 / -1200
Review of Systems
-
History Source: Patient
All other systems: Reviewed and negative
Physical Exam
-
General: No Apparent Distress
[2024-11-29] MEDS: DESENEX/MITRAZOL/ZEASORB TOPICAL (19:37)
[2024-11-29] MEDS: ProAIR HFA INHALER 1 PUFF INH (21:26)
[2024-11-29 22:12] LABS: Glucose - Point of Care 93 mg/dl (70-99)
--- NOTE | 2024-11-29 22:29 | PTCARENOTE ---
Patient initially received at change of shift resting in the chair before transferring to the bed. Patient denied shortness of breath, chest pain, dizziness, or feeling lightheaded. Right groin site with gauze and tegaderm C/D/I, area soft to
palpation, bilateral pedal pulses +2 to palpation.
Patient noted to be hypotensive at 2100 with systolic pressures in the 70s. Patient's only complaint was feeling short of breath which she remarked as similar to when she was admitted to the hospital. Hospitalist MASTER POLICE DETECTIVE notified. Patient placed on 2L NC
for comfort, oxygen on room air was 92-93% and went up to 95-97% on 2L. Respiratory therapist came to administer rescue inhaler to patient. MASTER POLICE DETECTIVE to bedside for evaluation.
Patient now reports shortness of breath is improving. Patient 96% on 1L NC. Per house MASTER POLICE DETECTIVE please notify for MAP <70mmHg.
Patient denies chest pain. Right groin site remains C/D/I, area soft to palpation. Pedal pulses palpable.
Bed in lowest position, wheels locked. Call tripathi within reach. Plan of care discussed with patient. See worklist for further information.
[2024-11-29 23:32] LABS: Glucose - Point of Care 150 mg/dl (70-99)
--- NOTE | 2024-11-29 23:38 | RR ---
A Rapid Response was called on this patient, please see Rapid Response form.
[2024-11-30] VITALS (33 sets, daily range): BP systolic 77–155; BP diastolic 37–127; PULSE 88; O2SAT 97; BMI 32.3; BMI 31.9
[2024-11-30] MEDS: ROXICODONE 5 MG PO ×3 (00:27→20:28)
--- NOTE | 2024-11-30 03:15 | PTCARENOTE ---
Around 2300 11/29/24 the patient was noted to be hypotensive, BP 61/50. Upon recheck of the RUE, BP was 49/40. Patient complained of shortness of breath and feeling tired. A rapid response was called. An EKG was performed. Accucheck 150. Neuro check
WDL. Right groin site C/D/I and soft to palpation. Pulses palpable. Oxygen saturation 96-97% on room air.
CT surgery PA instructed team to recheck blood pressure utilizing the patient's calf. Right calf blood pressure 104/33. Recheck of BP yielded similar results when utilizing the right calf with systolic maintaining in the low 100s.
Bedrest was ordered for this patient. CT surgery PA asked that we utilize the patient's calf for blood pressure checks.
See worklist interventions for further information.
[2024-11-30] MEDS: TYLENOL 500 MG PO ×3 (04:59→19:14)
[2024-11-30] MEDS: SYNTHROID 112 MCG PO (05:00)
[2024-11-30 05:43] LABS: Hematocrit 38.8 % (37.0-47.0); Hemoglobin 13.2 g/dL (12.0-16.0); Mean Corpuscular Hgb 31.4 pg (27.0-31.0); Mean Corpuscular Volume 92.4 fL (81.0-99.0); Mean Platelet Volume 9.1 fL (7.4-10.4); Platelet Count 239 10^3/uL (130-400); Red Cell Dist. Width 16.3 % (11.5-14.5); White Blood Cell Count 8.2 10^3/uL (4.8-10.8)
[2024-11-30 06:13] LABS: Blood Urea Nitrogen 45 mg/dl (7-17); Calcium 9.2 mg/dl (8.4-10.2); Carbon Dioxide 28 mmol/L (22-30); Chloride 96 mmol/L (98-107); Estimated Creatinine Clearance 29 ml/min; Glucose 152 mg/dl (70-99); Potassium 4.3 mmol/L (3.5-5.1); Sodium 135 mmol/L (135-145); eGFR 36.64
[2024-11-30] MEDS: MUCINEX 1200 MG PO ×2 (07:53→19:15)
[2024-11-30] MEDS: ZYLOPRIM 200 MG PO (07:53)
[2024-11-30] MEDS: ProAmatine 5 MG PO (07:53)
[2024-11-30] MEDS: ZESTRIL PO ×2 (07:53→08:20)
[2024-11-30] MEDS: NEURONTIN 300 MG PO ×3 (07:53→21:55)
[2024-11-30] MEDS: LASIX IV (07:54)
[2024-11-30] MEDS: B COMPLEX w/VITAMIN C 1 CAPLET PO (07:54)
[2024-11-30] MEDS: FARXIGA 10 MG PO (07:54)
[2024-11-30] MEDS: ZYRTEC 10 MG PO (07:54)
[2024-11-30] MEDS: KCL 10 MEQ PO (07:55)
--- NOTE | 2024-11-30 08:10 | W.PN.CARDCBS ---
Addendum entered and electronically signed by Ivon Aleman MD 11/30/24 10:54:
I saw and examined the patient.
The Career Coordinator's note was reviewed and I agree with the note.
Comment: Patient is doing well this morning and does not offer any significant complaints other than her neuropathy pain. No issues at the right femoral access site.
Overnight events noted in regards to potential hypotension however patient was completely asymptomatic. Daughter is at bedside
On exam patient is well-appearing, out of bed in the chair, no acute distress, morbidly obese, elevated JVD, decreased breath sounds at bilateral bases, irregularly irregular heart rhythm, normal S1 and S2
Right groin with dressing still in place which is clean, dry and intact without evidence of hematoma or bruit, warm extremities without significant edema, abdomen is obese but otherwise soft, nontender, nondistended
Recommendations:
1. In the setting of severely elevated right left-sided filling pressures and low cardiac output secondary to ischemic cardiomyopathy and severe LV dysfunction, continue aggressive IV diuresis with close monitoring of renal function. Given mild
increase in creatinine, agree with holding lisinopril for now and will use hydralazine as afterload reduction in the setting of an SVR of 3000.
2. Discussed with nursing as well as patient, hold parameters as long as were checking blood pressures in the right upper extremity noninvasively should be 80 mmHg systolic given there was a 38 mmHg discrepancy between central aortic pressure. In
the setting we will also check bilateral upper extremity ultrasounds.
3. Okay to resume Eliquis this morning in the setting of persistent atrial fibrillation, intermittently with RVR. In the setting if she tolerates hydralazine well, we will resume low-dose Coreg this evening.
4. No targets for percutaneous intervention so focus will be on optimization of goal-directed medical therapy and IV diuresis. Discussed all of the above with nursing as well as patient and daughter at bedside. Answered all of their questions.
Ivon Aleman MD, [facility], [facility]
Original Note:
Today's Communication / Plan
-
Restart Eliquis tonight
Hold lisinopril
Give Lasix IV and follow Cre
51 min face to face and coordination of care
Impression / Plan
-
.
PCP: Dr. Byrne
Vial Gauger: Dr. Hansen
Impression:
Presented with SOB/HANCOCK 11/24/24
Acute on chronic HFrEF
Worsening CM EF 10-15% by echo 11/24/24
Permanent Afib since 01/2023
Chronic Eliquis OAC
CAD
s/p remote anterior SC with VF arrest with LAD angioplasty 07/17/97
CAD subsequent CABG x3 with 1996
Mod-severe peak/mean 29/16 mmHg by echo 07/22/2024, mod peak/mean 27/14 mmHg by echo 11/24/24
Mild MR
SSS s/p Medtronic PPM
COPD
CKD 3a
History of orthostasis
Hyperlipidemia
Hypothyroidism
Asthma
Neuropathy
Hypertension
Breast cancer, status post left mastectomy
h/o carotid endarterectomy
h/o diabetes mellitus type 2
h/o colon mass s/p R hemicolectomy 10/02/21 until 10/15/21
Echo 05/28/2021: Ejection fraction 50%, mild aortic stenosis, mean pressure gradient 14 mmHg, aortic valve area 1.1 cm�
Echo 05/19/2023: EF 40-45%, mild cLVH, mid-apical inferoseptum/inferior segments are hypokinetic, mild MR, mild with peak/mean gradients 17/9 mmHg, LILY 1.4 cm2, trace AI, mild TR, estimated PAP 20-25 mmHg
Echo 11/27/2023: EF 40 to 45%, apical, inferior, and inferoseptal hypokinesis noted, mild MR, mild with peak/mean gradients 15/9 mmHg, mild TR, estimated PAP 21 to 26 mmHg
Echo 07/22/2024: EF 48% by volumetric assessment, 44% by Milton's method, decreased RV sys fxn, mild-mod MR, mod TR, PASP 34, mod-sev 29/16/LILY 0.84 cm
Echo 11/24/2024: EF 10 to 15% with severe global hypokinesis, mod conc LVH, at least mod MR with possible underestimation due to dense MAC, moderate peak/mean 27/14 mmHg and LILY 0.9 cm sq, mod to sev TR with PAP 50 mmHg, normal RV size and function
Plan:
-Weight is 2 lbs overnight with Lasix 40 mg IV BID. PCWP 29 and CI 1.2 by RHC 11/29/24.
-Lasix IV held earlier this admission due to hypotension and DIANA. Cre increased to 1.4 on 11/30/24. Will continue with Lasix IV. Hold lisinopril starting 11/30/24
-Overnight events noted, patient had a rapid response for hypotension. During RHC on 11/29/24, patient's aortic pressure of 153/76 correlated with RUE NIBP of 115/71 c/w possible right subclavian stenosis. Check U/S for subclavian stenosis 11/30/24
-EF 10-15% by echo 11/24/24, EF previously 48% by echo 07/22/24. No new WMA.
-Attempted to add GDMT earlier this admission with Coreg 3.125 mg BID and lisinopril 2.5 mg daily, but patient developed hypotension and meds held. Patient has a h/o 'hypotension' and was on midodrine 10 mg BID as an outpatient.
-Coreg 3.125 mg BID remains on hold
-Lisinopril 2.5 mg daily placed on hold 11/30/24
-Weaning down midodrine with goal to stop 12/01/24
-Outpatient dose of Farxiga 10 mg daily has been continued.
-Concern on admission about low flow low gradient , but mean gradient at cath was 12. Suspect acute HF due to newly reduced EF
-Patient with h/o CABG in 1996. Await final details about cath.
-Patient with known permanent Afib. ECG from 11/29/24 reviewed by me shows Afib with HR 99. Patient was not taking rate controlling meds prior to admission
-Outpatient dose of Eliquis 5 mg BID (age 84, wt 85.28 kg, Cre 1.4) held for cath, will restart 11/30/24 PM
HPI: Patient is an 83 year old female with PMH of chronic HFmrEF, persistent atrial fibrillation, CAD s/p remote SC and CABG, , MR, SSS s/p PPM, COPD, HLD, HTN, hypothyroidism, asthma, DM with diabetic neuropathy, and prior breast cancer who
presented to [facility] for evaluation of increased SOB. Reportedly at pulse ox was 95% on room air. Reports this has been gradually worsening, and notices it more with exerting herself. Reports she needs to sit down and rest even with
ambulating short distances. Reports several pound weight gain and some abdominal bloating. Denies chest discomfort. Reports compliance with p.o. Lasix 60 mg daily at . proBNP 5660. Chest x-ray without noted acute cardiopulmonary
process.
Progress Note - Vial Gauger
Subjective
Date of Service: November 30, 2024
Reports she is tired, less bloating
Objective
Labs:
11/30/24 05:34
11/30/24 05:34
Labs
Hgb 13.2 g/dL (12.0-16.0) 11/30/24 05:34
Hct 38.8 % (37.0-47.0) 11/30/24 05:34
Plt Count 239 10^3/uL (130-400) 11/30/24 05:34
Sodium 135 mmol/L (135-145) 11/30/24 05:34
Potassium 4.3 mmol/L (3.5-5.1) 11/30/24 05:34
BUN 45 mg/dl (7-17) H 11/30/24 05:34
Creatinine 1.4 mg/dL (0.6-1.0) H 11/30/24 05:34
Glucose 152 mg/dl (70-99) H 11/30/24 05:34
Vital Signs and I&O:
Vital Signs
Temp Pulse Resp BP Pulse Ox
98.6 F 88 18 122/83 95
11/30/24 04:54 11/30/24 07:30 11/30/24 04:54 11/30/24 07:30 11/30/24 04:54
Vital Signs
Temp Pulse Resp BP Pulse Ox
98.6 F 88 18 122/83 95
11/30/24 04:54 11/30/24 07:30 11/30/24 04:54 11/30/24 07:30 11/30/24 04:54
Intake & Output
11/28/24 11/29/24 11/30/24 12/01/24
06:59 06:59 06:59 06:59
Intake Total 1200 / 1200 1200 / 1200
Output Total 250 / 250 1200 / 1200
Balance 1200 / 1200 950 / 950 -1200 / -1200
Physical Exam
Physical Exam
GEN: NAD. AAOx3
HEENT: MMM
LUNGS: RA. No audible wheeze
CV: Afib on tele
ABD: ND
EXT: +1 B/L LE edema
NEURO: Gross non-focal
SKIN: No rash
[2024-11-30] MEDS: NOVOLOG FLEXPEN-MODERATE RESISTANCE 1 UNITS SC (08:38)
[2024-11-30 08:39] LABS: Glucose - Point of Care 187 mg/dl (70-99)
[2024-11-30] MEDS: LASIX 40 MG IV ×2 (08:39→17:28)
[2024-11-30] MEDS: DESENEX/MITRAZOL/ZEASORB 1 APPLIC TOPICAL ×2 (08:40→19:15)
[2024-11-30] MEDS: SYMBICORT 160/4.5 MCG INHALER 2 PUFF INH ×2 (08:50→21:19)
[2024-11-30] MEDS: APRESOLINE 25 MG PO ×3 (10:32→23:08)
[2024-11-30] MEDS: ELIQUIS 5 MG PO ×2 (10:32→19:15)
--- NOTE | 2024-11-30 12:06 | CM ---
spoke to pt and daughters in room, pt lives in [place] at [place], she would like to return when medically stable for dc.
[2024-11-30 12:13] LABS: Glucose - Point of Care 271 mg/dl (70-99)
[2024-11-30] MEDS: NOVOLOG FLEXPEN-MODERATE RESISTANCE 5 UNITS SC (12:27)
[2024-11-30] MEDS: ProAmatine 2.5 MG PO (12:49)
--- NOTE | 2024-11-30 14:28 | W.PN.HOSP.TC ---
Today's Communication/Plan
-
Assessment / Plan
Assessment / Plan
Gen-AAOx3, NAD
HEENT-NC, AT, anicteric, clear oral mm
Neck-supple
CV-reg, no M, +S1/S2
Lungs-clear B/L
Abd-soft, NT, ND
Musculoskeletal-mild edema upper and lower extremities, no deformity
Skin-warm and dry
Neuro-grossly non-focal
Psych-calm, cooperative
#Acute on chronic HFrEF
#Pulmonary HTN
-Echocardiogram here showed reduction of LVEF from 45% to 10 to 15%, signs of new LVH
-[facility] 11/29 apparently revealed no intervenable targets
-Continue Lasix 40 IV twice daily trend I's/O's + weight + BMP
-Beta-blockade with carvedilol
-Afterload reduction with low-dose hydralazine, holding lisinopril due to hypotension
-Continue Farxiga
-Blood pressure goal noninvasively and right upper extremity should be 80 mmHg systolic considering discrepancy with central pressures due to right subclavian stenosis
-Continue on telemetry
#Moderate-Severe
-Last echocardiogram with moderate to severe , peak/mean 29/16 mmHg, LILY 0.84 cm�
-With newly reduced EF on last echo, question low-flow low gradient disease
-Presented here with decompensated heart failure
-Follow-up further cardiology recommendations
-GOC if TAVR indicated
#CAD s/p CABG
#Lateral TWI
-History of CABG x 3 in 1996; Home meds include high intensity statin, SGLT2i; no antiplatelet, on Eliquis for AF
-Low suspicion for acute coronary syndrome at this time
-Follow-up cardiology recommendations
#Paroxysmal AF
-Restarting Eliquis tonight 11/30; beta-blockade with carvedilol
-No known history of electrophysiologic intervention such as ablation
#Chronic transaminitis
-Has chronic low-grade elevation to transaminases, both just above UNL
-Possibly with underlying NAFLD though labs have been stable
-Presented with AST and ALT slightly higher than baseline, likely component of congestion
-Trend LFTs, consider RUQ US if worsening
#HTN
-Possible hypertensive systemic disease with signs of LVH on ECG
-Not currently on first-line antihypertensive therapy
-Home meds do include diuresis with Lasix and SGLT2
-Per history hypotension may be more of an issue
-Continue low-dose hydralazine, holding lisinopril due to hypotension
#HLD
-Significant ASCVD history with carotid endarterectomy and CABG x 3
-Home medication includes atorvastatin 80 mg nightly and ezetimibe
#NIDDM
-No recent hemoglobin A1c on record; C/B diabetic neuropathy
-Home medications include dapagliflozin and glipizide
-Will transition to SGLT2i with ISS and Accu-Cheks
-Blood glucose goal 140-180
#Chronic pancreatitis
-Previous imaging did show cystic lesion of the pancreas
-Does not currently take any pancreatic lipase or replacement enzymes
-Monitor for symptoms such as abdomen pain and diarrhea
#COPD/mild intermittent asthma
-Likely associated with history of pulmonary hypertension; no O2 at baseline
-Home medications include Symbicort and albuterol MDI as needed
-Low suspicion for COPD exacerbation, no bronchospasm
#PAD s/p carotid endarterectomy
-Home medications include ezetimibe and high intensity statin; not on antiplatelet agent but is on DOAC
-Low suspicion for active disease of the carotids
-Should have follow-up with vascular surgery
#Hypothyroidism
-Unclear etiology, home medications include levothyroxine 112 mcg daily
-No signs of thyroid dysfunction at this time
#Gout
-Home medications include allopurinol 200 mg daily
-No signs of active flare, though increased risk with IV diuresis
#Chronic pain
-Home meds include oxycodone 5 mg every 6 hours as needed
-Will continue in the hospital and monitor pain symptoms
#S/p PPM
-Unclear indication, with history of AF likely tachybradycardia
-No signs of pacemaker dysfunction at this time
#H/O stage III colorectal cancer s/p right hemicolectomy
#H/O breast cancer
DVT prophylaxis: Home Eliquis
CODE STATUS: DNR
Anticipated Discharge: > 48 hours
Subjective/Interval History
-
Date of Service: November 30, 2024
Ms. Gaxiola was seen and examined at bedside this morning. No acute distress. Rapid response was called overnight for concerns of hypotension however patient was asymptomatic and low blood pressure reading is most likely due to right subclavian
artery stenosis with resulting discrepancy between peripheral and central blood pressures.
Objective Data
-
Labs:
Laboratory Results
11/30/24
05:34
WBC 8.2
Hgb 13.2
Hct 38.8
Plt Count 239
Sodium 135
Potassium 4.3
Chloride 96 L
Carbon Dioxide 28
BUN 45 H
Creatinine 1.4 H
Glucose 152 H
Calcium 9.2
Vital Signs:
Vital Signs
Temp Pulse Resp BP Pulse Ox
97.9 F 82 18 97/76 95
11/30/24 11:16 11/30/24 11:16 11/30/24 11:16 11/30/24 11:16 11/30/24 11:16
I&O
11/29/24 11/30/24 12/01/24
06:59 06:59 06:59
Intake Total 1200 / 1200
Output Total 250 / 250 1200 / 1200
Balance 950 / 950 -1200 / -1200
Review of Systems
-
History Source: Patient
All other systems: Reviewed and negative
Physical Exam
-
General: No Apparent Distress
[2024-11-30] MEDS: GLUCOTROL XL (EXTENDED RELEASE) 2.5 MG PO (14:36)
[2024-11-30] MEDS: LIPITOR 80 MG PO (17:32)
[2024-11-30] MEDS: ZETIA 10 MG PO (17:32)
[2024-11-30 18:32] LABS: Glucose - Point of Care 142 mg/dl (70-99)
[2024-11-30] MEDS: NOVOLOG FLEXPEN-MODERATE RESISTANCE SC (19:09)
[2024-11-30] MEDS: COREG 3.125 MG PO (19:15)
[2024-11-30 20:44] LABS: Glucose - Point of Care 249 mg/dl (70-99)
--- NOTE | 2024-11-30 22:46 | PTCARENOTE ---
pt received at change of shift, pt seen and assessed in room. pt aox3, tele reading afib 80s-110s, escalating to 130s with ambulation, but no complaints of pain. this RN explained POC, pt verbalizes understanding. call tripathi within reach. continuing
to monitor at this time.
[2024-12-01] VITALS (10 sets, daily range): BP systolic 73–140; BP diastolic 55–96; BMI 32.8
[2024-12-01] MEDS: TYLENOL 500 MG PO ×3 (05:07→19:56)
[2024-12-01] MEDS: SYNTHROID 112 MCG PO (05:07)
[2024-12-01] MEDS: SYMBICORT 160/4.5 MCG INHALER 2 PUFF INH ×2 (07:13→20:36)
[2024-12-01 08:27] LABS: Glucose - Point of Care 136 mg/dl (70-99)
[2024-12-01] MEDS: NOVOLOG FLEXPEN-MODERATE RESISTANCE SC ×2 (08:45→17:55)
[2024-12-01] MEDS: B COMPLEX w/VITAMIN C 1 CAPLET PO (09:58)
[2024-12-01] MEDS: APRESOLINE 25 MG PO ×2 (09:58→16:17)
[2024-12-01] MEDS: FARXIGA 10 MG PO (09:59)
[2024-12-01] MEDS: COREG 3.125 MG PO (09:59)
[2024-12-01] MEDS: ELIQUIS 5 MG PO ×2 (09:59→19:56)
[2024-12-01] MEDS: DESENEX/MITRAZOL/ZEASORB 1 APPLIC TOPICAL ×2 (09:59→19:56)
[2024-12-01] MEDS: KCL 10 MEQ PO (10:00)
[2024-12-01] MEDS: GLUCOTROL XL (EXTENDED RELEASE) 2.5 MG PO (10:00)
[2024-12-01] MEDS: LASIX IV ×2 (10:01→11:33)
[2024-12-01] MEDS: MUCINEX 1200 MG PO ×2 (10:01→19:56)
[2024-12-01] MEDS: NEURONTIN 300 MG PO ×2 (10:01→19:56)
[2024-12-01] MEDS: ProAmatine 2.5 MG PO ×2 (10:01→13:04)
[2024-12-01] MEDS: ZYLOPRIM 200 MG PO (10:02)
[2024-12-01] MEDS: ZYRTEC 10 MG PO (10:03)
[2024-12-01 10:10] LABS: Blood Urea Nitrogen 56 mg/dl (7-17); Calcium 9.5 mg/dl (8.4-10.2); Carbon Dioxide 29 mmol/L (22-30); Chloride 91 mmol/L (98-107); Estimated Creatinine Clearance 24 ml/min; Glucose 227 mg/dl (70-99); Magnesium 1.8 mg/dl (1.6-2.3); Phosphorus 4.8 mg/dl (2.5-4.5); Potassium 4.1 mmol/L (3.5-5.1); Sodium 134 mmol/L (135-145); eGFR 29.02
--- NOTE | 2024-12-01 11:22 | PTCARENOTE ---
Received patient this morning resting in bed, assisted to the bathroom with rolling walker. Patient states she has no sob now with ambulation and feels better. Labs sent as ordered, results of BMP tt to Dr. Brigido Gutierrez, will hold off on IV lasix as
instructed. Sitting oob in the chair, call tripathi in reach.
[2024-12-01] MEDS: ROXICODONE 5 MG PO ×2 (11:56→17:58)
[2024-12-01 13:05] LABS: Glucose - Point of Care 210 mg/dl (70-99)
[2024-12-01] MEDS: NOVOLOG FLEXPEN-MODERATE RESISTANCE 3 UNITS SC (13:05)
--- NOTE | 2024-12-01 14:41 | CM ---
CM following for DC planning needs.
Met w/ patient and several daughters at bedside.
Pt. resides at [place] and is rather indep. at baseline.
We discussed VN at time of DC and dtrs. and pt. agree. Would prefer [facility] as she has used in the past and this is who the facility contracts with. Will initiate a referral.
Antic. DC to home/ A/L w/ VN once stable.
[2024-12-01] MEDS: LASIX 40 MG IV (16:17)
--- NOTE | 2024-12-01 16:58 | W.PN.CARDCBS ---
Today's Communication / Plan
-
Plan:
-Weight has gone up today to 84kg. PCWP 29 and CI 1.2 by RHC 11/29/24.
-Lasix IV held earlier this admission due to hypotension and DIANA. Cre increased to 1.4 on 11/30/24, further increasing to 1.7 on 12/01/24. Holding IV Lasix starting 2024 with plan to reassess renal function in the morning. May need to consider
initiation of inotropic support to allow for inotrope assisted diuresis. Holding lisinopril starting 11/30/24
-Overnight events noted, patient had a rapid response for hypotension on 11/29. During RHC on 11/29/24, patient's aortic pressure of 153/76 correlated with RUE NIBP of 115/71 c/w possible right subclavian stenosis. Upper extremity ultrasound showing
suspicion for significant stenosis in the proximal right subclavian/innominate artery.
-EF 10-15% by echo 11/24/24, EF previously 48% by echo 07/22/24. No new WMA.
-Attempted to add GDMT earlier this admission with Coreg 3.125 mg BID and lisinopril 2.5 mg daily, but patient developed hypotension and meds held. Patient has a h/o 'hypotension' and was on midodrine 10 mg BID as an outpatient.
-Coreg 3.125 mg BID resumed on 2024
-Lisinopril 2.5 mg daily placed on hold 11/30/24 due to kidney injury this admission. Slowly uptitrating hydralazine. Recommend checking blood pressures at right upper arm and excepting systolic blood pressures of 80 to 90 mmHg given that
translates to a central aortic pressure of 120 mmHg.
-midodrine stopped 12/01/24
-Outpatient dose of Farxiga 10 mg daily has been continued. Closely monitor renal function.
-Concern on admission about low flow low gradient , but mean gradient at cath was 12. Suspect acute HF/low cardiac output state due to newly reduced EF.
-Patient with h/o CABG in 1996.
-Patient with known permanent Afib. ECG from 11/29/24 reviewed by me shows Afib with HR 99. Patient was not taking rate controlling meds prior to admission. Currently on low-dose beta-wilmar.
-Outpatient dose of Eliquis 5 mg BID (age 84, wt 85.28 kg, Cre 1.4) held for cath, will restart 11/30/24 PM
Impression / Plan
-
.
PCP: Dr. Byrne
Cone Trucker: Dr. Hansen
Impression:
Presented with SOB/HANCOCK 11/24/24
Acute on chronic HFrEF
Worsening CM EF 10-15% by echo 11/24/24
Permanent Afib since 01/2023
Chronic Eliquis OAC
CAD
s/p remote anterior UT with VF arrest with LAD angioplasty 07/17/97
CAD subsequent CABG x3 with 1996
Mod-severe peak/mean 29/16 mmHg by echo 07/22/2024, mod peak/mean 27/14 mmHg by echo 11/24/24
Mild MR
SSS s/p Medtronic PPM
COPD
CKD 3a
History of orthostasis
Hyperlipidemia
Hypothyroidism
Asthma
Neuropathy
Hypertension
Breast cancer, status post left mastectomy
h/o carotid endarterectomy
h/o diabetes mellitus type 2
h/o colon mass s/p R hemicolectomy 10/02/21 until 10/15/21
Echo 05/28/2021: Ejection fraction 50%, mild aortic stenosis, mean pressure gradient 14 mmHg, aortic valve area 1.1 cm�
Echo 05/19/2023: EF 40-45%, mild cLVH, mid-apical inferoseptum/inferior segments are hypokinetic, mild MR, mild with peak/mean gradients 17/9 mmHg, LILY 1.4 cm2, trace AI, mild TR, estimated PAP 20-25 mmHg
Echo 11/27/2023: EF 40 to 45%, apical, inferior, and inferoseptal hypokinesis noted, mild MR, mild with peak/mean gradients 15/9 mmHg, mild TR, estimated PAP 21 to 26 mmHg
Echo 07/22/2024: EF 48% by volumetric assessment, 44% by Milton's method, decreased RV sys fxn, mild-mod MR, mod TR, PASP 34, mod-sev 29/16/LILY 0.84 cm
Echo 11/24/2024: EF 10 to 15% with severe global hypokinesis, mod conc LVH, at least mod MR with possible underestimation due to dense MAC, moderate peak/mean 27/14 mmHg and LILY 0.9 cm sq, mod to sev TR with PAP 50 mmHg, normal RV size and function
Plan:
-Weight has gone up today to 84kg. PCWP 29 and CI 1.2 by RHC 11/29/24.
-Lasix IV held earlier this admission due to hypotension and DIANA. Cre increased to 1.4 on 11/30/24, further increasing to 1.7 on 12/01/24. Holding IV Lasix starting 2024 with plan to reassess renal function in the morning. May need to consider
initiation of inotropic support to allow for inotrope assisted diuresis. Holding lisinopril starting 11/30/24
-Overnight events noted, patient had a rapid response for hypotension on 11/29. During RHC on 11/29/24, patient's aortic pressure of 153/76 correlated with RUE NIBP of 115/71 c/w possible right subclavian stenosis. Upper extremity ultrasound showing
suspicion for significant stenosis in the proximal right subclavian/innominate artery.
-EF 10-15% by echo 11/24/24, EF previously 48% by echo 07/22/24. No new WMA.
-Attempted to add GDMT earlier this admission with Coreg 3.125 mg BID and lisinopril 2.5 mg daily, but patient developed hypotension and meds held. Patient has a h/o 'hypotension' and was on midodrine 10 mg BID as an outpatient.
-Coreg 3.125 mg BID resumed on 2024
-Lisinopril 2.5 mg daily placed on hold 11/30/24 due to kidney injury this admission. Slowly uptitrating hydralazine. Recommend checking blood pressures at right upper arm and excepting systolic blood pressures of 80 to 90 mmHg given that
translates to a central aortic pressure of 120 mmHg.
-midodrine stopped 12/01/24
-Outpatient dose of Farxiga 10 mg daily has been continued. Closely monitor renal function.
-Concern on admission about low flow low gradient , but mean gradient at cath was 12. Suspect acute HF/low cardiac output state due to newly reduced EF.
-Patient with h/o CABG in 1996.
-Patient with known permanent Afib. ECG from 11/29/24 reviewed by me shows Afib with HR 99. Patient was not taking rate controlling meds prior to admission. Currently on low-dose beta-wilmar.
-Outpatient dose of Eliquis 5 mg BID (age 84, wt 85.28 kg, Cre 1.4) held for cath, will restart 11/30/24 PM
HPI: Patient is an 83 year old female with PMH of chronic HFmrEF, persistent atrial fibrillation, CAD s/p remote UT and CABG, , MR, SSS s/p PPM, COPD, HLD, HTN, hypothyroidism, asthma, DM with diabetic neuropathy, and prior breast cancer who
presented to [facility] for evaluation of increased SOB. Reportedly at pulse ox was 95% on room air. Reports this has been gradually worsening, and notices it more with exerting herself. Reports she needs to sit down and rest even with
ambulating short distances. Reports several pound weight gain and some abdominal bloating. Denies chest discomfort. Reports compliance with p.o. Lasix 60 mg daily at . proBNP 5660. Chest x-ray without noted acute cardiopulmonary
process.
Progress Note - Cone Trucker
Subjective
Date of Service: December 01, 2024
Patient feels well and does not offer any significant complaints.
Objective
Labs:
11/30/24 05:34
12/01/24 09:44
Labs
Hgb 13.2 g/dL (12.0-16.0) 11/30/24 05:34
Hct 38.8 % (37.0-47.0) 11/30/24 05:34
Plt Count 239 10^3/uL (130-400) 11/30/24 05:34
Sodium 134 mmol/L (135-145) L 12/01/24 09:44
Potassium 4.1 mmol/L (3.5-5.1) 12/01/24 09:44
BUN 56 mg/dl (7-17) H 12/01/24 09:44
Creatinine 1.7 mg/dL (0.6-1.0) H 12/01/24 09:44
Glucose 227 mg/dl (70-99) H 12/01/24 09:44
Vital Signs and I&O:
Vital Signs
Temp Pulse Resp BP Pulse Ox
97.5 F 90 16 132/80 97
12/01/24 16:47 12/01/24 16:13 12/01/24 16:13 12/01/24 16:13 12/01/24 16:13
Vital Signs
Temp Pulse Resp BP Pulse Ox
97.5 F 90 16 132/80 97
12/01/24 16:47 12/01/24 16:13 12/01/24 16:13 12/01/24 16:13 12/01/24 16:13
Intake & Output
11/29/24 11/30/24 12/01/24 12/02/24
06:59 06:59 06:59 06:59
Intake Total 1200 / 1200 240 / 240
Output Total 250 / 250 1200 / 1200
Balance 950 / 950 -1200 / -1200 240 / 240
Physical Exam
Physical Exam
GEN: NAD. AAOx3
HEENT: MMM
LUNGS: RA. No audible wheeze
CV: Afib on tele
ABD: ND
EXT: +1 B/L LE edema
NEURO: Gross non-focal
SKIN: No rash
--- NOTE | 2024-12-01 17:03 | W.PN.HOSP.TC ---
Today's Communication/Plan
-
Assessment / Plan
Assessment / Plan
Gen-AAOx3, NAD
HEENT-NC, AT, anicteric, clear oral mm
Neck-supple
CV-reg, no M, +S1/S2
Lungs-clear B/L
Abd-soft, NT, ND
Musculoskeletal-mild edema upper and lower extremities, no deformity
Skin-warm and dry
Neuro-grossly non-focal
Psych-calm, cooperative
#Acute on chronic HFrEF
#Pulmonary HTN
-Echocardiogram here showed reduction of LVEF from 45% to 10-15%, signs of new LVH
-[facility] 11/29 apparently revealed no intervenable targets
-Continue Lasix 40 IV twice daily trend I's/O's + weight + BMP
-Beta-blockade with carvedilol
-Afterload reduction with low-dose hydralazine, holding lisinopril due to DIANA
-Continue Farxiga
-Blood pressure goal noninvasively and right upper extremity should be 80 mmHg systolic considering discrepancy with central pressures due to right subclavian stenosis
-Continue on telemetry
Right subclavian stenosis:
-This has likely long been causing concern for hypotension especially considering unable to use left upper extremity for blood pressure due to breast cancer history with lymph node resection
-No indication for vascular intervention
-SBP goal of 80 mmHg in right upper extremity is acceptable and corresponds with an appropriate central blood pressure
#Moderate-Severe
-Last echocardiogram with moderate to severe , peak/mean 29/16 mmHg, LILY 0.84 cm�
-With newly reduced EF on last echo, question low-flow low gradient disease
-Presented here with decompensated heart failure
-Follow-up further cardiology recommendations
-GOC if TAVR indicated
# DIANA
-Mild
-Hold lisinopril for now
-Monitor with ongoing diuresis
#CAD s/p CABG
#Lateral TWI
-History of CABG x 3 in 1996; Home meds include high intensity statin, SGLT2i; no antiplatelet, on Eliquis for AF
-Low suspicion for acute coronary syndrome at this time
-Cardiology following
#Paroxysmal AF
-Restarting Eliquis tonight 11/30; beta-blockade with carvedilol
-No known history of electrophysiologic intervention such as ablation
#Chronic transaminitis
-Has chronic low-grade elevation to transaminases, both just above UNL
-Possibly with underlying NAFLD though labs have been stable
-Presented with AST and ALT slightly higher than baseline, likely component of congestion
-Trend LFTs, consider RUQ US if worsening
#HTN
-Possible hypertensive systemic disease with signs of LVH on ECG
-Not currently on first-line antihypertensive therapy
-Home meds do include diuresis with Lasix and SGLT2
-Continue low-dose hydralazine, holding lisinopril due to DIANA
#HLD
-Significant ASCVD history with carotid endarterectomy and CABG x 3
-Home medication includes atorvastatin 80 mg nightly and ezetimibe
#NIDDM
-No recent hemoglobin A1c on record; C/B diabetic neuropathy
-Home medications include dapagliflozin and glipizide
-Will transition to SGLT2i with ISS and Accu-Cheks
-Blood glucose goal 140-180
#Chronic pancreatitis
-Previous imaging did show cystic lesion of the pancreas
-Does not currently take any pancreatic lipase or replacement enzymes
-Monitor for symptoms such as abdomen pain and diarrhea
#COPD/mild intermittent asthma
-Likely associated with history of pulmonary hypertension; no O2 at baseline
-Home medications include Symbicort and albuterol MDI as needed
-Low suspicion for COPD exacerbation, no bronchospasm
#PAD s/p carotid endarterectomy
-Home medications include ezetimibe and high intensity statin; not on antiplatelet agent but is on DOAC
-Low suspicion for active disease of the carotids
-Should have follow-up with vascular surgery
#Hypothyroidism
-Unclear etiology, home medications include levothyroxine 112 mcg daily
-No signs of thyroid dysfunction at this time
#Gout
-Home medications include allopurinol 200 mg daily
-No signs of active flare, though increased risk with IV diuresis
#Chronic pain
-Home meds include oxycodone 5 mg every 6 hours as needed
-Will continue in the hospital and monitor pain symptoms
#S/p PPM
-Unclear indication, with history of AF likely tachybradycardia
-No signs of pacemaker dysfunction at this time
#H/O stage III colorectal cancer s/p right hemicolectomy
#H/O breast cancer
DVT prophylaxis: Home Eliquis
CODE STATUS: DNR
Anticipated Discharge: 24 - 48 hours
Subjective/Interval History
-
Date of Service: December 01, 2024
Ms. Gaxiola was seen and examined at bedside this morning. Her daughters were also at bedside. Patient had no current complaints. Continuing diuresis with IV Lasix.
Objective Data
-
Labs:
Laboratory Results
12/01/24
09:44
Sodium 134 L
Potassium 4.1
Chloride 91 L
Carbon Dioxide 29
BUN 56 H
Creatinine 1.7 H
Glucose 227 H
Calcium 9.5
Vital Signs:
Vital Signs
Temp Pulse Resp BP Pulse Ox
97.5 F 90 16 132/80 97
12/01/24 16:47 12/01/24 16:13 12/01/24 16:13 12/01/24 16:13 12/01/24 16:13
I&O
11/30/24 12/01/24 12/02/24
06:59 06:59 06:59
Intake Total 240 / 240
Output Total 1200 / 1200
Balance -1200 / -1200 240 / 240
Review of Systems
-
History Source: Patient
All other systems: Reviewed and negative
Physical Exam
-
General: No Apparent Distress
[2024-12-01 17:56] LABS: Glucose - Point of Care 144 mg/dl (70-99)
[2024-12-01] MEDS: LIPITOR 80 MG PO (17:56)
[2024-12-01] MEDS: ZETIA 10 MG PO (17:59)
[2024-12-01] MEDS: COREG PO (19:55)
--- NOTE | 2024-12-01 21:18 | PTCARENOTE ---
pt received at change of shift, pt seen and assessed in room. pt AOx3, forgetful at times. tele reading Afib 60s-90s. no complaints of pain at this time. pt ambulating to bathroom with x1 assist w RW. no complaints of SOB or dizziness during
ambulation. this RN discussed POC, pt verbalizes understanding. call tripathi within reach. continuing to monitor at this time.
[2024-12-01 21:57] LABS: Glucose - Point of Care 185 mg/dl (70-99)
[2024-12-01] MEDS: APRESOLINE PO (22:11)
--- NOTE | 2024-12-01 22:20 | PTCARENOTE ---
Pt BP taken on R arm as requested per Dr. Aleman's 12/01 note. BP consistently high 70s/50s-60s. One dose of lasix given during dayshift per report from previous RN. Nightshift BP meds held due to parameters. Pt. asymptomatic. Continuing to monitor at
this time.
[2024-12-02] VITALS (14 sets, daily range): BP systolic 68–96; BP diastolic 49–69; PULSE 79; BMI 32.3
[2024-12-02] MEDS: SYNTHROID 112 MCG PO (04:35)
[2024-12-02] MEDS: TYLENOL 500 MG PO ×3 (04:35→19:17)
[2024-12-02 05:17] LABS: Blood Urea Nitrogen 60 mg/dl (7-17); Calcium 9.6 mg/dl (8.4-10.2); Carbon Dioxide 27 mmol/L (22-30); Chloride 96 mmol/L (98-107); Estimated Creatinine Clearance 26 ml/min; Glucose 145 mg/dl (70-99); Phosphorus 4.9 mg/dl (2.5-4.5); Potassium 3.9 mmol/L (3.5-5.1); Sodium 133 mmol/L (135-145); eGFR 31.21
[2024-12-02] MEDS: SYMBICORT 160/4.5 MCG INHALER 2 PUFF INH ×2 (07:45→20:20)
[2024-12-02 08:04] LABS: Glucose - Point of Care 146 mg/dl (70-99)
[2024-12-02] MEDS: NOVOLOG FLEXPEN-MODERATE RESISTANCE SC (08:11)
[2024-12-02] MEDS: MUCINEX 1200 MG PO ×2 (08:44→19:17)
[2024-12-02] MEDS: KCL 10 MEQ PO (08:45)
[2024-12-02] MEDS: ZYLOPRIM 200 MG PO (08:45)
[2024-12-02] MEDS: GLUCOTROL XL (EXTENDED RELEASE) 2.5 MG PO (08:45)
[2024-12-02] MEDS: B COMPLEX w/VITAMIN C 1 CAPLET PO (08:45)
[2024-12-02] MEDS: NEURONTIN 300 MG PO (08:45)
[2024-12-02] MEDS: ZYRTEC 10 MG PO (08:45)
[2024-12-02] MEDS: FARXIGA 10 MG PO (08:45)
[2024-12-02] MEDS: APRESOLINE PO (08:46)
[2024-12-02] MEDS: ELIQUIS 5 MG PO (08:46)
[2024-12-02] MEDS: DESENEX/MITRAZOL/ZEASORB 1 APPLIC TOPICAL ×2 (08:46→19:19)
[2024-12-02] MEDS: COREG PO (08:46)
[2024-12-02] MEDS: IMDUR (EXTENDED RELEASE) 30 MG PO (09:45)
[2024-12-02] MEDS: COREG 3.125 MG PO ×2 (09:45→19:18)
[2024-12-02] MEDS: APRESOLINE 50 MG PO ×3 (09:45→22:04)
--- NOTE | 2024-12-02 11:35 | W.PN.CARDCBS ---
Addendum entered and electronically signed by Suzy Calle MD 12/02/24 12:10:
I saw and examined the patient.
The Beaming Inspector's note was reviewed and I agree with the note.
Comment: Exam is stable. Blood pressure is underestimating true blood pressure by at least 30-40 points. Trivial lower extremity edema. Distant heart sounds which are irregular. Coarse breath sounds.
She has ambulated in the hallway and feels better than when she came in and denies dyspnea on exertion. She is not dizzy or lightheaded. Continue to work with physical therapy.
Initially presented with shortness of breath and dyspnea on exertion and left ventricular ejection fraction had declined from mildly reduced to severely reduced in the setting of increased SVR and underestimated blood pressure given right subclavian
stenosis (cannot use left arm).
At this time plan is for afterload reduction.
-Continue hydralazine
-Add isosorbide
-Continue Farxiga
-Eventually consider NGOZI inhibitor/ARB/Arni
-Eventually consider Aldactone
-Follow creatinine in the setting of renal insufficiency
-Continue anticoagulation and rate control of permanent atrial fibrillation.
-As an outpatient we will reassess echocardiogram
Educate providers regarding blood pressure which is running about 40 points lower manually then truly noted by cath
Original Note:
Today's Communication / Plan
-
Now on nitrates and hydralazine
Decreasing Eliquis dose to 2.5 mg twice daily
Impression / Plan
-
PCP: Dr. Byrne
Conduit Reamer Operator: Dr. Hansen
Impression:
Presented with SOB/[place] 11/24/24
Acute on chronic HFrEF
Worsening CM EF 10-15% by echo 11/24/24
Permanent Afib since 01/2023
Chronic Eliquis OAC
CAD
s/p remote anterior MO with VF arrest with LAD angioplasty 07/17/97
CAD subsequent CABG x3 with 1996
Mod-severe peak/mean 29/16 mmHg by echo 07/22/2024, mod peak/mean 27/14 mmHg by echo 11/24/24
Mild MR
SSS s/p [employer] PPM
COPD
CKD 3a
History of orthostasis
Hyperlipidemia
Hypothyroidism
Asthma
Neuropathy
Hypertension
Breast cancer, status post left mastectomy
h/o carotid endarterectomy
h/o diabetes mellitus type 2
h/o colon mass s/p R hemicolectomy 10/02/21 until 10/15/21
Right subclavian stenosis
add at least 40 mmHg to any BP reading using the RUE
Echo 05/28/2021: Ejection fraction 50%, mild aortic stenosis, mean pressure gradient 14 mmHg, aortic valve area 1.1 cm�
Echo 05/19/2023: EF 40-45%, mild cLVH, mid-apical inferoseptum/inferior segments are hypokinetic, mild MR, mild with peak/mean gradients 17/9 mmHg, LILY 1.4 cm2, trace AI, mild TR, estimated PAP 20-25 mmHg
Echo 11/27/2023: EF 40 to 45%, apical, inferior, and inferoseptal hypokinesis noted, mild MR, mild with peak/mean gradients 15/9 mmHg, mild TR, estimated PAP 21 to 26 mmHg
Echo 07/22/2024: EF 48% by volumetric assessment, 44% by Milton's method, decreased RV sys fxn, mild-mod MR, mod TR, PASP 34, mod-sev 29/16/LILY 0.84 cm
Echo 11/24/2024: EF 10 to 15% with severe global hypokinesis, mod conc LVH, at least mod MR with possible underestimation due to dense MAC, moderate peak/mean 27/14 mmHg and LILY 0.9 cm sq, mod to sev TR with PAP 50 mmHg, normal RV size and function
Plan:
-Weight by bed scale is down 3 lbs overnight. Dry weight at last CHF d/c on 12/03/23 was 171 lbs and currently weighs 182 lbs on 12/02/24.
-Lasix 40 mg IV BID last dose was 12/01/24 PM. Will restart outpatient dose of Lasix 60 mg PO daily on 12/02/24
-PCWP 29 and CI 1.2 by [facility] 11/29/24.
-During [facility] 11/29/24 patient's aortic pressure of 153/76 correlated with RUE NIBP of 115/71 c/w possible right subclavian stenosis. B/L UE U/S1 2024 showed proximal stenosis or occlusion in the right subclavian. The left subclavian artery was
patent. Would add at least 40 mmHg to any BP reading using the RUE.
-SVR [id number] by [facility] 11/29/2024. Patient was not taking any anti-HTN meds prior to admission and had a history of orthostasis and was chronically on midodrine. Following outcome of cath and arterial ultrasound as noted the patient is now being treated
for more aggressively HTN.
-EF 10-15% by echo 11/24/24, EF previously 48% by echo 07/22/24. No new WMA. Will manage as CM due to untreated HTN
-Coreg 3.125 mg BID started this admission
-Lisinopril 2.5 mg daily started and stopped this admission due to DIANA. Will attempt to restart lisinopril as an outpatient.
-New to hydralazine 50 mg TID this admission
-New to Imdur ER 30 mg daily this admission
-Outpatient dose of Farxiga 10 mg daily has been continued. Closely monitor renal function.
-Concern on admission about low flow low gradient , but mean gradient at cath was 12. Suspect acute HF/low cardiac output state due to newly reduced EF.
-Patient with h/o CABG in 1996.
-Patient with known permanent Afib. ECG from 11/29/24 reviewed by me shows Afib with HR 99. Patient was not taking rate controlling meds prior to admission. Currently on low-dose beta-wilmar.
-Outpatient dose of Eliquis 5 mg BID was held for cath. Cre now greater than 1.5 so we will decrease to Eliquis 2.5 mg BID (age 84, wt 82.7 kg, Cre 1.6)
-Possible discharge 12/03/24 back to where she lives in assisted living and she would have VN as well
HPI: Patient is an 83 year old female with PMH of chronic HFmrEF, persistent atrial fibrillation, CAD s/p remote MO and CABG, , MR, SSS s/p PPM, COPD, HLD, HTN, hypothyroidism, asthma, DM with diabetic neuropathy, and prior breast cancer who
presented to [facility] for evaluation of increased SOB. Reportedly at pulse ox was 95% on room air. Reports this has been gradually worsening, and notices it more with exerting herself. Reports she needs to sit down and rest even with
ambulating short distances. Reports several pound weight gain and some abdominal bloating. Denies chest discomfort. Reports compliance with p.o. Lasix 60 mg daily at . proBNP 5660. Chest x-ray without noted acute cardiopulmonary
process.
Progress Note - Conduit Reamer Operator
Subjective
Date of Service: December 02, 2024
Feels less SOB, more energy to walk
Objective
Labs:
11/30/24 05:34
12/02/24 04:33
Labs
Hgb 13.2 g/dL (12.0-16.0) 11/30/24 05:34
Hct 38.8 % (37.0-47.0) 11/30/24 05:34
Plt Count 239 10^3/uL (130-400) 11/30/24 05:34
Sodium 133 mmol/L (135-145) L 12/02/24 04:33
Potassium 3.9 mmol/L (3.5-5.1) 12/02/24 04:33
BUN 60 mg/dl (7-17) H 12/02/24 04:33
Creatinine 1.6 mg/dL (0.6-1.0) H 12/02/24 04:33
Glucose 145 mg/dl (70-99) H 12/02/24 04:33
Vital Signs and I&O:
Vital Signs
Temp Pulse Resp BP Pulse Ox
97.8 F 91 16 7959 96
12/02/24 07:59 12/02/24 11:00 12/02/24 07:59 12/02/24 08:45 12/02/24 07:59
Vital Signs
Temp Pulse Resp BP Pulse Ox
97.8 F 91 16 59 96
12/02/24 07:59 12/02/24 11:00 12/02/24 07:59 12/02/24 08:45 12/02/24 07:59
Intake & Output
11/30/24 12/01/24 12/02/24 12/03/24
06:59 06:59 06:59 06:59
Intake Total 820 / 820 400 / 400
Output Total 1200 / 1200
Balance -1200 / -1200 820 / 820 400 / 400
Physical Exam
Physical Exam
GEN: NAD. AAOx3
HEENT: MMM
LUNGS: RA. No audible wheeze
CV: Afib on tele
ABD: ND
EXT: +1 B/L LE edema
NEURO: Gross non-focal
SKIN: No rash
[2024-12-02 12:04] LABS: Glucose - Point of Care 191 mg/dl (70-99)
[2024-12-02] MEDS: NOVOLOG FLEXPEN-MODERATE RESISTANCE 1 UNITS SC ×2 (12:41→16:53)
[2024-12-02] MEDS: ROXICODONE 5 MG PO ×2 (13:26→19:18)
--- NOTE | 2024-12-02 13:57 | CM ---
CM following for DC planning needs.
DC plan is for return [place]/ home health care.
Referral sent to [facility]; they have accepted for home-care.
[phone]
Will cont. to follow.
--- NOTE | 2024-12-02 14:27 | W.PN.HOSP.TC ---
Today's Communication/Plan
-
Assessment / Plan
Assessment / Plan
Gen-AAOx3, NAD
HEENT-NC, AT, anicteric, clear oral mm
Neck-supple
CV-reg, no M, +S1/S2
Lungs-clear B/L
Abd-soft, NT, ND
Musculoskeletal-mild edema upper and lower extremities, no deformity
Skin-warm and dry
Neuro-grossly non-focal
Psych-calm, cooperative
#Acute on chronic HFrEF
#Pulmonary HTN
-Echocardiogram here showed reduction of LVEF from 45% to 10-15%, signs of new LVH
-[facility] 11/29 apparently revealed no intervenable targets
-transition to oral Lasix tomorrow morning 12/03
-Beta-blockade with carvedilol
-Afterload reduction with low-dose hydralazine, holding lisinopril due to DIANA
-Continue Farxiga
-Blood pressure goal noninvasively and right upper extremity should be 80 mmHg systolic considering discrepancy with central pressures due to right subclavian stenosis
-Continue on telemetry
Right subclavian stenosis:
-This has likely long been causing concern for hypotension especially considering unable to use left upper extremity for blood pressure due to breast cancer history with lymph node resection
-No indication for vascular intervention
-Blood pressure reading and right arm is approximately 40 mmHg lower than actual central pressure noted on cardiac cath
-SBP goal of 80 mmHg in right upper extremity is acceptable and corresponds with an appropriate central blood pressure
#Moderate-Severe
-Last echocardiogram with moderate to severe , peak/mean 29/16 mmHg, LILY 0.84 cm�
-With newly reduced EF on last echo, question low-flow low gradient disease
-Presented here with decompensated heart failure
-Follow-up further cardiology recommendations
-GOC if TAVR indicated
#DIANA
-Hold lisinopril for now
-Monitor with ongoing diuresis
#CAD s/p CABG
#Lateral TWI
-History of CABG x 3 in 1996; Home meds include high intensity statin, SGLT2i; no antiplatelet, on Eliquis for AF
-Low suspicion for acute coronary syndrome at this time
-Cardiology following
#Paroxysmal AF
-Restarted Eliquis 11/30; beta-blockade with carvedilol
-No known history of electrophysiologic intervention such as ablation
#Chronic transaminitis
-Has chronic low-grade elevation to transaminases, both just above UNL
-Possibly with underlying NAFLD though labs have been stable
-Presented with AST and ALT slightly higher than baseline, likely component of congestion
-Trend LFTs, consider RUQ US if worsening
#HTN
-Possible hypertensive systemic disease with signs of LVH on ECG
-Not currently on first-line antihypertensive therapy
-Home meds do include diuresis with Lasix and SGLT2
-Continue low-dose hydralazine, holding lisinopril due to DIANA
#HLD
-Significant ASCVD history with carotid endarterectomy and CABG x 3
-Home medication includes atorvastatin 80 mg nightly and ezetimibe
#NIDDM
-No recent hemoglobin A1c on record; C/B diabetic neuropathy
-Home medications include dapagliflozin and glipizide
-Will transition to SGLT2i with ISS and Accu-Cheks
-Blood glucose goal 140-180
#Chronic pancreatitis
-Previous imaging did show cystic lesion of the pancreas
-Does not currently take any pancreatic lipase or replacement enzymes
-Monitor for symptoms such as abdomen pain and diarrhea
#COPD/mild intermittent asthma
-Likely associated with history of pulmonary hypertension; no O2 at baseline
-Home medications include Symbicort and albuterol MDI as needed
-Low suspicion for COPD exacerbation, no bronchospasm
#PAD s/p carotid endarterectomy
-Home medications include ezetimibe and high intensity statin; not on antiplatelet agent but is on DOAC
-Low suspicion for active disease of the carotids
-Should have follow-up with vascular surgery
#Hypothyroidism
-Unclear etiology, home medications include levothyroxine 112 mcg daily
-No signs of thyroid dysfunction at this time
#Gout
-Home medications include allopurinol 200 mg daily
-No signs of active flare, though increased risk with IV diuresis
#Chronic pain
-Home meds include oxycodone 5 mg every 6 hours as needed
-Will continue in the hospital and monitor pain symptoms
#S/p PPM
-Unclear indication, with history of AF likely tachybradycardia
-No signs of pacemaker dysfunction at this time
#H/O stage III colorectal cancer s/p right hemicolectomy
#H/O breast cancer
DVT prophylaxis: Home Eliquis
CODE STATUS: DNR
Anticipated Discharge: Within 24 hours
Subjective/Interval History
-
Date of Service: December 02, 2024
Patient was seen and examined at bedside this morning. Feeling well. Planning to transition to oral Lasix tomorrow morning. Reduced dose of Eliquis to 2.5 mg twice daily considering age and renal function.
Objective Data
-
Labs:
Laboratory Results
12/02/24 12/02/24
03:36 04:33
Sodium Cancelled 133 L
Potassium Cancelled 3.9
Chloride Cancelled 96 L
Carbon Dioxide Cancelled 27
BUN Cancelled 60 H
Creatinine Cancelled 1.6 H
Glucose Cancelled 145 H
Calcium Cancelled 9.6
Vital Signs:
Vital Signs
Temp Pulse Resp BP Pulse Ox
99 F 89 20 70/60 96
12/02/24 11:57 12/02/24 13:30 12/02/24 11:57 12/02/24 12:01 12/02/24 11:58
I&O
12/01/24 12/02/24 12/03/24
06:59 06:59 06:59
Intake Total 820 / 820 400 / 400
Balance 820 / 820 400 / 400
Review of Systems
-
History Source: Patient
All other systems: Reviewed and negative
Physical Exam
-
General: No Apparent Distress
[2024-12-02] MEDS: NEURONTIN 100 MG PO (14:32)
[2024-12-02 14:47] LABS: NT-proBNP 2100 pg/ml
--- NOTE | 2024-12-02 15:15 | PTCARENOTE ---
Pt c/o 'neuropathy pains' in feet. Pt says pain is 10/10. Oxycodone administered and pt noted minimal relief. Douglas BENAVIDES made aware and orders placed. One time dose of 100mg PO gabapentin administered and pt reports relief.
[2024-12-02 16:53] LABS: Glucose - Point of Care 171 mg/dl (70-99)
[2024-12-02] MEDS: LIPITOR 80 MG PO (17:19)
[2024-12-02] MEDS: ZETIA 10 MG PO (17:19)
[2024-12-02] MEDS: ELIQUIS 2.5 MG PO (19:17)
[2024-12-02] MEDS: NEURONTIN 400 MG PO (19:18)
--- NOTE | 2024-12-02 21:15 | PTCARENOTE ---
assumed care at change of shift, pt seen and assessed in room. pt OOB to chair, complaining of neuropathy pain in lower extremities. pain meds given per protocol. pt AOx3, tele reading afib with occ paced beats. this rn discussed poc, pt verbalizes
understanding. pt ambulating with walker to bathroom with no difficulty. call tripathi within reach. continuing to monitor at this time.
[2024-12-02 21:54] LABS: Glucose - Point of Care 147 mg/dl (70-99)
[2024-12-03] VITALS (8 sets, daily range): BP systolic 76–118; BP diastolic 59–85; BMI 32.2
[2024-12-03] MEDS: ROXICODONE 5 MG PO ×3 (00:09→15:15)
[2024-12-03] MEDS: TYLENOL 500 MG PO ×2 (03:20→11:28)
[2024-12-03] MEDS: SYNTHROID 112 MCG PO (03:20)
[2024-12-03] MEDS: SYMBICORT 160/4.5 MCG INHALER 2 PUFF INH (07:46)
[2024-12-03 08:16] LABS: Glucose - Point of Care 139 mg/dl (70-99)
[2024-12-03] MEDS: NOVOLOG FLEXPEN-MODERATE RESISTANCE SC (08:16)
[2024-12-03] MEDS: IMDUR (EXTENDED RELEASE) 30 MG PO (08:17)
[2024-12-03] MEDS: ELIQUIS 2.5 MG PO (08:17)
[2024-12-03] MEDS: COREG 3.125 MG PO (08:17)
[2024-12-03] MEDS: NEURONTIN 400 MG PO (08:17)
[2024-12-03] MEDS: FARXIGA 10 MG PO (08:17)
[2024-12-03] MEDS: B COMPLEX w/VITAMIN C 1 CAPLET PO (08:17)
[2024-12-03] MEDS: LASIX 60 MG PO (08:17)
[2024-12-03] MEDS: ZYLOPRIM 200 MG PO (08:17)
[2024-12-03] MEDS: GLUCOTROL XL (EXTENDED RELEASE) 2.5 MG PO (08:17)
[2024-12-03] MEDS: MUCINEX 1200 MG PO (08:17)
[2024-12-03] MEDS: KCL 10 MEQ PO (08:18)
[2024-12-03] MEDS: ZYRTEC 10 MG PO (08:18)
[2024-12-03] MEDS: APRESOLINE 50 MG PO ×2 (08:18→15:15)
[2024-12-03] MEDS: DESENEX/MITRAZOL/ZEASORB 1 APPLIC TOPICAL (08:21)
--- NOTE | 2024-12-03 08:29 | W.PN.CARDCBS ---
Today's Communication / Plan
-
Okay for discharge pending follow-up BMP
See recommendations below
Impression / Plan
-
PCP: Dr. Byrne
Glassware Maker: Dr. Hansen
Impression:
Presented with SOB/HANCOCK 11/24/24
Acute on chronic HFrEF
Worsening CM EF 10-15% by echo 11/24/24
Permanent Afib since 01/2023
Chronic Eliquis OAC
CAD
s/p remote anterior PA with VF arrest with LAD angioplasty 07/17/97
CAD subsequent CABG x3 with 1996
Mod-severe peak/mean 29/16 mmHg by echo 07/22/2024, mod peak/mean 27/14 mmHg by echo 11/24/24
Mild MR
SSS s/p [employer] PPM
COPD
CKD 3a
History of orthostasis
Hyperlipidemia
Hypothyroidism
Asthma
Neuropathy
Hypertension
Breast cancer, status post left mastectomy
h/o carotid endarterectomy
h/o diabetes mellitus type 2
h/o colon mass s/p R hemicolectomy 10/02/21 until 10/15/21
Right subclavian stenosis
add at least 40 mmHg to any BP reading using the RUE
Echo 05/28/2021: Ejection fraction 50%, mild aortic stenosis, mean pressure gradient 14 mmHg, aortic valve area 1.1 cm�
Echo 05/19/2023: EF 40-45%, mild cLVH, mid-apical inferoseptum/inferior segments are hypokinetic, mild MR, mild with peak/mean gradients 17/9 mmHg, LILY 1.4 cm2, trace AI, mild TR, estimated PAP 20-25 mmHg
Echo 11/27/2023: EF 40 to 45%, apical, inferior, and inferoseptal hypokinesis noted, mild MR, mild with peak/mean gradients 15/9 mmHg, mild TR, estimated PAP 21 to 26 mmHg
Echo 07/22/2024: EF 48% by volumetric assessment, 44% by Milton's method, decreased RV sys fxn, mild-mod MR, mod TR, PASP 34, mod-sev 29/16/LILY 0.84 cm
Echo 11/24/2024: EF 10 to 15% with severe global hypokinesis, mod conc LVH, at least mod MR with possible underestimation due to dense MAC, moderate peak/mean 27/14 mmHg and LILY 0.9 cm sq, mod to sev TR with PAP 50 mmHg, normal RV size and function
Plan:
From the standpoint of acute HFrEF, she is improved and close to dry weight. Peak creatinine was 1.7, was normal on admission. Furosemide had been 40 mg IV twice daily.
Hydralazine and nitrates are new, given that she was on 60 mg of furosemide by mouth on admission I would like to bump up her furosemide slightly to 80 mg a day.
Carvedilol is new.
She is on an SGLT2 antagonist.
Lisinopril is now stopped related to DIANA that occurred in hospital. We could consider restarting based on follow-up renal function. Entresto could also be considered.
May be best to avoid spironolactone, can consider if renal function normalizes.
Risk of checking blood pressure and left arm is probably extremely low. Nursing checked and had simultaneous blood pressure of 85 systolic on the right and 118 on the left this morning. Would target systolic blood pressure of 85-95 if right arm is
to be used.
Okay for discharge from cardiac standpoint provided renal function today is stable. BMP is pending.
Recommended cardiac medications at discharge:
Atorvastatin 80 mg daily
Dapagliflozin 10 mg a day
Ezetimibe 10 mg a day
Potassium 10 mEq a day provided today's BMP is satisfactory
Carvedilol 3.125 mg daily (new)
Hydralazine 50 mg 3 times daily (new)
Isosorbide mononitrate extended release 30 mg daily (new)
Apixaban 2.5 mg daily, may need to readjust based on renal function
Furosemide 80 mg a day
Stop lisinopril
Target blood pressure and right arm should be 85-95 systolic
Please check BMP in 1 week
We will arrange for cardiac follow-up
HPI: Patient is an 83 year old female with PMH of chronic HFmrEF, persistent atrial fibrillation, CAD s/p remote PA and CABG, , MR, SSS s/p PPM, COPD, HLD, HTN, hypothyroidism, asthma, DM with diabetic neuropathy, and prior breast cancer who
presented to [facility] for evaluation of increased SOB. Reportedly at pulse ox was 95% on room air. Reports this has been gradually worsening, and notices it more with exerting herself. Reports she needs to sit down and rest even with
ambulating short distances. Reports several pound weight gain and some abdominal bloating. Denies chest discomfort. Reports compliance with p.o. Lasix 60 mg daily at . proBNP 5660. Chest x-ray without noted acute cardiopulmonary
process.
Progress Note - Glassware Maker
Subjective
Date of Service: December 03, 2024:
PMH/PSH/SH/FH: ReviewedCurrent medications: Insulin, allopurinol 200 mg a day, atorvastatin 80 mg a day, Symbicort, Zyrtec, Farxiga, ezetimibe 10 mg daily, levothyroxine 112 mcg daily, potassium 10 mill equivalents daily, vitamin B, lisinopril 2.5
mg daily, carvedilol 3.125 twice daily, glipizide 2.5 mg daily, hydralazine 50 3 times daily, isosorbide mononitrate 30 daily, apixaban 2.5 daily, furosemide 60 twice daily, gabapentin, hydralazine and isosorbide are new, furosemide is same as
admission dose
Allergies/outpatient meds: As per summary screen
ROS: Negative except as above 85/67, pulse 90, respiratory 20, temp 36.4, O2 sats 93%, weight is 82.5 kg, which is stable, weight of admission if accurate was 88 kg
No distress, Head neck exam unremarkable, lungs are relatively clear, irregular, aortic stenosis murmur, rate reasonably controlled, JVD okay, trace edema, abdomen benign
Hemoglobin was 13.2 on the , BUN and creatinine yesterday was 60 and 1.6, had been 1.0 on admission
BMP is pending, proBNP was 2100 on the , was 5660 on admission
Telemetry: Rate is controlled, no substantial arrhythmia
Objective
Labs:
11/30/24 05:34
12/02/24 04:33
Labs
Hgb 13.2 g/dL (12.0-16.0) 11/30/24 05:34
Hct 38.8 % (37.0-47.0) 11/30/24 05:34
Plt Count 239 10^3/uL (130-400) 11/30/24 05:34
Sodium 133 mmol/L (135-145) L 12/02/24 04:33
Potassium 3.9 mmol/L (3.5-5.1) 12/02/24 04:33
BUN 60 mg/dl (7-17) H 12/02/24 04:33
Creatinine 1.6 mg/dL (0.6-1.0) H 12/02/24 04:33
Glucose 145 mg/dl (70-99) H 12/02/24 04:33
Vital Signs and I&O:
Vital Signs
Temp Pulse Resp BP Pulse Ox
36.4 C 90 20 85/67 93
12/03/24 07:51 12/03/24 07:51 12/03/24 07:51 12/03/24 03:21 12/03/24 07:51
Vital Signs
Temp Pulse Resp BP Pulse Ox
36.4 C 90 20 85/67 93
12/03/24 07:51 12/03/24 07:51 12/03/24 07:51 12/03/24 03:21 12/03/24 07:51
Intake & Output
12/01/24 12/02/24 12/03/24 12/04/24
07:59 07:59 07:59 07:59
Intake Total 820 / 820 800 / 800
Balance 820 / 820 800 / 800
Physical Exam
Physical Exam
See above
--- NOTE | 2024-12-03 09:27 | PTCARENOTE ---
Jung Gustafson MD ordered to take BP in both arms. Lola Gustafson OK to take w/ L arm restriction. L upper arm 118/85. R upper arm 85/60.
[2024-12-03 09:46] LABS: Blood Urea Nitrogen 50 mg/dl (7-17); Calcium 9.4 mg/dl (8.4-10.2); Carbon Dioxide 29 mmol/L (22-30); Chloride 95 mmol/L (98-107); Estimated Creatinine Clearance 32 ml/min; Glucose 229 mg/dl (70-99); Potassium 4.3 mmol/L (3.5-5.1); Sodium 136 mmol/L (135-145); eGFR 40.05
--- NOTE | 2024-12-03 11:34 | CM ---
CM following for DC planning needs.
Pt. may be ready for DC today per Cards note.
Call to [facility], spoke w/ RN to update.
Reviewed clinical info. w/ RN.
Plan is to return to [facility] once stable w/ Ewa SHABAZZ, referral made/ accepted.
New medication to be sent electronically LISA to [facility] pharmacy.
Met w/ patient at bedside. She is concerned about medications getting to pharmacy on time.
She is hopeful for DC soon.
Will cont. to follow.
[facility] RN report- [phone]
Fax- [phone]
[2024-12-03 12:31] LABS: Glucose - Point of Care 200 mg/dl (70-99)
[2024-12-03] MEDS: NOVOLOG FLEXPEN-MODERATE RESISTANCE 3 UNITS SC (12:31)
--- NOTE | 2024-12-03 13:47 | W.DCSUMMARY ---
Discharge Summary
Discharge Data
Date of Admission: 11/24/24
Date of Discharge: 12/03/24
-
Pending Results: No
Hospital Course
Ms. Brunson is an 84-year-old female with medical history of HFrEF (44%), CAD (CABG x 3), paroxysmal A-fib (on Eliquis), aortic stenosis, hypertension, type 2 diabetes mellitus with polyneuropathy, COPD, CKD stage IIIb, PAD (status post carotid
endarterectomy), hypothyroidism, colon cancer (status post right hemicolectomy), and breast cancer who presented with shortness of breath. Her symptoms progressively worsened over 2 days prior to arrival and was worse with exertion. She was
admitted for management of acute on chronic systolic heart failure. She diuresed appropriately on IV Lasix. Echocardiogram at time of admission showed severely reduced ejection fraction of 10 to 15%. She was brought for left heart catheterization
on 11/29 which revealed no acute obstructive disease. She was found to have an appropriate central arterial pressure which, however, did not correlate with blood pressure cuff reading in her right arm (cannot use left arm due to prior breast cancer
surgery). Subsequent vascular imaging revealed right subclavian artery stenosis. Blood pressure readings taken in the right arm reliably measure approximately 40 mmHg less than actual confirmed central arterial pressure. Thus, her home midodrine
which she had been taking for presumed hypotension was discontinued. She has been started on lisinopril, however developed a mild DIANA and so her lisinopril was held. Her renal function improved during this hospitalization. She will need to
follow-up with her PCP and baker operator automatic for ongoing monitoring of her renal function and can restart lisinopril or another agent as appropriate. She was started on hydralazine and isosorbide mononitrate for afterload reduction, and beta-blockade
with carvedilol. She had been taking furosemide 60 mg daily at home, which will be increased to 80 mg daily at time of discharge. She should continue all of her other home medications as prescribed. At the time of discharge she was
hemodynamically stable. She will need close follow-up after discharge.
Gen-AAOx3, NAD
HEENT-NC, AT, anicteric, clear oral mm
Neck-supple
CV-reg, no M, +S1/S2
Lungs-clear B/L
Abd-soft, NT, ND
Musculoskeletal-mild edema upper and lower extremities, no deformity
Skin-warm and dry
Neuro-grossly non-focal
Psych-calm, cooperative
Discharge Plan
-
Patient Disposition: Home (Routine Discharge)
Discharge Diagnosis/Procedures: Acute on chronic systolic heart failure, cardiac catheterization
Diet: 2 Gram Sodium and Restrict fluids to 64 oz
Activity: As tolerated
Driving Restrictions: No driving for 24 hours
Other Services: VN
Specialty Instructions: Weigh Daily- Call MD for wt gain/loss 3 lbs overnight/5 lbs in 1 week
Activity Restrictions/Additional Instructions:
-You have a right subclavian stenosis. If blood pressure is checked on your right arm then you must add at least 40 mmHg to the systolic reading (example 90/70 is actually 130/70).
Ms. Brunson is an 84-year-old female with medical history of HFrEF (44%), CAD (CABG x 3), paroxysmal A-fib (on Eliquis), aortic stenosis, hypertension, type 2 diabetes mellitus with polyneuropathy, COPD, CKD stage IIIb, PAD (status post carotid
endarterectomy), hypothyroidism, colon cancer (status post right hemicolectomy), and breast cancer who presented with shortness of breath. Her symptoms progressively worsened over 2 days prior to arrival and was worse with exertion. She was
admitted for management of acute on chronic systolic heart failure. She diuresed appropriately on IV Lasix. Echocardiogram at time of admission showed severely reduced ejection fraction of 10 to 15%. She was brought for left heart catheterization
on 11/29 which revealed no acute obstructive disease. She was found to have an appropriate central arterial pressure which, however, did not correlate with blood pressure cuff reading in her right arm (cannot use left arm due to prior breast cancer
surgery). Subsequent vascular imaging revealed right subclavian artery stenosis. Blood pressure readings taken in the right arm reliably measure approximately 40 mmHg less than actual confirmed central arterial pressure. Thus, her home midodrine
which she had been taking for presumed hypotension was discontinued. She has been started on lisinopril, however developed a mild DIANA and so her lisinopril was held. Her renal function improved during this hospitalization. She will need to
follow-up with her PCP and baker operator automatic for ongoing monitoring of her renal function and can restart lisinopril or another agent as appropriate. She was started on hydralazine and isosorbide mononitrate for afterload reduction, and beta-blockade
with carvedilol. She had been taking furosemide 60 mg daily at home, which will be increased to 80 mg daily at time of discharge. She should continue all of her other home medications as prescribed. At the time of discharge she was
hemodynamically stable. She will need close follow-up after discharge.
Instructions: *[facility] Heart Failure Instructions
Stand Alone Forms: DC Instructions- Cath/EP Lab
Referrals:
[facility] [Other]
[facility] [Outside] (Fax- [phone])
Gary Hansen MD [Active] - 12/13/24 10:40 am (You have an appointment to see Dr. Hansen's nurse practitioner, Elsa, at the [place] office on 12/13/2024 at 10:40 AM. You also have an appointment to see Dr. Hansen on 01/25/25 at 1:20 PM. )
Jerrell Byrne MD [Family Provider] -
Prescriptions:
New
carvedilol 3.125 mg Tablet
3.125 mg PO BID 30 Days Qty: 60 0RF
hydralazine 50 mg Tablet
50 mg PO TID 30 Days Qty: 90 0RF
isosorbide mononitrate 30 mg Tablet Extended Release 24 Hr
30 mg PO DAILY 30 Days Qty: 30 0RF
Continued
cetirizine 10 MG tablet
10 mg PO DAILY
albuterol sulfate 1 PUFF HFA aerosol inhaler
1 puff inhalation R Q4HPRN PRN (Reason: sob)
Eliquis 5 mg Tablet
5 mg PO BID
ezetimibe [Zetia] 10 mg Tablet
10 mg PO QPM
dapagliflozin propanediol 10 mg Tablet
10 mg PO DAILY Qty: 30 0RF
budesonide-formoterol [Symbicort] 160-4.5 mcg/actuation Hfa Aerosol Inhaler
2 puff inhalation R BID Qty: 10.2 0RF
atorvastatin 80 mg tablet
80 mg PO QPM Qty: 0 0RF
acetaminophen [Pain Relief ES (acetaminophen)] 500 mg tablet
500 mg PO Q8H Qty: 0 0RF
vitamin B complex Tablet Extended Release
1 tab PO DAILY Qty: 0 0RF
potassium chloride 10 mEq Tablet Extended Release
10 meq PO DAILY
levothyroxine [Synthroid] 112 mcg Tablet
112 mcg PO DAILY
oxycodone 5 mg Tablet
5 mg PO Q6HPRN PRN (Reason: severe pain)
glipizide 5 mg tablet extended release 24hr
2.5 mg PO DAILY
allopurinol 100 mg tablet
200 mg PO DAILY
gabapentin 600 mg Tablet
600 mg PO TID
Changed
furosemide [Lasix] 40 mg tablet
80 mg PO DAILY Qty: 60 0RF
Discontinued
midodrine 10 mg Tablet
BID
Rx Instructions:
PER PATIENT
Discharge Orders:
Discharge Patient (As Directed); Ordered 12/03/24
Ordered By: Cyrus Cole
Care Plan Goals
Care Plan Goals:
Problem: Readiness for enhanced knowledge related to diagnosis and treatment plan
Goal: Understand your diagnosis and treatment plan needs, including medications if applicable.
Instructions: Know your diagnosis, underlying causes and treatment plan options, including medications if applicable. Consult with your health care team to learn about your diagnosis and treatment plan, including medications if applicable.
Discharge Date and Time
Print Language: LEBANESE
--- NOTE | 2024-12-03 15:43 | PTCARENOTE ---
IV and tele removed. Discharge instructions faxed to and discharge folder sent w/ daughter Tameka to give to facility. Escorted via and staff assist. Discharged back to w/ VN service.
--- NOTE | 2024-12-06 11:46 | W.HF.CON ---
Heart Failure
- LV Function
Left ventricular function study result: LV Ejection fraction </= 35%
Ejection Fraction Percentage: 10-15
- ARNI
Patient already on ARNI: No
Heart Failure ARNI Contraindication: Acute Renal Failure
- ACEI/ARB
Patient already on ACEI/ARB: No
Heart Failure ACEI/ARB Contraindication: Acute Renal Failure
- Beta Everett
Patient already on Evidence Based Beta Everett: Yes
- Mineralocorticord Receptor Antagonist
Patient already on MRA: No
Heart Failure MRA Contraindication: Acute Renal Insufficiency
- SGLT-2 Inhibitor
Patient already on SGLT-2 Inhibitor: Yes
- Hydralazine & Isosorbide Dinitrate
Patient already on Hydralazine & Isosorbide Dinitrate: Yes
- Afib Anticoagulation
Patient already on Anticoagulation for Afib: Yes
- NYHA CHF Classification
NYHA CHF Classification Level: Class III - Symptoms w/ min exertion, interferes w/ nml daily activity
- ACC/AHA Stage
ACC/AHA Stage: Stage C: Symptomatic Heart Failure
== END 2024-12-03 15:44 | disposition home health service (06) | DRG 286 ==
LOC: IVU 16:50
PROVIDERS: Internal Medicine Cardiovascular Disease; Nuclear Medicine Nuclear Cardiology; Nurse Practitioner; Physician Assistant; ADMITTING PHYSICIAN Internal Medicine; ATTENDING PHYSICIAN Internal Medicine; CONSULT PHYSICIAN Internal Medicine Cardiovascular Disease; EMERGENCY PHYSICIAN Emergency Medicine; FAMILY PHYSICIAN Family Medicine
PROC: B2111ZZ Fluoroscopy of Multiple Coronary Arteries using Low Osmolar Contrast (ICD-10-PCS; 2024-11-29)
PROC: 4A023N8 Measurement of Cardiac Sampling and Pressure, Bilateral, Percutaneous Approach (ICD-10-PCS; 2024-11-29)
PROC: B2161ZZ Fluoroscopy of Right and Left Heart using Low Osmolar Contrast (ICD-10-PCS; 2024-11-29)
DX: I13.0 Hypertensive heart and chronic kidney disease with heart failure and stage 1 through stage 4 chronic kidney disease, or unspecified chronic kidney disease (principal); I50.43 Acute on chronic combined systolic (congestive) and diastolic (congestive) heart failure; I48.21 Permanent atrial fibrillation; K86.1 Other chronic pancreatitis; N17.9 Acute kidney failure, unspecified; Z87.891 Personal history of nicotine dependence; Z11.52 Encounter for screening for COVID-19; Z66 Do not resuscitate; Z79.01 Long term (current) use of anticoagulants; I27.20 Pulmonary hypertension, unspecified; N18.32 Chronic kidney disease, stage 3b; E11.42 Type 2 diabetes mellitus with diabetic polyneuropathy; Z79.84 Long term (current) use of oral hypoglycemic drugs; J44.89 Other specified chronic obstructive pulmonary disease; E03.9 Hypothyroidism, unspecified; M10.9 Gout, unspecified; N18.31 Chronic kidney disease, stage 3a; E66.01 Morbid (severe) obesity due to excess calories; Z68.32 Body mass index [BMI] 32.0-32.9, adult; E11.22 Type 2 diabetes mellitus with diabetic chronic kidney disease; E78.00 Pure hypercholesterolemia, unspecified; G89.29 Other chronic pain; I08.3 Combined rheumatic disorders of mitral, aortic and tricuspid valves; I25.10 Atherosclerotic heart disease of native coronary artery without angina pectoris; I42.9 Cardiomyopathy, unspecified; I49.3 Ventricular premature depolarization; I49.5 Sick sinus syndrome; J45.20 Mild intermittent asthma, uncomplicated; Z85.3 Personal history of malignant neoplasm of breast; Z95.0 Presence of cardiac pacemaker
CPT/HCPCS: 71046; 76937; 80048; 80053; 80061; 81003; 81015; 82728; 82805; 82962; 83036; 83540; 83550; 83735; 83880; 84100; 84484; 85025; 85027; 87070; 87502; 87811; 93005; 93288; 93306; 93461; 93567; 93931; 94640; 96374; 97116; 97162; 97167; 97530; 99152; 99153; 99285; C1760; C1769; C1894; Q9967

== ENCOUNTER 2024-12-05 18:54 | Inpatient (IN) | payer OTHER, SELFPAY ==
[2024-12-05] VITALS (7 sets, daily range): BP systolic 99–148; BP diastolic 60–86; BMI 33.6; BMI 32.2
[2024-12-05 15:59] LABS: % Basophils 0.8 % (0-2); % Eosinophils 2.6 % (0-6); % Immature Granulocytes 0.1 % (0-0.5); % Lymphocytes 19.5 % (20.5-51.1); % Monocytes 8.6 % (1.7-9.3); % Neutrophils 68.4 % (42.2-75.2); Absolute Basophils 0.1 10^3/uL (0-0.2); Absolute Eosinophils 0.2 10^3/uL (0-0.7); Absolute Lymphocytes 1.5 10^3/uL (1.2-3.4); Absolute Monocytes 0.7 10^3/uL (0.1-0.6); Absolute Neutrophils 5.2 10^3/uL (1.4-6.5); Hematocrit 37.9 % (37.0-47.0); Hemoglobin 12.6 g/dL (12.0-16.0); Mean Corp Hgb Conc. 33.2 g/dL (33.0-37.0); Mean Corpuscular Hgb 31.6 pg (27.0-31.0); Mean Platelet Volume 9.4 fL (7.4-10.4); Nucleated Red Blood Cells % 0 %; Platelet Count 312 10^3/uL (130-400); Red Blood Cell Count 3.99 10^6/uL (4.20-5.40); White Blood Cell Count 7.6 10^3/uL (4.8-10.8)
[2024-12-05 16:19] LABS: ALT (SGPT) 31 U/L (0-35); AST (SGOT) 43 U/L (14-36); Albumin 5.1 g/dl (3.5-5.0); Alkaline Phosphatase 149 U/L (38-126); Blood Urea Nitrogen 49 mg/dl (7-17); Carbon Dioxide 28 mmol/L (22-30); Chloride 96 mmol/L (98-107); Glucose 212 mg/dl (70-99); Potassium 4.5 mmol/L (3.5-5.1); Sodium 138 mmol/L (135-145); Total Bilirubin 0.8 mg/dl (0.2-1.3); Total Protein 8.5 g/dl (6.3-8.2); eGFR 40.05
[2024-12-05 16:43] LABS: NT-proBNP 5670 pg/ml; Troponin I 0.198 ng/ml
--- NOTE | 2024-12-05 17:23 | ED.GENMED ---
History of Present Illness
General
Chief Complaint: Breathing Problem
Source: patient and family
Time Seen by Provider: 12/05/24 17:05
History of Present Illness
History of Present Illness:
84-year-old female with a history of COPD A-fib, NH, CAD, CHF who presents with shortness of breath. She was discharged last night. She states she felt little short of breath when she left the but this morning woke up more significantly short of
breath. Patient states she lives independently. She is anticoagulated. She had a cardiac catheterization on November 29. Patient states 'they never figured out what was wrong'. Patient was noted to have an ejection fraction of 10 to 15%. No
fevers. No chest pain. Daughter states that she was told there is not a lot they can do but they did not change her medications around. The patient also complains of her chronic neuropathy in her feet.
Past History
Past History
ED Past Medical History: Arrthythmia (Atrial fib), Asthma, CAD, Cancer (Breast and colon CA), CHF, COPD, GERD, HTN, Hypercholesterolemia, NIDDM (Diet controlled), NH, Hypothyroidism and Other (Colitis, Anemia)
ED Past Surgical History: Appendectomy, Bowel resection (Colectomy for Colon CA), Cardiac (Pacemaker), Cholecystectomy, Orthopedic (Right and left total knee replacements), Tonsilectomy and Other (Left breast mastectomy)
Social History
Tobacco: Former smoker
Alcohol: None
Drug: None
Personal:
Living: alone
Employment: Retired
Family History
Family History: CAD and Other
Phy Exam
Physical Exam
Physical Exam:
CONSTITUTIONAL Patient alert and oriented to person, place and time. Well-appearing. Vital signs reviewed.
HEAD atraumatic, normocephalic.
EYES eyelids normal to inspection, Extraocular muscles intact, Conjunctiva normal, Sclera normal.
NECK normal range of motion, Trachea midline, no jugular venous distention.
RESPIRATORY CHEST No respiratory distress noted, Chest expansion equal, Bilateral breath sounds clear.
CARDIOVASCULAR irregularly irregular, systolic ejection murmur.
ABDOMEN abdomen nontender, Bowel sounds normal. No distention.
BACK normal inspection, no obvious deformities
UPPER EXTREMITY range of motion normal, Motor strength normal, no cyanosis, no edema.
LOWER EXTREMITY range of motion normal, Motor strength normal, no cyanosis, scant bilateral edema.
NEURO Speech normal, No focal motor deficits, Los coma scale 15, Memory normal, Cranial Nerves intact to screening exam.
SKIN skin warm, dry, and normal in color.
Scores
Heart Failure Risk
Heart Failure Risk Score: Yes
History of Stroke or TIA: No
History of intubation for respiratory distress: No
Heart rate on ED arrival >/= 110: No
SaO2 <90% on arrival on room air: Yes
HR >/=110 during 3min walk test (or too ill to perform test): Yes
ECG has acute ischemic changes: No
Urea >/=12mmol/L (BUN 33.6mg/dL): Yes
Serum CO2>/=35mmol/L: No
Troponin I or T elevated to NH Level (0.4mg/dL): No
NT-proBNP >/=5,000ng/L (5,000pg/ml): Yes
HF Risk Score: 5
Admission Status: VERY HIGH RISK 39.8% Consider admission to hospital
Course
Orders/Labs/Results
Orders:
Orders
12/05/24 15:25
Electrocardiogram (*1) Urgent
Reason for Study: Shortness of Breath
CR Chest - 2 Views Urgent
Comment:
Reason For Exam: SOB
12/05/24 15:26
EKG- Treatment ONCE
12/05/24 15:45
Complete Blood Count/With Diff Urgent
Comprehensive Metabolic Panel Urgent
NT-proBNP Urgent
Troponin I Urgent
12/05/24 17:23
Oxycodone [Roxicodone] 5 mg PO NOW STA
12/05/24 18:36
Furosemide [Lasix] 60 mg IV NOW STA
12/05/24 18:45
Admit/Transfer Patient As Directed
Co-Sign Provider:
Level of Care: Inpatient admission
Assign to:: Telemetry
Physician / Group: aptrick
Diagnosis: CHF
Reason for Telemetry: Arrhythmia
Date to Stop Telemetry: 12/08/24
Time to Stop Telemetry: 11:00
Reason for Hospitalization: CHF
Expected length of stay greater than two midnights?: Yes
ELOS- Estimated Length of Stay in days: 3
I certify the patient meets the requirements for IP care: Yes
PRN Pain Medication Management As Directed
May give lesser potent ordered pain med per pt: Yes
preference::
Protocol:: Medication orders for pain may be administered in a
manner that supports deferring to patient preference
when the pt is:
- Requesting an ordered lesser potent pain medication.
Least to most potent pain medications are defined
as: acetaminophen < NSAID < tramadol < opioids
(morphine, oxycodone, hydromorphone).
- Requesting a lesser dose of the same medication IF
ORDERED.
- Requesting a less intrusive route of administration
if both routes are prescribed by the provider (PO <
IV).
12/05/24 18:46
Code Status As Directed
Resuscitation Status: Do not resuscitate
Reached after discussion with pt or family/Healthcare POA: Yes
12/05/24 18:47
DNR Bracelet Application ONCE
12/05/24 20:09
Albuterol [ProAIR HFA INHALER] 1 puff INH R DAILYPRN PRN
Apixaban [Eliquis] 5 mg PO BID
Budesonide/Formoterol 160/4.5 [Symbicort 160/4.5 Mcg Inhaler] 2 puff INH R BID
Dextrose 50%-Water [Dextrose 50% Syringe] 12.5 grams IV A02UPSP PRN
Glucagon [GlucaGen] 1 mg IM PRN PRN
Oxycodone [Roxicodone] 5 mg PO Q6HPRN PRN
12/05/24 20:09
CARDIOLOGY CONSULT Routine
Consulting Provider: Les Calle
Was physician already notified: Yes
HF DIETARY CONSULT Routine
HF EDUCATOR CONSULT Routine
Comment:
Activity As Directed
Activity Level: As Tolerated
Bedside Glucose Monitoring As Directed
Frequency: AC&HS
Additional Instructions:: Change to q6h if pt on TPN, tube feeding or not eating
Intake/ Output As Directed
Frequency: Per unit guidelines
Patient Education As Directed
Type: CHF folder
Comment: give on admission. Document in Interdisciplinary Education record
Sleep Apnea Assessment by RN As Directed
Comment:
Physician Instructions:
Vital Signs As Directed
Frequency: Other
Additional Instructions:: Q12 or per unit guidelines if more frequent.
Weight As Directed
Frequency: Daily
Type of Scale: Standing Scale
Comment: Daily morning weight. If unable to stand, use balanced bed scale.
Weight As Directed
Frequency: Once
Type of Scale: Standing Scale
Comment: Upon Admission. If unable to stand, use balanced bed scale.
Pulse Ox/cont/shift [RESP] Routine
Quantity: 1
Special Instructions: Daily pulse oximetry at rest. If greater than 92% at rest also obtain pulse oximetry
while ambulating as tolerated.
12/05/24 22:00
Electrocardiogram (*1) Q6H
Reason for Study: Chest Pain
Comment: at admission and Q6H x 2 (3 total), to be done with each troponin
12/06/24 04:00
Electrocardiogram (*1) Q6H
Reason for Study: Chest Pain
Comment: at admission and Q6H x 2 (3 total), to be done with each troponin
12/06/24 Breakfast
2000 calorie (17 carb) Diabetic
At Your Request: Full Participation
Does patient need a safe tray?: No
Fluid Restriction: 1200 mL/day (40 oz)
Diabetic Diet: Cholesterol Lowering
Basic Metabolic Panel IN AM
Cardiovascular Evaluation IN AM
TSH Reflex To Free T4 IN AM
Levothyroxine [Synthroid] 112 mcg PO DAILY@0600
12/06/24 07:30
Insulin Aspart Corrective Low [Novolog Flexpen-Low Resistance] See Protocol SC AC
12/06/24 08:00
Allopurinol [Zyloprim] 200 mg PO DAILY
Cetirizine HCl [Zyrtec] 10 mg PO DAILY
Furosemide [Lasix] 60 mg IV DAILY
Potassium Chloride [KCl] 10 meq PO DAILY
12/06/24 18:00
Atorvastatin [Lipitor] 80 mg PO QPM
Ezetimibe [Zetia] 10 mg PO QPM
12/07/24 06:00
Basic Metabolic Panel IN AM
12/08/24 06:00
Basic Metabolic Panel IN AM
12/08/24 11:00
DC Protocol for Telemetry ONCE
Abnormal Lab Results
12/05/24
15:45
RBC 3.99 L 10^6/uL
(4.20-5.40)
MCH 31.6 H pg
(27.0-31.0)
RDW 16.0 H %
(11.5-14.5)
Absolute Monos (auto) 0.7 H 10^3/uL
(0.1-0.6)
Lymphocytes % 19.5 L %
(20.5-51.1)
Chloride 96 L mmol/L
(98-107)
BUN 49 H mg/dl
(7-17)
Creatinine 1.3 H mg/dL
(0.6-1.0)
Glucose 212 H mg/dl
(70-99)
AST 43 H U/L
(14-36)
Alkaline Phosphatase 149 H U/L
(38-126)
Troponin I 0.198 H* ng/ml
Total Protein 8.5 H g/dl
(6.3-8.2)
Albumin 5.1 H g/dl
(3.5-5.0)
12/05/24 15:45
12/05/24 15:45
Vital Signs
Initial and Last Documented VS:
Initial Vital Signs
Temp Pulse Resp BP Pulse Ox
97.9 F 89 20 99/62 96
12/05/24 15:22 12/05/24 15:22 12/05/24 15:22 12/05/24 15:22 12/05/24 15:22
Last Documented Vital Signs
Temp Pulse Resp BP Pulse Ox
98.2 F 92 18 105/72 97
12/05/24 23:54 12/05/24 23:54 12/05/24 23:54 12/05/24 23:54 12/05/24 23:54
MDM/Problems Addressed
MDM/Problems Addressed:
Severe ischemic cardiomyopathy, acute elevated troponin, acute dyspnea, chronic neuropathy, chronic A-fib
*Radiology
Radiology exam reviewed: radiology read reviewed
*Pulse Oximetry
Patient hypoxic: no
*EKG
Interpreted by ED Provider?: Yes
Interpretation: abnormal
Rate: normal
Rhythm: a-fib
Ischemia: non-specific ST changes
*Sample Display Preparer Interpretation
Rate: normal
Interpretation: abnormal
Rhythm: a-fib
*Critical Care Note
Total Time (30-74mins, 75-104mins- exclusive of procedures): Not Applicable
Data Reviewed
Review of Other/Old Records Reveals: Records, Operative Reports (November 29 cardiac catheterization report reviewed), Progress Notes (Cardiology progress notes reviewed) and Discharge Summary (Discharge summary reviewed from yesterday)
Source: patient and family
Prescriptions/Medications Considered But Not Given:
Consider Lasix but given her relatively low blood pressure and her current stability, hold off
Patient Management
Discussion with other providers: Hospitalist and Snow Plow Operator (Case discussed with Dr. Calle)
Escalation/DeEscalation of care consider admission/obs:
Patient presents again with shortness of breath. Troponin is bumped from her recent and BNP is up. Chest x-ray okay. Recent cardiac catheterization reviewed. Already on Eliquis. Admit.
ED Attending Note
-
Portions of this chart may have been created with voice recognition software.� Occasional wrong word or��sound alike� substitutions may have occurred due to the inherent limitations of voice recognition software.
Discharge Plan
Departure
Patient Disposition: Admit
Date of Disposition: 12/05/24
Time of Disposition: 17:48
Presentation/result/management discussed w/ accepting MD/DO: Hospitalist
Discharge Problem:
Acute dyspnea, Elevated troponin
Interventions
Interventions:
*Risk Screen - Suicide Last Done: 12/05/24 17:01
*General Assessment Last Done: 12/05/24 15:22
*Neglect/Abuse Screening Last Done: 12/05/24 17:01
ED- Fall Risk Assessment Last Done: 12/05/24 16:56
*ED COVID-19 Vaccine History Last Done: 12/05/24 17:01
*Nursing Disposition Last Done: 12/05/24 20:04
ED- Cardiac Assessment Last Done: 12/05/24 16:56
ED- Pulmonary Assessment Last Done: 12/05/24 16:56
Discharge Date and Time
Discharge Date/Time: 12/05/24 20:05
[2024-12-05] MEDS: ROXICODONE 5 MG PO (17:31)
--- NOTE | 2024-12-05 17:55 | HPS.HSE ---
Family Physician
-
Family Physician: Jerrell Byrne
Chief Complaint
-
Short of breath
History of Present Illness
84-year-old with past medical history for type 2 diabetes, hypertension, COPD, PVD, hyperlipidemia, IMI, sick sinus syndrome, CHF, atrial fibs, pancreatitis, hypothyroidism, stage IIIb kidney disease presented to us with short of breath For 1
week. Shortness of breath worse with exertion. Denies orthopnea patient denied any swelling in the lower extremities. Patient stated for past 3 days, she gained 3 pounds. Denies headache, dizzy or syncope. Patient denied fever, chills, runny
nose, congestion, cough. Patient denied abdominal pain, nausea, vomiting or diarrhea. Patient denied dysuria hematuria.
Chest x-ray with mild cardiomegaly. BNP 5670. Troponin 0.198. Admitting for further management
Medical History
Past Medical History
Past Medical History: Reports Other
Additional Past Medical History:
Type 2 diabetes
Hypertension
COPD
Peripheral vascular disease
Hyperlipidemia
Asthma
Breast cancer
Sick sinus syndrome
Secondary AV block
CHF
Paroxysmal A-fib
Pancreatic cyst
Chronic pancreatitis
MRI
Colon cancer
Aortic valve stenosis
Stage IIIb chronic kidney disease
Past Surgical History: Reports Other
Additional Past Surgical History:
Appendectomy
Bilateral total knee replacement
Squamous cell removed
Cholecystectomy
CABG x 3
Angioplasty
Carotid endarterectomy
Cataract surgery
Left mastectomy
Hemicolectomy
Social History
Tobacco: Non-smoker
Alcohol: None
Drug: None
Family History
Family History: Not pertinent
Allergies / Home Medications
Allergies reflects when Allergies were last updated in [facility].
Home Medications with original date entered in [facility]
Allergy/Medication List:
Allergies
Allergy/AdvReac Type Severity Reaction Status Date / Time
cefazolin [From Anc] Allergy Itching, Verified 12/05/24 15:22
redness,
hives
crab Allergy Welts, Verified 12/05/24 15:22
vomiting
feathers Allergy allergy Verified 12/05/24 15:22
tested
positive
grass pollen Allergy allergy Verified 12/05/24 15:22
tested
positive
AND FOR HAY
house dust Allergy allergy Verified 12/05/24 15:22
tested
positive
mold Allergy allergy Verified 12/05/24 15:22
tested
positive
Sulfa (Sulfonamide Allergy Hives Verified 12/05/24 15:22
Antibiotics)
tree and shrub pollen Allergy allergy Verified 12/05/24 15:22
tested
positive
Home Medications
albuterol sulfate 90 mcg/actuation aerosol inhaler 1 puff inhalation R DAILYPRN PRN sob 10/02/21
cetirizine 10 mg tablet 10 mg PO DAILY Allergies 10/02/21
apixaban 5 mg tablet (Eliquis) 5 mg PO BID Blood clot prevention/tx 11/18/22
ezetimibe 10 mg tablet (Zetia) 10 mg PO QPM High cholesterol 11/18/22
budesonide-formoterol HFA 160 mcg-4.5 mcg/actuation aerosol inhaler (Symbicort) 2 puff inhalation R BID Lung/breathing issues #10.2 grams 07/23/24
dapagliflozin propanediol 10 mg tablet 10 mg PO DAILY #30 tabs 07/23/24
atorvastatin 80 mg tablet 80 mg PO QPM High cholesterol #0 tabs 07/24/24
vitamin B complex 1 tab PO DAILY Supplement #0 tabs 07/24/24
allopurinol 100 mg tablet 200 mg PO DAILY Gout 11/24/24
glipizide 5 mg tablet, extended release 24 hr 2.5 mg PO QPM Diabetes 11/24/24
levothyroxine 112 mcg tablet (Synthroid) 112 mcg PO DAILY 11/24/24
oxycodone 5 mg tablet 5 mg PO Q6HPRN PRN severe pain 11/24/24
potassium chloride 10 mEq tablet,extended release 10 meq PO DAILY 11/24/24
acetaminophen 500 mg tablet (Pain Relief Extra Strength (acetaminophen)) 500 mg PO Q8HPRN PRN mild pain 12/05/24
furosemide 40 mg tablet (Lasix) 60 mg PO DAILY Heart Failure 12/05/24
Review of Systems
-
Constitutional: Reports Weight Gain
EENT: Reports No Symptoms
Respiratory: Reports Trouble Breathing
Cardiac: Reports No Symptoms
Abdomen/GI: Reports No Symptoms
: Reports No Symptoms
Musculoskeletal: Reports No Symptoms
Skin: Reports No Symptoms
Neurological: Reports No Symptoms
Endocrine: Reports No Symptoms
Hematologic/Lymphatic: Reports No Symptoms
Psych: Reports No Symptoms
Physical Exam
Vital Signs
Vital Signs
Temp Pulse Resp BP Pulse Ox
97.9 F 87 25 100/60 96
12/05/24 15:22 12/05/24 17:35 12/05/24 17:35 12/05/24 17:00 12/05/24 15:22
Physical Exam
General: Well Developed, Well Nourished and No Apparent Distress
HEENT: NormoCephalic, Moist mucous membranes and Atraumatic
Respiratory: Clear
Cardiac: S1/S2 and Regular Rhythm; No Murmur or Rub
GI: Soft, Non Tender, Non Distended and Normal Bowel Sounds; No Organomegaly
Rectal: Deferred by Provider
Musculoskeletal: No Clubbing, No Cyanosis and No Edema
Skin: No Rash
Neuro: AO x 3 and Nonfocal/grossly intact
Psych: Calm
Laboratory Results
-
12/05/24 15:45
12/05/24 15:45
Laboratory Results
Total Bilirubin 0.8 mg/dl (0.2-1.3) 12/05/24 15:45
AST 43 U/L (14-36) H 12/05/24 15:45
ALT 31 U/L (0-35) 12/05/24 15:45
Alkaline Phosphatase 149 U/L (38-126) H 12/05/24 15:45
Troponin I 0.198 ng/ml H* 12/05/24 15:45
Data Reviewed
-
Diagnostic Radiology: Report Reviewed by me
Lab Data: Labs Reviewed by me
Impression/Plan
-
# Shortness of breath likely CHF exacerbation
##Moderate-Severe
-Pulmonary hypertension
-BNP 5670
-Chest x-ray with impression of likely mild cardiomegaly. No acute pulmonary process
-Lasix 60 Mg IV continued
-Strict TOBI
-Daily weight
-Echocardiogram here showed reduction of LVEF from 45% to 10-15%, signs of new LVH
-Fluid restriction
-Cardiology consult
# Elevated Trop likely demand ischemia/recent Catheterization
-Trop 0.198
-EKG with A-fib
-Denies chest pain
-Continue to trend Trope
# Chronic kidney disease stage IIIb
-Creatinine 1.3
-Continue to monitor
#Right subclavian stenosis:
#CAD s/p CABG
#Lateral TWI
-History of CABG x 3 in 1996; Home meds include high intensity statin, SGLT2i; no antiplatelet, on Eliquis for AF
#Paroxysmal AF
eliquis continued
#HLD
-Home medication includes atorvastatin 80 mg nightly and ezetimibe
#NIDDM
-sliding scale
-hold fargixa and glimepiride
-CHO diet
#COPD/mild intermittent asthma
-Home medications include Symbicort and albuterol MDI as needed
-Low suspicion for COPD exacerbation, no bronchospasm
#PAD s/p carotid endarterectomy
-Home medications include ezetimibe and high intensity statin
#Hypothyroidism
-home medications include levothyroxine 112 mcg daily
#Gout
-Home medications include allopurinol 200 mg daily
#Chronic pain
-Home meds include oxycodone 5 mg every 6 hours as needed
#S/p PPM
-Unclear indication, with history of AF likely tachybradycardia
-No signs of pacemaker dysfunction at this time
#H/O stage III colorectal cancer s/p right hemicolectomy
#H/O breast cancer
DVT prophylaxis: Home Eliquis
CODE STATUS: DNR
[2024-12-05] MEDS: LASIX 60 MG IV (19:17)
--- NOTE | 2024-12-05 19:36 | W.PN.UPDATE ---
Update Note
Progress Note Update
84-year-old woman with a history of
COPD
A-fib,
[place],
CAD,
CHF
comes in with shortness of breath. She was discharged last night. The discharge diagnosis states:
'Ms. Brunson is an 84-year-old female with medical history of HFrEF (44%), CAD (CABG x 3), paroxysmal A-fib (on Eliquis), aortic stenosis, hypertension, type 2 diabetes mellitus with polyneuropathy, COPD, CKD stage IIIb, PAD (status post carotid
endarterectomy), hypothyroidism, colon cancer (status post right hemicolectomy), and breast cancer who presented with shortness of breath. Her symptoms progressively worsened over 2 days prior to arrival and was worse with exertion. She was
admitted for management of acute on chronic systolic heart failure. She diuresed appropriately on IV Lasix. Echocardiogram at time of admission showed severely reduced ejection fraction of 10 to 15%. She was brought for left heart catheterization
on 11/29 which revealed no acute obstructive disease. She was found to have an appropriate central arterial pressure which, however, did not correlate with blood pressure cuff reading in her right arm (cannot use left arm due to prior breast cancer
surgery). Subsequent vascular imaging revealed right subclavian artery stenosis. Blood pressure readings taken in the right arm reliably measure approximately 40 mmHg less than actual confirmed central arterial pressure. Thus, her home midodrine
which she had been taking for presumed hypotension was discontinued. She has been started on lisinopril, however developed a mild DIANA and so her lisinopril was held. Her renal function improved during this hospitalization. She will need to
follow-up with her PCP and can bander operator for ongoing monitoring of her renal function and can restart lisinopril or another agent as appropriate. She was started on hydralazine and isosorbide mononitrate for afterload reduction, and beta-blockade
with carvedilol. She had been taking furosemide 60 mg daily at home, which will be increased to 80 mg daily at time of discharge. She should continue all of her other home medications as prescribed. At the time of discharge she was
hemodynamically stable. She will need close follow-up after discharge.'
She states she felt little short of breath when she left the but this morning woke up more significantly short of breath. She lives independently. She is anticoagulated. She had a cardiac catheterization on November 29. Patient stated in the ER
'they never figured out what was wrong'. Ejection fraction of 10 to 15%. No fevers. No chest pain. She also complains of her chronic neuropathy in her feet. Her troponin is 0.198. Patient stated for past 3 days, she gained 3 pounds. Chest
x-ray with mild cardiomegaly. BNP 5670.
Past Medical History
Type 2 diabetes
Hypertension
COPD
Peripheral vascular disease
Hyperlipidemia
Asthma
Breast cancer
Sick sinus syndrome
Secondary AV block
CHF
Paroxysmal A-fib
Pancreatic cyst
Chronic pancreatitis
MRI
Colon cancer
Aortic valve stenosis
Stage IIIb chronic kidney disease
Past Surgical History: Reports Other
Additional Past Surgical History:
Appendectomy
Bilateral total knee replacement
Squamous cell removed
Cholecystectomy
CABG x 3
Angioplasty
Carotid endarterectomy
Cataract surgery
Left mastectomy
Hemicolectomy
Physical Exam
General: Well Developed, Well Nourished and No Apparent Distress
HEENT: NormoCephalic, Moist mucous membranes and Atraumatic
Respiratory: Clear
Cardiac: S1/S2 and Regular Rhythm; No Murmur or Rub
GI: Soft, Non Tender, Non Distended and Normal Bowel Sounds; No Organomegaly
Psych: Calm
Impression/Plan
1. Shortness of breath likely CHF exacerbation
cardiology consulted
Lasix 60 mg IV recommended
-Strict TOBI
-Daily weight
2. Elevated Trop likely demand ischemia/recent Catheterization -Trop 0.198, -EKG with A-fib, -Denies chest pain
-Continue to trend Trope
Please see SENIOR ENTERPRISE ARCHITECT note for full details on:
Moderate-Severe
Pulmonary hypertension
reduction of LVEF from 45% to 10-15%, signs of new LVH
Chronic kidney disease stage IIIb
Right subclavian stenosis:
CAD s/p CABG
Lateral TWI
Paroxysmal AF
HLD
NIDDM
COPD/mild intermittent asthma
PAD s/p carotid endarterectomy
Hypothyroidism
Gout
Chronic pain
S/p PPM
H/O stage III colorectal cancer s/p right hemicolectomy
H/O breast cancer
DVT prophylaxis: Home Eliquis
CODE STATUS: DNR
[2024-12-05] MEDS: SYMBICORT 160/4.5 MCG INHALER 2 PUFF INH (20:55)
[2024-12-05] MEDS: ELIQUIS 5 MG PO (21:39)
[2024-12-05 22:03] LABS: Glucose - Point of Care 119 mg/dl (70-99)
[2024-12-06] MEDS: TYLENOL 650 MG PO (00:38)
--- NOTE | 2024-12-06 02:09 | PTCARENOTE ---
Addendum entered by Alfredo Whitfield RN 12/06/24 07:26:
MERCHANDISE TEAM MANAGER made aware of pt EKG results of MN & this am. Pt resting comfortably.No new orders at this time.
Addendum entered by Alfredo Whitfield RN 12/06/24 04:23:
Pt refused her MN troponin blood draw as she is a tough stick.MERCHANDISE TEAM MANAGER on[employer] chip terrazzo worker made aware of it & pt ok to do am labs,EKG was done as ordered.MERCHANDISE TEAM MANAGER made aware of pt BP-100/72.Plan of care continued.
Original Note:
Pt received from ER [id number] able to make her needs known,anxious at times.Pt oriented to room & call tripathi in reach.MERCHANDISE TEAM MANAGER made aware of pt refusing blood work for troponin,aware of lab results EKG done on pt in chart.Plan of care continued.
[2024-12-06 03:00] VITALS: BP 100/72
[2024-12-06] MEDS: ROXICODONE 5 MG PO ×4 (03:14→23:06)
[2024-12-06] MEDS: SYNTHROID 112 MCG PO (04:07)
[2024-12-06 06:00] VITALS: BMI 32.0
[2024-12-06 07:03] LABS: Blood Urea Nitrogen 45 mg/dl (7-17); Calcium 9.6 mg/dl (8.4-10.2); Carbon Dioxide 27 mmol/L (22-30); Chloride 97 mmol/L (98-107); Estimated Creatinine Clearance 37 ml/min; Glucose 113 mg/dl (70-99); HDL Cholesterol 70 mg/dl; LDL Cholesterol, Calculated 42 mg/dl; Potassium 3.6 mmol/L (3.5-5.1); Sodium 138 mmol/L (135-145); Total Cholesterol 139 mg/dl (50-199); Triglyceride 137 mg/dl (10-149); Very Low Density Lipoprotein 27 mg/dl (0-30); eGFR 48.94
[2024-12-06 07:20] VITALS: BP 114/65
[2024-12-06 07:33] LABS: TSH Reflex To Free T4 2.26 uIU/ml (0.47-4.68)
[2024-12-06] MEDS: SYMBICORT 160/4.5 MCG INHALER 2 PUFF INH ×2 (07:40→20:47)
[2024-12-06 07:43] LABS: Glucose - Point of Care 119 mg/dl (70-99)
[2024-12-06] MEDS: NOVOLOG FLEXPEN-LOW RESISTANCE SC ×2 (08:04→17:07)
[2024-12-06] MEDS: LASIX 60 MG IV ×2 (08:18→16:00)
[2024-12-06] MEDS: ZYLOPRIM 200 MG PO (08:21)
[2024-12-06] MEDS: ZYRTEC 10 MG PO (08:21)
[2024-12-06] MEDS: KCL 10 MEQ PO (08:21)
[2024-12-06] MEDS: ELIQUIS 5 MG PO ×2 (08:21→21:46)
[2024-12-06 11:10] VITALS: BP 112/68
[2024-12-06 11:14] LABS: Glucose - Point of Care 156 mg/dl (70-99)
[2024-12-06] MEDS: NOVOLOG FLEXPEN-LOW RESISTANCE 1 UNITS SC (11:17)
--- NOTE | 2024-12-06 11:39 | CON.CAR ---
Addendum entered and electronically signed by iLcha Garcia DO 12/06/24 22:47:
I saw and examined the patient.
The Pest Controller's note was reviewed and I agree with the note.
Comment: Seen and examined with cardiac PA. Patient came to [facility] yesterday with chest pain and SOB and cardiology is now consulted for same. Patient was just admitted to 11/24/24 until 12/03/24 with acute HF. EF was worse at 10% and there was
concern for new CAD or low gradient so patient had cardiac cath 11/29/24 that showed stable CAD and no targets for revascularization identified. In addition during LHC on 11/29/2024 the patient was found to have a mean aortic valve gradient of 12
mmHg and a central aortic pressure of 153/76 correlating with an RUE NIBP of 115/71. Subsequent B/L UE U/S on 11/30/24 showed proximal stenosis or occlusion of the right subclavian. Since then it has been suggested that 40 mmHg has been added to
any BP reading using the RUE. Patient had an overhaul of her BP meds including the addition of Coreg 3.125 mg twice daily, hydralazine 50 mg 3 times daily and Imdur ER 30 mg daily. Patient was started and stopped on lisinopril during that
admission due to DIANA and was ultimately not discharged to home with lisinopril. Additionally her outpatient dose of Lasix was increased to 80 mg daily. Patient lives at [facility] and they handle her medications. The medication
reconciliation performed at time of readmission on 12/05/24 does not reflect any of her medication changes made during the last admission and it is not clear if patient has been receiving the new regimen. Patient reports she was sent to ER because
she was SOB and had a 2 lb weight gain, but now also saying that she was having chest pain and abdominal distention.
GEN: NAD. AAOx3, lying supine, RA
HEENT: MMM
LUNGS: Bronchovesicular breath sounds decreased without wheezes or crackles
CV: Afib on tele. Reg. 12/09 DENA
ABD: +BS, ND, NT, soft
EXT: +trace B/L LE edema.
Plan:
-Readmission with episode of chest/Epigastric heaviness. She denies worsening shortness of breath or edema
-Admitted to 11/24/24 until 12/03/24 with acute HF. EF was worse at 10% and there was concern for new CAD or low gradient so patient had cardiac cath 11/29/24 that showed stable CAD and no targets for revascularization identified. In addition
during LHC on 11/29/2024 the patient was found to have a mean aortic valve gradient of 12 mmHg and a central aortic pressure of 153/76 correlating with an RUE NIBP of 115/71. Subsequent B/L UE U/S on 11/30/24 showed proximal stenosis or occlusion of
the right subclavian. Since then it has been suggested that 40 mmHg has been added to any BP reading using the RUE.
-[facility]. Medication reconciliation found discrepancies in records from [facility] and recent discharge summary. The medication reconciliation performed at time of readmission on 12/05/24 does not reflect any of her
medication changes made during the last admission and it is not clear if patient has been receiving the new regimen.
-Fortunately she is chest pain/abdominal pain free. Peak troponin 0.198 with downward trend. Recent cardiac catheterization showed no targets for revascularization on 11/29/2024; no plans for repeat ischemic evaluation continue optimal medical
therapy
-EKG with known persistent Afib with controlled ventricular response and no acute ST changes compared to ECG 12/01/24.
-Her symptoms did improve with IV Lasix and proBNP is up slightly. Agree with Lasix 60 mg IV BID.
-During RHC 11/29/24 patient's aortic pressure of 153/76 correlated with RUE NIBP of 115/71 and subsequent B/L UE U/S1 2024 confirmed subclavian stenosis. The left subclavian artery was patent. Blood pressure should be taken in the LUE. Avoid blood
pressures in the right upper extremity
-No need to repeat echocardiogram
-Cont Coreg 3.125 mg BID, this was not on the outpatient med list and was started last admission
-Cont hydralazine 50 mg TID, this was not on the outpatient med list and was started last admission
-Cont Imdur ER 30 mg daily, this was not on the outpatient med list and was started last admission
-Lisinopril 2.5 mg daily started and stopped last admission due to DIANA. Cre 1.1 today which is improved from 1.3 yesterday
-Patient was on Farxiga prior to last admission, but this is no longer on her med list and unsure why it was stopped.
-Cont Eliquis 5 mg BID (age 84, wt 81.8 kg, Cre 1.1)
Original Note:
Consultation
Consultation Request
Date/Time Consultation Requested: 12/05/24 at 2008
Date/Time Consultation Performed: 12/06/24 at 0848
Requesting Provider: Dr. Sauceda
Performing Provider: Dr. Garcia
Reason for Consultation: Acute HF, chest pain
Medical History
-
History of Present Illness:
Patient came to [facility] yesterday with chest pain and SOB and cardiology is now consulted for same. Patient was just admitted to 11/24/24 until 12/03/24 with acute HF. EF was worse at 10% and there was concern for new CAD or low gradient so patient
had cardiac cath 11/29/24 that showed stable CAD and no targets for revascularization identified. In addition during C on 11/29/2024 the patient was found to have a mean aortic valve gradient of 12 mmHg and a central aortic pressure of 153/76
correlating with an RUE NIBP of 115/71. Subsequent B/L UE U/S on 11/30/24 showed proximal stenosis or occlusion of the right subclavian. Since then it has been suggested that 40 mmHg has been added to any BP reading using the RUE. Patient had an
overhaul of her BP meds including the addition of Coreg 3.125 mg twice daily, hydralazine 50 mg 3 times daily and Imdur ER 30 mg daily. Patient was started and stopped on lisinopril during that admission due to DIANA and was ultimately not discharged
to home with lisinopril. Additionally her outpatient dose of Lasix was increased to 80 mg daily. Patient lives at [facility] and they handle her medications. The medication reconciliation performed at time of readmission on
12/05/24 does not reflect any of her medication changes made during the last admission and it is not clear if patient has been receiving the new regimen. Patient reports she was sent to ER because she was SOB and had a 2 lb weight gain, but now
also saying that she was having chest pain and abdominal distention.
PMH:
Chronic HFrEF
Worsening CM EF 10-15% by echo 11/24/24
Likely hypertensive cardiomyopathy
Right subclavian stenosis
add at least 40 mmHg to any BP reading using the RUE
Permanent Afib since 01/2023
Chronic Eliquis OAC
CAD
s/p remote anterior CT with VF arrest with LAD angioplasty 07/17/97
CAD subsequent CABG x3 with 1996
Aortic stenosis
Mod-severe peak/mean 29/16 mmHg by echo 07/22/2024, mod peak/mean 27/14 mmHg by echo 11/24/24
mean gradient only 12 at time of R/LHC 11/29/24
Mild MR
SSS s/p Medtronic PPM
COPD
CKD 3a
History of orthostasis
Hyperlipidemia
Hypothyroidism
Asthma
Neuropathy
Hypertension
Breast cancer, status post left mastectomy
h/o carotid endarterectomy
h/o diabetes mellitus type 2
h/o colon mass s/p R hemicolectomy 10/02/21 until 10/15/21
Past Medical History
Past Medical History: Other (in HPI)
Past Surgical History: Appendectomy, Cardiac (LAD angioplasty 1996, CABG x3 1996), Cholecystectomy and Other (b/l TKA, carotid endarterectomy, L mastectomy, b/l cataract surgery, R hemicolectomy)
Social History
Tobacco: Former Smoker
Alcohol: None
Drug: None
Personal:
Living: Assisted Living
Employment: Retired
Family History
Family History: CAD
Allergies / Home Medications
Allergy/AdvReac Type Severity Reaction Status Date / Time
cefazolin [From Ancef] Allergy Itching, Verified 12/05/24 15:22
redness,
hives
crab Allergy Welts, Verified 12/05/24 15:22
vomiting
feathers Allergy allergy Verified 12/05/24 15:22
tested
positive
grass pollen Allergy allergy Verified 12/05/24 15:22
tested
positive
AND FOR HAY
house dust Allergy allergy Verified 12/05/24 15:22
tested
positive
mold Allergy allergy Verified 12/05/24 15:22
tested
positive
Sulfa (Sulfonamide Allergy Hives Verified 12/05/24 15:22
Antibiotics)
tree and shrub pollen Allergy allergy Verified 12/05/24 15:22
tested
positive
�Medication �Instructions �Recorded �Confirmed �Type
albuterol sulfate 90 mcg/actuation 1 puff inhalation R DAILYPRN PRN 10/02/21 12/05/24 History
aerosol inhaler sob
cetirizine 10 mg tablet 10 mg PO DAILY Allergies 10/02/21 12/05/24 History
apixaban 5 mg tablet (Eliquis) 5 mg PO BID Blood clot 11/18/22 12/05/24 History
prevention/tx
ezetimibe 10 mg tablet (Zetia) 10 mg PO QPM High cholesterol 11/18/22 12/05/24 History
budesonide-formoterol HFA 160 2 puff inhalation R BID 07/23/24 12/05/24 Rx
mcg-4.5 mcg/actuation aerosol Lung/breathing issues #10.2 grams
inhaler (Symbicort)
dapagliflozin propanediol 10 mg 10 mg PO DAILY #30 tabs 07/23/24 12/05/24 Rx
tablet
atorvastatin 80 mg tablet 80 mg PO QPM High cholesterol #0 07/24/24 12/05/24 Rx
tabs
vitamin B complex 1 tab PO DAILY Supplement #0 tabs 07/24/24 12/05/24 Rx
allopurinol 100 mg tablet 200 mg PO DAILY Gout 11/24/24 12/05/24 History
glipizide 5 mg tablet, extended 2.5 mg PO QPM Diabetes 11/24/24 12/05/24 History
release 24 hr
levothyroxine 112 mcg tablet 112 mcg PO DAILY Thyroid 11/24/24 12/05/24 History
(Synthroid)
oxycodone 5 mg tablet 5 mg PO Q6HPRN PRN severe pain 11/24/24 12/05/24 History
potassium chloride 10 mEq 10 meq PO DAILY Electrolyte 11/24/24 12/05/24 History
tablet,extended release Repletion
acetaminophen 500 mg tablet (Pain 500 mg PO Q8HPRN PRN mild pain 12/05/24 12/05/24 History
Relief Extra Strength
(acetaminophen))
furosemide 40 mg tablet (Lasix) 60 mg PO DAILY Heart Failure 12/05/24 12/05/24 History
Review of Systems
-
History Source: Patient and Family (daughter, Tameka, sitting bedside)
All other systems: Negative unless noted
Physical Exam
Vital Signs
Temp Pulse Resp BP Pulse Ox
97.5 F 88 20 112/68 97
12/06/24 11:10 12/06/24 11:10 12/06/24 11:10 12/06/24 11:10 12/06/24 11:10
GEN: NAD. AAOx3
HEENT: MMM
LUNGS: RA. CTA B/L. No audible wheeze
CV: Afib on tele. Reg. 2/6 DENA
ABD: +BS, ND, NT, soft
EXT: +1 B/L LE edema.
NEURO: Gross non-focal
SKIN: No rash
Lab Results
12/05/24 15:45
12/06/24 06:08
Troponin I 0.170 ng/ml H* 12/06/24 06:08
Kwi-G-Ahmzfrpxtgm Pept 5670 pg/ml 12/05/24 15:45
Impression / Plan
-
PCP: Dr. Byrne
Mont[employer]ori Pres[employer] Teacher: Dr. Hansen
Impression:
Presented with SOB/HANCOCK, chest pain 12/05/24
Recent admission for acute CHF, worsening CM 11/24/24 until 12/03/24
Chest pain
Elevated Troponin
Acute on chronic HFrEF
Worsening CM EF 10-15% by echo 11/24/24
Likely hypertensive cardiomyopathy
Right subclavian stenosis
add at least 40 mmHg to any BP reading using the RUE
Permanent Afib since 01/2023
Chronic Eliquis OAC
CAD
s/p remote anterior CT with VF arrest with LAD angioplasty 07/17/97
CAD subsequent CABG x3 with 1996
Aortic stenosis
Mod-severe peak/mean 29/16 mmHg by echo 07/22/2024, mod peak/mean 27/14 mmHg by echo 11/24/24
mean gradient only 12 at time of R/LHC 11/29/24
Mild MR
SSS s/p Medtronic PPM
COPD
CKD 3a
History of orthostasis
Hyperlipidemia
Hypothyroidism
Asthma
Neuropathy
Hypertension
Breast cancer, status post left mastectomy
h/o carotid endarterectomy
h/o diabetes mellitus type 2
h/o colon mass s/p R hemicolectomy 10/02/21 until 10/15/21
Echo 05/28/2021: Ejection fraction 50%, mild aortic stenosis, mean pressure gradient 14 mmHg, aortic valve area 1.1 cm�
Echo 05/19/2023: EF 40-45%, mild cLVH, mid-apical inferoseptum/inferior segments are hypokinetic, mild MR, mild with peak/mean gradients 17/9 mmHg, LILY 1.4 cm2, trace AI, mild TR, estimated PAP 20-25 mmHg
Echo 11/27/2023: EF 40 to 45%, apical, inferior, and inferoseptal hypokinesis noted, mild MR, mild with peak/mean gradients 15/9 mmHg, mild TR, estimated PAP 21 to 26 mmHg
Echo 07/22/2024: EF 48% by volumetric assessment, 44% by Milton's method, decreased RV sys fxn, mild-mod MR, mod TR, PASP 34, mod-sev 29/16/LILY 0.84 cm
Echo 11/24/2024: EF 10 to 15% with severe global hypokinesis, mod conc LVH, at least mod MR with possible underestimation due to dense MAC, moderate peak/mean 27/14 mmHg and LLIY 0.9 cm sq, mod to sev TR with PAP 50 mmHg, normal RV size and function
Plan:
-Patient came to [facility] yesterday with chest pain and SOB and cardiology is now consulted for same. Patient was just admitted to 11/24/24 until 12/03/24 with acute HF. EF was worse at 10% and there was concern for new CAD or low gradient so
patient had cardiac cath 11/29/24 that showed stable CAD and no targets for revascularization identified. In addition during LHC on 11/29/2024 the patient was found to have a mean aortic valve gradient of 12 mmHg and a central aortic pressure of
153/76 correlating with an RUE NIBP of 115/71. Subsequent B/L UE U/S on 11/30/24 showed proximal stenosis or occlusion of the right subclavian. Since then it has been suggested that 40 mmHg has been added to any BP reading using the RUE. Patient
had an overhaul of her BP meds including the addition of Coreg 3.125 mg twice daily, hydralazine 50 mg 3 times daily and Imdur ER 30 mg daily. Patient was started and stopped on lisinopril during that admission due to DIANA and was ultimately not
discharged to home with lisinopril. Additionally her outpatient dose of Lasix was increased to 80 mg daily. Patient lives at [facility] and they handle her medications. The medication reconciliation performed at time of
readmission on 12/05/24 does not reflect any of her medication changes made during the last admission and it is not clear if patient has been receiving the new regimen. Patient reports she was sent to ER because she was SOB and had a 2 lb weight
gain, but now also saying that she was having chest pain and abdominal distention.
-ECG reviewed by me looks like known persistent Afib with controlled ventriuclar response and no acute ST changes compared to ECG 12/01/24.
-Troponin 0.198 on admission and then trended down to 0.17. Will manage as a nonischemic myocardial injury Troponin elevation.
-Chest pain on admission that has resolved with diuresis. No revascularization targets seen on cath 11/29/24. No plans for repeat ischemic evaluation this admission.
-Weight is 180 lbs on standing scale 12/06/24 compared to 181 lbs on day of CHF d/c 12/03/24. pro-BNP is higher however at 5670. Agree with Lasix 60 mg IV BID.
-PCWP 29 and CI 1.2 by [facility] 11/29/24 which correlated with a weight of 180 lbs. Will work to get weight lower this admission. Will need to follow Cre.
-During [facility] 11/29/24 patient's aortic pressure of 153/76 correlated with RUE NIBP of 115/71 and subsequent B/L UE U/S1 2024 confirmed subclavian stenosis. The left subclavian artery was patent. Would add at least 40 mmHg to any BP reading using the
RUE.
-SVR [id number] by [facility] 11/29/2024. Patient was not taking any anti-HTN meds prior to last admission and had a history of orthostasis and was chronically on midodrine which was likely a result of subclavian stenosis and patient never needed midodrine.
Midodrine stopped last admission. Following outcome of cath and arterial ultrasound as noted the patient is now being treated for more aggressively HTN and likely HTN CM.
-EF 10-15% by echo 11/24/24, EF previously 48% by echo 07/22/24. No new WMA. Will manage as CM due to untreated HTN
-Cont Coreg 3.125 mg BID, this was not on the outpatient med list and was started last admission
-Cont hydralazine 50 mg TID, this was not on the outpatient med list and was started last admission
-Cont Imdur ER 30 mg daily, this was not on the outpatient med list and was started last admission
-Lisinopril 2.5 mg daily started and stopped last admission due to DIANA. Cre 1.1 today which is improved from 1.3 yesterday
-Patient was on Farxiga prior to last admission, but this is no longer on her med list and unsure why it was stopped.
- is mild with MPG of 12 by cath 11/29/24.
-Patient with known permanent Afib.
-Cont Eliquis 5 mg BID (age 84, wt 81.8 kg, Cre 1.1)
-Patient with B/L foot pain and presumed peripheral neuropathy. Patient reports taking oxycodone 5 mg BID at [place]
--- NOTE | 2024-12-06 15:12 | W.PN.HOSP.TC ---
Today's Communication/Plan
-
diuresis
Assessment / Plan
Assessment / Plan
84yo F with PMHX of HTN, DM, hypothyroidism, recent admission for HF with severely reduced EF discharged on 12/03/24 and return 48h later with recurrent SOB. Patient recently had cardiac cath that showed no obstructive disease. Discharged on new
hydralazine, imdur and increased Lasix. proBNP significantly elevated. Managed for recurrent CHF exacerbation. Patient does not remember seeing cardiology, not clear on medications doses, most likely reason for exacerbation id medication and diet
non-complince.
A/P:
#Acute on chronic HFrEF exacerbation
#CAD s/p CABG
#Elevated troponin, most likely non-ischemic cardiac injury 2/2 CHF as recent cardiac cath with non-obstructive findings
#Essential HTN
Lasix, daily weight, follow electrolytes
Cardio consult
Hold Imdur and Hydralazine 2/2 marginally low BP
#DM type 2 with neuropathy
DM diet, insulin SS, accucheks
#Hypothyroidism
cont synthroid as TSH WNL
#mild recurrent AST and alk.phos elevation
follow LFT
no RUQ pain
#gout
#HLD
#Afib, paroxysmal
#moderate-severe
#Carotid stenosis s/p CEA
#CKD stage 3a
cont home meds
DVT ppx Eliquis
DNR/DNI
I have spent at least 59min reviewing chart, test results, communication with consultants and direct patient care
Anticipated Discharge: 24 - 48 hours
Subjective/Interval History
-
Date of Service: December 06, 2024
Objective Data
-
Labs:
Laboratory Results
12/06/24
06:08
Sodium 138
Potassium 3.6
Chloride 97 L
Carbon Dioxide 27
BUN 45 H
Creatinine 1.1 H
Glucose 113 H
Calcium 9.6
Vital Signs:
Vital Signs
Temp Pulse Resp BP Pulse Ox
97.5 F 88 20 112/68 97
12/06/24 11:10 12/06/24 11:10 12/06/24 11:10 12/06/24 11:10 12/06/24 11:10
I&O
12/05/24 12/06/24 12/07/24
06:59 06:59 06:59
Intake Total 120 / 120
Balance 120 / 120
Review of Systems
-
History Source: Patient
All other systems: Reviewed and negative
Physical Exam
-
General: No Apparent Distress
HEENT: Normocephalic
Respiratory: Clear to Auscultation
Cardiac: Regular Rhythm
GI: Soft, Nontender and Nondistended
Musculoskeletal: No Clubbing, No Cyanosis, Edema, Right Lower Extrem and Edema, Left Lower Extrem
Neuro: Awake, Alert, Oriented and AO x 3
Psych: Calm
[2024-12-06 15:15] VITALS: BP 127/78
--- NOTE | 2024-12-06 15:16 | CM ---
CM spoke with nursing at [facility]
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
She is independent at baseline with ambulation and personal care with use of a WW
Pt admitted to IVU from 11/24-12/03 and dc back to [facility]
She remains current with [facility]
PCP- Amol Gar
rx- Jerrell Byrne
PT/OT evals requested
Per staff, pt will need to be at baseline and indep with ambulation in order to return on dc
They can provide bathing and personal care assistance if needed
If SNF needed, she will require [employer] auth
Discharge Disposition- anticipate return to [facility] with [facility]
Phone- [phone] Fax- [phone]
[facility] Fax- [phone]
[2024-12-06] MEDS: ZETIA 10 MG PO (17:06)
[2024-12-06] MEDS: LIPITOR 80 MG PO (17:06)
[2024-12-06 17:09] LABS: Glucose - Point of Care 146 mg/dl (70-99)
[2024-12-06 19:42] VITALS: BP 94/55
[2024-12-06 21:39] LABS: Glucose - Point of Care 178 mg/dl (70-99)
[2024-12-06] MEDS: COREG 3.125 MG PO (21:45)
[2024-12-06 23:53] VITALS: BP 98/66
[2024-12-07] VITALS (9 sets, daily range): BP systolic 94–157; BP diastolic 60–81; PULSE 84–95; O2SAT 94–984; BMI 31.4
[2024-12-07] MEDS: SYNTHROID 112 MCG PO (04:38)
[2024-12-07] MEDS: ROXICODONE 5 MG PO ×4 (05:08→23:04)
[2024-12-07] MEDS: SYMBICORT 160/4.5 MCG INHALER 2 PUFF INH ×2 (07:19→20:50)
[2024-12-07 07:32] LABS: % Basophils 1.1 % (0-2); % Eosinophils 2.8 % (0-6); % Immature Granulocytes 0.4 % (0-0.5); % Lymphocytes 21.4 % (20.5-51.1); % Monocytes 11.2 % (1.7-9.3); % Neutrophils 63.1 % (42.2-75.2); Absolute Basophils 0.1 10^3/uL (0-0.2); Absolute Eosinophils 0.2 10^3/uL (0-0.7); Absolute Lymphocytes 1.6 10^3/uL (1.2-3.4); Absolute Monocytes 0.8 10^3/uL (0.1-0.6); Absolute Neutrophils 4.6 10^3/uL (1.4-6.5); Hematocrit 39.4 % (37.0-47.0); Hemoglobin 13.9 g/dL (12.0-16.0); Mean Corp Hgb Conc. 35.3 g/dL (33.0-37.0); Mean Corpuscular Hgb 31.8 pg (27.0-31.0); Mean Corpuscular Volume 90.2 fL (81.0-99.0); Mean Platelet Volume 10.2 fL (7.4-10.4); Nucleated Red Blood Cells % 0 %; Platelet Count 343 10^3/uL (130-400); Red Blood Cell Count 4.37 10^6/uL (4.20-5.40); Red Cell Dist. Width 16.5 % (11.5-14.5); White Blood Cell Count 7.2 10^3/uL (4.8-10.8)
[2024-12-07 07:39] LABS: Glucose - Point of Care 179 mg/dl (70-99)
[2024-12-07] MEDS: ZYRTEC 10 MG PO (07:52)
[2024-12-07] MEDS: ELIQUIS 5 MG PO ×2 (07:52→19:30)
[2024-12-07] MEDS: ZYLOPRIM 200 MG PO (07:52)
[2024-12-07] MEDS: KCL 10 MEQ PO (07:52)
[2024-12-07] MEDS: LASIX 60 MG IV (07:54)
[2024-12-07] MEDS: COREG 3.125 MG PO ×2 (07:54→19:31)
[2024-12-07] MEDS: NOVOLOG FLEXPEN-LOW RESISTANCE 1 UNITS SC ×2 (08:02→17:05)
[2024-12-07 08:07] LABS: ALT (SGPT) 32 U/L (0-35); AST (SGOT) 50 U/L (14-36); Albumin 4.7 g/dl (3.5-5.0); Alkaline Phosphatase 124 U/L (38-126); Blood Urea Nitrogen 49 mg/dl (7-17); Carbon Dioxide 22 mmol/L (22-30); Chloride 98 mmol/L (98-107); Estimated Creatinine Clearance 31 ml/min; Glucose 152 mg/dl (70-99); Magnesium 2.3 mg/dl (1.6-2.3); Potassium 4.2 mmol/L (3.5-5.1); Sodium 135 mmol/L (135-145); Total Protein 7.7 g/dl (6.3-8.2); eGFR 40.05
--- NOTE | 2024-12-07 09:24 | W.PN.HOSP.TC ---
Addendum entered and electronically signed by Audrey Sanches MD 12/07/24 12:41:
update daughter on the phone
Original Note:
Today's Communication/Plan
-
see A/P
Assessment / Plan
Assessment / Plan
84 yo F with PMH of HTN, DM, hypothyroidism, recent admission for HF with severely reduced EF discharged on 12/03/24 and return 48h later with recurrent SOB. Patient recently had cardiac cath that showed no obstructive disease. Discharged on new
hydralazine, imdur and increased Lasix. proBNP significantly elevated. Managed for recurrent CHF exacerbation. Patient does not remember seeing cardiology, not clear on medications doses, most likely reason for exacerbation is medication and diet
non-compliance.
A/P:
# Acute on chronic HFrEF exacerbation
# CAD s/p CABG
# Elevated troponin, most likely non-ischemic cardiac injury 2/2 CHF as recent cardiac cath with non-obstructive findings
# Essential HTN
CXR Likely mild cardiomegaly. No acute pulmonary process.
IV Lasix now 60 mg BID with holding parameter, follow daily weight, follow electrolytes
Cardio on board
Cont Coreg 3.125 mg BID with holding parameter
Hold Imdur and Hydralazine 2/2 marginally low BP
# DM type 2 with neuropathy
DM diet, insulin SS, accucheks
# Hypothyroidism
cont Synthroid as TSH WNL
# mild recurrent AST and alk.phos elevation
follow LFT
no RUQ pain
# gout
# HLD
# Afib, paroxysmal
Cont Coreg 3.125 mg BID with holding parameter
Cont Eliquis 5 mg BID
# moderate-severe
# Carotid stenosis s/p CEA
# CKD stage 3a
DVT ppx Eliquis
DNR/DNI
PT OT eval for dispo
Anticipated Discharge: 24 - 48 hours
Subjective/Interval History
-
Date of Service: December 07, 2024
Objective Data
-
Labs:
Laboratory Results
12/07/24
05:59
WBC 7.2
Hgb 13.9
Hct 39.4
Plt Count 343
Sodium 135
Potassium 4.2
Chloride 98
Carbon Dioxide 22
BUN 49 H
Creatinine 1.3 H
Glucose 152 H
Calcium 10.0
Total Bilirubin 1.0
AST 50 H
ALT 32
Alkaline Phosphatase 124
Vital Signs:
Vital Signs
Temp Pulse Resp BP Pulse Ox
36.4 C 82 14 98/72 95
12/07/24 07:20 12/07/24 07:54 12/07/24 07:21 12/07/24 07:54 12/07/24 07:21
I&O
12/06/24 12/07/24 12/08/24
06:59 06:59 06:59
Intake Total 120 / 120 600 / 600
Balance 120 / 120 600 / 600
Review of Systems
-
All other systems: Reviewed and negative
Respiratory: Reports Trouble Breathing (mild )
Physical Exam
-
General: Well Developed, Well Nourished, No Apparent Distress, Comfortable, Conversant, Appears Chronically Ill and Obese
HEENT: Normocephalic
Respiratory: Clear to Auscultation and Non Labored Respirations; Negative Accessory Resp Muscle Use
Cardiac: Regular Rhythm and S1/S2
GI: Soft, Nontender and Nondistended
Musculoskeletal: No Clubbing, No Cyanosis, Edema, Right Lower Extrem (mild) and Edema, Left Lower Extrem (mild)
Neuro: Awake and Alert
Psych: Calm and Intact Judgement/Insight
Data Reviewed
-
CT Scan: Report Reviewed by me
Labs: Labs Reviewed by me
[2024-12-07] MEDS: TYLENOL 650 MG PO ×2 (10:14→19:31)
[2024-12-07 11:50] LABS: Glucose - Point of Care 219 mg/dl (70-99)
[2024-12-07] MEDS: NOVOLOG FLEXPEN-LOW RESISTANCE 2 UNITS SC (12:26)
[2024-12-07] MEDS: IMDUR (EXTENDED RELEASE) 30 MG PO (12:35)
--- NOTE | 2024-12-07 12:39 | PTCARENOTE ---
BP on RUE sitting 105/60 HR 82 added 40 to systolic per Tahira Luz order. LUE siting BP 157/77 HR 86.
--- NOTE | 2024-12-07 15:02 | W.PN.CARDCBS ---
Addendum entered and electronically signed by Ajit Qiu MD 12/07/24 18:11:
I saw and examined the patient.
The Retort Loader's note was reviewed and I agree with the note.
Comment:
GEN: No distress, awake, Ox3
HEENT: supple, anicteric, mmm
LUNGS: CTA, no wheezes/rales
CV: Reg, S1/S2, 2/6 syst LSB, no gallop
ABD: soft, BS+, NT/ND
EXT: No edema
NEURO: Gross non-focal
SKIN: No rash
PLan:
Had discussions with patient's daughter. Biggest issue continues to be severe foot pain. Would attempt to continue with a relatively aggressive pain control strategy.
She reportedly got short of breath when she had to walk to the nurses station to ask for pain medication.
Weight overall looks relatively stable. Creatinine at 1.3.
Will continue aggressive medical therapy for severe CAD and advanced cardiomyopathy. She has known acute on chronic heart failure with reduced ejection fraction.
Continue Coreg, hydralazine, Imdur, Lipitor, Zetia, and Eliquis.
Of note she also has significant subclavian stenosis of the right upper extremity.
Original Note:
Today's Communication / Plan
-
Biggest issue is pain in her feet, she gets upset and then SOB when she has to walk to the nursing station at [facility] to ask for pain meds
Weight is below previous dry weight. Cre up to 1.3. Will cont to diurese
Impression / Plan
-
PCP: Dr. Byrne
Retort Unloader: Dr. Hansen
Impression:
Presented with SOB/HANCOCK, chest pain 12/05/24
Recent admission for acute CHF, worsening CM 11/24/24 until 12/03/24
Chest pain
Elevated Troponin
Acute on chronic HFrEF
Worsening CM EF 10-15% by echo 11/24/24
Likely hypertensive cardiomyopathy
Right subclavian stenosis
add at least 40 mmHg to any BP reading using the RUE
Permanent Afib since 01/2023
Chronic Eliquis OAC
CAD
s/p remote anterior IL with VF arrest with LAD angioplasty 07/17/97
CAD subsequent CABG x3 with 1996
Aortic stenosis
Mod-severe peak/mean 29/16 mmHg by echo 07/22/2024, mod peak/mean 27/14 mmHg by echo 11/24/24
mean gradient only 12 at time of R/LHC 11/29/24
Mild MR
SSS s/p Medtronic PPM
COPD
CKD 3a
History of orthostasis
Hyperlipidemia
Hypothyroidism
Asthma
Neuropathy
Hypertension
Breast cancer, status post left mastectomy
h/o carotid endarterectomy
h/o diabetes mellitus type 2
h/o colon mass s/p R hemicolectomy 10/02/21 until 10/15/21
Echo 05/28/2021: Ejection fraction 50%, mild aortic stenosis, mean pressure gradient 14 mmHg, aortic valve area 1.1 cm�
Echo 05/19/2023: EF 40-45%, mild cLVH, mid-apical inferoseptum/inferior segments are hypokinetic, mild MR, mild with peak/mean gradients 17/9 mmHg, LILY 1.4 cm2, trace AI, mild TR, estimated PAP 20-25 mmHg
Echo 11/27/2023: EF 40 to 45%, apical, inferior, and inferoseptal hypokinesis noted, mild MR, mild with peak/mean gradients 15/9 mmHg, mild TR, estimated PAP 21 to 26 mmHg
Echo 07/22/2024: EF 48% by volumetric assessment, 44% by Milton's method, decreased RV sys fxn, mild-mod MR, mod TR, PASP 34, mod-sev 29/16/LILY 0.84 cm
Echo 11/24/2024: EF 10 to 15% with severe global hypokinesis, mod conc LVH, at least mod MR with possible underestimation due to dense MAC, moderate peak/mean 27/14 mmHg and LILY 0.9 cm sq, mod to sev TR with PAP 50 mmHg, normal RV size and function
Plan:
-Weight is down 3 lbs overnight with Lasix 60 mg IV BID.
-Cre up to 1.3 on 12/07/24. Recheck BMP in AM
-PCWP 29 and CI 1.2 by [facility] 11/29/24 which correlated with a weight of 180 lbs. Working to get weights lower this admission.
-EF 10-15% by echo 11/24/24, EF previously 48% by echo 07/22/24. No new WMA. Will manage as CM due to untreated HTN
-Cont Coreg 3.125 mg BID, this was not on the outpatient med list and was started last admission
-Cont hydralazine 50 mg TID, this was not on the outpatient med list and was started last admission
-Cont Imdur ER 30 mg daily, this was not on the outpatient med list and was started last admission
-Lisinopril 2.5 mg daily started and stopped last admission due to DIANA. Cre 1.1 today which is improved from 1.3 yesterday
-Patient was on Farxiga prior to last admission, but this is no longer on her med list and unsure why it was stopped.
-During [facility] 11/29/24 patient's aortic pressure of 153/76 correlated with RUE NIBP of 115/71 and subsequent B/L UE U/S1 2024 confirmed subclavian stenosis. The left subclavian artery was patent. Would add at least 40 mmHg to any BP reading using the
RUE.
-Nursing to place non-medication order outlining procedure for checking BPs was placed by or 12/07/24, 'Check BP RUE and add 40-50 mmHg and then check BP LUE without adding on any points and please record both. Patient with right subclavian stenosis.'
-SVR [id number] by [facility] 11/29/2024. Patient was not taking any anti-HTN meds prior to last admission and had a history of orthostasis and was chronically on midodrine which was likely a result of subclavian stenosis and patient never needed midodrine.
Midodrine stopped last admission. Following outcome of cath and arterial ultrasound as noted the patient is now being treated for more aggressively HTN and likely HTN CM.
- is mild with MPG of 12 by cath 11/29/24.
-Patient with known permanent Afib with controlled ventricular response and no acute ST changes compared to ECG 12/01/24.
-Cont Eliquis 5 mg BID (age 84, wt 81.8 kg, Cre 1.1)
-Troponin 0.198 on admission and then trended down to 0.17. Will manage as a nonischemic myocardial injury Troponin elevation.
-Chest pain on admission that has resolved with diuresis. No revascularization targets seen on cath 11/29/24. No plans for repeat ischemic evaluation this admission.
-Biggest issue for patient is B/L foot pain from presumed peripheral neuropathy. Patient's daughter reports that patient has significant foot pain and this leads to SOB when she has to walk to nursing station at [facility] and ask for pain meds.
Patient taking oxycodone 5 mg BID at [facility]
HPI: Patient came to [facility] yesterday with chest pain and SOB and cardiology is now consulted for same. Patient was just admitted to 11/24/24 until 12/03/24 with acute HF. EF was worse at 10% and there was concern for new CAD or low gradient so
patient had cardiac cath 11/29/24 that showed stable CAD and no targets for revascularization identified. In addition during LHC on 11/29/2024 the patient was found to have a mean aortic valve gradient of 12 mmHg and a central aortic pressure of
153/76 correlating with an RUE NIBP of 115/71. Subsequent B/L UE U/S on 11/30/24 showed proximal stenosis or occlusion of the right subclavian. Since then it has been suggested that 40 mmHg has been added to any BP reading using the RUE. Patient
had an overhaul of her BP meds including the addition of Coreg 3.125 mg twice daily, hydralazine 50 mg 3 times daily and Imdur ER 30 mg daily. Patient was started and stopped on lisinopril during that admission due to DIANA and was ultimately not
discharged to home with lisinopril. Additionally her outpatient dose of Lasix was increased to 80 mg daily. Patient lives at [facility] and they handle her medications. The medication reconciliation performed at time of
readmission on 12/05/24 does not reflect any of her medication changes made during the last admission and it is not clear if patient has been receiving the new regimen. Patient reports she was sent to ER because she was SOB and had a 2 lb weight
gain, but now also saying that she was having chest pain and abdominal distention.
Progress Note - Retort Unloader
Subjective
Date of Service: December 07, 2024
Her feet hurt and this is distressful
Objective
Labs:
12/07/24 05:59
12/07/24 05:59
Labs
Hgb 13.9 g/dL (12.0-16.0) 12/07/24 05:59
Hct 39.4 % (37.0-47.0) 12/07/24 05:59
Plt Count 343 10^3/uL (130-400) 12/07/24 05:59
Sodium 135 mmol/L (135-145) 12/07/24 05:59
Potassium 4.2 mmol/L (3.5-5.1) 12/07/24 05:59
BUN 49 mg/dl (7-17) H 12/07/24 05:59
Creatinine 1.3 mg/dL (0.6-1.0) H 12/07/24 05:59
Glucose 152 mg/dl (70-99) H 12/07/24 05:59
Troponins
12/05/24 12/06/24 12/06/24
15:45 00:15 06:08
Troponin I 0.198 H* Cancelled 0.170 H*
12/06/24
12:15
Troponin I Cancelled
Vital Signs and I&O:
Vital Signs
Temp Pulse Resp BP Pulse Ox
97.5 F 82 14 145/60 95
12/07/24 07:20 12/07/24 12:38 12/07/24 07:21 12/07/24 12:38 12/07/24 07:21
Vital Signs
Temp Pulse Resp BP Pulse Ox
97.5 F 82 14 145/60 95
12/07/24 07:20 12/07/24 12:38 12/07/24 07:21 12/07/24 12:38 12/07/24 07:21
Intake & Output
12/05/24 12/06/24 12/07/24 12/08/24
06:59 06:59 06:59 06:59
Intake Total 120 / 120 600 / 600
Balance 120 / 120 600 / 600
Physical Exam
Physical Exam
GEN: NAD. AAOx3
HEENT: MMM
LUNGS: RA. No audible wheeze
CV: Afib on tele. Reg. 2/6 DENA
ABD: ND
EXT: +1 B/L LE edema.
NEURO: Gross non-focal
SKIN: No rash
[2024-12-07] MEDS: APRESOLINE 50 MG PO ×2 (15:57→23:07)
[2024-12-07] MEDS: LASIX IV (15:57)
[2024-12-07] MEDS: LIPITOR 80 MG PO (17:03)
[2024-12-07] MEDS: ZETIA 10 MG PO (17:03)
[2024-12-07 17:07] LABS: Glucose - Point of Care 156 mg/dl (70-99)
[2024-12-07 21:15] LABS: Glucose - Point of Care 204 mg/dl (70-99)
[2024-12-08 03:15] VITALS: BP 136/83
[2024-12-08 06:00] VITALS: BMI 31.5
[2024-12-08] MEDS: SYNTHROID 112 MCG PO (06:20)
[2024-12-08] MEDS: ROXICODONE 5 MG PO ×3 (06:21→21:31)
[2024-12-08 07:20] VITALS: BP 126/60; BP 132/71
[2024-12-08 07:33] LABS: Glucose - Point of Care 159 mg/dl (70-99)
[2024-12-08] MEDS: SYMBICORT 160/4.5 MCG INHALER 2 PUFF INH ×2 (07:52→20:27)
[2024-12-08] MEDS: KCL 10 MEQ PO (08:35)
[2024-12-08] MEDS: COREG 3.125 MG PO ×2 (08:35→20:22)
[2024-12-08] MEDS: APRESOLINE 50 MG PO ×3 (08:35→21:31)
[2024-12-08] MEDS: ELIQUIS 5 MG PO ×2 (08:35→20:23)
[2024-12-08] MEDS: IMDUR (EXTENDED RELEASE) 30 MG PO (08:35)
[2024-12-08] MEDS: LASIX 60 MG IV (08:35)
[2024-12-08] MEDS: ZYRTEC 10 MG PO (08:36)
[2024-12-08] MEDS: ZYLOPRIM 200 MG PO (08:36)
[2024-12-08] MEDS: NEURONTIN 100 MG PO (08:37)
[2024-12-08] MEDS: NOVOLOG FLEXPEN-LOW RESISTANCE 1 UNITS SC ×2 (10:37→17:41)
[2024-12-08 11:39] VITALS: BP 119/54
--- NOTE | 2024-12-08 12:20 | W.PN.HOSP.TC ---
Today's Communication/Plan
-
switch to oral Lasix as weight appropriately decreased.
Assessment / Plan
Assessment / Plan
84 yo F with PMH of breast CA, s/p RT, lymph node dissection, resultant severe neuropathy and LUE lymphedema, significant subclavian stenosis of the right upper extremity, HTN, DM, hypothyroidism, recent admission for HF with severely reduced EF
discharged on 12/03/24 and return 48h later with recurrent SOB. Patient recently had cardiac cath that showed no obstructive disease. Discharged on new hydralazine, imdur and increased Lasix. proBNP significantly elevated. Managed for recurrent CHF
exacerbation. Patient does not remember seeing cardiology, not clear on medications doses, most likely reason for exacerbation is medication and diet non-compliance.
A/P:
#Acute on chronic HFrEF exacerbation
#CAD s/p CABG
#Elevated troponin, most likely non-ischemic cardiac injury 2/2 CHF as recent cardiac cath with non-obstructive findings
#Essential HTN
Lasix, daily weight, follow electrolytes
Cardio consult
Hold Imdur and Hydralazine 2/2 marginally low BP
#Chronic b/l LE lymphadenopathy
Switch to Lyrica as discussed with family and patient - previously on Neurontin 600mg TID.
Good b/l LE pulses, unlikely PAD - US LE pending
#DM type 2 with neuropathy
DM diet, insulin SS, accucheks
#Hypothyroidism
cont synthroid as TSH WNL
#mild recurrent AST and alk.phos elevation
follow LFT
no RUQ pain
#gout
#HLD
#Afib, paroxysmal
#moderate-severe
#Carotid stenosis s/p CEA
#CKD stage 3a
cont home meds
DVT ppx Eliquis
DNR/DNI
I have spent at least 39min reviewing chart, test results, communication with consultants and direct patient care
Anticipated Discharge: 24 - 48 hours
Subjective/Interval History
-
Date of Service: December 08, 2024
Objective Data
-
Labs:
Laboratory Results
12/08/24
06:00
Sodium Pending
Potassium Pending
Chloride Pending
Carbon Dioxide Pending
BUN Pending
Creatinine Pending
Glucose Pending
Calcium Pending
Total Bilirubin Pending
AST Pending
ALT Pending
Alkaline Phosphatase Pending
Vital Signs:
Vital Signs
Temp Pulse Resp BP Pulse Ox
97.5 F 91 18 119/54 95
12/08/24 11:39 12/08/24 11:39 12/08/24 11:39 12/08/24 11:39 12/08/24 11:39
I&O
12/07/24 12/08/24 12/09/24
06:59 06:59 06:59
Intake Total 600 / 600 940 / 940
Balance 600 / 600 940 / 940
Review of Systems
-
History Source: Patient
All other systems: Reviewed and negative
Musculoskeletal: Reports Other (b/l feet pain)
Physical Exam
-
General: No Apparent Distress
HEENT: Normocephalic
Musculoskeletal: No Clubbing, No Cyanosis, No Edema and Other (good b/l dorsalis pedis pulses)
Neuro: Awake, Alert, Oriented and AO x 3
Psych: Calm
[2024-12-08 13:25] LABS: Blood Urea Nitrogen 54 mg/dl (7-17); Calcium 10.3 mg/dl (8.4-10.2); Carbon Dioxide 28 mmol/L (22-30); Chloride 92 mmol/L (98-107); Estimated Creatinine Clearance 29 ml/min; Glucose 351 mg/dl (70-99); Potassium 4.3 mmol/L (3.5-5.1); Sodium 133 mmol/L (135-145); eGFR 36.64
[2024-12-08 13:25] LABS: Glucose - Point of Care 290 mg/dl (70-99)
[2024-12-08] MEDS: NOVOLOG FLEXPEN-LOW RESISTANCE 3 UNITS SC (13:28)
--- NOTE | 2024-12-08 14:55 | CM ---
Addendum entered by Tameka Locke 12/09/24 15:23:
Discharge Disposition- anticipate return to [facility] with Clintonjanet HARIKAN LEESA
Phone- [phone] Fax- [phone]
[facility] Fax- [phone]
Original Note:
CM following for discharge planning to [facility]. Pt will need to be at her baseline with ambulation;assistance with bathing and personal care is available as needed.
Plan: CM will coordinate discharge with resumption of VN services at discharge if able to return at baseline.
[2024-12-08] MEDS: LASIX 60 MG PO (15:24)
[2024-12-08 15:44] VITALS: BP 166/81
--- NOTE | 2024-12-08 16:38 | W.PN.CARDCBS ---
Addendum entered and electronically signed by Ajit Qiu MD 12/08/24 18:14:
I saw and examined the patient.
The Outside Sales Account Representative's note was reviewed and I agree with the note.
Comment:
GEN: No distress, awake, Ox3
HEENT: supple, anicteric, mmm
LUNGS: bilat rhonchi
CV: Reg, S1/S2, 2/6 syst LSB, no gallop
ABD: soft, BS+, NT/ND
EXT: No edema
NEURO: Gross non-focal
SKIN: No rash
plan:
Pain is much better controlled today. Creatinine at 1.4 and will decrease Lasix to 60 mg p.o. twice daily.
Continue medical therapy for advanced CAD and aortic stenosis.
Continue Coreg, hydralazine, Imdur.
Continue atorvastatin and Zetia.
Continue Eliquis
Original Note:
Today's Communication / Plan
-
Lasix changed to 60 mg PO BID by hospitalist attending today
Cont all BP meds as they are being given in the hospital currently
Impression / Plan
-
PCP: Dr. Byrne
Gas Distribution Supervisor: Dr. Hansen
Impression:
Presented with SOB/HANCOCK, chest pain 12/05/24
Recent admission for acute CHF, worsening CM 11/24/24 until 12/03/24
Chest pain
Elevated Troponin
Acute on chronic HFrEF
Worsening CM EF 10-15% by echo 11/24/24
Likely hypertensive cardiomyopathy
Right subclavian stenosis
add at least 40 mmHg to any BP reading using the RUE
Permanent Afib since 01/2023
Chronic Eliquis OAC
CAD
s/p remote anterior PA with VF arrest with LAD angioplasty 07/17/97
CAD subsequent CABG x3 with 1996
Aortic stenosis
Mod-severe peak/mean 29/16 mmHg by echo 07/22/2024, mod peak/mean 27/14 mmHg by echo 11/24/24
mean gradient only 12 at time of R/LHC 11/29/24
Mild MR
SSS s/p Medtronic PPM
COPD
CKD 3a
History of orthostasis
Hyperlipidemia
Hypothyroidism
Asthma
Neuropathy
Hypertension
Breast cancer, status post left mastectomy
h/o carotid endarterectomy
h/o diabetes mellitus type 2
h/o colon mass s/p R hemicolectomy 10/02/21 until 10/15/21
Echo 05/28/2021: Ejection fraction 50%, mild aortic stenosis, mean pressure gradient 14 mmHg, aortic valve area 1.1 cm�
Echo 05/19/2023: EF 40-45%, mild cLVH, mid-apical inferoseptum/inferior segments are hypokinetic, mild MR, mild with peak/mean gradients 17/9 mmHg, LILY 1.4 cm2, trace AI, mild TR, estimated PAP 20-25 mmHg
Echo 11/27/2023: EF 40 to 45%, apical, inferior, and inferoseptal hypokinesis noted, mild MR, mild with peak/mean gradients 15/9 mmHg, mild TR, estimated PAP 21 to 26 mmHg
Echo 07/22/2024: EF 48% by volumetric assessment, 44% by Milton's method, decreased RV sys fxn, mild-mod MR, mod TR, PASP 34, mod-sev 29/16/LILY 0.84 cm
Echo 11/24/2024: EF 10 to 15% with severe global hypokinesis, mod conc LVH, at least mod MR with possible underestimation due to dense MAC, moderate peak/mean 27/14 mmHg and LILY 0.9 cm sq, mod to sev TR with PAP 50 mmHg, normal RV size and function
Plan:
-Weight unchanged overnight. Overall down 4 lbs this admission with Lasix 60 mg IV BID.
-Cre up to 1.4 on 12/08/24.
-Hospitalist attending changed Lasix to 60 mg PO BID on 12/08/24
-PCWP 29 and CI 1.2 by [facility] 11/29/24 which correlated with a weight of 180 lbs. Working to get weights lower this admission.
-EF 10-15% by echo 11/24/24, EF previously 48% by echo 07/22/24. No new WMA. Will manage as CM due to untreated HTN
-Cont Coreg 3.125 mg BID, has been continued
-Cont hydralazine 50 mg TID, has been continued
-Cont Imdur ER 30 mg daily, has been continued
-Lisinopril 2.5 mg daily started and stopped last admission due to DIANA. Cre 1.1 today which is improved from 1.3 yesterday
-Patient was on Farxiga prior to last admission, but this is no longer on her med list and unsure why it was stopped.
-During [facility] 11/29/24 patient's aortic pressure of 153/76 correlated with RUE NIBP of 115/71 and subsequent B/L UE U/S1 2024 confirmed subclavian stenosis. The left subclavian artery was patent. Would add at least 40 mmHg to any BP reading using the
RUE.
-Nursing to place non-medication order outlining procedure for checking BPs was placed by [facility] 12/07/24, 'Check BP RUE and add 40-50 mmHg and then check BP LUE without adding on any points and please record both. Patient with right subclavian stenosis.'
-SVR [id number] by [facility] 11/29/2024. Patient was not taking any anti-HTN meds prior to last admission and had a history of orthostasis and was chronically on midodrine which was likely a result of subclavian stenosis and patient never needed midodrine.
Midodrine stopped last admission. Following outcome of cath and arterial ultrasound as noted the patient is now being treated for more aggressively HTN and likely HTN CM.
- is mild with MPG of 12 by cath 11/29/24.
-Patient with known permanent Afib with controlled ventricular response and no acute ST changes compared to ECG 12/01/24.
-Cont Eliquis 5 mg BID (age 84, wt 81.8 kg, Cre 1.1)
-Troponin 0.198 on admission and then trended down to 0.17. Will manage as a nonischemic myocardial injury Troponin elevation.
-Chest pain on admission that has resolved with diuresis. No revascularization targets seen on cath 11/29/24. No plans for repeat ischemic evaluation this admission.
-Lyrica added for neuropathic pain. Patient also taking oxycodone 5 mg BID at
HPI: Patient came to [facility] yesterday with chest pain and SOB and cardiology is now consulted for same. Patient was just admitted to 11/24/24 until 12/03/24 with acute HF. EF was worse at 10% and there was concern for new CAD or low gradient so
patient had cardiac cath 11/29/24 that showed stable CAD and no targets for revascularization identified. In addition during LHC on 11/29/2024 the patient was found to have a mean aortic valve gradient of 12 mmHg and a central aortic pressure of
153/76 correlating with an RUE NIBP of 115/71. Subsequent B/L UE U/S on 11/30/24 showed proximal stenosis or occlusion of the right subclavian. Since then it has been suggested that 40 mmHg has been added to any BP reading using the RUE. Patient
had an overhaul of her BP meds including the addition of Coreg 3.125 mg twice daily, hydralazine 50 mg 3 times daily and Imdur ER 30 mg daily. Patient was started and stopped on lisinopril during that admission due to DIANA and was ultimately not
discharged to home with lisinopril. Additionally her outpatient dose of Lasix was increased to 80 mg daily. Patient lives at [facility] and they handle her medications. The medication reconciliation performed at time of
readmission on 12/05/24 does not reflect any of her medication changes made during the last admission and it is not clear if patient has been receiving the new regimen. Patient reports she was sent to ER because she was SOB and had a 2 lb weight
gain, but now also saying that she was having chest pain and abdominal distention.
Progress Note - Gas Distribution Supervisor
Subjective
Date of Service: December 08, 2024
Pain is a bit better
Objective
Labs:
12/07/24 05:59
12/08/24 12:36
Labs
Hgb 13.9 g/dL (12.0-16.0) 12/07/24 05:59
Hct 39.4 % (37.0-47.0) 12/07/24 05:59
Plt Count 343 10^3/uL (130-400) 12/07/24 05:59
Sodium 133 mmol/L (135-145) L 12/08/24 12:36
Potassium 4.3 mmol/L (3.5-5.1) 12/08/24 12:36
BUN 54 mg/dl (7-17) H 12/08/24 12:36
Creatinine 1.4 mg/dL (0.6-1.0) H 12/08/24 12:36
Glucose 351 mg/dl (70-99) H 12/08/24 12:36
Troponins
12/05/24 12/06/24 12/06/24
15:45 00:15 06:08
Troponin I 0.198 H* Cancelled 0.170 H*
12/06/24
12:15
Troponin I Cancelled
Vital Signs and I&O:
Vital Signs
Temp Pulse Resp BP Pulse Ox
98.5 F 91 18 166/81 96
12/08/24 15:44 12/08/24 15:44 12/08/24 15:44 12/08/24 15:44 12/08/24 15:44
Vital Signs
Temp Pulse Resp BP Pulse Ox
98.5 F 91 18 166/81 96
12/08/24 15:44 12/08/24 15:44 12/08/24 15:44 12/08/24 15:44 12/08/24 15:44
Intake & Output
02/0312/07/24 12/08/24 12/09/24
06:59 06:59 06:59 06:59
Intake Total 120 / 120 600 / 600 940 / 940 240 / 240
Balance 120 / 120 600 / 600 940 / 940 240 / 240
Physical Exam
Physical Exam
GEN: NAD. AAOx3
HEENT: MMM
LUNGS: RA. No audible wheeze
CV: Afib on tele. Reg. 12/09 DENA
ABD: ND
EXT: +1 B/L LE edema.
NEURO: Gross non-focal
SKIN: No rash
[2024-12-08 16:41] LABS: Glucose - Point of Care 155 mg/dl (70-99)
[2024-12-08] MEDS: ZETIA 10 MG PO (17:41)
[2024-12-08] MEDS: LIPITOR 80 MG PO (17:41)
[2024-12-08 18:27] LABS: ALT (SGPT) 33 U/L (0-35); AST (SGOT) 50 U/L (14-36); Albumin 4.3 g/dl (3.5-5.0); Alkaline Phosphatase 99 U/L (38-126); Direct Bilirubin 0.4 mg/dl (0.0-0.4); Magnesium 1.9 mg/dl (1.6-2.3); Total Bilirubin 0.9 mg/dl (0.2-1.3); Total Protein 7.2 g/dl (6.3-8.2)
[2024-12-08 19:42] VITALS: BP 128/48
[2024-12-08] MEDS: LYRICA 25 MG PO (20:22)
[2024-12-08 21:28] LABS: Glucose - Point of Care 188 mg/dl (70-99)
[2024-12-08 23:37] VITALS: BP 123/62
[2024-12-09 03:50] VITALS: BP 120/65
[2024-12-09] MEDS: SYNTHROID 112 MCG PO (04:36)
[2024-12-09] MEDS: ROXICODONE 5 MG PO ×3 (04:37→16:43)
[2024-12-09 06:00] VITALS: BMI 31.7
[2024-12-09 07:20] VITALS: BP 132/72
[2024-12-09] MEDS: ProAIR HFA INHALER 1 PUFF INH (07:26)
[2024-12-09] MEDS: SYMBICORT 160/4.5 MCG INHALER 2 PUFF INH (07:27)
[2024-12-09 07:40] LABS: Glucose - Point of Care 157 mg/dl (70-99)
[2024-12-09 08:50] LABS: % Basophils 1.2 % (0-2); % Eosinophils 3.3 % (0-6); % Immature Granulocytes 0.3 % (0-0.5); % Lymphocytes 28.5 % (20.5-51.1); % Monocytes 10.1 % (1.7-9.3); % Neutrophils 56.6 % (42.2-75.2); Absolute Basophils 0.1 10^3/uL (0-0.2); Absolute Eosinophils 0.2 10^3/uL (0-0.7); Absolute Lymphocytes 1.8 10^3/uL (1.2-3.4); Absolute Monocytes 0.7 10^3/uL (0.1-0.6); Absolute Neutrophils 3.6 10^3/uL (1.4-6.5); Hematocrit 36.4 % (37.0-47.0); Hemoglobin 12.6 g/dL (12.0-16.0); Mean Corp Hgb Conc. 34.6 g/dL (33.0-37.0); Mean Corpuscular Hgb 31.2 pg (27.0-31.0); Mean Corpuscular Volume 90.1 fL (81.0-99.0); Mean Platelet Volume 9.5 fL (7.4-10.4); Nucleated Red Blood Cells % 0 %; Platelet Count 292 10^3/uL (130-400); Red Blood Cell Count 4.04 10^6/uL (4.20-5.40); Red Cell Dist. Width 16.4 % (11.5-14.5); White Blood Cell Count 6.4 10^3/uL (4.8-10.8)
[2024-12-09] MEDS: COREG 3.125 MG PO (09:06)
[2024-12-09] MEDS: LYRICA 25 MG PO (09:06)
[2024-12-09] MEDS: KCL 10 MEQ PO (09:07)
[2024-12-09] MEDS: LASIX 60 MG PO (09:07)
[2024-12-09] MEDS: ZYLOPRIM 200 MG PO (09:08)
[2024-12-09] MEDS: APRESOLINE 50 MG PO ×2 (09:08→16:43)
[2024-12-09] MEDS: ELIQUIS 5 MG PO (09:08)
[2024-12-09 09:09] LABS: ALT (SGPT) 30 U/L (0-35); AST (SGOT) 42 U/L (14-36); Albumin 3.8 g/dl (3.5-5.0); Alkaline Phosphatase 108 U/L (38-126); Blood Urea Nitrogen 55 mg/dl (7-17); Calcium 9.8 mg/dl (8.4-10.2); Carbon Dioxide 29 mmol/L (22-30); Chloride 97 mmol/L (98-107); Direct Bilirubin 0.3 mg/dl (0.0-0.4); Estimated Creatinine Clearance 31 ml/min; Glucose 165 mg/dl (70-99); Magnesium 1.9 mg/dl (1.6-2.3); Potassium 3.9 mmol/L (3.5-5.1); Sodium 132 mmol/L (135-145); Total Bilirubin 0.8 mg/dl (0.2-1.3); Total Protein 6.7 g/dl (6.3-8.2); eGFR 40.05
[2024-12-09] MEDS: IMDUR (EXTENDED RELEASE) 30 MG PO (09:09)
[2024-12-09] MEDS: ZYRTEC 10 MG PO (09:09)
[2024-12-09 09:46] VITALS: BP 100/63; BP 92/66; PULSE 79; O2SAT 95
[2024-12-09] MEDS: NOVOLOG FLEXPEN-LOW RESISTANCE 1 UNITS SC (10:14)
--- NOTE | 2024-12-09 10:17 | W.PN.CARDCBS ---
Addendum entered and electronically signed by Gary Hansen MD 12/09/24 11:44:
I saw and examined the patient.
The CLEANER WALL or PA's note was reviewed and I agree with the note.
Comment: General: Well developed, well nourished in NAD.
Neck: Supple, no JVD, HJR, carotids +2 B/L, no bruits bilaterally.
Heart: Non displaced PMI, Irreg, no murmurs, No S3, S4, no rubs.
Lungs: rhonchi at bases
Extremities: No clubbing, cyanosis or edema bilaterally.
Neuro: Grossly nonfocal, awake, alert and oriented x3.
Stable cardiology status for discharge. Discharged on Lasix 80 mg p.o. twice daily. Discussed with primary service.
Original Note:
Today's Communication / Plan
-
Increase Lasix to 80 mg PO BID
Cont to add 40 pts to RUE NIBP for known subclavian stenosis
51 min including labs review and increasing Lasix PO dose
Impression / Plan
-
PCP: Dr. Byrne
Gate Operator: Dr. Hansen
Impression:
Presented with SOB/HANCOCK, chest pain 12/05/24
Recent admission for acute CHF, worsening CM 11/24/24 until 12/03/24
Chest pain
Elevated Troponin
Acute on chronic HFrEF
Worsening CM EF 10-15% by echo 11/24/24
Likely hypertensive cardiomyopathy
Right subclavian stenosis
add at least 40 mmHg to any BP reading using the RUE
Permanent Afib since 01/2023
Chronic Eliquis OAC
CAD
s/p remote anterior AK with VF arrest with LAD angioplasty 07/17/97
CAD subsequent CABG x3 with 1996
Aortic stenosis
Mod-severe peak/mean 29/16 mmHg by echo 07/22/2024, mod peak/mean 27/14 mmHg by echo 11/24/24
mean gradient only 12 at time of R/LHC 11/29/24
Mild MR
SSS s/p Medtronic PPM
COPD
CKD 3a
History of orthostasis
Hyperlipidemia
Hypothyroidism
Asthma
Neuropathy
Hypertension
Breast cancer, status post left mastectomy
h/o carotid endarterectomy
h/o diabetes mellitus type 2
h/o colon mass s/p R hemicolectomy 10/02/21 until 10/15/21
Echo 05/28/2021: Ejection fraction 50%, mild aortic stenosis, mean pressure gradient 14 mmHg, aortic valve area 1.1 cm�
Echo 05/19/2023: EF 40-45%, mild cLVH, mid-apical inferoseptum/inferior segments are hypokinetic, mild MR, mild with peak/mean gradients 17/9 mmHg, LILY 1.4 cm2, trace AI, mild TR, estimated PAP 20-25 mmHg
Echo 11/27/2023: EF 40 to 45%, apical, inferior, and inferoseptal hypokinesis noted, mild MR, mild with peak/mean gradients 15/9 mmHg, mild TR, estimated PAP 21 to 26 mmHg
Echo 07/22/2024: EF 48% by volumetric assessment, 44% by Milton's method, decreased RV sys fxn, mild-mod MR, mod TR, PASP 34, mod-sev 29/16/LILY 0.84 cm
Echo 11/24/2024: EF 10 to 15% with severe global hypokinesis, mod conc LVH, at least mod MR with possible underestimation due to dense MAC, moderate peak/mean 27/14 mmHg and LILY 0.9 cm sq, mod to sev TR with PAP 50 mmHg, normal RV size and function
Plan:
-Weight is up 2 lbs overnight. Patient was diuresed with Lasix 60 mg IV BID this admission, but changed to 60 mg PO BID 12/08/24 PM. Patient was taking Lasix 60 mg PO BID prior to admission. Will increase to Lasix 80 mg PO BID.
-Cre improved to 1.3 on 12/09/24
-PCWP 29 and CI 1.2 by [facility] 11/29/24 which correlated with a weight of 180 lbs. Working to get weights lower this admission.
-EF 10-15% by echo 11/24/24, EF previously 48% by echo 07/22/24. No new WMA. Will manage as CM due to untreated HTN
-Cont Coreg 3.125 mg BID, has been continued
-Cont hydralazine 50 mg TID, has been continued
-Cont Imdur ER 30 mg daily, has been continued
-Lisinopril 2.5 mg daily started and stopped last admission due to DIANA. Cre 1.1 today which is improved from 1.3 yesterday
-Patient was on Farxiga prior to last admission, but this is no longer on her med list and unsure why it was stopped.
-During [facility] 11/29/24 patient's aortic pressure of 153/76 correlated with RUE NIBP of 115/71 and subsequent B/L UE U/S1 2024 confirmed subclavian stenosis. The left subclavian artery was patent. Would add at least 40 mmHg to any BP reading using the
RUE.
-Nursing to place non-medication order outlining procedure for checking BPs was placed by id 12/07/24, 'Check BP RUE and add 40-50 mmHg and then check BP LUE without adding on any points and please record both. Patient with right subclavian stenosis.'
-SVR [id number] by [facility] 11/29/2024. Patient was not taking any anti-HTN meds prior to last admission and had a history of orthostasis and was chronically on midodrine which was likely a result of subclavian stenosis and patient never needed midodrine.
Midodrine stopped last admission. Following outcome of cath and arterial ultrasound as noted the patient is now being treated for more aggressively HTN and likely HTN CM.
- is mild with MPG of 12 by cath 11/29/24.
-Patient with known permanent Afib with controlled ventricular response and no acute ST changes compared to ECG 12/01/24.
-Cont Eliquis 5 mg BID (age 84, wt 81.8 kg, Cre 1.1)
-Troponin 0.198 on admission and then trended down to 0.17. Will manage as a nonischemic myocardial injury Troponin elevation.
-Chest pain on admission that has resolved with diuresis. No revascularization targets seen on cath 11/29/24. No plans for repeat ischemic evaluation this admission.
-Lyrica added for neuropathic pain. Patient also taking oxycodone 5 mg BID at [facility]
HPI: Patient came to [facility] yesterday with chest pain and SOB and cardiology is now consulted for same. Patient was just admitted to 11/24/24 until 12/03/24 with acute HF. EF was worse at 10% and there was concern for new CAD or low gradient so
patient had cardiac cath 11/29/24 that showed stable CAD and no targets for revascularization identified. In addition during LHC on 11/29/2024 the patient was found to have a mean aortic valve gradient of 12 mmHg and a central aortic pressure of
153/76 correlating with an RUE NIBP of 115/71. Subsequent B/L UE U/S on 11/30/24 showed proximal stenosis or occlusion of the right subclavian. Since then it has been suggested that 40 mmHg has been added to any BP reading using the RUE. Patient
had an overhaul of her BP meds including the addition of Coreg 3.125 mg twice daily, hydralazine 50 mg 3 times daily and Imdur ER 30 mg daily. Patient was started and stopped on lisinopril during that admission due to DIANA and was ultimately not
discharged to home with lisinopril. Additionally her outpatient dose of Lasix was increased to 80 mg daily. Patient lives at [facility] living and they handle her medications. The medication reconciliation performed at time of
readmission on 12/05/24 does not reflect any of her medication changes made during the last admission and it is not clear if patient has been receiving the new regimen. Patient reports she was sent to ER because she was SOB and had a 2 lb weight
gain, but now also saying that she was having chest pain and abdominal distention.
Progress Note - Gate Operator
Subjective
Date of Service: December 09, 2024
Foot pain is better
Objective
Labs:
12/09/24 08:08
12/09/24 08:08
Labs
Hgb 12.6 g/dL (12.0-16.0) 12/09/24 08:08
Hct 36.4 % (37.0-47.0) L 12/09/24 08:08
Plt Count 292 10^3/uL (130-400) 12/09/24 08:08
Sodium 132 mmol/L (135-145) L 12/09/24 08:08
Potassium 3.9 mmol/L (3.5-5.1) 12/09/24 08:08
BUN 55 mg/dl (7-17) H 12/09/24 08:08
Creatinine 1.3 mg/dL (0.6-1.0) H 12/09/24 08:08
Glucose 165 mg/dl (70-99) H 12/09/24 08:08
Troponins
12/06/24
12:15
Troponin I Cancelled
Vital Signs and I&O:
Vital Signs
Temp Pulse Resp BP Pulse Ox
97.6 F 71 16 132/72 93
12/09/24 07:20 12/09/24 07:33 12/09/24 07:33 12/09/24 07:20 12/09/24 07:33
Vital Signs
Temp Pulse Resp BP Pulse Ox
97.6 F 71 16 132/72 93
12/09/24 07:20 12/09/24 07:33 12/09/24 07:33 12/09/24 07:20 12/09/24 07:33
Intake & Output
12/07/24 12/08/24 12/09/24 12/10/24
06:59 06:59 06:59 06:59
Intake Total 600 / 600 940 / 940 480 / 480 240 / 240
Balance 600 / 600 940 / 940 480 / 480 240 / 240
Physical Exam
Physical Exam
GEN: NAD. AAOx3
HEENT: MMM
LUNGS: RA. No audible wheeze
CV: Afib on tele. 12/09 DENA
ABD: ND
EXT: +trace B/L LE edema.
NEURO: Gross non-focal
SKIN: No rash
--- NOTE | 2024-12-09 10:41 | W.PN.HOSP.TC ---
Today's Communication/Plan
-
dc
Assessment / Plan
Assessment / Plan
84 yo F with PMH of breast CA, s/p RT, lymph node dissection, resultant severe neuropathy and LUE lymphedema, significant subclavian stenosis of the right upper extremity, HTN, DM, hypothyroidism, recent admission for HF with severely reduced EF
discharged on 12/03/24 and return 48h later with recurrent SOB. Patient recently had cardiac cath that showed no obstructive disease. Discharged on new hydralazine, imdur and increased Lasix. proBNP significantly elevated. Managed for recurrent CHF
exacerbation. Improved on diuresis, Home lasix dose increased as per cardiology. LE neuropathy better with Pregabalin, can uptitrate by 25mg in 1 week, if pain still significant. Cardiology agreeable with discharge. PT/OT recommending home PT in
assisted living.
A/P:
#Acute on chronic HFrEF exacerbation
#CAD s/p CABG
#Elevated troponin, most likely non-ischemic cardiac injury 2/2 CHF as recent cardiac cath with non-obstructive findings
#Essential HTN
Lasix, daily weight, follow electrolytes
Cardio consult
Hold Imdur and Hydralazine 2/2 marginally low BP
#Chronic b/l LE lymphadenopathy
Switch to Lyrica as discussed with family and patient - previously on Neurontin 600mg TID.
Good b/l LE pulses, unlikely PAD - US LE without signs of velocity restriction
#DM type 2 with neuropathy
DM diet, insulin SS, accucheks
#Hypothyroidism
cont synthroid as TSH WNL
#mild recurrent AST and alk.phos elevation
follow LFT
no RUQ pain
#gout
#HLD
#Afib, paroxysmal
#moderate-severe
#Carotid stenosis s/p CEA
#CKD stage 3a
cont home meds
DVT ppx Eliquis
DNR/DNI
I have spent at least 39min reviewing chart, test results, communication with consultants and direct patient care
Anticipated Discharge: Today
Subjective/Interval History
-
Date of Service: December 09, 2024
Objective Data
-
Labs:
Laboratory Results
12/09/24
08:08
WBC 6.4
Hgb 12.6
Hct 36.4 L
Plt Count 292
Sodium 132 L
Potassium 3.9
Chloride 97 L
Carbon Dioxide 29
BUN 55 H
Creatinine 1.3 H
Glucose 165 H
Calcium 9.8
Total Bilirubin 0.8
AST 42 H
ALT 30
Alkaline Phosphatase 108
Vital Signs:
Vital Signs
Temp Pulse Resp BP Pulse Ox
97.6 F 71 16 132/72 93
12/09/24 07:20 12/09/24 07:33 12/09/24 07:33 12/09/24 07:20 12/09/24 07:33
I&O
12/08/24 12/09/24 12/10/24
06:59 06:59 06:59
Intake Total 940 / 940 480 / 480 240 / 240
Balance 940 / 940 480 / 480 240 / 240
Review of Systems
-
History Source: Patient
All other systems: Reviewed and negative
Physical Exam
-
General: No Apparent Distress
HEENT: Normocephalic
Respiratory: Clear to Auscultation
Cardiac: Regular Rhythm
GI: Soft, Nontender and Nondistended
Neuro: Awake, Alert, Oriented and AO x 3
Psych: Calm
--- NOTE | 2024-12-09 10:49 | W.DCSUMMARY ---
Discharge Summary
Discharge Data
Date of Admission: 12/05/24
Date of Discharge: 12/09/24
-
Pending Results: No
Hospital Course
84 yo F with PMH of breast CA, s/p RT, lymph node dissection, resultant severe neuropathy and LUE lymphedema, significant subclavian stenosis of the right upper extremity, HTN, DM, hypothyroidism, recent admission for HF with severely reduced EF
discharged on 12/03/24 and return 48h later with recurrent SOB. Patient recently had cardiac cath that showed no obstructive disease. Discharged on new hydralazine, imdur and increased Lasix. proBNP significantly elevated. Managed for recurrent CHF
exacerbation. Improved on diuresis, Home Lasix dose increased as per cardiology. LE neuropathy better with Pregabalin, can uptitrate by 25mg in 1 week, if pain still significant. Cardiology agreeable with discharge. PT/OT recommending home PT in
assisted living. BP were lower on tonometer 2/2 R subclavian stenosis, so patient has to have 40mmHg added to SBP/DBP measured on R arm. L arm cannot be used 2/2 Hx of lymph node resection and lymphedema. Outpatient vascSx advised
I have spent at least 39min reviewing chart, test results, communication with consultants and direct patient care
Patient was managed for:
#Acute on chronic HFrEF exacerbation
#CAD s/p CABG
#Elevated troponin, most likely non-ischemic cardiac injury 2/2 CHF as recent cardiac cath with non-obstructive findings
#Essential HTN
#Chronic b/l LE lymphadenopathy
#DM type 2 with neuropathy
#Hypothyroidism
#mild recurrent AST and alk.phos elevation
#gout
#HLD
#Afib, paroxysmal
#moderate-severe
#Carotid stenosis s/p CEA
#CKD stage 3a
#R subclavian stenosis
Discharge Plan
-
Patient Disposition: Assisted Living
Discharge Diagnosis/Procedures: CHF
Diet: 2 Gram Sodium and Restrict fluids to 64 oz
Other Services: PT
Specialty Instructions: Weigh Daily- Call MD for wt gain/loss 3 lbs overnight/5 lbs in 1 week
Activity Restrictions/Additional Instructions:
-You have a right subclavian stenosis. If blood pressure is checked on your right arm then you must add at least 40 mmHg to the systolic reading (example 90/70 is actually 130/70).
Instructions: *[facility] Heart Failure Instructions
Referrals:
Wesley Jaeger MD [Active] - in one to two months (subclavian stenosis)
Jerrell Byrne MD [Family Provider] -
Additional Discharge Medication Instructions: Pregabalin, can uptitrate by 25mg in 1 week, if pain still significant
Prescriptions:
New
isosorbide mononitrate 30 mg Tablet Extended Release 24 Hr
30 mg PO DAILY Qty: 30 0RF
carvedilol 3.125 mg Tablet
3.125 mg PO BID Qty: 60 0RF
furosemide 80 mg Tablet
80 mg PO BID@0800,1600 Qty: 60 0RF
hydralazine 50 mg Tablet
50 mg PO TID Qty: 60 0RF
pregabalin 25 mg Capsule
25 mg PO BID Qty: 60 0RF
Continued
cetirizine 10 MG tablet
10 mg PO DAILY
albuterol sulfate 1 PUFF HFA aerosol inhaler
1 puff inhalation R DAILYPRN PRN (Reason: sob)
Eliquis 5 mg Tablet
5 mg PO BID
ezetimibe [Zetia] 10 mg Tablet
10 mg PO QPM
dapagliflozin propanediol 10 mg Tablet
10 mg PO DAILY Qty: 30 0RF
budesonide-formoterol [Symbicort] 160-4.5 mcg/actuation Hfa Aerosol Inhaler
2 puff inhalation R BID Qty: 10.2 0RF
atorvastatin 80 mg tablet
80 mg PO QPM Qty: 0 0RF
vitamin B complex Tablet Extended Release
1 tab PO DAILY Qty: 0 0RF
potassium chloride 10 mEq Tablet Extended Release
10 meq PO DAILY
levothyroxine [Synthroid] 112 mcg Tablet
112 mcg PO DAILY
oxycodone 5 mg Tablet
5 mg PO Q6HPRN PRN (Reason: severe pain)
glipizide 5 mg tablet extended release 24hr
2.5 mg PO QPM
allopurinol 100 mg tablet
200 mg PO DAILY
acetaminophen [Pain Relief ES (acetaminophen)] 500 mg tablet
500 mg PO Q8HPRN PRN (Reason: mild pain)
Discontinued
furosemide [Lasix] 40 mg tablet
60 mg PO DAILY
Discharge Orders:
Discharge Patient (As Directed); Ordered 12/09/24
Ordered By: Royal Sauceda
Discharge Date and Time
Print Language: ARABIC
[2024-12-09 11:10] VITALS: BP 110/65
[2024-12-09 12:38] LABS: Glucose - Point of Care 256 mg/dl (70-99)
[2024-12-09] MEDS: NOVOLOG FLEXPEN-LOW RESISTANCE 3 UNITS SC (13:32)
--- NOTE | 2024-12-09 15:02 | CM ---
Pt is ready for discharge back to [facility] today. IMM reviewed with patient, signed copy placed in chart. Call to pt's daughter and VM left requesting return call to discuss discharge transportation.
Discharge Disposition- anticipate return to [facility] with ison furniturejanet MEADOWS LEESA
Phone- [phone] Fax- [phone]
[facility] [facility] Fax- [phone]
--- NOTE | 2024-12-09 15:16 | CM ---
Pt cleared for discharge today. JOSE ANGEL spoke with Nicole at and reviewed pt's current level of functioning. Nicole agreed that Tori can return today. IMM reviewed via telephone; daughter gave verbal consent.
JOSE ANGEL spoke with pt's daughter Talisha who will drive Tori home today.
D/C plan - Return to [facility] with Ewa SHABAZZ
Report: [phone] Fax- [phone]
Ewa SHABAZZ
[2024-12-09 15:25] VITALS: BP 123/63
[2024-12-09] MEDS: LASIX 80 MG PO (16:43)
== END 2024-12-09 17:37 | disposition home health service (06) | DRG 291 ==
LOC: 4 EAST ACU 18:54
PROVIDERS: Emergency Medicine; Internal Medicine; Registered Nurse; ADMITTING PHYSICIAN Internal Medicine; ATTENDING PHYSICIAN Internal Medicine; EMERGENCY PHYSICIAN Emergency Medicine; FAMILY PHYSICIAN Family Medicine; OTHER PHYSICIAN Internal Medicine Cardiovascular Disease
DX: I13.0 Hypertensive heart and chronic kidney disease with heart failure and stage 1 through stage 4 chronic kidney disease, or unspecified chronic kidney disease (principal); I50.23 Acute on chronic systolic (congestive) heart failure; K86.1 Other chronic pancreatitis; K86.2 Cyst of pancreas; Z66 Do not resuscitate; I25.10 Atherosclerotic heart disease of native coronary artery without angina pectoris; I5A Non-ischemic myocardial injury (non-traumatic); E11.41 Type 2 diabetes mellitus with diabetic mononeuropathy; E11.51 Type 2 diabetes mellitus with diabetic peripheral angiopathy without gangrene; E11.22 Type 2 diabetes mellitus with diabetic chronic kidney disease; E78.00 Pure hypercholesterolemia, unspecified; I48.0 Paroxysmal atrial fibrillation; I35.0 Nonrheumatic aortic (valve) stenosis; I43 Cardiomyopathy in diseases classified elsewhere; I49.5 Sick sinus syndrome; I25.2 Old myocardial infarction; E03.9 Hypothyroidism, unspecified; J45.20 Mild intermittent asthma, uncomplicated; J44.89 Other specified chronic obstructive pulmonary disease; N18.31 Chronic kidney disease, stage 3a; G89.29 Other chronic pain; I70.8 Atherosclerosis of other arteries; K21.9 Gastro-esophageal reflux disease without esophagitis; M10.9 Gout, unspecified; Z85.048 Personal history of other malignant neoplasm of rectum, rectosigmoid junction, and anus; Z79.51 Long term (current) use of inhaled steroids; Z79.01 Long term (current) use of anticoagulants; Z79.84 Long term (current) use of oral hypoglycemic drugs; Z79.890 Hormone replacement therapy; Z79.899 Other long term (current) drug therapy; Z85.3 Personal history of malignant neoplasm of breast; Z96.653 Presence of artificial knee joint, bilateral; Z95.1 Presence of aortocoronary bypass graft; Z95.0 Presence of cardiac pacemaker; Z90.49 Acquired absence of other specified parts of digestive tract; Z90.12 Acquired absence of left breast and nipple; Z88.2 Allergy status to sulfonamides; Z88.1 Allergy status to other antibiotic agents; Z87.891 Personal history of nicotine dependence; Z86.74 Personal history of sudden cardiac arrest; E66.9 Obesity, unspecified; Z68.31 Body mass index [BMI] 31.0-31.9, adult
CPT/HCPCS: 71046; 80048; 80053; 80061; 82248; 82962; 83735; 83880; 84443; 84484; 85025; 93005; 93922; 93925; 94640; 97116; 97162; 97166; 97530; 97535; 99285

== ENCOUNTER 2024-12-17 18:51 | Observation (INO) | payer OTHER, SELFPAY ==
[2024-12-17] VITALS (11 sets, daily range): BP systolic 97–166; BP diastolic 59–85; BMI 31.4
[2024-12-17 13:20] LABS: COVID-19 Antigen Negative (Negative)
--- NOTE | 2024-12-17 14:26 | ED.GENMED ---
History of Present Illness
General
Chief Complaint: Abdominal Symptoms
Source: patient, records and family
Exam Limitations: none
Time Seen by Provider: 12/17/24 14:13
History of Present Illness
History of Present Illness:
84yoF with a history of CHF with last EF of 10-15%, coronary artery disease, hypertension, hyperlipidemia, atrial fibrillation, diabetes, and chronic pain on oxycodone presenting with her daughter for evaluation of generalized weakness. Patient
reports shortness of breath and fatigued for about a week. She had a GI bug earlier in the week with diarrhea. She has not had any further episodes of diarrhea since yesterday. She feels very warn out and is having trouble walking due to her
weakness. She is having trouble breathing and feels like she has an elephant on her chest. No fevers, vomiting, abdominal pain, dysuria.
Past History
Past History
ED Past Medical History: Arrthythmia (Atrial fib), Asthma, CAD, Cancer (Breast and colon CA), CHF, COPD, GERD, HTN, Hypercholesterolemia, NIDDM (Diet controlled), [place], Hypothyroidism and Other (Colitis, Anemia)
ED Past Surgical History: Appendectomy, Bowel resection (Colectomy for Colon CA), Cardiac (Pacemaker), Cholecystectomy, Orthopedic (Right and left total knee replacements), Tonsilectomy and Other (Left breast mastectomy)
Social History
Tobacco: Former smoker
Alcohol: None
Drug: None
Personal:
Living: alone
Employment: Retired
Family History
Family History: CAD and Other
Phy Exam
Physical Exam
Physical Exam:
Appears fatigued, keeps eye closed throughout majority of exam
General Physical Exam
General Presentation: no apparent distress
General Skin: warm and dry
General Habitus: elderly
General Mental: alert
ENT Exam
ENT Exam: normocephalic
Cardiovascular Exam
Cardiovascular Exam: regular rate/rhythm
Pulmonary Exam
Pulmonary Exam: lungs clear, no respiratory distress, no rales, no crackles, no rhonchi and no wheezing
Gastrointestinal Exam
Gastrointestinal Exam: non tender, soft and non distended
Neurological Exam
Neurological Exam: alert
Skin Exam
Skin Exam: normal color and warm/dry
Course
Orders/Labs/Results
Orders:
Orders
12/17/24 12:57
COVID-19 Antigen Urgent
Source: Nasal Swab
Influenza A+B Rapid Molecular Urgent
MORGAN Source: Nasal Swab
Specimen Description:
12/17/24 13:44
Urinalysis Reflex To Culture Urgent
Date Specimen was Collected: 12/17/24
Time Specimen was Collected: 13:44
12/17/24 14:22
Interrogate Pacemaker- Treatment ONCE
12/17/24 14:23
CR Chest - 2 Views Urgent
Comment:
Reason For Exam: SOB
12/17/24 14:25
Electrocardiogram (*1) Urgent
Reason for Study: Shortness of Breath
EKG- Treatment ONCE
12/17/24 14:34
Oxycodone [Roxicodone] 5 mg PO NOW STA
12/17/24 14:46
Complete Blood Count/With Diff Urgent
Comprehensive Metabolic Panel Urgent
Lipase Urgent
Comment: ADD ON
Magnesium Urgent
Comment: ADD ON
NT-proBNP Urgent
Troponin I Urgent
12/17/24 15:53
CT Abd/pelvis W Iv Cont Urgent
Comment:
Reason For Exam: Elevated lipase, diarrhea, weakness
0.9% Sodium Chloride 250 ml [Nss] 250 ml IV BOLUS
12/17/24 16:19
Oxycodone [Roxicodone] 5 mg PO NOW STA
12/17/24 17:52
Admit/Transfer Patient As Directed
Co-Sign Provider:
Level of Care: Observation services
Assign to:: Telemetry
Physician / Group: Stefani
Diagnosis: Weakness, Pancreatitis
Reason for Telemetry: Arrhythmia
Date to Stop Telemetry: 12/20/24
Time to Stop Telemetry: 11:00
Reason for Hospitalization: IVFs, PT/OT
PRN Pain Medication Management As Directed
May give lesser potent ordered pain med per pt: Yes
preference::
Protocol:: Medication orders for pain may be administered in a
manner that supports deferring to patient preference
when the pt is:
- Requesting an ordered lesser potent pain medication.
Least to most potent pain medications are defined
as: acetaminophen < NSAID < tramadol < opioids
(morphine, oxycodone, hydromorphone).
- Requesting a lesser dose of the same medication IF
ORDERED.
- Requesting a less intrusive route of administration
if both routes are prescribed by the provider (PO <
IV).
12/17/24 18:02
Code Status As Directed
Resuscitation Status: Do not resuscitate
Reached after discussion with pt or family/Healthcare POA: Yes
DNR Bracelet Application ONCE
12/17/24 20:00
Troponin I Routine
12/20/24 11:00
DC Protocol for Telemetry ONCE
Abnormal Lab Results
12/17/24
14:46
MCH 31.2 H pg
(27.0-31.0)
RDW 16.5 H %
(11.5-14.5)
Absolute Monos (auto) 0.8 H 10^3/uL
(0.1-0.6)
Monocytes % 10.0 H %
(1.7-9.3)
Sodium 131 L mmol/L
(135-145)
Chloride 93 L mmol/L
(98-107)
BUN 56 H mg/dl
(7-17)
Creatinine 1.3 H mg/dL
(0.6-1.0)
Glucose 141 H mg/dl
(70-99)
AST 92 H U/L
(14-36)
ALT 71 H U/L
(0-35)
Lipase 2043 H* U/L
(23-300)
12/17/24 14:46
12/17/24 14:46
Vital Signs
Initial and Last Documented VS:
Initial Vital Signs
Temp Pulse Resp BP Pulse Ox
97.6 F 85 18 166/75 97
12/17/24 12:49 12/17/24 12:49 12/17/24 12:49 12/17/24 12:49 12/17/24 12:49
Last Documented Vital Signs
Temp Pulse Resp BP Pulse Ox
97.6 F 85 18 98/66 95
12/17/24 12:49 12/17/24 18:37 12/17/24 17:45 12/17/24 18:37 12/17/24 17:45
MDM/Problems Addressed
Differential Diagnosis Includes:
84yoF here with generalized weakness, diarrhea, and SOB. Multiple medical comorbidities. VSS. She appears fatigued but is non-toxic. Differential diagnosis includes but is not limited to: viral illness, dehydration, ACS, failure to thrive
Initial ED plan: Check abdominal labs, magnesium, troponin/EKG, COVID/flu swab, and CXR.
*EKG
Interpreted by ED Provider?: Yes
EKG Intrepretation Date: 12/17/24
Heart Rate: 86
Rate: normal
Rhythm: a-fib
[place]: left axis deviation
QRS Pattern: left vent hypertrophy
Ischemia: non-specific ST changes
*Critical Care Note
Total Time (30-74mins, 75-104mins- exclusive of procedures): Not Applicable
Update Note
Update Note:
Lipase >2000. Mild transaminitis noted, bilirubin normal. Renal function at baseline. EKG appears unchanged from prior and troponin WNL. No pulmonary edema on CXR. CT abdomen added given lipase elevation although she denies any abdominal pain
currently. 250cc NS bolus ordered and patient admitted for further management. CT pending at time of admission.
ED Attending Note
-
Portions of this chart may have been created with voice recognition software.� Occasional wrong word or��sound alike� substitutions may have occurred due to the inherent limitations of voice recognition software.
Discharge Plan
Departure
Patient Disposition: Admit
Date of Disposition: 12/17/24
Time of Disposition: 17:17
Presentation/result/management discussed w/ accepting MD/DO: Hospitalist
Discharge Problem:
Generalized weakness, Elevated lipase
Interventions
Interventions:
*Risk Screen - Suicide Last Done: 12/17/24 12:49
*Neglect/Abuse Screening Last Done: 12/17/24 13:45
ED- Fall Risk Assessment Last Done: 12/17/24 14:53
*ED COVID-19 Vaccine History Last Done: 12/17/24 13:44
XQ-Wcmflf-Ngxfxijwit Assessment Last Done: 12/17/24 14:53
[2024-12-17] MEDS: ROXICODONE 5 MG PO ×2 (14:42→16:21)
[2024-12-17 15:02] LABS: % Basophils 0.2 % (0-2); % Immature Granulocytes 0.4 % (0-0.5); % Lymphocytes 21.8 % (20.5-51.1); % Neutrophils 64.6 % (42.2-75.2); Absolute Eosinophils 0.3 10^3/uL (0-0.7); Absolute Lymphocytes 1.8 10^3/uL (1.2-3.4); Absolute Monocytes 0.8 10^3/uL (0.1-0.6); Absolute Neutrophils 5.4 10^3/uL (1.4-6.5); Hematocrit 39.5 % (37.0-47.0); Hemoglobin 13.4 g/dL (12.0-16.0); Mean Corp Hgb Conc. 33.9 g/dL (33.0-37.0); Mean Corpuscular Hgb 31.2 pg (27.0-31.0); Mean Corpuscular Volume 91.9 fL (81.0-99.0); Mean Platelet Volume 9.5 fL (7.4-10.4); Nucleated Red Blood Cells % 0 %; Platelet Count 223 10^3/uL (130-400); Red Cell Dist. Width 16.5 % (11.5-14.5); White Blood Cell Count 8.4 10^3/uL (4.8-10.8)
[2024-12-17 15:23] LABS: ALT (SGPT) 71 U/L (0-35); AST (SGOT) 92 U/L (14-36); Albumin 4.1 g/dl (3.5-5.0); Alkaline Phosphatase 122 U/L (38-126); Blood Urea Nitrogen 56 mg/dl (7-17); Calcium 9.3 mg/dl (8.4-10.2); Carbon Dioxide 26 mmol/L (22-30); Chloride 93 mmol/L (98-107); Estimated Creatinine Clearance 31 ml/min; Glucose 141 mg/dl (70-99); Potassium 3.8 mmol/L (3.5-5.1); Sodium 131 mmol/L (135-145); Total Bilirubin 0.9 mg/dl (0.2-1.3); eGFR 40.05
[2024-12-17 15:29] LABS: NT-proBNP 2850 pg/ml; Troponin I 0.015 ng/ml
[2024-12-17 15:41] LABS: Magnesium 1.9 mg/dl (1.6-2.3)
[2024-12-17 15:50] LABS: Lipase 2043 U/L (23-300)
[2024-12-17] MEDS: NSS 250 IV (16:01)
--- NOTE | 2024-12-17 17:18 | HPS.HSE ---
Addendum entered and electronically signed by Hedy Ko MD 12/17/24 18:36:
84-year-old female with abdominal pain she has been fatigued for the past 1 week had diarrhea as outpatient also had some shortness of breath and chest pain
EKG-atrial fibrillation rate 86 ST-T changes in the lateral leads-chronic chest x-ray reviewed by me-
Bibasilar atelectasis, Cardiomegaly.
CT A/P - Pending
CVS: S1-S2 normal, Sm at apex and AA
Chest: CTA B/L
Abdomen: Soft, NT , Bowel sounds present
Extremities: No edema, normal pulses
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
# Chest pain
? Pain from pancreatitis
EKG no acute ischemic changes
Follow troponin
# Acute pancreatitis versus gastroenteritis
Await CT A/P
If Ok then allow PO
No Pain
Abnormal LFTs- Chronic
History of cholecystectomy
# Chronic HFrEF-lisinopril was stopped last admission secondary to CKD hold Lasix. Hold dapagliflozin . Continue Coreg,
Cardiomyopathy with ejection fraction 10 to 15% by echo 11-22-24
# Coronary artery disease with history of CABG continue Coreg, Imdur
# Permanent atrial fibrillation-Continue Coreg and Eliquis
# SSS status post pacemaker
# Valvular heart disease-mild MR, moderate to severe aortic stenosis, moderate TR
# Abnormal LFTs- Chronic
# CKD stage III
# Hypertension-continue Coreg, hydralazine
# Hyperlipidemia/atherosclerosis-continue statin, Zetia
# Hypothyroidism-Synthroid 112 mcg
# Diabetes-continue Accu-Chek sliding scale coverage. Hold Dapagliflozin, Glipizide
# Gout-continue allopurinol
# Right subclavian stenosis-add 40 mmHg blood pressure to any blood pressure reading using right upper extremity
# COPD/asthma/chronic bronchitis-continue Symbicort or equivalent
# History of left carotid endarterectomy
# History of left breast cancer with modified radical mastectomy 2007, chemo and radiation
# History of right Hemicolectomy for colon cancer in 2020
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
# Depression-continue Cymbalta
# Obesity per BMI
# Ex-smoker
# DVT prophylaxis-Eliquis
# CODE STATUS-DNR Discussed with pt and daughter
D/W Daughter and updated.
Original Note:
Family Physician
-
Family Physician: Jerrell Byrne
Chief Complaint
-
Weakness
History of Present Illness
Patient is an 84 y/o female past medical history of ASCVD, CHF, A-Fib, DM and CKD who presents with weakness. Patient had back to back hosptializations recently from Nov 24 - Dec 03, then Dec 05 - Dec 09. Earlier this week patient developed
diarrhea and has spend most of this week in bed. She reports diarrhea has resolved, and she now has an appetite. She denies any abdominal. She denies fevers, sweats or chills. She reports some shortness of breath, but denies cough. She reports
an episode of chest pressure a few days ago but states it resolved.
Medical History
Past Medical History
Past Medical History: Reports Other
Additional Past Medical History:
Peripheral Arterial Disease s/p Carotid Endarterectomy
Coronary Artery Disease s/p CABG
Chronic HFrEF
Permanent Atrial Fibrillation
Sick Sinus Syndrome s/p Permanent Pacemaker
Essential Hypertension
Hyperlipidemia
Diabetes Mellitus, Type II
CKD Stage IIIB
COPD
Chronic Pancreatitis
Hypothyroidism
Breast Cancer s/p Left Mastectomy
Colon Cancer s/p Hemicolectomy
Past Surgical History: Reports Other
Additional Past Surgical History:
CABG
Carotid Endarterectomy
Cholecystectomy
Hemicolectomy
Bilateral Knee Replacement
Left Mastectomy
Social History
Tobacco: Non-smoker
Living: Assisted Living (New )
Family History
Family History: Not pertinent
Allergies / Home Medications
Allergies reflects when Allergies were last updated in [email or web address].
Home Medications with original date entered in [email or web address]
Allergy/Medication List:
Allergies
Allergy/AdvReac Type Severity Reaction Status Date / Time
cefazolin [From [facility]] Allergy Itching, Verified 12/17/24 12:50
redness,
hives
crab Allergy Welts, Verified 12/17/24 12:50
vomiting
feathers Allergy allergy Verified 12/17/24 12:50
tested
positive
grass pollen Allergy allergy Verified 12/17/24 12:50
tested
positive
AND FOR HAY
house dust Allergy allergy Verified 12/17/24 12:50
tested
positive
mold Allergy allergy Verified 12/17/24 12:50
tested
positive
Sulfa (Sulfonamide Allergy Hives Verified 12/17/24 12:50
Antibiotics)
tree and shrub pollen Allergy allergy Verified 12/17/24 12:50
tested
positive
Home Medications
albuterol sulfate 90 mcg/actuation aerosol inhaler 1 puff inhalation R DAILYPRN PRN sob 10/02/21
cetirizine 10 mg tablet 10 mg PO DAILY Allergies 10/02/21
apixaban 5 mg tablet (Eliquis) 5 mg PO BID Blood clot prevention/tx 11/18/22
ezetimibe 10 mg tablet (Zetia) 10 mg PO QPM High cholesterol 11/18/22
budesonide-formoterol HFA 160 mcg-4.5 mcg/actuation aerosol inhaler (Symbicort) 2 puff inhalation R BID Lung/breathing issues #10.2 grams 07/23/24
dapagliflozin propanediol 10 mg tablet 10 mg PO DAILY #30 tabs 07/23/24
atorvastatin 80 mg tablet 80 mg PO QPM High cholesterol #0 tabs 07/24/24
vitamin B complex 1 tab PO DAILY Supplement #0 tabs 07/24/24
allopurinol 100 mg tablet 200 mg PO DAILY Gout 11/24/24
glipizide 5 mg tablet, extended release 24 hr 5 mg PO DAILY Diabetes 11/24/24
levothyroxine 112 mcg tablet (Synthroid) 112 mcg PO DAILY Thyroid 11/24/24
oxycodone 5 mg tablet 5 mg PO Q6HPRN PRN severe pain 11/24/24
potassium chloride 10 mEq tablet,extended release 10 meq PO DAILY Electrolyte Repletion 11/24/24
acetaminophen 500 mg tablet (Pain Relief Extra Strength (acetaminophen)) 500 mg PO Q8HPRN PRN mild pain 12/05/24
carvedilol 3.125 mg tablet 3.125 mg PO BID #60 tabs 12/09/24
furosemide 80 mg tablet 80 mg PO BID@0800,1600 #60 tabs 12/09/24
hydralazine 50 mg tablet 50 mg PO TID #60 tabs 12/09/24
isosorbide mononitrate 30 mg tablet,extended release 24 hr 30 mg PO DAILY #30 tabs 12/09/24
pregabalin 25 mg capsule 25 mg PO BID #60 caps 12/09/24
amoxicillin 500 mg capsule 2,000 mg PO DAILYPRN PRN before dentist 12/17/24
duloxetine 20 mg capsule,delayed release 20 mg PO DAILY 12/17/24
glipizide 2.5 mg tablet, extended release 24 hr 2.5 mg PO QPM 12/17/24
Review of Systems
-
A 12 point ROS was completed and negative except as noted: Yes
Constitutional: Denies Fever or Chills
Respiratory: Reports Trouble Breathing; Denies Cough
Cardiac: Denies Palpitations
Abdomen/GI: Reports See HPI
Physical Exam
Vital Signs
Vital Signs
Temp Pulse Resp BP Pulse Ox
97.6 F 81 16 138/62 94
12/17/24 12:49 12/17/24 16:15 12/17/24 15:30 12/17/24 16:00 12/17/24 16:00
Physical Exam
General: Comfortable and Conversant
HEENT: Anicteric and Moist mucous membranes
Respiratory: Clear and Non Labored Respirations
Cardiac: S1/S2, Irregular Rhythm and Murmur; No Tachycardia
GI: Soft and Non Tender
Rectal: Deferred by Provider
Musculoskeletal: No Clubbing, No Cyanosis and No Edema
Skin: Warm and Dry
Neuro: Awake, Alert, Oriented and Nonfocal/grossly intact
Psych: Calm
Laboratory Results
-
12/17/24 14:46
12/17/24 14:46
Laboratory Results
Total Bilirubin 0.9 mg/dl (0.2-1.3) 12/17/24 14:46
AST 92 U/L (14-36) H 12/17/24 14:46
ALT 71 U/L (0-35) H 12/17/24 14:46
Alkaline Phosphatase 122 U/L (38-126) 12/17/24 14:46
Troponin I 0.015 ng/ml 12/17/24 14:46
Lipase 2043 U/L (23-300) H* 12/17/24 14:46
Lipase Cancelled 12/17/24 14:46
Data Reviewed
-
Lab Data: Labs Reviewed by me
Impression/Plan
-
Generalized Weakness, likely deconditioning following multiple hospitalizations and recent GI illness
-Consult PT/OT
Elevated Lipase, at this point suspect chemical pancreatitis as patient is without abdominal pain
-Await Abd/Pelvis CT Scan
-Continue NPO for now - Resume diet if CT scan is negative
Chronic HFrEF, appears well compensated
-Echo Nov 2024: Severely reduced left ventricular function with EF 10-15%.
-Hold Lasix
-Monitor Is&Os and Daily Weights
Permanent Atrial Fibrillation
-Continue Coreg for rate control
-Continue Eliquis for anticoagulation
Essential Hypertension
-Continue Coreg
Hyperlipidemia
-Continue atorvastatin
Diabetes Mellitus, Type II
-HgbA1c Nov 2024: 8.8
-Hold oral meds for now
-Monitor sugars and continue coverage insulin
Peripheral Arterial Disease s/p Carotid Endarterectomy
Coronary Artery Disease s/p CABG
-Continue isosorbide mononitrate
CKD Stage IIIB
-Creatinine at baseline
COPD, no acute exacerbation
-Continue Symbicort
Hypothyroidism
-Continue levothyroxine
Hx Sick Sinus Syndrome s/p Permanent Pacemaker
Hx Breast Cancer s/p Left Mastectomy
Hx Colon Cancer s/p Hemicolectomy
DVT proph: Eliquis
Code Status: DNR
[2024-12-17] MEDS: SYMBICORT 160/4.5 MCG INHALER 2 PUFF INH (20:06)
[2024-12-17] MEDS: LIPITOR 80 MG PO (21:00)
[2024-12-17] MEDS: ZETIA 10 MG PO (21:00)
[2024-12-17] MEDS: ELIQUIS 5 MG PO (21:00)
[2024-12-17] MEDS: COREG 3.125 MG PO (21:00)
[2024-12-17] MEDS: LYRICA 25 MG PO (21:01)
[2024-12-17 21:45] LABS: Glucose - Point of Care 63 mg/dl (70-99)
[2024-12-17 22:09] LABS: Glucose - Point of Care 92 mg/dl (70-99)
[2024-12-17 22:12] LABS: Troponin I 0.018 ng/ml
[2024-12-17] MEDS: APRESOLINE PO ×2 (22:27→22:38)
[2024-12-18] VITALS (7 sets, daily range): BP systolic 118–147; BP diastolic 56–79; PULSE 86; O2SAT 98; BMI 31.1
--- NOTE | 2024-12-18 01:04 | PTCARENOTE ---
Patient arrived on unit @1936 from ED via stretcher. Patient AAOx3, ambulate from stretcher to bed with RW. Patient denies any pain or discomfort, VS WNL, skin assessment completed, oriented to unit, call tripathi within reach.
[2024-12-18 03:03] LABS: Glucose - Point of Care 56 mg/dl (70-99)
[2024-12-18] MEDS: DEXTROSE 50% SYRINGE 12.5 GRAMS IV (03:04)
[2024-12-18 03:30] LABS: Glucose - Point of Care 157 mg/dl (70-99)
[2024-12-18] MEDS: SYNTHROID 112 MCG PO (06:26)
[2024-12-18] MEDS: SYMBICORT 160/4.5 MCG INHALER 2 PUFF INH ×2 (07:59→20:14)
[2024-12-18 08:16] LABS: Glucose - Point of Care 75 mg/dl (70-99)
[2024-12-18] MEDS: KCL 10 MEQ PO (09:46)
[2024-12-18] MEDS: APRESOLINE 50 MG PO ×3 (09:47→20:58)
[2024-12-18] MEDS: CYMBALTA DELAYED RELEASE 20 MG PO (09:47)
[2024-12-18] MEDS: ZYRTEC 10 MG PO (09:47)
[2024-12-18] MEDS: LYRICA 25 MG PO ×2 (09:47→20:58)
[2024-12-18] MEDS: ELIQUIS 5 MG PO ×2 (09:47→20:58)
[2024-12-18] MEDS: IMDUR (EXTENDED RELEASE) 30 MG PO (09:47)
[2024-12-18] MEDS: ZYLOPRIM 200 MG PO (09:47)
[2024-12-18] MEDS: NOVOLOG FLEXPEN-LOW RESISTANCE SC (09:48)
[2024-12-18] MEDS: COREG 3.125 MG PO ×2 (09:48→20:58)
[2024-12-18] MEDS: FARXIGA 10 MG PO (09:49)
[2024-12-18 11:29] LABS: Hematocrit 43.2 % (37.0-47.0); Hemoglobin 15.3 g/dL (12.0-16.0); Mean Corp Hgb Conc. 35.4 g/dL (33.0-37.0); Mean Corpuscular Hgb 31.4 pg (27.0-31.0); Mean Corpuscular Volume 88.7 fL (81.0-99.0); Platelet Count 197 10^3/uL (130-400); Red Blood Cell Count 4.87 10^6/uL (4.20-5.40); Red Cell Dist. Width 16.6 % (11.5-14.5); White Blood Cell Count 6.7 10^3/uL (4.8-10.8)
[2024-12-18 11:49] LABS: Glucose - Point of Care 231 mg/dl (70-99)
[2024-12-18] MEDS: ROXICODONE 5 MG PO ×2 (13:14→21:04)
[2024-12-18] MEDS: TYLENOL 650 MG PO (13:14)
--- NOTE | 2024-12-18 13:25 | W.PN.HOSP.TC ---
Today's Communication/Plan
-
Patient states that she feels a lot better than how she came in yesterday
Continue PT OT and diet
Hold diuretics today
Labs need to be drawn as she got contrast and she does have CKD
Follow creatinine
Hold diuretics today
Assessment / Plan
Assessment / Plan
84-year-old female with abdominal pain she has been fatigued for the past 1 week had diarrhea as outpatient also had some shortness of breath and chest pain
EKG-atrial fibrillation rate 86 ST-T changes in the lateral leads-chronic chest x-ray reviewed by me-
Bibasilar atelectasis, Cardiomegaly.
CT A/P -with IV contrast-fatty liver. Prior cholecystectomy. Biliary ductal dilatation likely postcholecystectomy. no peripancreatic inflammation. Slight prominence of main pancreatic duct-nonspecific peripheral low-attenuation cystic structure
7 mm ventral margin near the pancreatic tail. Short-term follow-up. Minor diverticulosis
CVS: S1-S2 normal, Sm at apex and AA
Chest: CTA B/L
Abdomen: Soft, NT , Bowel sounds present
Extremities: No edema, normal pulses
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
# Chest pain
? Pain from pancreatitis
EKG no acute ischemic changes
Troponin negative. Patient does not have any further symptoms
# Acute gastroenteritis-caused elevated lipase also
No pancreatitis as she did not have any pain or CAT scan not supporting.
History of cholecystectomy
Patient seems to be tolerating diet
# Chronic HFrEF-lisinopril was stopped last admission secondary to CKD hold Lasix. Hold dapagliflozin . Continue Coreg,
Cardiomyopathy with ejection fraction 10 to 15% by echo 11-22-24
# Coronary artery disease with history of CABG continue Coreg, Imdur
# Permanent atrial fibrillation-Continue Coreg and Eliquis
# SSS status post pacemaker
# Valvular heart disease-mild MR, moderate to severe aortic stenosis, moderate TR
# Abnormal LFTs- Chronic
# CKD stage III
# Hypertension-continue Coreg, hydralazine
# Hyperlipidemia/atherosclerosis-continue statin, Zetia
# Hypothyroidism-Synthroid 112 mcg
# Diabetes-continue Accu-Chek sliding scale coverage. Hold Dapagliflozin, Glipizide
# Gout-continue allopurinol
# Right subclavian stenosis-add 40 mmHg blood pressure to any blood pressure reading using right upper extremity
# COPD/asthma/chronic bronchitis-continue Symbicort or equivalent
# History of left carotid endarterectomy
# History of left breast cancer with modified radical mastectomy 2007, chemo and radiation
# History of right Hemicolectomy for colon cancer in 2020
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
# Depression-continue Cymbalta
# Obesity per BMI
# Ex-smoker
# DVT prophylaxis-Eliquis
# CODE STATUS-DNR Discussed with pt and daughter
Anticipated Discharge: Within 24 hours
Subjective/Interval History
-
Date of Service: December 18, 2024
Objective Data
-
Labs:
Laboratory Results
12/18/24 12/18/24
10:58 11:26
WBC 6.7
Hgb 15.3
Hct 43.2
Plt Count 197
Sodium Cancelled Pending
Potassium Cancelled Pending
Chloride Cancelled Pending
Carbon Dioxide Cancelled Pending
BUN Cancelled Pending
Creatinine Cancelled Pending
Glucose Cancelled Pending
Calcium Cancelled Pending
Total Bilirubin Cancelled Pending
AST Cancelled Pending
ALT Cancelled Pending
Alkaline Phosphatase Cancelled Pending
Vital Signs:
Vital Signs
Temp Pulse Resp BP Pulse Ox
97.5 F 83 16 118/67 97
12/18/24 11:17 12/18/24 11:17 12/18/24 11:17 12/18/24 11:17 12/18/24 11:17
[2024-12-18] MEDS: NOVOLOG FLEXPEN-LOW RESISTANCE 1 UNITS SC (14:46)
[2024-12-18 14:57] LABS: ALT (SGPT) 68 U/L (0-35); AST (SGOT) 80 U/L (14-36); Albumin 3.9 g/dl (3.5-5.0); Alkaline Phosphatase 113 U/L (38-126); Blood Urea Nitrogen 46 mg/dl (7-17); Calcium 9.3 mg/dl (8.4-10.2); Carbon Dioxide 25 mmol/L (22-30); Chloride 94 mmol/L (98-107); Estimated Creatinine Clearance 34 ml/min; Glucose 311 mg/dl (70-99); Potassium 4.4 mmol/L (3.5-5.1); Sodium 129 mmol/L (135-145); Total Protein 6.5 g/dl (6.3-8.2); eGFR 44.08
[2024-12-18 15:11] LABS: Lipase 2890 U/L (23-300)
[2024-12-18 17:01] LABS: Glucose - Point of Care 214 mg/dl (70-99)
[2024-12-18] MEDS: NOVOLOG FLEXPEN-LOW RESISTANCE 2 UNITS SC (17:02)
[2024-12-18] MEDS: ZETIA 10 MG PO (17:03)
[2024-12-18] MEDS: LIPITOR 80 MG PO (17:03)
--- NOTE | 2024-12-18 17:19 | CM ---
Patient who lives at [facility] . She uses a [facility]. Will need P{T OT for dc planning.Cristina letter explained to pt . Copy left Copy on chart unsigned.She is assisted in all activities of daily living.
walker
had VN hx / No SNF hx
Pharmacy [facility]
PCP Dr Byrne
PLAN Will need PT Ot for dc plan
[2024-12-18 21:30] LABS: Glucose - Point of Care 128 mg/dl (70-99)
[2024-12-19 03:00] VITALS: BP 127/69
[2024-12-19 03:50] LABS: Glucose - Point of Care 216 mg/dl (70-99)
[2024-12-19] MEDS: SYNTHROID 112 MCG PO (05:37)
[2024-12-19 06:00] VITALS: BMI 31.2
[2024-12-19 07:18] VITALS: BP 158/66
[2024-12-19 07:42] LABS: Glucose - Point of Care 128 mg/dl (70-99)
[2024-12-19] MEDS: SYMBICORT 160/4.5 MCG INHALER 2 PUFF INH (08:29)
[2024-12-19] MEDS: NOVOLOG FLEXPEN-LOW RESISTANCE SC (09:10)
[2024-12-19] MEDS: IMDUR (EXTENDED RELEASE) 30 MG PO (09:10)
[2024-12-19] MEDS: ZYRTEC 10 MG PO (09:10)
[2024-12-19] MEDS: LYRICA 25 MG PO (09:11)
[2024-12-19] MEDS: ZYLOPRIM 200 MG PO (09:11)
[2024-12-19] MEDS: CYMBALTA DELAYED RELEASE 20 MG PO (09:11)
[2024-12-19] MEDS: KCL 10 MEQ PO (09:11)
[2024-12-19] MEDS: COREG 3.125 MG PO (09:11)
[2024-12-19] MEDS: FARXIGA 10 MG PO (09:11)
[2024-12-19] MEDS: LASIX 80 MG PO (09:11)
[2024-12-19] MEDS: ELIQUIS 5 MG PO (09:12)
[2024-12-19] MEDS: GLUCOTROL XL (EXTENDED RELEASE) 5 MG PO (09:12)
[2024-12-19] MEDS: APRESOLINE 50 MG PO (09:12)
[2024-12-19] MEDS: TYLENOL 650 MG PO (09:25)
[2024-12-19] MEDS: ROXICODONE 5 MG PO (09:25)
[2024-12-19 09:49] LABS: Lipase 2320 U/L (23-300)
[2024-12-19 11:06] LABS: Blood Urea Nitrogen 48 mg/dl (7-17); Calcium 9.7 mg/dl (8.4-10.2); Carbon Dioxide 27 mmol/L (22-30); Chloride 96 mmol/L (98-107); Estimated Creatinine Clearance 34 ml/min; Glucose 152 mg/dl (70-99); Sodium 133 mmol/L (135-145); eGFR 44.08
[2024-12-19 11:09] VITALS: BP 130/51
[2024-12-19 11:25] LABS: Glucose - Point of Care 265 mg/dl (70-99)
--- NOTE | 2024-12-19 11:50 | W.PN.HOSP.TC ---
Today's Communication/Plan
-
Discharge
Assessment / Plan
Assessment / Plan
84-year-old female with abdominal pain she has been fatigued for the past 1 week had diarrhea as outpatient also had some shortness of breath and chest pain
EKG-atrial fibrillation rate 86 ST-T changes in the lateral leads-chronic chest x-ray reviewed by me-
Bibasilar atelectasis, Cardiomegaly.
CT A/P -with IV contrast-fatty liver. Prior cholecystectomy. Biliary ductal dilatation likely postcholecystectomy. no peripancreatic inflammation. Slight prominence of main pancreatic duct-nonspecific peripheral low-attenuation cystic structure
7 mm ventral margin near the pancreatic tail. Short-term follow-up. Minor diverticulosis
CVS: S1-S2 normal, Sm at apex and AA
Chest: CTA B/L
Abdomen: Soft, NT , Bowel sounds present
Extremities: No edema, normal pulses
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
# Chest pain
? Pain from pancreatitis
EKG no acute ischemic changes
Troponin 2 sets negative. Patient does not have any further symptoms
# Acute gastroenteritis- likely reason for elevated lipase also
No pancreatitis as she did not have any pain or CAT scan not supporting.
History of cholecystectomy
Patient seems to be tolerating diet with no pain.
# Chronic HFrEF-lisinopril was stopped last admission secondary to CKD
Continue Lasix. dapagliflozin . Coreg
Cardiomyopathy with ejection fraction 10 to 15% by echo 11-22-24
# Coronary artery disease with history of CABG continue Coreg, Imdur
# Permanent atrial fibrillation-Continue Coreg and Eliquis
# SSS status post pacemaker
# Valvular heart disease-mild MR, moderate to severe aortic stenosis, moderate TR
# Abnormal LFTs- Chronic
# CKD stage III
# Hypertension-continue Coreg, Hydralazine
# Hyperlipidemia/atherosclerosis-Continue Statin, Zetia
# Hypothyroidism-Synthroid 112 mcg
# Diabetes-continue Accu-Chek sliding scale coverage. Restarted Dapagliflozin and Glipizide
# Gout-continue allopurinol
# Right subclavian stenosis-add 40 mmHg blood pressure to any blood pressure reading using right upper extremity
# COPD/asthma/chronic bronchitis-continue Symbicort or equivalent
# History of left carotid endarterectomy
# History of left breast cancer with modified radical mastectomy 2007, chemo and radiation
# History of right Hemicolectomy for colon cancer in 2020
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
# Depression-continue Cymbalta
# Obesity per BMI
# Ex-smoker
# DVT prophylaxis-Eliquis
# CODE STATUS-DNR Discussed with pt and daughter
Pt feels really well.
Tolerating diet with no pain
D/W RN at bed side
D/W Daughter Talisha and updated.
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 Not pancreatitis. Rpt levels in 2 weeks
Daughter aware
More than 30 minutes spent in discharge including
Final examination of the patient
Summarizing hospital stay
Instructions for continuing care to all relevant caregivers
Preparation of discharge records, prescriptions, and referral forms
Total time spent (in minutes): 38 min
Anticipated Discharge: Today
Subjective/Interval History
-
Date of Service: December 19, 2024
Objective Data
-
Labs:
Laboratory Results
12/19/24
08:54
Sodium 133 L
Potassium 4.0
Chloride 96 L
Carbon Dioxide 27
BUN 48 H
Creatinine 1.2 H
Glucose 152 H
Calcium 9.7
Vital Signs:
Vital Signs
Temp Pulse Resp BP Pulse Ox
98.2 F 78 18 130/51 96
12/19/24 11:09 12/19/24 11:09 12/19/24 11:09 12/19/24 11:09 12/19/24 11:09
I&O
12/18/24 12/19/24 12/20/24
06:59 06:59 06:59
Intake Total 840 / 840
Balance 840 / 840
--- NOTE | 2024-12-19 12:10 | W.DS.TRANS ---
Addendum entered and electronically signed by Hedy Ko MD 12/19/24 14:29:
Dictation- [id number]
Original Note:
DC Summary - Living Nurse
-
Discharge Instructions:
Sleep Apnea Risk Intermediate
Discharge Diagnosis/Procedures Gastroenteritis
Elevated lipase
Chronic HFrEF
Coronary disease with history of CABG
Permanent atrial fibrillation
Pacemaker
Valvular heart disease
Chronically elevated LFTs
CKD stage III
Hypertension
Hyperlipidemia
Atherosclerosis
Hypothyroidism
Diabetes
Gout
Right subclavian stenosis
COPD/asthma
History of breast cancer
Depression
Diet 2 Gram Sodium,Restrict fluids to 64 oz,Diabetic,
Carb Controlled
Activity As tolerated
Driving Restrictions No driving
Blood Work Lipase level in 2 weeks
Other Services VN
Specialty Instructions Weigh Daily
Instructions:
Stand-Alone Forms:
Changes to Home Medications: Yes
Discharge Medications:
DC Medications w/original date entered in [employer]
albuterol sulfate 90 mcg/actuation aerosol inhaler 1 puff inhalation R DAILYPRN PRN sob 10/02/21
cetirizine 10 mg tablet 10 mg PO DAILY Allergies 10/02/21
apixaban 5 mg tablet (Eliquis) 5 mg PO BID Blood clot prevention/tx 11/18/22
ezetimibe 10 mg tablet (Zetia) 10 mg PO QPM High cholesterol 11/18/22
budesonide-formoterol HFA 160 mcg-4.5 mcg/actuation aerosol inhaler (Symbicort) 2 puff inhalation R BID Lung/breathing issues #10.2 grams 07/23/24
atorvastatin 80 mg tablet 80 mg PO QPM High cholesterol #0 tabs 07/24/24
vitamin B complex 1 tab PO DAILY Supplement #0 tabs 07/24/24
allopurinol 100 mg tablet 200 mg PO DAILY Gout 11/24/24
glipizide 5 mg tablet, extended release 24 hr 5 mg PO DAILY Diabetes 11/24/24
levothyroxine 112 mcg tablet (Synthroid) 112 mcg PO DAILY Thyroid 11/24/24
potassium chloride 10 mEq tablet,extended release 10 meq PO DAILY Electrolyte Repletion 11/24/24
acetaminophen 500 mg tablet (Pain Relief Extra Strength (acetaminophen)) 500 mg PO Q8HPRN PRN mild pain 12/05/24
amoxicillin 500 mg capsule 2,000 mg PO DAILYPRN PRN before dentist 12/17/24
carvedilol 3.125 mg tablet 3.125 mg PO BID Heart Failure #60 tabs 12/19/24
dapagliflozin propanediol 10 mg tablet 10 mg PO DAILY Heart disease/condition #30 tabs 12/19/24
duloxetine 20 mg capsule,delayed release 20 mg PO DAILY Mental Health/Anxiety #0 caps 12/19/24
furosemide 80 mg tablet 80 mg PO BID@0800,1600 Fluid retention/Swelling #60 tabs 12/19/24
glipizide 2.5 mg tablet, extended release 24 hr 2.5 mg PO QPM Diabetes #0 tabs 12/19/24
hydralazine 50 mg tablet 50 mg PO TID Blood pressure #60 tabs 12/19/24
isosorbide mononitrate 30 mg tablet,extended release 24 hr 30 mg PO DAILY Heart disease/condition #30 tabs 12/19/24
oxycodone 5 mg tablet 5 mg PO Q6HPRN PRN severe pain #8 tabs 12/19/24
pregabalin 25 mg capsule 25 mg PO BID Neurological Condition #60 caps 12/19/24
sennosides 8.6 mg capsule (senna) 8.6 mg PO HS PRN if you take Oxycodone #30 caps 12/19/24
Home Medication Changes
new
Senna
Pending Results: No
[2024-12-19] MEDS: NOVOLOG FLEXPEN-LOW RESISTANCE 3 UNITS SC (13:02)
--- NOTE | 2024-12-19 13:09 | CM ---
MD entered order for discharge.
Spoke with pt she said she was ready for discharge.
Pt agree with discharge.
Offered VN she requested [facility] .Spoke with Tameka mendosa she said she would pick her up and take her to .
Spoke with Pam Rosa she is aware of pt dc and returning today.
[facility] referral placed in care port.
report [phone]
fax [phone]
PLAN Return to assisted living
== END 2024-12-19 14:00 | disposition home health service (06) ==
LOC: 3 WEST ACU 18:51
PROVIDERS: Emergency Medicine; Physician Assistant; Physician Assistant Medical; ADMITTING PHYSICIAN Hospitalist; EMERGENCY PHYSICIAN Emergency Medicine; FAMILY PHYSICIAN Family Medicine
DX: K52.9 Noninfective gastroenteritis and colitis, unspecified (principal); R10.9 Unspecified abdominal pain; N18.32 Chronic kidney disease, stage 3b; I50.22 Chronic systolic (congestive) heart failure; I25.10 Atherosclerotic heart disease of native coronary artery without angina pectoris; E11.22 Type 2 diabetes mellitus with diabetic chronic kidney disease; E11.51 Type 2 diabetes mellitus with diabetic peripheral angiopathy without gangrene; G89.29 Other chronic pain; I48.21 Permanent atrial fibrillation; E78.00 Pure hypercholesterolemia, unspecified; R53.1 Weakness; R26.2 Difficulty in walking, not elsewhere classified; E03.9 Hypothyroidism, unspecified; K21.9 Gastro-esophageal reflux disease without esophagitis; R74.01 Elevation of levels of liver transaminase levels; R53.83 Other fatigue; R06.02 Shortness of breath; R07.9 Chest pain, unspecified; J98.11 Atelectasis; F32.A Depression, unspecified; E66.9 Obesity, unspecified; I42.9 Cardiomyopathy, unspecified; I35.0 Nonrheumatic aortic (valve) stenosis; M10.9 Gout, unspecified; M43.16 Spondylolisthesis, lumbar region; I13.0 Hypertensive heart and chronic kidney disease with heart failure and stage 1 through stage 4 chronic kidney disease, or unspecified chronic kidney disease; E11.40 Type 2 diabetes mellitus with diabetic neuropathy, unspecified; J44.89 Other specified chronic obstructive pulmonary disease; K76.0 Fatty (change of) liver, not elsewhere classified; K86.1 Other chronic pancreatitis; I25.2 Old myocardial infarction; Z87.891 Personal history of nicotine dependence; Z82.49 Family history of ischemic heart disease and other diseases of the circulatory system; Z85.038 Personal history of other malignant neoplasm of large intestine; Z85.3 Personal history of malignant neoplasm of breast; Z90.49 Acquired absence of other specified parts of digestive tract; Z95.0 Presence of cardiac pacemaker; Z90.12 Acquired absence of left breast and nipple; Z96.653 Presence of artificial knee joint, bilateral; Z11.52 Encounter for screening for COVID-19; Z66 Do not resuscitate; Z68.31 Body mass index [BMI] 31.0-31.9, adult; Z95.1 Presence of aortocoronary bypass graft; Z88.1 Allergy status to other antibiotic agents; Z88.2 Allergy status to sulfonamides; Z91.013 Allergy to seafood; Z79.51 Long term (current) use of inhaled steroids; Z79.84 Long term (current) use of oral hypoglycemic drugs; Z79.890 Hormone replacement therapy; Z79.899 Other long term (current) drug therapy; Z79.01 Long term (current) use of anticoagulants; Z92.21 Personal history of antineoplastic chemotherapy; Z92.3 Personal history of irradiation
CPT/HCPCS: 71046; 74177; 80048; 80053; 82962; 83690; 83735; 83880; 84484; 85025; 85027; 87502; 87811; 93005; 93288; 94640; 97162; 99285; G0378; Q9967

== ENCOUNTER 2025-01-05 18:05 | Emergency (ER) | payer OTHER, SELFPAY ==
[2025-01-05 18:09] VITALS: BP 148/78
[2025-01-05 18:44] VITALS: BP 153/82
[2025-01-05 18:55] LABS: % Basophils 1.2 % (0-2); % Eosinophils 2.5 % (0-6); % Immature Granulocytes 0.4 % (0-0.5); % Lymphocytes 28.7 % (20.5-51.1); % Monocytes 11.7 % (1.7-9.3); % Neutrophils 55.5 % (42.2-75.2); Absolute Basophils 0.1 10^3/uL (0-0.2); Absolute Eosinophils 0.2 10^3/uL (0-0.7); Absolute Lymphocytes 2.2 10^3/uL (1.2-3.4); Absolute Monocytes 0.9 10^3/uL (0.1-0.6); Absolute Neutrophils 4.2 10^3/uL (1.4-6.5); Hemoglobin 13.3 g/dL (12.0-16.0); Mean Corp Hgb Conc. 34.1 g/dL (33.0-37.0); Mean Corpuscular Hgb 31.2 pg (27.0-31.0); Mean Corpuscular Volume 91.5 fL (81.0-99.0); Mean Platelet Volume 9.3 fL (7.4-10.4); Nucleated Red Blood Cells % 0 %; Platelet Count 310 10^3/uL (130-400); Red Blood Cell Count 4.26 10^6/uL (4.20-5.40); Red Cell Dist. Width 17.2 % (11.5-14.5); White Blood Cell Count 7.5 10^3/uL (4.8-10.8)
[2025-01-05 19:00] VITALS: BP 155/81
--- NOTE | 2025-01-05 19:12 | ED.GENMED ---
History of Present Illness
General
Chief Complaint: Chest Pain
Source: patient
Exam Limitations: none
Time Seen by Provider: 01/05/25 18:48
Nursing documentation reviewed up to this point in time: agreed with
History of Present Illness
History of Present Illness:
Patient is an 84-year-old female with history atrial fibrillation on Eliquis, CAD, CHF, hypertension, hyperlipidemia presenting to the emergency department for evaluation of shortness of breath. Patient states that yesterday she noticed a pressure
in her mid chest and worsening shortness of breath when lying flat. No pleuritic component to symptoms. No notable exertional component. Patient states symptoms were not necessarily worse today still persistent prompting visit to the emergency
department. Patient denies any cough, abdominal pain, severe back pain, swelling in abdomen or lower extremities. Patient denies any recent weight gain.
Patient was admitted to the hospital in early December for CHF exacerbation where her Lasix doses was adjusted.
Past History
Past History
ED Past Medical History: Arrthythmia (Atrial fib), Asthma, CAD, Cancer (Breast and colon CA), CHF, COPD, GERD, HTN, Hypercholesterolemia, NIDDM (Diet controlled), [place], Hypothyroidism and Other (Colitis, Anemia)
ED Past Surgical History: Appendectomy, Bowel resection (Colectomy for Colon CA), Cardiac (Pacemaker), Cholecystectomy, Orthopedic (Right and left total knee replacements), Tonsilectomy and Other (Left breast mastectomy)
Social History
Tobacco: Former smoker
Alcohol: None
Drug: None
Personal:
Living: alone
Employment: Retired
Family History
Family History: CAD and Other
Review of Systems
Review of Systems
Allergies reviewed?: Yes
All Other Systems: ROS reviewed and negative except as documented in HPI and ROS
Phy Exam
Physical Exam
Physical Exam:
Vitals: Patient's vital signs are stable. Afebrile
General: Patient is well appearing, no acute distress. Nontoxic appearing
Skin: Warm and dry, no rashes or lesions
Head: Normocephalic, atraumatic
Eyes: Sclera nonicteric. EOMs intact. No nystagmus.
Throat: Protecting airway
Neck: Normal ROM, no cervical spine tenderness, no meningismus. No JVD
Cardiac: Irregularly irregular rhythm, normal rate, no murmurs.
Pulm: O2 saturation 97 on room air. Not tachypneic. Normal respiratory effort, no wheezes, rales, rhonchi heard on exam.
Abdomen: Abdomen soft no abdominal tenderness.
Extremities: No evidence of cyanosis or edema of bilateral lower extremities
Neuro: AAOx3. Grossly intact.
Psychiatric: Normal affect.
Scores
Heart Score for Chest Pain Patients
STEMI patient?: No
History: Slightly or Non-Suspicious
ECG: Nonspecific Repolarization
Age: >/= 65 years
Risk Factors: >/= 3 Risk Factors or History of CAD
Troponin: </= Normal Limit
Heart Score for Chest Pain Patients: 5
Heart Score Risk: 20.3% MACE over next 6 weeks
Course
Orders/Labs/Results
Orders:
Orders
01/05/25 18:16
EKG [Electrocardiogram (*1)] Urgent
Reason for Study: Chest Pain
EKG- Treatment ONCE
01/05/25 18:51
Complete Blood Count/With Diff Urgent
01/05/25 19:03
CR Chest - 2 Views Urgent
Comment:
Reason For Exam: SOB, chest pain
01/05/25 19:49
Comprehensive Metabolic Panel Urgent
NT-proBNP Urgent
Troponin I Urgent
01/05/25 20:26
Interrogate Pacemaker- Treatment ONCE
01/05/25 20:55
Furosemide [Lasix] 40 mg IV NOW STA
01/05/25 22:12
Electrocardiogram (*1) Urgent
Reason for Study: Chest Pain
EKG- Treatment ONCE
01/05/25 23:25
Troponin I Urgent
Abnormal Lab Results
01/05/25 01/05/25
18:51 19:49
MCH 31.2 H pg
(27.0-31.0)
RDW 17.2 H %
(11.5-14.5)
Absolute Monos (auto) 0.9 H 10^3/uL
(0.1-0.6)
Monocytes % 11.7 H %
(1.7-9.3)
Chloride 94 L mmol/L
(98-107)
Carbon Dioxide 34 H mmol/L
(22-30)
BUN 42 H mg/dl
(7-17)
Creatinine 1.2 H mg/dL
(0.6-1.0)
Glucose 145 H mg/dl
(70-99)
AST 51 H U/L
(14-36)
ALT 54 H U/L
(0-35)
Alkaline Phosphatase 136 H U/L
(38-126)
01/05/25 18:51
01/05/25 19:49
Vital Signs
Initial and Last Documented VS:
Initial Vital Signs
Temp Pulse Resp BP Pulse Ox
97.9 F 91 20 148/78 97
01/05/25 18:09 01/05/25 18:09 01/05/25 18:09 01/05/25 18:09 01/05/25 18:09
Last Documented Vital Signs
Temp Pulse Resp BP Pulse Ox
97.9 F 102 14 155/87 94
01/05/25 18:09 01/06/25 00:12 01/06/25 00:12 01/06/25 00:12 01/06/25 00:12
MDM/Problems Addressed
Differential Diagnosis Includes:
Not limited to: Acute CHF exacerbation, pneumonia, acute coronary syndrome, cardiac arrhythmia, etc.
MDM/Problems Addressed:
84-year-old female with history as documented presenting with mild chest pressure and shortness of breath, worse when lying flat since yesterday. No exertional or pleuritic component. No weight gain or lower extremity swelling. Hypertensive,
otherwise vital signs stable. She is not hypoxic or tachypneic. Physical exam as above. Patient in no apparent respiratory distress. Lungs clear bilaterally without rales or wheezing. Abdomen soft and nontender. No pitting edema bilateral
lower extremities. EKG obtained in triage which shows atrial fibrillation without acute ischemic changes. Basic labs ordered and reviewed. CBC without acute abnormalities. CMP shows mild renal insufficiency�which appears stable and chronic.
Transaminitis noted which appears chronic. Will check chest x-ray, troponin, proBNP.
Update: Troponin of 0.021 which appears around patient's baseline. proBNP of 2420 which also appears at baseline. Chest x-ray without any evidence of significant pulmonary edema or other acute abnormalities. Ultimately�low suspicion for acute
coronary syndrome. Will trend troponin to ensure not rising. Case discussed with attending physician, Dr. Nicholas. Suspect possible mild CHF exacerbation. Will give dose of IV Lasix in emergency department. Did obtain walking pulse ox without
any drop in O2 saturations or increased work of breathing.
Update: Repeat troponin of 0.026. Patient remains well-appearing, in no apparent respiratory distress. Vitals are stable. O2 saturation 96 on room air with no increased work of breathing. She is not tachypneic. No indication for admission. At
this point�feel patient stable for discharge home with close cardiology follow-up and at home p.o. Lasix. Return precautions discussed.
Chronic conditions affecting care:
Atrial fibrillation on Eliquis, CAD, CHF, hypertension
Acute Exacerbation and/or Progression of Chronic Illness:
Acutely hypertensive
*Radiology
Radiology exam reviewed: preliminary read by ED provider (Chest x-ray reviewed by me-no acute abnormalities) and radiology read reviewed
*Pulse Oximetry
Patient hypoxic: no
*EKG
Interpreted by ED Provider?: Yes
EKG Intrepretation Date: 01/05/25
Interpretation: abnormal
Comparison EKG: no changes
Heart Rate: 96
Rate: normal
Rhythm: a-fib
QRS Pattern: left vent hypertrophy
Ischemia: non-specific ST changes
*Telecommunications Network Engineer Interpretation
Rate: normal
Interpretation: abnormal
Heart Rate: 92
Rhythm: a-fib
*Critical Care Note
Total Time (30-74mins, 75-104mins- exclusive of procedures): Not Applicable
Data Reviewed
Review of Other/Old Records Reveals: Discharge Summary (Discharge summary from 12/09/2024-acute CHF exacerbation)
ED Attending Note
-
Portions of this chart may have been created with voice recognition software.� Occasional wrong word or��sound alike� substitutions may have occurred due to the inherent limitations of voice recognition software.
Discharge Plan
Departure
Patient Disposition: Home (Routine Discharge)
Date of Disposition: 01/06/25
Time of Disposition: 00:24
Patient with high blood pressure during this ER visit?: Yes
Condition: Good
Covid-19: Not Applicable
Discharge Problem:
Acute dyspnea
Instructions: Heart failure in adults - Discharge instructions, Shortness of breath in adults - ED discharge instructions, *[facility] Heart Failure Instructions, BLOOD PRESSURE
Prescriptions:
No Action
cetirizine 10 MG tablet
10 mg PO DAILY
albuterol sulfate 1 PUFF HFA aerosol inhaler
1 puff inhalation R DAILYPRN PRN (Reason: sob)
Eliquis 5 mg Tablet
5 mg PO BID
ezetimibe [Zetia] 10 mg Tablet
10 mg PO QPM
budesonide-formoterol [Symbicort] 160-4.5 mcg/actuation Hfa Aerosol Inhaler
2 puff inhalation R BID Qty: 10.2 0RF
atorvastatin 80 mg tablet
80 mg PO QPM Qty: 0 0RF
vitamin B complex Tablet Extended Release
1 tab PO DAILY Qty: 0 0RF
potassium chloride 10 mEq Tablet Extended Release
10 meq PO DAILY
levothyroxine [Synthroid] 112 mcg Tablet
112 mcg PO DAILY
glipizide 5 mg tablet extended release 24hr
5 mg PO DAILY
allopurinol 100 mg tablet
200 mg PO DAILY
acetaminophen [Pain Relief ES (acetaminophen)] 500 mg tablet
500 mg PO Q8HPRN PRN (Reason: mild pain)
amoxicillin 500 mg Capsule
2,000 mg PO DAILYPRN PRN (Reason: before dentist)
oxycodone 5 mg Tablet
5 mg PO Q6HPRN PRN (Reason: severe pain) Qty: 8 0RF
isosorbide mononitrate 30 mg Tablet Extended Release 24 Hr
30 mg PO DAILY Qty: 30 0RF
carvedilol 3.125 mg Tablet
3.125 mg PO BID Qty: 60 0RF
furosemide 80 mg Tablet
80 mg PO BID@0800,1600 Qty: 60 0RF
glipizide 2.5 mg Tablet Extended Release 24hr
2.5 mg PO QPM Qty: 0 0RF
hydralazine 50 mg Tablet
50 mg PO TID Qty: 60 0RF
duloxetine 20 mg Capsule,Delayed Release(Dr/Ec)
20 mg PO DAILY Qty: 0 0RF
pregabalin 25 mg Capsule
25 mg PO BID Qty: 60 0RF
dapagliflozin propanediol 10 mg Tablet
10 mg PO DAILY Qty: 30 0RF
senna 8.6 mg capsule
8.6 mg PO HS PRN (Reason: if you take Oxycodone) Qty: 30 0RF
Referrals:
Gary Hansen MD [Active] - Follow up in 2-3 days
Jerrell Byrne MD [Family Provider] -
Activity Restrictions/Additional Instructions:
RETURN TO THE EMERGENCY DEPARTMENT WITH FEVERS, WORSENING CHEST PAIN OR SHORTNESS OF BREATH, WEIGHT GAIN, LOWER EXTREMITY SWELLING, OR ANY OTHER CONCERNS
-As discussed�you were given a dose of IV Lasix in the emergency department. You should resume your at home dose of Lasix tomorrow. Follow closely with cardiology for further evaluation/management as needed
-Continue all other medications as prescribed.
Monitor symptoms closely return to the emergency department with any acute worsening/new symptoms or any other concerns
Interventions
Interventions:
*Risk Screen - Suicide Last Done: 01/05/25 18:09
*General Assessment Last Done: 01/05/25 18:53
*Neglect/Abuse Screening Last Done: 01/05/25 18:09
*ED- Fall Risk Assessment Last Done: 01/05/25 18:53
*ED COVID-19 Vaccine History Last Done: 01/05/25 18:09
ED- Cardiac Assessment Last Done: 01/05/25 18:53
Discharge Date and Time
Print Language: UKRAINIAN
[2025-01-05 20:09] LABS: ALT (SGPT) 54 U/L (0-35); AST (SGOT) 51 U/L (14-36); Albumin 4.2 g/dl (3.5-5.0); Alkaline Phosphatase 136 U/L (38-126); Blood Urea Nitrogen 42 mg/dl (7-17); Calcium 9.9 mg/dl (8.4-10.2); Carbon Dioxide 34 mmol/L (22-30); Chloride 94 mmol/L (98-107); Glucose 145 mg/dl (70-99); Potassium 3.8 mmol/L (3.5-5.1); Sodium 136 mmol/L (135-145); Total Bilirubin 0.7 mg/dl (0.2-1.3); Total Protein 7.3 g/dl (6.3-8.2); eGFR 44.08
[2025-01-05 20:18] VITALS: BP 157/67
[2025-01-05 20:20] LABS: NT-proBNP 2420 pg/ml; Troponin I 0.021 ng/ml
[2025-01-05 21:00] VITALS: BP 156/70
[2025-01-05] MEDS: LASIX 40 MG IV (21:00)
[2025-01-05 23:00] VITALS: BP 142/70
[2025-01-06 00:01] LABS: Troponin I 0.026 ng/ml
[2025-01-06 00:12] VITALS: BP 155/87
== END 2025-01-06 00:36 | disposition home or self-care (01) ==
LOC: EMR 18:05
PROVIDERS: Physician Assistant; EMERGENCY PHYSICIAN Emergency Medicine; FAMILY PHYSICIAN Family Medicine
DX: R06.09 Other forms of dyspnea (principal); I11.0 Hypertensive heart disease with heart failure; I50.9 Heart failure, unspecified; I48.91 Unspecified atrial fibrillation; E03.9 Hypothyroidism, unspecified; E11.9 Type 2 diabetes mellitus without complications; E78.00 Pure hypercholesterolemia, unspecified; I25.10 Atherosclerotic heart disease of native coronary artery without angina pectoris; K21.9 Gastro-esophageal reflux disease without esophagitis; Z85.038 Personal history of other malignant neoplasm of large intestine; Z85.3 Personal history of malignant neoplasm of breast; Z87.891 Personal history of nicotine dependence; Z90.49 Acquired absence of other specified parts of digestive tract; Z90.12 Acquired absence of left breast and nipple; Z95.0 Presence of cardiac pacemaker; Z79.01 Long term (current) use of anticoagulants; Z79.899 Other long term (current) drug therapy
CPT/HCPCS: 99285; 96374; 71046; 80053; 83880; 84484; 85025; 93005

== ENCOUNTER → 2025-02-18 10:50 | Outpatient (REF) | payer OTHER, SELFPAY | LOC: HWRCS 10:50 | PROVIDERS: ATTENDING PHYSICIAN Internal Medicine Cardiovascular Disease; FAMILY PHYSICIAN Family Medicine | DX: I42.0 Dilated cardiomyopathy (principal) | CPT/HCPCS: 93306 ==

== ENCOUNTER 2025-04-15 07:07 | Emergency (ER) | payer OTHER, SELFPAY ==
[2025-04-15 07:10] VITALS: BP 95/61
--- NOTE | 2025-04-15 07:33 | ED.GENMED ---
History of Present Illness
General
Chief Complaint: Breathing Problem
Source: patient and records
Time Seen by Provider: 04/15/25 07:27
History of Present Illness
History of Present Illness:
84-year-old female with past medical history of asthma/COPD, atrial fibrillation status post pacemaker placement, CAD status postacute [place], CHF, hypertension, hyperlipidemia, [id number] diabetes, breast cancer status postmastectomy who
presents to the emergency department for relatively acute shortness of breath which started yesterday, got somewhat worse today prompting her to come to the ER. Patient states this feels similar to when she was seen in this emergency department
back in January and treated for mild CHF exacerbation with intravenous Lasix within the ER but was ultimately discharged home. Patient endorses postnasal drip which she states is what seems to be making her cough worse but denies any other infectious
symptoms. Patient reports that she is readily compliant with all of her medications including her Eliquis and Lasix. She denies any fevers, chills, rigors, nausea, vomiting, lower extremity edema, abnormal weight gain, known sick contacts, recent
travel or recent antibiotics. Social history was otherwise noncontributory
Past History
Past History
ED Past Medical History: Arrthythmia (Atrial fib), Asthma, CAD, Cancer (Breast and colon CA), CHF, COPD, GERD, HTN, Hypercholesterolemia, NIDDM (Diet controlled), [place], Hypothyroidism and Other (Colitis, Anemia)
ED Past Surgical History: Appendectomy, Bowel resection (Colectomy for Colon CA), Cardiac (Pacemaker), Cholecystectomy, Orthopedic (Right and left total knee replacements), Tonsilectomy and Other (Left breast mastectomy)
Social History
Tobacco: Former smoker
Alcohol: None
Drug: None
Personal:
Living: alone
Employment: Retired
Family History
Family History: CAD and Other
Review of Systems
Review of Systems
All Other Systems: ROS reviewed and negative except as documented in HPI and ROS
Phy Exam
Physical Exam
Physical Exam:
GENERAL: Alert , in no apparent distress however patient does have a somewhat wet sounding cough throughout the exam and is constantly clearing her throat
HEAD: Normocephalic atraumatic
EYE: Clear conjunctiva
NECK: Supple
ENT: o/p clr, mmm.
CARDIAC: Irregularly irregular however rate controlled
LUNGS: Scattered rhonchi but otherwise clear, no acute respiratory distress, speaking full sentences
ABDOMEN: Soft, without focal tenderness, no r/g, no cvat
NEUROLOGICAL: Alert and oriented
SKIN: Warm and dry, skin intact.
MUSCULOSKELETAL: No edema, well perfused.
PSYCH: Normal and appropriate interaction.
Scores
Heart Failure Risk
Heart Failure Risk Score: Yes
History of Stroke or TIA: No
History of intubation for respiratory distress: No
Heart rate on ED arrival >/= 110: No
SaO2 <90% on arrival on room air: No
HR >/=110 during 3min walk test (or too ill to perform test): No
ECG has acute ischemic changes: No
Urea >/=12mmol/L (BUN 33.6mg/dL): Yes
Serum CO2>/=35mmol/L: No
Troponin I or T elevated to [place] Level (0.4mg/dL): No
NT-proBNP >/=5,000ng/L (5,000pg/ml): No
HF Risk Score: 1
Admission Status: MEDIUM RISK 5.1% Consider observation or discharge to home with homecare & f/u visit to PCP/Outsole Cementer Machine, or SNF for treatment
Heart Score for Chest Pain Patients
STEMI patient?: Not applicable
Withdrawal Assessment of Alcohol
Withdrawal Assessment Completed?: Not applicable
Course
Orders/Labs/Results
Orders:
Orders
04/15/25 07:12
Electrocardiogram (*1) Urgent
Reason for Study: Shortness of Breath
EKG- Treatment ONCE
04/15/25 07:32
Interrogate Pacemaker- Treatment ONCE
04/15/25 07:33
CR Chest - 2 Views Urgent
Comment:
Reason For Exam: SOB, cough
04/15/25 07:52
Complete Blood Count/With Diff Urgent
NT-proBNP Urgent
Troponin I Urgent
04/15/25 08:42
Furosemide [Lasix] 40 mg IV NOW STA
04/15/25 08:43
Oxycodone [Roxicodone] 5 mg PO NOW STA
04/15/25 09:19
Comprehensive Metabolic Panel Urgent
Abnormal Lab Results
04/15/25 04/15/25
07:52 09:19
RBC 4.18 L 10^6/uL
(4.20-5.40)
RDW 17.3 H %
(11.5-14.5)
Absolute Monos (auto) 0.8 H 10^3/uL
(0.1-0.6)
Monocytes % 10.9 H %
(1.7-9.3)
BUN 41 H mg/dl
(7-17)
Creatinine 1.1 H mg/dL
(0.6-1.0)
Glucose 154 H mg/dl
(70-99)
04/15/25 07:52
04/15/25 09:19
Vital Signs
Initial and Last Documented VS:
Initial Vital Signs
Temp Pulse Resp BP Pulse Ox
97.8 F 83 16 95/61 95
04/15/25 07:10 04/15/25 07:10 04/15/25 07:10 04/15/25 07:10 04/15/25 07:10
Last Documented Vital Signs
Temp Pulse Resp BP Pulse Ox
97.8 F 94 15 114/89 94
04/15/25 07:10 04/15/25 10:15 04/15/25 10:15 04/15/25 10:00 04/15/25 09:00
MDM/Problems Addressed
Differential Diagnosis Includes:
Asthma/COPD exacerbation, seasonal allergies, CHF, valvular dysfunction, volume overload, cardiac arrhythmia/dysrhythmia, PE considered
MDM/Problems Addressed:
84-year-old female presenting to the ER for evaluation of shortness of breath since yesterday, feels similar to previous mild CHF exacerbations. Patient is in no acute distress. Hemodynamically stable. Will check labs, EKG, chest x-ray. Given
she has a [employer] pacemaker we will interrogate this. Disposition pending
Chronic conditions affecting care: CAD, Arrhythmia and COPD
*Radiology
Radiology exam reviewed: preliminary read by ED provider (Unchanged from previous x-ray)
*Pulse Oximetry
Patient hypoxic: no
Comment: 95%
*Civil Engineering Intern Interpretation
Rate: normal
Heart Rate: 85
Rhythm: a-fib
*Critical Care Note
Total Time (30-74mins, 75-104mins- exclusive of procedures): Not Applicable
Patient Management
Discussion with other providers: Lock Setter
Escalation/DeEscalation of care consider admission/obs:
Spoke to patient's archives specialist who states it would be okay to treat patient in the ER with a dose of Lasix and that he would ensure the office would follow-up with the patient next. Patient remains hemodynamically stable and in no acute distress.
She did receive a dose of oxycodone here for restless legs/neuropathy as she did not take her usual dose of this at home this morning. At this time patient is stable for discharge home. Family to pick patient up. Aware of return precautions to
the ER.
ED Attending Note
-
Portions of this chart may have been created with voice recognition software.� Occasional wrong word or��sound alike� substitutions may have occurred due to the inherent limitations of voice recognition software.
Discharge Plan
Departure
Patient Disposition: Home (Routine Discharge)
Date of Disposition: 04/15/25
Time of Disposition: 10:08
Patient with high blood pressure during this ER visit?: No
Discharge Problem:
Shortness of breath
Instructions: Shortness of Breath (Dyspnea) (DC)
Prescriptions:
No Action
cetirizine 10 MG tablet
10 mg PO DAILY
albuterol sulfate 1 PUFF HFA aerosol inhaler
1 puff inhalation R DAILYPRN PRN (Reason: sob)
Eliquis 5 mg Tablet
5 mg PO BID
ezetimibe [Zetia] 10 mg Tablet
10 mg PO QPM
budesonide-formoterol [Symbicort] 160-4.5 mcg/actuation Hfa Aerosol Inhaler
2 puff inhalation R BID Qty: 10.2 0RF
atorvastatin 80 mg tablet
80 mg PO QPM Qty: 0 0RF
vitamin B complex Tablet Extended Release
1 tab PO DAILY Qty: 0 0RF
potassium chloride 10 mEq Tablet Extended Release
10 meq PO DAILY
levothyroxine [Synthroid] 112 mcg Tablet
112 mcg PO DAILY
glipizide 5 mg tablet extended release 24hr
5 mg PO DAILY
allopurinol 100 mg tablet
200 mg PO DAILY
acetaminophen [Pain Relief ES (acetaminophen)] 500 mg tablet
500 mg PO Q8HPRN PRN (Reason: mild pain)
amoxicillin 500 mg Capsule
2,000 mg PO DAILYPRN PRN (Reason: before dentist)
oxycodone 5 mg Tablet
5 mg PO Q6HPRN PRN (Reason: severe pain) Qty: 8 0RF
isosorbide mononitrate 30 mg Tablet Extended Release 24 Hr
30 mg PO DAILY Qty: 30 0RF
carvedilol 3.125 mg Tablet
3.125 mg PO BID Qty: 60 0RF
furosemide 80 mg Tablet
80 mg PO BID@0800,1600 Qty: 60 0RF
glipizide 2.5 mg Tablet Extended Release 24hr
2.5 mg PO QPM Qty: 0 0RF
hydralazine 50 mg Tablet
50 mg PO TID Qty: 60 0RF
duloxetine 20 mg Capsule,Delayed Release(Dr/Ec)
20 mg PO DAILY Qty: 0 0RF
pregabalin 25 mg Capsule
25 mg PO BID Qty: 60 0RF
dapagliflozin propanediol 10 mg Tablet
10 mg PO DAILY Qty: 30 0RF
senna 8.6 mg capsule
8.6 mg PO HS PRN (Reason: if you take Oxycodone) Qty: 30 0RF
Referrals:
Gary Hansen MD [Active, Cardiology]
Jerrell Byrne MD [Family Provider, Family Practice]
Interventions
Interventions:
*Risk Screen - Suicide Last Done: 04/15/25 07:10
*General Assessment Last Done: 04/15/25 07:41
*Neglect/Abuse Screening Last Done: 04/15/25 07:10
*ED- Fall Risk Assessment Last Done: 04/15/25 07:41
*ED COVID-19 Vaccine History Last Done: 04/15/25 07:41
*Nursing Disposition Last Done: 04/15/25 10:30
ED- Cardiac Assessment Last Done: 04/15/25 07:42
ED- Pulmonary Assessment Last Done: 04/15/25 07:42
Discharge Date and Time
Discharge Date/Time: 04/15/25 10:30
Print Language: MACEDONIAN
[2025-04-15 08:03] LABS: % Basophils 0.8 % (0-2); % Eosinophils 3.6 % (0-6); % Immature Granulocytes 0.4 % (0-0.5); % Monocytes 10.9 % (1.7-9.3); % Neutrophils 62.3 % (42.2-75.2); Absolute Basophils 0.1 10^3/uL (0-0.2); Absolute Eosinophils 0.3 10^3/uL (0-0.7); Absolute Lymphocytes 1.6 10^3/uL (1.2-3.4); Absolute Monocytes 0.8 10^3/uL (0.1-0.6); Absolute Neutrophils 4.5 10^3/uL (1.4-6.5); Hematocrit 38.4 % (37.0-47.0); Hemoglobin 12.7 g/dL (12.0-16.0); Mean Corp Hgb Conc. 33.1 g/dL (33.0-37.0); Mean Corpuscular Hgb 30.4 pg (27.0-31.0); Mean Corpuscular Volume 91.9 fL (81.0-99.0); Mean Platelet Volume 9.3 fL (7.4-10.4); Nucleated Red Blood Cells % 0.3 %; Platelet Count 247 10^3/uL (130-400); Red Blood Cell Count 4.18 10^6/uL (4.20-5.40); Red Cell Dist. Width 17.3 % (11.5-14.5); White Blood Cell Count 7.2 10^3/uL (4.8-10.8)
[2025-04-15 08:12] VITALS: BP 105/62
[2025-04-15 08:28] LABS: NT-proBNP 3230 pg/ml; Troponin I 0.015 ng/ml
[2025-04-15] MEDS: ROXICODONE 5 MG PO (08:50)
[2025-04-15] MEDS: LASIX 40 MG IV (08:55)
[2025-04-15 09:00] VITALS: BP 108/94
--- NOTE | 2025-04-15 09:21 | EDRN ---
Reattempted labs- got a very small amt - sent this to the lab. Promotions Director aware but not here yet. Pt complaining of continual discomfort from herneuropathis in her feet'. Repositioned
[2025-04-15 09:44] LABS: ALT (SGPT) 29 U/L (0-35); AST (SGOT) 35 U/L (14-36); Albumin 4.2 g/dl (3.5-5.0); Alkaline Phosphatase 121 U/L (38-126); Blood Urea Nitrogen 41 mg/dl (7-17); Calcium 9.7 mg/dl (8.4-10.2); Carbon Dioxide 28 mmol/L (22-30); Chloride 106 mmol/L (98-107); Glucose 154 mg/dl (70-99); Potassium 3.6 mmol/L (3.5-5.1); Sodium 143 mmol/L (135-145); Total Bilirubin 0.8 mg/dl (0.2-1.3); Total Protein 7.2 g/dl (6.3-8.2); eGFR 48.94
[2025-04-15 10:00] VITALS: BP 114/89
== END 2025-04-15 10:30 | disposition home or self-care (01) ==
LOC: EMR 07:07
PROVIDERS: Physician Assistant Medical; EMERGENCY PHYSICIAN Student in an Organized Health Care Education/Training Program; FAMILY PHYSICIAN Family Medicine
DX: R06.02 Shortness of breath (principal); I48.91 Unspecified atrial fibrillation; J44.89 Other specified chronic obstructive pulmonary disease; Z95.0 Presence of cardiac pacemaker; I25.10 Atherosclerotic heart disease of native coronary artery without angina pectoris; I11.0 Hypertensive heart disease with heart failure; I50.9 Heart failure, unspecified; E78.00 Pure hypercholesterolemia, unspecified; E11.9 Type 2 diabetes mellitus without complications; Z79.01 Long term (current) use of anticoagulants; Z87.891 Personal history of nicotine dependence
CPT/HCPCS: 99285; 96374; 71046; 80053; 83880; 84484; 85025; 93005

== ENCOUNTER 2025-07-16 17:37 | Emergency (ER) | payer OTHER, SELFPAY ==
[2025-07-16 17:48] VITALS: BP 108/71
--- NOTE | 2025-07-16 23:41 | ED.MUSCINJ ---
HPI-Injury
General
Chief Complaint: Musculo-Skeletal Complaint
Source: patient
Exam Limitations: none
Time Seen by Provider: 07/16/25 19:32
Nursing documentation reviewed up to this point in time: agreed with
History of Present Illness-Injury
Is this injury a work related problem?: No
Is pt an associate of [facility]/[place]?: No
Initial Injury comments:
Patient to ED [facility] report of BLE pain. SHe has a history of peripheral neuropathy. Takes oxycodone TID for the past year and complains that it is not helping. States she wants to stop this med. Was taking high dose gabapentin without improvement.
Recently switched to lyrica 25mg daily. SHe does not note any improvement Brought to ED by son for eval.
Past History
Past History
ED Past Medical History: Arrthythmia (Atrial fib), Asthma, CAD, Cancer (Breast and colon CA), CHF, COPD, GERD, HTN, Hypercholesterolemia, NIDDM (Diet controlled), [place], Hypothyroidism and Other (Colitis, Anemia)
ED Past Surgical History: Appendectomy, Bowel resection (Colectomy for Colon CA), Cardiac (Pacemaker), Cholecystectomy, Orthopedic (Right and left total knee replacements), Tonsilectomy and Other (Left breast mastectomy)
Social History
Tobacco: Former smoker
Alcohol: None
Drug: None
Personal:
Living: alone
Employment: Retired
Family History
Family History: CAD and Other
Review of Systems
Review of Systems
Allergies reviewed?: Yes
All Other Systems: ROS reviewed and negative except as documented in HPI and ROS
Constitutional: Reports no symptoms
EENT: Reports no symptoms
Respiratory: Reports no symptoms
Cardiac: Reports no symptoms
ABD/GI: Reports no symptoms
: Reports no symptoms
Musculoskeletal: Reports no symptoms
Skin: Reports no symptoms
Neurological: Reports other (Bilateral lower extremity neuropathy pain)
Psychiatric: Reports no symptoms
Phy Exam
General Physical Exam
General Presentation: well appearing and mild distress
General age: appears stated age
General Skin: warm and dry
General Habitus: normal
General Mental: alert
Cardiovascular Exam
Cardiovascular Exam: regular rate/rhythm
Pulmonary Exam
Pulmonary Exam: no respiratory distress and chest non tender
Musculoskeletal Exam
Musculoskeletal Exam: full ROM and neuro vasc intact
Skin Exam
Skin Exam: normal color, warm/dry and no rash
Psychiatric Exam
Psychiatric Exam: normal mood/affect
*Pulse Oximetry
SaO2: 98
Oxygen Mode of Delivery: Room air
Patient hypoxic: no
*Critical Care Note
Total Time (30-74mins, 75-104mins- exclusive of procedures): Not Applicable
Update Note
Update Note:
Patient with history of BLE neuropathy. Takes lyrica 25mg daily, oxycodone tid for her pain. Lyrica is a new med for her. Was on high dose gabapentin without improvement. No changes in her pain, no new symptoms. She came to ED to see if there
were any other medications to treat this. SHe would like to stop her oxycodone which she has been taking for over a year now. I warned her not to suddenly stop oxy at this point, will need to wean down with close supervision by PCP. Will increase
her lyrica to bid and she will follow up with her provider on Friday. She is discharged home. Agreeable to plan.
ED Attending Note
-
Portions of this chart may have been created with voice recognition software.� Occasional wrong word or��sound alike� substitutions may have occurred due to the inherent limitations of voice recognition software.
Discharge Plan
Departure
Patient Disposition: Home (Routine Discharge)
Date of Disposition: 07/16/25
Time of Disposition: 20:29
Patient with high blood pressure during this ER visit?: No
Condition: Good
Covid-19: Not Applicable
Discharge Problem:
Peripheral neuropathy
Instructions: Peripheral neuropathy
Prescriptions:
New
pregabalin [Lyrica] 25 mg capsule
25 mg PO BID Qty: 60 0RF
No Action
cetirizine 10 MG tablet
10 mg PO DAILY
albuterol sulfate 1 PUFF HFA aerosol inhaler
1 puff inhalation R DAILYPRN PRN (Reason: sob)
Eliquis 5 mg Tablet
5 mg PO BID
ezetimibe [Zetia] 10 mg Tablet
10 mg PO QPM
budesonide-formoterol [Symbicort] 160-4.5 mcg/actuation Hfa Aerosol Inhaler
2 puff inhalation R BID Qty: 10.2 0RF
atorvastatin 80 mg tablet
80 mg PO QPM Qty: 0 0RF
vitamin B complex Tablet Extended Release
1 tab PO DAILY Qty: 0 0RF
potassium chloride 10 mEq Tablet Extended Release
10 meq PO DAILY
levothyroxine [Synthroid] 112 mcg Tablet
112 mcg PO DAILY
glipizide 5 mg tablet extended release 24hr
5 mg PO DAILY
allopurinol 100 mg tablet
200 mg PO DAILY
acetaminophen [Pain Relief ES (acetaminophen)] 500 mg tablet
500 mg PO Q8HPRN PRN (Reason: mild pain)
amoxicillin 500 mg Capsule
2,000 mg PO DAILYPRN PRN (Reason: before dentist)
oxycodone 5 mg Tablet
5 mg PO Q6HPRN PRN (Reason: severe pain) Qty: 8 0RF
isosorbide mononitrate 30 mg Tablet Extended Release 24 Hr
30 mg PO DAILY Qty: 30 0RF
carvedilol 3.125 mg Tablet
3.125 mg PO BID Qty: 60 0RF
furosemide 80 mg Tablet
80 mg PO BID@0800,1600 Qty: 60 0RF
glipizide 2.5 mg Tablet Extended Release 24hr
2.5 mg PO QPM Qty: 0 0RF
hydralazine 50 mg Tablet
50 mg PO TID Qty: 60 0RF
duloxetine 20 mg Capsule,Delayed Release(Dr/Ec)
20 mg PO DAILY Qty: 0 0RF
pregabalin 25 mg Capsule
25 mg PO BID Qty: 60 0RF
dapagliflozin propanediol 10 mg Tablet
10 mg PO DAILY Qty: 30 0RF
senna 8.6 mg capsule
8.6 mg PO HS PRN (Reason: if you take Oxycodone) Qty: 30 0RF
Referrals:
Jerrell Byrne MD [Family Provider, Family Practice] - Follow up in 2-3 days
Interventions
Interventions:
*Risk Screen - Suicide Last Done: 07/16/25 17:52
*Neglect/Abuse Screening Last Done: 07/16/25 17:52
*Nursing Disposition Last Done: 07/16/25 20:50
ED-Musculoskeletal Assessment Last Done: 07/16/25 20:32
Discharge Date and Time
Discharge Date/Time: 07/16/25 20:51
Print Language: ARMENIAN
== END 2025-07-16 20:51 | disposition home or self-care (01) ==
LOC: EMR 17:37
PROVIDERS: EMERGENCY PHYSICIAN Emergency Medicine; FAMILY PHYSICIAN Family Medicine
DX: E11.42 Type 2 diabetes mellitus with diabetic polyneuropathy (principal); I25.10 Atherosclerotic heart disease of native coronary artery without angina pectoris; I48.91 Unspecified atrial fibrillation; I11.0 Hypertensive heart disease with heart failure; I50.9 Heart failure, unspecified; E78.00 Pure hypercholesterolemia, unspecified; I25.2 Old myocardial infarction; J44.89 Other specified chronic obstructive pulmonary disease; E03.9 Hypothyroidism, unspecified; K21.9 Gastro-esophageal reflux disease without esophagitis; Z79.01 Long term (current) use of anticoagulants; Z79.84 Long term (current) use of oral hypoglycemic drugs; Z95.0 Presence of cardiac pacemaker; Z87.891 Personal history of nicotine dependence; Z85.3 Personal history of malignant neoplasm of breast; Z90.12 Acquired absence of left breast and nipple; Z85.038 Personal history of other malignant neoplasm of large intestine; Z90.49 Acquired absence of other specified parts of digestive tract; Z96.653 Presence of artificial knee joint, bilateral; Z82.49 Family history of ischemic heart disease and other diseases of the circulatory system
CPT/HCPCS: 99282

== ENCOUNTER → 2025-08-02 15:32 | Outpatient (REF) | payer OTHER, SELFPAY | LOC: RCS 15:32 | PROVIDERS: ATTENDING PHYSICIAN Internal Medicine Cardiovascular Disease; FAMILY PHYSICIAN Family Medicine | DX: I42.9 Cardiomyopathy, unspecified (principal) | CPT/HCPCS: 93306 ==